=== PATIENT | female | born 1960 | race Caucasian/White ===

== ENCOUNTER 2019-07-20 20:20 | Emergency (ER) | payer OTHER, MEDICARE, SELFPAY ==
--- NOTE | ~2019-07-20 | XR_ITS ---
EXAMINATION: XR chest 2V DATE: 07/20/2019 21:18 INDICATION: Chest pain TECHNIQUE: Frontal and lateral views of the chest are obtained COMPARISON: 02/25/2018; chest CT, 10/10/2018 FINDINGS: The lungs are free of acute opacities. Chronic opacities are noted in the right middle lobe , consistent with chronic infection. A pain pump catheter ends in the central spinal canal. There is no pleural effusion or pneumothorax. The cardiomediastinal silhouette is normal. There is mild thorac ic spondylosis. IMPRESSION: 1. No acute cardiopulmonary abnormality. 2. Chronic opacities of the right middle lobe, consistent with chronic infection. Reviewed, dictated and finalized at location A. IMPRESSION: 1. No acute cardiopulmonary abnormality. 2. Chronic opacities of the right middle lobe, consistent with chronic infectio n.
--- NOTE | ~2019-07-20 | CT_ITS ---
EXAMINATION: CTA chest abdomen pelvis DATE: 07/21/2019 10:36 CDT INDICATION: Chest and upper back pain TECHNIQUE: Computed tomographic angiography (CTA) of the chest, abdomen, and pelvis was performed wit h 100 mL Omnipaque-350 intravenous contrast. The dose-length product was 306.35 mGy-cm. Maximum inten sity projection 3D-reconstructions of the aorta and other arteries were constructed by the [facility] on a separate workstation. Automated exposure control and iterative reconstruction technique were employed. COMPARISON: CT dated 10/10/2018 FINDINGS: CHEST CTA: Heart size is normal. No evidence for aortic aneurysm or dissection. No significant pleural or perica rdial effusion. No thoracic lymphadenopathy. No evidence for pulmonary embolism. There are patchy are as of airspace consolidation throughout both lungs with areas of tree-in-bud configuration. Findings advanced since prior examination. There is mild bronchiectasis and airway thickening predominantly af fecting the lingula and middle lobe. ABDOMEN AND PELVIS CTA: Status post cholecystectomy with pneumobilia. The spleen, pancreas, adrenal glands and kidneys are un remarkable. No free air or free fluid. No evidence for aortic aneurysm or dissection. Major branches of the thoracic and abdominal aorta are patent. Status post hysterectomy. There is an implanted spina l pain pump. Mild thoracic and lumbar spondylosis. IMPRESSION: 1. No evidence for pulmonary embolism. No significant vascular abnormality. 2: Interval progression of patchy airspace disease predominantly affecting the lingula and right midd le lobe with areas of bronchiectasis and bronchial wall thickening. Findings suspicious for atypical infection. Reviewed, dictated and finalized at location A. IMPRESSION: 1. No evidence for pulmonary embolism. No significant vascular abnormality. 2: Interval progression of patchy airspace disease predominantly affecting the lingula and right middle lobe with areas of bronchiectasis and bronchial wall t hickening. Findings suspicious for atypical infection.
--- NOTE | 2019-07-20 20:43 | ECG_ITS ---
Measurements Intervals [place] Rate: 82 P: 76 TX: 189 QRS: 69 QRSD: 86 T: 62 QT: 380 QTc: 445 Interpretive Statements SINUS RHYTHM INCOMPLETE RIGHT BUNDLE BRANCH BLOCK BASELINE ARTIFACT- I, II, III, AVR, AVL, AVF, V1-V6 BORDERLINE ECG Electronically Signed On 07-21-2019 8:06:00 CDT by Vernon Rosales D.O.
[2019-07-20 20:45] VITALS: BP 123/74; PULSE 81; RESP 20; TEMP 36.9; O2SAT 100
--- NOTE | 2019-07-20 20:45 | ED.CHESTPAIN ---
HPI - Chest Pain General Chief Complaint: Chest Pain Stated Complaint: chest pains,sob Time Seen by Provider: 07/20/19 20:22 History of Present Illness HPI narrative: Amanda is a 59-year-old woman a past medical history of bronchiectasis, MAC, chronic headaches, and chronic pain that presented to the emergency department chest pain. She has chest pain that is at the inferior portion of her sternum and shoots to her back. it has been getting progressively worse throughout the week. It is worse when she takes a deep breath. It was mildly better with an albuterol nebulizer treatment. It was also mildly help with her home morphine. She denies any syncope / near syncope, nausea, vomiting diarrhea, and diaphoresis. Related Data Home Medications Medication Instructions Recorded Confirmed albuterol sulfate 2.5 mg INHALATION Q4-5H PRN 07/20/19 07/20/19 alprazolam 0.5 mg PO BID PRN 07/20/19 07/20/19 hydrocodone-acetaminophen [[place]] 1 tablet PO Q4H PRN 07/20/19 07/20/19 lacosamide [Vimpat] 100 mg PO BID 07/20/19 07/20/19 morphine concentrate 10 mg PO Q4H 07/20/19 07/20/19 propranolol 60 mg PO DAILY 07/20/19 07/20/19 topiramate 400 mg PO BID 07/20/19 07/20/19 trazodone 100 mg PO HS 07/20/19 07/20/19 zolmitriptan 5 mg PO DAILY 07/20/19 07/20/19 Allergies Allergy/AdvReac Type Severity Reaction Status Date / Time celecoxib Allergy Unknown Verified 07/21/17 08:07 paroxetine Allergy Unknown Verified 07/21/17 08:07 Review of Systems Constitutional: Constitutional: Reports no additional constitutional complaints Eyes: Eyes: Reports no additional eye complaints ENT: Reports system reviewed and no additional complaints, except as documented Cardiovascular: Cardiovascular: Reports no additional cardiovascular complaints Respiratory: Respiratory: Reports no additional respiratory complaints Gastrointestinal: Gastrointestinal: Reports no additional gastrointestinal complaints Genitourinary: Genitourinary: Reports no additional female genitourinary complaints Musculoskeletal: Musculoskeletal: Reports no additional musculoskeletal complaints Integumentary/Breasts: Skin/Breast: Reports system reviewed and no additional complaints, except as docu Neurologic: Reports system reviewed and no additional complaints, except as documented Psychiatric: Psychiatric: Reports no additional psychiatric complaints Endocrine: Endocrine: Reports no additional endocrine complaints Hematologic/Lymphatic: Hematologic/Lymphatic: Reports no additional hematologic/lymphatic complaints [facility] Family History Family History Mother Family history of glaucoma Family history of malignant neoplasm of esophagus, Onset Age: 73 Father Family history of emphysema Diabetes mellitus Sibling Hypertension Social History Social History Smoking status: Never smoker Exam Const: General: cooperative Other: mild distress, but occasionally start crying HENMT: Other: normocephalic, atraumatic Eyes: General: appearance normal, both eyes and all related structures Pupils: Equal, round and reactive pupils present Neck: Neck: normal visual inspection and full ROM Chest: Chest palpation & inspection: normal inspection of the chest and other (TTP over the sternum and right upper back) Resp: Other: diffuse wheezing with prolonged expiratory phase, moderate cough present during exam Cardio: Other: Regular rate and rhythm without murmur, no lower extremity edema GI: Other: bowel sounds present throughout, tenderness in the epigastric region, no rebound tenderness : Other: no CVA tenderness Back/Spine/Pelvis: Other: spine not tender to palpation Skin: General skin exam: normal color and no rashes or lesions noted Neuro: General: oriented to person, oriented to place, oriented to time, patient oriented x3, gait norm
[2019-07-20] MEDS: MORPHINE SULFATE 4 MG/ML INJ IV PUSH (21:00)
[2019-07-20 21:04] LABS: Basophils Absolute Auto 0.08 K/mm3 (0.00-0.10); Basophils Percent Auto 1.2 % (0.0-1.0); Eosinophils Absolute Auto 0.37 K/mm3 (0.02-0.50); Eosinophils Percent Auto 5.3 % (1.0-6.0); Hematocrit 37.7 % (35.0-49.0); Hemoglobin 12.3 g/dL (12.0-15.0); Immature Granulocyte Absolute 0.02 K/mm3 (0.00-0.00); Immature Granulocyte Percent A 0.3 % (0.0-0.0); Lymphocytes Percent Auto 21.7 % (18.0-42.0); Mean Corpuscular HGB Conc 32.6 g/dL (32.0-36.0); Mean Corpuscular Hemoglobin 31.3 pg (27.0-31.0); Mean Corpuscular Volume 95.9 fL (78.0-102.0); Mean Platelet Volume 9.6 fl (9.2-11.8); Monocytes Absolute Auto 0.68 K/mm3 (0.10-0.90); Monocytes Percent Auto 9.8 % (2.0-11.0); Neutrophils Absolute Auto 4.3 K/mm3 (1.7-7.2); Neutrophils Percent Auto 61.7 % (50.0-70.0); Platelet Count Result 340 K/mm3 (150-420); Red Blood Count 3.93 M/mm3 (4.20-5.40); Red Cell Distribution Width 12.2 % (11.6-14.4); White Blood Count 6.9 K/mm3 (4.8-10.8)
[2019-07-20 21:15] LABS: Prothrombin Time 10.1 Seconds (9.64-11.0)
[2019-07-20 21:20] LABS: Alanine Aminotransferase 26 U/L (14-59); Albumin Level 3.8 g/dL (3.4-5.0); Alkaline Phosphatase 154 U/L (46-116); Anion Gap 14.1 mmol/L (7-16); Aspartate Amino Transferase 18 U/L (15-37); Bilirubin,Total 0.2 mg/dL (0.00-1.00); Blood Urea Nitrogen 16 mg/dL (7-18); Calcium 8.6 mg/dL (8.5-10.1); Carbon Dioxide 26 mmol/L (21-32); Chloride 107 mmol/L (98-108); Estimated Glomerular Filt Rate 56; Glucose 118 mg/dL (70-99); Osmolality Calculated 298 mOsm/kg (285-295); Potassium 4.1 mmol/L (3.5-5.1); Sodium 143 mmol/L (136-145); Total Protein 7.1 g/dL (6.4-8.2)
[2019-07-20 21:21] LABS: Lipase 219 U/L (73-393); Troponin I < 0.02 ng/mL (0.00-0.056)
[2019-07-20 21:22] LABS: BNP 86.3 pg/mL (0-100)
[2019-07-20 21:35] VITALS: BP 125/65; PULSE 71; O2SAT 100
[2019-07-20 22:51] VITALS: BP 115/64; PULSE 71; O2SAT 94
== END 2019-07-20 22:58 | disposition home or self-care (01) ==
PROVIDERS: Emergency Provider Family Medicine; PCP Family Medicine
DX: R07.81 Pleurodynia (principal); R06.2 Wheezing
CPT/HCPCS: 36415; 71046; 71275; 74174; 80053; 83690; 83880; 84484; 85025; 85610; 93005; 96374; 99284; J2270; Q9965

== ENCOUNTER 2019-08-21 12:46 | Outpatient (CLI) | payer OTHER, MEDICARE, SELFPAY ==
--- NOTE | ~2019-08-21 | MM_ITS ---
EXAMINATION: MM screening salas BI w pratima HISTORY: Screening mammogram TECHNIQUE: Craniocaudal and mediolateral oblique 3-D tomosynthesis images were obtained and synthetic 2-D images were generated. CAD analysis was submitted and interpreted. COMPARISON: 05/14/2018 bilateral digital screening mammogram 04/27/2017 bilateral diagnostic digital mammogram, left Limited breast ultrasound 10/11/2016 diagnostic left digital mammogram, left Limited breast ultrasound 04/06/2016 right screening and left diagnostic digital mammogram examination, left complete breast ult rasound BREAST PARENCHYMAL COMPOSITION: There are scattered areas of fibroglandular density. FINDINGS: There is no evidence of suspicious mass, calcification, or architectural distortion to sugg est malignancy in either breast. There has been no suspicious interval change. IMPRESSION: 1. No mammographic evidence of malignancy. 2. Recommend routine screening mammography in one year. BI-RADS Category 1: Negative Reviewed, dictated and finalized at location A.
== END 2019-08-21 12:47 | disposition home or self-care (01) ==
PROVIDERS: PCP Family Medicine; Visit Provider Family Medicine
DX: Z12.31 Encounter for screening mammogram for malignant neoplasm of breast (principal)
CPT/HCPCS: 77063; 77067

== ENCOUNTER 2019-10-21 13:38 | Outpatient (CLI) | payer OTHER, MEDICARE, SELFPAY ==
--- NOTE | ~2019-10-21 | XR_ITS ---
EXAMINATION: XR chest 2V EXAM DATE: 10/21/2019 13:56 INDICATION: Bronchitis, shortness of breath. TECHNIQUE: Frontal and lateral projections of the chest obtained and reviewed. Comparison is made to prior examination from 07/20/2019. FINDINGS: Some scattered right upper lobe reticulonodular opacities unchanged likely postinfectious. Moderate chronic appearing hyperinflation. The lungs are otherwise clear. There are no pleural effu sions. The cardiomediastinal silhouette is within normal limits. There is no pneumothorax suspected . Pain pump device. Bones are unremarkable. IMPRESSION: 1. No acute cardiopulmonary findings. 2. Hyperinflation. Reviewed, dictated and finalized at location B.
== END 2019-10-21 13:39 | disposition home or self-care (01) ==
LOC: CHSLAB 13:44 → CHSIMG 13:44
PROVIDERS: PCP Family Medicine; Visit Provider Internal Medicine Pulmonary Disease
DX: J47.9 Bronchiectasis, uncomplicated (principal)
CPT/HCPCS: 71046

== ENCOUNTER 2019-10-31 16:48 | Outpatient (CLI) | payer OTHER, MEDICARE, SELFPAY ==
[2019-11-04 22:46] LABS: Lamotrigine Lamictal 6.1 mcg/mL (4.0-18.0)
== END 2019-10-31 16:49 | disposition home or self-care (01) ==
PROVIDERS: PCP Family Medicine
DX: G40.209 Localization-related (focal) (partial) symptomatic epilepsy and epileptic syndromes with complex partial seizures, not intractable, without status epilepticus (principal)
CPT/HCPCS: 36415; 80175

== ENCOUNTER 2019-12-16 16:38 | Outpatient (CLI) | payer OTHER, MEDICARE, SELFPAY ==
--- NOTE | ~2019-12-16 | XR_ITS ---
EXAMINATION: XR shoulder LT min 2V, XR humerus LT DATE: 12/16/2019 17:01 INDICATION: Left shoulder pain near the axilla TECHNIQUE: 1. AP internally and externally rotated, AP oblique externally rotated and transscapular Y views of t he left shoulder were obtained. 2. AP and lateral views of the left humerus were obtained. COMPARISON: None FINDINGS: Normal alignment at the left shoulder and elbow. No fracture.Mild to moderate acromioclavicular oste oarthritis. Normal joint space at the left glenohumeral and elbow joints. Soft tissues are unremarkab le. Visualized portions of the lungs are clear. 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 Reviewed, dictated and finalized at location A. 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
== END 2019-12-16 16:39 | disposition home or self-care (01) ==
LOC: CHSIMG 16:41
PROVIDERS: PCP Family Medicine; Visit Provider Family Medicine
DX: M25.512 Pain in left shoulder (principal); M79.622 Pain in left upper arm
CPT/HCPCS: 73030; 73060

== ENCOUNTER → 2021-01-26 08:28 | Outpatient (CLI) | payer OTHER, MEDICARE, SELFPAY ==
--- NOTE | ~2021-01-26 | CT_ITS ---
EXAMINATION: CT diagnostic chest wo con EXAM DATE: 01/26/2021 08:43 INDICATION: Dyspnea, hemoptysis. Mycobacterial mildly complex. Shortness of breath and cough. TECHNIQUE: Spiral CT of the chest without contrast. Axial, coronal and sagittal images of the chest were reviewed. Coronal maximum intensity pixel images of chest reviewed. The dose-length product ( DLP) for this examination was 129.07 mGy-cm. The exposure was tailored according to patient size (au to mA exposure control), and iterative reconstruction (ASIR) was used as additional dose reduction te chnique. Comparison is made to prior examination from 07/20/2019. FINDINGS: Again there are scattered bilateral regions of tree-in-bud pattern reticular nodular airsp dean disease, pattern suggests endobronchial spread of chronic infectious process. Again there is righ t middle lobe bronchiectasis with mucus plugging. Compared to prior study there has been improvement in some of these regions in the left lung, and mild progression of a region in the right upper lobe. There is mild emphysema and moderate hyperinflation. There are no pleural or pericardial effusions. Tracheobronchial tree is patent. There is no mediastinal, hilar or axillary lymphadenopathy. The re is no pneumothorax. Heart normal in size. No evidence of coronary arterial calcification. Pne umobilia. No osteoblastic or osteolytic lesions identified. Pain pump tip at mid thoracic level. IMPRESSION: 1. Waxing and waning of scattered tree-in-bud pattern airspace disease likely chronic infectious pro cess. 2. Emphysema, hyperinflation, bronchiectasis. Reviewed, dictated and finalized at location A. IMPRESSION: 1. Waxing and waning of scattered tree-in-bud pattern airspace disease likely chronic infectious process. 2. Emphysema, hyperinflation, bronchiectasis.
== END ==
PROVIDERS: Visit Provider Internal Medicine Pulmonary Disease
DX: R06.00 Dyspnea, unspecified (principal); J43.9 Emphysema, unspecified; J47.9 Bronchiectasis, uncomplicated; R91.8 Other nonspecific abnormal finding of lung field
CPT/HCPCS: 71250

== ENCOUNTER 2021-03-26 10:32 | Outpatient (CLI) | payer OTHER, MEDICARE, SELFPAY ==
--- NOTE | ~2021-03-26 | XR_ITS ---
[XR ribs LT 2V w CXR 2V ] INDICATION: Cough and chest pain TECHNIQUE: Frontal projection of the upper left ribs, frontal projection of the lower left ribs, obli que projection of all the left ribs, frontal inspiratory chest x-ray for interpretation. FINDINGS: There are no displaced rib fractures identified. There are no soft tissue abnormality see n. There is chronic apical scarring. Heart size normal. The lungs are hyperinflated which is consiste nt with, but not diagnostic of chronic obstructive pulmonary disease. IMPRESSION: 1:No acute displaced rib fractures. Reviewed, dictated and finalized at location A. PLUMBER
[2021-03-26 11:59] LABS: Influenza A QL RT-PCR Negative (Negative); Influenza B QL RT-PCR Negative (Negative); SARS-CoV-2 RNA PCR Negative (Negative)
== END 2021-03-26 10:33 | disposition home or self-care (01) ==
PROVIDERS: PCP Family Medicine; Visit Provider Family Medicine
DX: R05.9 Cough, unspecified (principal); R07.89 Other chest pain; Z20.822 Contact with and (suspected) exposure to COVID-19
CPT/HCPCS: 71046; 71100; 87502; C9803; U0003; U0005

== ENCOUNTER 2021-04-25 07:36 | Emergency (ER) | payer OTHER, MEDICARE, SELFPAY ==
--- NOTE | ~2021-04-25 | CT_ITS ---
EXAMINATION: CT diagnostic chest wo con DATE: 04/25/2021 09:00 INDICATION: Fall 3 days ago. Posterior left chest/back pain, shoulder pain. Mid and posterior neck pa in. Headache. TECHNIQUE: Computed tomography (CT) of the chest was performed without intravenous contrast. Automate d exposure control and iterative reconstruction technique were employed. Exam dose: 159.00 mGy-cm to tonia exam DLP. COMPARISON: 03/26/2021 PA and lateral chest with left RIBS 01/26/2021 CT chest 07/20/2019 CTA chest FINDINGS: Chronic bilateral posterior apical scarring, stable since 01/26/2021 and 07/20/2019. There are scattered bilateral upper lobe, middle lobe and bilateral lower lobe tree-in-bud infiltrate s. There is bronchiectasis and some opacified bronchi again noted in the middle lobe. Chronic waxing and waning bilateral tree-in-bud infiltrates are noted in the back to 07/20/2019, consistent with like ly chronic infectious process. Moderate hyperinflation, mild emphysema. Normal heart size. No pericardial or pleural effusion. No hilar or mediastinal mass lesion or lymphad enopathy. No thoracic aortic aneurysm. Normal morphology of the adrenal glands. Bilateral fat-containing foramen of Bochdalek hernias. Status post cholecystectomy. Pain pump in the left lateral abdomen with catheter in lower thoracic spinal canal. Anterolateral recent left second rib fracture.. IMPRESSION: Chronic scattered waxing and waning tree-in-bud infiltrates likely due to chronic infect ious process Emphysema Recent anterolateral left second rib fracture Reviewed, dictated and finalized at Location A. Reviewed, dictated and finalized at location A. AL ACCOUNTING CLERK IMPRESSION: Chronic scattered waxing and waning tree-in-bud infiltrates likely due to chronic infectious process Emphysema Recent anterolateral left second rib fracture
--- NOTE | ~2021-04-25 | CT_ITS ---
EXAMINATION: CT brain wo con DATE: 04/25/2021 09:00 INDICATION: Fall, head injury. Headache, severe nausea. TECHNIQUE: Computed tomography (CT) of the head was performed without intravenous contrast. The mA wa s adjusted according to patient size. Iterative reconstruction technique was employed. Exam dose: 68 1.00 mGy-cm total exam DLP. COMPARISON: None FINDINGS: No intracranial mass lesion or hemorrhage or cerebrovascular accident. No midline shift or mass effect effect. Normal ventricular size. No subdural or epidural hematoma. There are are carotid siphon internal carotid artery calcifications. Minimal right mastoid air cell effusion. The paranasal sinuses and mastoid air cells are otherwise un remarkable. No fracture or bone destruction of the cranial vault. IMPRESSION: No skull fracture or acute intracranial finding Cerebral atherosclerosis Reviewed, dictated and finalized at Location A. Reviewed, dictated and finalized at location A. SCHOOL ART TEACHER
--- NOTE | ~2021-04-25 | CT_ITS ---
EXAMINATION: CT cervical spine wo con DATE: 04/25/2021 09:00 INDICATION: Fall. Neck pain. TECHNIQUE: Computed tomography (CT) of the cervical spine was performed without intravenous contrast. Automated exposure control and iterative reconstruction technique were employed. Exam dose: 110.03 mGy-cm total exam DLP. COMPARISON: None FINDINGS: C1 and C2 are normally aligned and the odontoid process is intact. There is fusion at the apophyseal joints on the right at C2-3 and on the left at C3-4. There is degen erative change at the remaining apophyseal joints, especially severe on the left at C4-5. There is minimal anterolisthesis at C4-5. There is moderate degenerative disc disease at C5-6 and mild degenerative disc disease at C3-4 and C4 -5. No fracture or dislocation or locked facet or prevertebral soft tissue swelling. Bilateral apical pulmonary scarring. IMPRESSION: No fracture or dislocation Cervical spondylosis Reviewed, dictated and finalized at Location A. Reviewed, dictated and finalized at location A. ORK CABLER
[2021-04-25 07:59] VITALS: BP 121/76; PULSE 76; RESP 20; TEMP 36.3; O2SAT 98
--- NOTE | 2021-04-25 08:25 | ED.FALL ---
HPI - Fall General Chief Complaint: Fall Stated Complaint: pain in L of back and neck, L shoulder after fall Time Seen by Provider: 04/25/21 08:25 Source: patient Mode of arrival: ambulatory Limitations: no limitations History of Present Illness HPI Narrative: 60-year-old woman with a history of seizures comes in today complaining of left shoulder, neck, chest and back pain that started day before yesterday when she tripped over rug and ran into a door. Patient states that she has had severe nausea. She states that she fell to the ground but does not think she lost consciousness. She states that she has had no vomiting, difficulty speaking, visual changes, difficulty walking, or weakness. She does not take blood thinners. She denies chest pain, shortness of breath, palpitations, weakness or dizziness prior to the fall. MD complaint: fall Onset (ago): day(s) (2) Fall from: standing Fall witnessed: no Place fall occurred: home Loss of consciousness: none Prolonged down time: no Symptoms prior to fall: none Context: tripped/slipped Location of injury: head, chest and back Quality: sharp and aching Associated symptoms (after fall): headache, neck pain, chest pain and other (nausea) Related Data Home Medications Medication Instructions Recorded Confirmed alprazolam 0.5 mg PO BID PRN 07/20/19 04/25/21 hydrocodone-acetaminophen [[place]] 1 tablet PO Q4H PRN 07/20/19 04/25/21 lacosamide [Vimpat] 100 mg PO BID 07/20/19 04/25/21 morphine concentrate 10 mg PO Q4H 07/20/19 04/25/21 propranolol 60 mg PO DAILY 07/20/19 04/25/21 topiramate 400 mg PO BID 07/20/19 04/25/21 trazodone 150 mg PO HS 07/20/19 04/25/21 azithromycin 250 mg PO DAILY 04/25/21 04/25/21 bimatoprost [[place]] 1 drp EACH EYE HS 04/25/21 04/25/21 cyclosporine [Restasis] 1 drp EACH EYE BID 04/25/21 04/25/21 fluconazole See Rx Instructions .ROUTE .COMPLEX 04/25/21 04/25/21 latanoprost 1 drp EACH EYE DAILY 04/25/21 04/25/21 naloxone [Narcan] See Rx Instructions .ROUTE .COMPLEX 04/25/21 04/25/21 Allergies Allergy/AdvReac Type Severity Reaction Status Date / Time celecoxib Allergy Unknown Unknown Verified 04/25/21 08:10 paroxetine Allergy Unknown Unknown Verified 04/25/21 08:10 Review of Systems Review of Systems: All systems reviewed & are unremarkable except as noted in HPI and below Constitutional: Constitutional: Denies chills and Denies fever(s) Eyes: Eyes: Denies change in vision and Denies photophobia ENT: Denies nasal congestion and Denies sore throat Cardiovascular: Cardiovascular: Denies chest pain and Denies radiating jaw, neck or arm pain Respiratory: Respiratory: Denies cough, Denies dyspnea and Denies wheezing Gastrointestinal: Gastrointestinal: Denies abdominal pain, Denies diarrhea, Reports nausea and Denies vomiting Genitourinary: Genitourinary: Denies nocturia and Denies dysuria Musculoskeletal: Musculoskeletal: Denies back pain, Denies arthralgias and Denies joint swelling Integumentary/Breasts: Skin/Breast: Denies pruritus, Denies erythema and Denies rash Neurologic: Denies vertigo, Denies dizziness, Denies syncope, Reports headache(s), Denies focal weakness and Denies numbness Endocrine: Endocrine: Denies polydipsia and Denies polyuria Hematologic/Lymphatic: Hematologic/Lymphatic: Denies easy bleeding and Denies easy bruising Allergic/Immunologic: Allergic/Immunologic: Denies lip swelling and Denies throat swelling [facility] Past Medical History Medical History (Updated 04/25/21 @ 09:55 by Milo Gr MD) Bronchiectasis Chronic headaches Chronic pain Mycobacterium avium complex Surgical History Surgical History (Updated 04/25/21 @ 08:32 by Milo Gr MD) History of hysterectomy Hx of appendectomy Hx of cholecystectomy Family History Family History Mother Family history of glaucoma Family history of malignant neoplasm of esophagus, Onset Age:
[2021-04-25 10:21] VITALS: BP 114/79; PULSE 68; RESP 20; TEMP 36.7; O2SAT 99
== END 2021-04-25 10:28 | disposition home or self-care (01) ==
PROVIDERS: Emergency Provider Emergency Medicine; PCP Family Medicine
DX: S09.90XA Unspecified injury of head, initial encounter (principal); S22.32XA Fracture of one rib, left side, initial encounter for closed fracture; W19.XXXA Unspecified fall, initial encounter
CPT/HCPCS: 70450; 71250; 72125; 99282; 99284

== ENCOUNTER → 2021-09-23 12:58 | Outpatient (CLI) | payer OTHER, MEDICARE, SELFPAY ==
--- NOTE | ~2021-09-23 | MM_ITS ---
EXAMINATION: MM screening [place] BI w pratima HISTORY: Screening mammogram TECHNIQUE: Craniocaudal and mediolateral oblique 3-D tomosynthesis images were obtained and synthetic 2-D images were generated. CAD analysis was submitted and interpreted. COMPARISON: 08/21/2019, 05/14/2018 bilateral screening mammogram examinations BREAST PARENCHYMAL COMPOSITION: There are scattered areas of fibroglandular density. FINDINGS: There is no evidence of suspicious mass, calcification, or architectural distortion to sugg est malignancy in either breast. There has been no suspicious interval change. IMPRESSION: 1. No mammographic evidence of malignancy. 2. Recommend routine screening mammography in one year. BI-RADS Category 1: Negative Reviewed, dictated and finalized at location A.
== END ==
PROVIDERS: PCP Family Medicine; Visit Provider Family Medicine
DX: Z12.31 Encounter for screening mammogram for malignant neoplasm of breast (principal)
CPT/HCPCS: 77063; 77067

== ENCOUNTER → 2022-01-28 13:08 | Outpatient (CLI) | payer OTHER, MEDICARE, SELFPAY ==
--- NOTE | ~2022-01-28 | DEXA_ITS ---
Bone Density Report Name: ASAD ROJO Age: 61 Sex: Female Ethnicity: White Date of : 1960 Indication: postmenopausal; screening for osteoporosis; height loss; prior fracture; seizure disorder; hysterectomy; Referring Provider: VINNIE LERMA Study: Bone densitometry was performed. Exam Date: January 28, 2022 Accession number: [id number] Bone Density: Region BMD T-score Z-score Classification AP Spine (L1-L4) 0.856 -1.7 -0.3 Osteopenia Femoral Neck (Left) 0.554 -2.7 -1.4 Osteoporosis Total Hip (Left) 0.705 -1.9 -1.0 Osteopenia Femoral Neck (Right) 0.531 -2.9 -1.6 Osteoporosis Total Hip (Right) 0.706 -1.9 -1.0 Osteopenia Total Hip Mean 0.706 -1.9 -1.0 Osteopenia World Health Organization criteria for BMD impression classify patients as: Normal (T-score at or above -1.0), Osteopenia (T-score between -1.0 and -2.5), or Osteoporosis (T-score at or below -2.5). 10-year Fracture Risk: FRAX not reported because: Some T-score for Spine Total or Hip Total or Femoral Neck at or below -2.5 Clinical Information Provided by Patient: Has had a low trauma fracture Has used the following medications: Vitamin D Has the following medical conditions: Any Seizure Disorders, Hysterectomy Patient maximum height was 64 Menopause Age: 32 No regular weight bearing exercise Drinks caffeinated beverages Onset of menses at age 13 Number of children 2 Impression: The patient has established osteoporosis, based on the Right Femoral Neck T-score and the existence of a prior fracture. The patient has risk factors, including: previous fracture. Discussion: HIGH RISK OF FRACTURE. BONE DENSITY IS UNDESIRABLY LOW AT ONE OR MORE SKELETAL SITES, CONSISTENT WITH POSTMENOPAUSAL OSTEOPOROSIS. This patient's lowest T-score, in a patient who has previously fractured, meets the World Health Organization's (WHO) criteria for severe osteoporosis. In untreated patients, the risk of osteoporotic fracture increases approximately two-fold for each 1.0 SD decrease in T-score. Low bone density is not the only risk factor for fracture; also consider factors such as patient's age, frailty or poor health, risk of falling, risk of injury, previous osteoporotic fracture, family history of osteoporosis, cigarette smoking, low body weight, etc. Not everyone with low bone mineral density has osteoporosis; osteomalacia and other metabolic bone disorders should also be considered. Patients who have osteoporosis should be evaluated for specific diseases and conditions (secondary causes) that may cause or contribute to bone loss. The [place] [employer] Clinical Endocrinologists (AACE) and National Osteoporosis Foundation (NOF) recommend pharmacologic intervention for all postmenopausal women whose T-score is in this range. The patient should follow a healt
== END ==
PROVIDERS: PCP Family Medicine; Visit Provider Family Medicine
DX: M85.89 Other specified disorders of bone density and structure, multiple sites (principal); M81.0 Age-related osteoporosis without current pathological fracture
CPT/HCPCS: 77080

== ENCOUNTER 2022-05-16 09:40 | Outpatient (CLI) | payer BC, MEDICARE, SELFPAY | END 2022-05-16 09:41 | disposition home or self-care (01) | LOC: ANHAUDIO 09:42 | PROVIDERS: PCP Family Medicine; Visit Provider Otolaryngology | DX: H93.13 Tinnitus, bilateral (principal) | CPT/HCPCS: 92557; 92567 ==

== ENCOUNTER → 2022-07-11 10:53 | Outpatient (CLI) | payer BC, MEDICARE, SELFPAY ==
--- NOTE | ~2022-07-11 | CT_ITS ---
Non-contrast Head CT History: Headache COMPARISON: 04/25/2021 Technique: Axial non-contrast imaging of the brain was performed. Dose reduction technique was used on this scan by utilizing automated exposure control and iterative reconstruction technique. The dose -length product (DLP) was 599.57 mGy-cm. Findings: There is no evidence of intracranial hemorrhage, mass lesion, or acute infarct. Brain par enchyma appears normal. The ventricles and subarachnoid spaces are normal in size. The calvarium ap pears normal. The visualized paranasal sinuses and mastoid air cells are clear. Impression: No significant abnormality seen. Reviewed, dictated and finalized at location . Impression: No significant abnormality seen.
== END ==
PROVIDERS: PCP Family Medicine; Visit Provider Family Medicine
DX: R51.9 Headache, unspecified (principal)
CPT/HCPCS: 70450

== ENCOUNTER 2023-01-13 14:37 | Outpatient (CLI) | payer BC, MEDICARE, SELFPAY ==
--- NOTE | ~2023-01-13 | XR_ITS ---
EXAMINATION: XR thoracic spine 3V DATE: 01/13/2023 15:11 INDICATION: Thoracic back pain TECHNIQUE: AP, lateral and lateral swimmer's views of the thoracic spine were obtained. COMPARISON: 01/11/2018 FINDINGS: Bone alignment is normal. There is no fracture. There is moderate loss of intervertebral di sc space height at multiple levels in the thoracic spine. The vertebral body heights are maintained. Small degenerative osteophytes project from the anterior endplates of multiple vertebral bodies. Cath eter tubing projects in the central spinal canal. And at the T9-10 disc space. IMPRESSION: 1. Moderate thoracic spondylosis without acute findings. Reviewed, dictated and finalized at location F.
--- NOTE | ~2023-01-13 | XR_ITS ---
EXAMINATION: [id number] INDICATION: Bilateral rib pain TECHNIQUE: A frontal view of the chest and 3 views of the bilateral ribs were obtained. COMPARISON: 10/21/2019; CT, 04/25/2021 FINDINGS: The lungs are free of acute opacities. No pleural effusion or pneumothorax. A left lower lo be nodule appears stable when compared to the prior CT. The cardiomediastinal silhouette is normal. N o displaced rib fracture is identified. IMPRESSION: 1. No acute cardiopulmonary abnormality or evidence of displaced rib fracture. Reviewed, dictated and finalized at location F.
== END 2023-01-13 14:38 | disposition home or self-care (01) ==
PROVIDERS: PCP Family Medicine; Visit Provider Family Medicine
DX: R11.0 Nausea (principal); R07.89 Other chest pain; M43.04 Spondylolysis, thoracic region
CPT/HCPCS: 71111; 72072

== ENCOUNTER 2023-03-13 07:13 | Outpatient (CLI) | payer BC, MEDICARE, SELFPAY ==
--- NOTE | ~2023-03-13 | NM_ITS ---
EXAM: NM gastric emptying study DATE: 03/13/2023 14:29 INDICATION: Nausea TECHNIQUE: A gastric emptying study was performed using the methodology of Laquita DIEGO, et al. J Nucl Med 2007; 48:568-572. The patient was given a meal consisting of 2 scrambled eggs labeled with 0.98 mCi Tc-99m sulfur colloid, 2 slices of toast, two packages of jam, and approximately 120 mL of water. Simultaneous anterior and posterior 1-min images of the abdomen were obtained with the patient supin e at multiple time points over a total period of 4 hours. The geometric mean of anterior and posterio r views was determined, and the percentage retention was calculated for each time point. COMPARISON: None. FINDINGS: Gastric retention of the radiotracer-labeled meal was 64%, 20%, and 8% at the 1-hour, 2-hour, and 4-h our time points, respectively. With this technique, apparent rapid gastric emptying is suggested by < 30% gastric retention at 1 hour. Delayed gastric emptying is defined by gastric retention of >90% at 1 hour, >60% retention at 2 hours, or >10% retention at 4 hours. IMPRESSION: 1. Normal gastric emptying. Reviewed, dictated and finalized at location A. ET INSTALLER IMPRESSION: 1. Normal gastric emptying.
== END 2023-03-13 07:14 | disposition home or self-care (01) ==
LOC: CHSIMG 07:15
PROVIDERS: PCP Family Medicine; Visit Provider Family Medicine
DX: R11.0 Nausea (principal); R07.89 Other chest pain
CPT/HCPCS: 78264; A9541

== ENCOUNTER 2023-06-03 16:16 | Emergency (ER) | payer BC, MEDICARE, SELFPAY ==
--- NOTE | ~2023-06-03 | CT_ITS ---
EXAMINATION: CTA chest PE protocol DATE: 06/03/2023 19:45 INDICATION: PE TECHNIQUE: Computed tomography angiography (CTA) of the chest was performed with 100 mL Omnipaque-350 intravenous contrast timed to evaluate the pulmonary arteries. Coronal maximum intensity projection 3D-reconstructions were created by the technologist. The dose-length product (DLP) was 171.54 mGy-cm. Automated exposure control and iterative reconstruction technique were employed. COMPARISON: X-ray chest same date; CT chest 04/25/2021. FINDINGS: Lung parenchyma and airways: Biapical pleural scarring. Scattered areas of tree-in-bud and centrilobu lar nodular opacities, accompanied by bronchiectasis, with bronchial debris, overall severity is wors e than the prior study. Pleura: Unremarkable. Thoracic inlet, axillae and chest wall: Medication catheter terminating over the lower thoracic canal .. Thoracic aorta: Normal. Mediastinum: Normal. Heart and pericardium: Normal. Coronary artery calcifications: Absent. Upper abdomen: Status post cholecystectomy. Bones: No acute osseous finding. Pulmonary arteries: Study quality: Adequate. No pulmonary emboli detected. IMPRESSION: No CT evidence of acute pulmonary embolus. Pulmonary opacities consistent with worsening chronic atypical infection. Reviewed, dictated and finalized at location K. RER TANBARK
--- NOTE | ~2023-06-03 | XR_ITS ---
EXAMINATION: XR chest 2V Exam Date/Time: 06/03/2023 16:40 LOGISTICS ANALYTICS MANAGER HISTORY: PAIN ON INSPIRATION Comparison: 03/26/2021 x-ray and CT chest. RESULT: Lines, tubes, and devices: Cholecystectomy clips. Lungs and pleura: Emphysematous change. Diffuse reticulonodular opacities. Cardiomediastinal silhouette: Stable. Other: No acute osseous or upper abdominal finding. IMPRESSION: Emphysema. Pulmonary opacities may represent respiratory bronchiolitis in the appropriate clinical co ntext. Reviewed, dictated and finalized at location K. STICS ANALYTICS MANAGER IMPRESSION: Emphysema. Pulmonary opacities may represent respiratory bronchiolitis in the a ppropriate clinical context.
[2023-06-03 16:19] VITALS: BP 148/71; PULSE 72; RESP 16; TEMP 36.8; O2SAT 100
--- NOTE | 2023-06-03 16:22 | ECG_ITS ---
Measurements Intervals [place] Rate: 71 P: 81 [place]: 194 QRS: 66 QRSD: 84 T: 69 QT: 395 QTc: 431 Interpretive Statements SINUS RHYTHM Electronically Signed On 06-04-2023 11:34:18 PLANNER SCHEDULER by Lee Ellis M.D.
[2023-06-03 16:41] LABS: Basophils Absolute Auto 0.1 K/mm3 (0.0-0.1); Eosinophils Absolute Auto 0.4 K/mm3 (0-0.3); Eosinophils Percent Auto 5.9 % (0-4.4); Hematocrit 41.1 % (37.0-47.0); Hemoglobin 13.2 g/dL (12.0-15.0); Immature Granulocyte Absolute 0.01 K/mm3 (0.00-0.031); Immature Granulocyte Percent A 0.1 % (0-0.5); Lymphocytes Absolute Auto 2.09 K/mm3 (0.9-3.2); Lymphocytes Percent Auto 29.5 % (18.3-44.2); Mean Corpuscular HGB Conc 32.1 g/dl (32-36); Mean Corpuscular Hemoglobin 30.8 pg (26-34); Mean Corpuscular Volume 95.8 fl (80-100); Mean Platelet Volume 9.6 fl (7.4-10.4); Monocytes Absolute Auto 0.6 K/mm3 (0.1-0.6); Monocytes Percent Auto 8.6 % (2.6-8.5); Neutrophils Absolute Auto 3.9 K/mm3 (1.3-6.7); Neutrophils Percent Auto 54.9 % (45.5-73.1); Platelet Count Result 269 k/mm3 (150-375); Red Blood Count 4.29 M/mm3 (4.2-5.4); Red Cell Distribution Width 11.9 % (11.5-14.5); White Blood Count 7.1 K/mm3 (4.5-10.0)
[2023-06-03 16:55] LABS: Alanine Aminotransferase 16 U/L (6-35); Albumin Level 4.2 g/dL (3.5-5.1); Alkaline Phosphatase 98 U/L (38-126); Anion Gap 6 mmol/L (8-16); Aspartate Amino Transferase 26 U/L (14-36); Bilirubin,Total 0.3 mg/dL (0.2-1.3); Blood Urea Nitrogen 17 mg/dL (7-17); Calcium 8.9 mg/dL (8.4-10.2); Carbon Dioxide 25 mmol/L (22-30); Chloride 108 mmol/L (98-107); Estimated CRCL calculation 48 ml/min; Estimated Glomerular Filt Rate > 60; Glucose 96 mg/dL (65-110); Potassium 3.7 mmol/L (3.4-5.0); Sodium 139 mmol/L (137-145)
[2023-06-03 18:02] VITALS: BP 141/66; PULSE 63; RESP 18; O2SAT 100
--- NOTE | 2023-06-03 18:40 | ED.SOB ---
HPI - SOB/Dyspnea General Chief Complaint: Shortness of Breath/Dyspnea Stated Complaint: diff breathing Time Seen by Provider: 06/03/23 18:25 History of Present Illness HPI Narrative: Patient is a 62-year-old female with history of chronic pain, MAC, bronchiectasis here with pleuritic chest pain. She states that the pain began about 2 days ago is associated with a dry cough. Pain is worse with inspiration and limits her taking deep breaths. She denies any fever chills. No sick contacts. She follows with a vertical contour band saw operator at [place] for her bronchiectasis and MAC, is on saline nebulizers, is supposed to be following with them again shortly. She denies any nausea, diaphoresis, lightheadedness with the pain. She notes that the pain is located in her upper back, and throughout her chest. She has a morphine pain pump in place for her chronic pain, follows with a pain medicine specialist in [place]. No history of cardiac disease. No history of PE/DVT. Related Data Home Medications Medication Instructions Recorded Confirmed alprazolam 0.5 mg tablet 0.5 mg PO BID PRN Anxiety 07/20/19 04/20/22 hydrocodone 5 mg-acetaminophen 325 1 tablet PO Q4H PRN Pain 07/20/19 04/20/22 mg tablet ([place]) lacosamide 100 mg tablet (Vimpat) 100 mg PO BID 07/20/19 04/20/22 morphine concentrate 100 mg/5 mL 10 mg PO Q4H 07/20/19 04/20/22 (20 mg/mL) oral solution propranolol 60 mg capsule,24 60 mg PO DAILY 07/20/19 04/20/22 hr,extended release topiramate 200 mg tablet 400 mg PO BID 07/20/19 04/20/22 trazodone 100 mg tablet 150 mg PO HS 07/20/19 04/20/22 azithromycin 250 mg tablet 250 mg PO DAILY 04/25/21 04/20/22 bimatoprost 0.01 % eye drops 1 drp EACH EYE HS 04/25/21 04/20/22 ([place]) cyclosporine 0.05 % eye drops in a 1 drp EACH EYE BID 04/25/21 04/20/22 dropperette (Restasis) fluconazole 150 mg tablet See Rx Instructions .Route .COMPLEX 04/25/21 04/20/22 latanoprost 0.005 % eye drops 1 drp EACH EYE DAILY 04/25/21 04/20/22 naloxone 4 mg/actuation nasal See Rx Instructions .Route .COMPLEX 04/25/21 04/20/22 spray (Narcan) Allergies Allergy/AdvReac Type Severity Reaction Status Date / Time celecoxib Allergy Unknown Unknown Verified 06/03/23 16:21 paroxetine Allergy Unknown Unknown Verified 06/03/23 16:21 Review of Systems Review of Systems: All systems reviewed & are unremarkable except as noted in HPI and below PMFSH Past Medical History Medical History Bronchiectasis Chronic headaches Chronic pain Mycobacterium avium complex Surgical History Surgical History History of hysterectomy Hx of appendectomy Hx of cholecystectomy Family History Family History Mother Family history of glaucoma Family history of malignant neoplasm of esophagus, Onset Age: 73 Father Family history of emphysema Diabetes mellitus Sibling Hypertension Social History Social History Smoking status: Never smoker Alcohol intake: never Substance use: never Living arrangements: with family Exam Narrative: GENERAL: Well-appearing, well-nourished, and in no acute distress. HEAD: Normocephalic, atraumatic. EYES: PERRLA and EOMI. ENT: Nares clear. Mucous membranes moist. NECK: Supple. CHEST: Clear to auscultation. Shallow respirations. No respiratory distress. Left posterior chest wall tenderness. HEART: Regular rate and rhythm. Normal peripheral pulses. ABDOMEN: Soft, nontender, nondistended. EXTREMITIES: Normal range of motion. No edema. No calf pain. SKIN: Warm, dry, no rash. NEURO: No focal deficits. Alert and oriented x3. PSYCH: Normal mood and affect. Course Course Emergency Course: Chart review performed. Patient here with shortness of breath and pleuritic chest pain. Triage martinez
[2023-06-03] MEDS: ONDANSETRON INJ 4 MG/2 ML VIAL IV PUSH (19:02)
[2023-06-03] MEDS: HYDROmorphone HCL INJ (*CRX) 1 MG/ML SYR IV PUSH ×2 (19:02→21:16)
[2023-06-03 19:08] LABS: NT Pro B Type Natriuretic Pept 409 pg/mL (19.9-100); Troponin I < 0.012 ng/mL (0.000-0.034)
[2023-06-03 19:50] LABS: Influenza A QL RT-PCR Negative (Negative); Influenza B QL RT-PCR Negative (Negative); RSV RNA, RT-PCR Negative (Negative); SARS-CoV-2 RNA PCR Negative (Negative)
[2023-06-03 20:01] VITALS: BP 127/67; PULSE 68; RESP 12; O2SAT 99
--- NOTE | 2023-06-03 20:01 | ECG_ITS ---
Measurements Intervals [place] Rate: 62 P: 73 AL: 211 QRS: 58 QRSD: 86 T: 55 QT: 435 QTc: 443 Interpretive Statements SINUS RHYTHM WITH FIRST DEGREE AV BLOCK Electronically Signed On 06-04-2023 11:36:13 STEAM FLATTENER by Lee Ellis M.D.
[2023-06-03 20:19] VITALS: PULSE 65; RESP 21
[2023-06-03] MEDS: IPRATROPIUM 0.5 MG/ALBUTEROL SULFATE 2.5 MG AMPUL.NEB 3 ML INHALATION (20:19)
[2023-06-03 20:37] LABS: Troponin I < 0.012 ng/mL (0.000-0.034)
[2023-06-03 21:16] VITALS: BP 131/70; PULSE 73; RESP 17; O2SAT 100
== END 2023-06-03 21:30 | disposition home or self-care (01) ==
PROVIDERS: Emergency Medicine; Emergency Provider Student in an Organized Health Care Education/Training Program; PCP Family Medicine
DX: R07.81 Pleurodynia (principal); Z20.822 Contact with and (suspected) exposure to COVID-19; Z90.710 Acquired absence of both cervix and uterus; Z90.49 Acquired absence of other specified parts of digestive tract; J43.9 Emphysema, unspecified; I44.0 Atrioventricular block, first degree; R91.8 Other nonspecific abnormal finding of lung field
CPT/HCPCS: 36415; 71046; 71275; 80053; 83880; 84484; 85025; 87637; 93005; 94640; 96374; 96375; 96376; 99284; J1170; J2405; Q9967

== ENCOUNTER 2024-02-29 10:17 | Outpatient (CLI) | payer BC, MEDICARE, SELFPAY ==
--- NOTE | ~2024-02-29 | MM_ITS ---
EXAMINATION: MM screening salas BI w pratima HISTORY: Screening mammogram, family history of breast cancer in her mother. TECHNIQUE: Craniocaudal and mediolateral oblique 3-D tomosynthesis images were obtained and synthetic 2-D images were generated. CAD analysis was submitted and interpreted. COMPARISON: 09/23/2021, 08/21/2019 BREAST PARENCHYMAL COMPOSITION:Not Dense. There are scattered areas of fibroglandular density. FINDINGS: No suspicious mass, calcification, or architectural distortion are identified in either kate ast to suggest malignancy. There has been no suspicious interval change. IMPRESSION: No mammographic evidence of malignancy. Recommend routine screening mammography in one year. BI-RADS Category 1: Negative Reviewed, dictated and finalized at location .
== END 2024-02-29 10:18 | disposition home or self-care (01) ==
PROVIDERS: PCP Family Medicine; Visit Provider Family Medicine
DX: Z12.31 Encounter for screening mammogram for malignant neoplasm of breast (principal)
CPT/HCPCS: 77063; 77067

== ENCOUNTER 2024-06-05 16:55 | Outpatient (CLI) | payer OTHER, MEDICARE, SELFPAY ==
--- OUTSIDE RECORDS SUMMARY | 2024-06-05 17:01 | XMS_ITS | Encounter Summary ---
Author Organization [facility] Address [address] [place] [address] Phone Care Team Providers Care Cobol Mainframe Developer Name Role Phone Johnson Rodriguez MD Primary Care Provider [phone] Zina Rizo APRN, REHABILITATION TECH Unavailable [phone]- [phone] Heather Oliva ARMHOLE BASTER JUMPBASTING, IMPORT/EXPORT SPECIALIST Unavailable + [phone] Zina Rizo APRN, REHABILITATION TECH Unavailable Silvana Brown ARMHOLE BASTER JUMPBASTING, REHABILITATION TECH Unavailable Reason for Visit * Reason Comments Medication Refill Encounter Details Date Type Department Care Team (Late st Contact Info) Description 02/24/2023 Refill [facility] - [facility] [address] [place] [address] Heather Oliva ARMHOLE BASTER JUMPBASTING, IMPORT/EXPORT SPECIALIST [address] [place] [address] Medication Refill Social History Tobacco Use Types Packs/Day Years Used Date Smoking Tobacco: Never Smokeless Tobacco: Never Alcohol Use Standard Drinks/Week Comments Not Currently 0 (1 standard drink = 0.6 oz pur e alcohol) Sexually Active Control Partners Comments Not Currently Comments Unknown Sex and Gender Information Value Date Recorded Sex Assigned at Not on file Legal Sex Female 9:01 AM CDT Gender Identity Not on file Sexual Orientation Not on file COVID-19 Exposure Response Date Recorded In the last 10 days, have yo u been in contact with someone who was confirmed or suspected to have Coronavirus/COVID-19? No / Unsure 01/27/2023 1:50 PM CDT documented as of this encounter Miscellaneous Notes * Telephone Encounter - Melvina Reid RN - 02/24/2023 9:32 AM CDT Medication failed the protocol, provider to review and approve the medication order if appropriate. Requested Prescriptions Pending Prescriptions Disp Refills topiramate (TOPAMAX) 200 MG Tablet [Pharmacy Med Name: TOPIRAMATE 200 MG TABLET] 60 Tablet 3 Sig: TAKE ONE TABLET BY MOUTH TWICE A DAY Not Delegated - Anticonvulsants Excluding Benzodiazepines Protocol Failed - 02/24/2023 9:21 AM Failed - This refill cannot be delegated Passed - Visit with relevant provider in past 12 months or upcoming 90 days Recent Visits Date Type Provider Dept 01/27/23 Office Visit Heather Oliva APRN IMPORT/EXPORT SPECIALIST [facility] Neurology [facility] [place] [facility] [address] 01/06/23 Procedure Visit Dago Land MD [facility] Neurology [facility] [address] 10/26/22 Office Visit Heather Oliva APRN, CNS [facility] [address] 07/26/22 Office Visit Heather Oliva APRN, [facility] Neurology [facility] [place] [facility] 04/26/22 Office Visit Heather Oliva APRN [facility] Neurology [facility] [place] [facility] Showing recent visits within past 365 days and meeting all other requirements Future Appointments Date Type Provider Dept 04/04/23 Appointment Heather Oliva APRN IMPORT/EXPORT SPECIALIST [facility] [place] [facility] Showing future appointments within next 90 days and meeting all other requirements documented in this encounter Plan of Treatment Upcoming Encounters Date Type Department Care Team (Late st Contact Info) Description 07/15/2024 2:00 PM CDT Office Visit [facility] - Pulmonology & Sleep Medicine - [place] [address] [place] [address] Zina Rizo APRN, REHABILITATION TECH [address] [address] 07/19/2024 2:00 PM CDT Office Visit [facility] - Gastroenterology - [place] [address] [place] [address] Silvana Brown APRN, REHABILITATION TECH [address] [place] [address] documented as of this encounter Visit Diagnoses Not on filedocumented in this encounter Care Teams Cobol Mainframe Developer Relationship Specialty Start Date End Date Johnson Rodriguez MD [address] [place] [address] PCP - General Pediatrics 11/17/21 Zina Rizo APRN, REHABILITATION TECH [address] [address] Nurse Practitioner Advanced Practice Nurse 06/24/22 Heather Oliva APRN, IMPORT/EXPORT SPECIALIST [address] [place] [address] Nurse Practitioner Advanced Practice Nurse 12/22/21 Zina Rizo APRN, REHABILITATION TECH #[address] [address] Nurse Practitioner Advanced Practice Nurse 01/06/23 Silvana Brown APRN, REHABILITATION TECH [address] [place] [address] Nurse Practitioner Advanced Practice Nurse 07/14/22 documented as of this encounter
--- OUTSIDE RECORDS SUMMARY | 2024-06-05 17:01 | XMS_ITS | Encounter Summary ---
Author Organization [facility] Address [address] [place] [address] Phone Care Team Providers Care It Compliance Analyst Name Role Phone Johnson Rodriguez MD Primary Care Provider [phone]- [phone] Zina Rizo APRN, HELICOPTER OFFICER Unavailable [phone]- [phone] Heather Oliva CASHIER PARKING LOT, MARKETING INSTRUCTOR Unavailable + [phone] Zina Rizo APRN, HELICOPTER OFFICER Unavailable Silvana Brown CASHIER PARKING LOT, HELICOPTER OFFICER Unavailable Reason for Visit * Reason Comments Medication Refill Encounter Details Date Type Department Care Team (Late st Contact Info) Description 03/20/2023 Refill [facility] - Neurology [facility] [address] [place] [address] Heather Oliva CASHIER PARKING LOT, MARKETING INSTRUCTOR [address] [place] [address] Medication Refill Social History Tobacco Use Types [...] on file Sexual Orientation Not on file documented as of this encounter Miscellaneous Notes * Telephone Encounter - Melvina Reid RN - 03/20/2023 1:38 PM CST Medication failed the protocol, provider to review and approve the medication order if appropriate. Requested Prescriptions Pending Prescriptions Disp Refills Galcanezumab-gnlm (Emgality) 120 MG/ML Solution Auto-injector [Pharmacy Med Name: EMGALITY 120MG/MLAUTO INJECTOR] 1 mL 2 Si mg by Subcutaneous route every 28 days. Not Delegated - Off Protocol Failed - 03/20/2023 1:31 PM Failed - This refill cannot be delegated Passed - Visit with relevant provider in past 12 months or upcoming 90 days Recent Visits Date Type Provider Dept 01/27/23 Office Visit Heather Oliva APRN, [facility] Neurology [facility] [address] 01/06/23 Procedure Visit Dago Land MD [facility] Neurology [facility] 10/26/22 Office Visit Heather Oliva APRN, JOSE [facility] [address] 07/26/22 Office Visit Heather Oliva APRN, [facility] [address] 04/26/22 Office Visit Heather Oliva APRN, [facility] [place] Showing recent visits within past 365 days and meeting all other requirements Future Appointments Date Type Provider Dept 05/31/23 Appointment Heather Oliva APRN, [facility] [place] Showing future appointments within next 90 days and meeting all other requirements RUNNER documented in this encounter Plan of Treatment Upcoming Encounters Date Type Department Care Team (Late st Contact Info) Description 07/15/2024 2:00 PM CDT Office Visit [facility] - Pulmonology & Sleep Medicine - [place] [address] [place] [address] Zina Rizo APRN, HELICOPTER OFFICER [address] [address] 07/19/2024 2:00 PM CDT Office Visit [facility] - Gastroenterology - [place] [address] [place] [address] Silvana Brown APRN, HELICOPTER OFFICER [address] [place] [address] documented as of this encounter Visit Diagnoses Diagnosis Chronic migraine w/o aura w/o status migrainosus, not intractable Chronic migraine without aura, without mention of intractable migraine without mention of status migrainosus documented in this encounter Care Teams It Compliance Analyst Relationship Specialty Start Date End Date Johnson Rodriguez MD [address] [place] [address] PCP - General Pediatrics 11/17/21 Zina Rizo APRN, HELICOPTER OFFICER [address] [address] Nurse Practitioner Advanced Practice Nurse 06/24/22 eHather Oliva APRN, MARKETING INSTRUCTOR [address] [place] [address] Nurse Practitioner Advanced Practice Nurse 12/22/21 Zina Rizo APRN, HELICOPTER OFFICER #[address] [address] Nurse Practitioner Advanced Practice Nurse 01/06/23 Silvana Brown APRN, HELICOPTER OFFICER [address] [place] [address] Nurse Practitioner Advanced Practice Nurse 3/16/23 documented as of this encounter
--- OUTSIDE RECORDS SUMMARY | 2024-06-05 17:01 | XMS_ITS | Encounter Summary ---
Author Organization [facility] Healthcare Address [address] [place] [address] Care Team Providers Care Cancer Center Director Name Role Phone Johnson Rodriguez MD Primary Care Provide r Lucille Hernandez RN Unavailable Unavailab le Encounter Details Date Type Department Care Team (Late st Contact Info) Description 03/04/2021 Telephone [facility] [place] [facility] [address] [facility] Advanced Medicine [address] [place], [place] [id number] Cynthia Nava MD [address] [facility] [phone] [place], [place] [id number] Social History Tobacco Use Types Packs/Day Years Used Date Smoking Tobacco: Never Smokeless Tobacco: Never Alcohol Use Standard Drinks/Week Comments No 0 (1 standard drink = 0.6 oz pur e alcohol) denies AUDIT-C Answer Date Recorded Q1: How often do you have a drink containing alc ohol? Never 01/25/2021 Average Number of Drinks Not on file 021 Q3: How often do you have si x or more drinks on one occasion? Never 01/25/2021 Comments No Sex and Gender Information Value Date Recorded Sex Assigned at Not on file Legal Sex Female 12:26 AM EMERGENCY RESPONSE COORDINATOR Gender Identity Not on file Sexual Orientation Not on file documented as of this encounter Plan of Treatment Not on file documented as of this encounter Goals Goal Patient Goal Type Associated Problems Recent Progress Patient-Stated? Author CCM Chronic Pain Care Plan Chronic Care Management Worsening( 3:07 PM EMERGENCY RESPONSE COORDINATOR) Linda Hunter Note: Problem: Chronic Pain Goals: 1. Minimize further functional decline 2. Maximize quality of life 3. Control pain Strategies: - Activity/exercise program recommendation - Conservative stepwise pain medicine strategy with multi-disciplinary approach - Recommend healthy lifestyle strategies and compensatory methods as needed documented as of this encounter Visit Diagnoses Not on filedocumented in this encounter Care Teams Cancer Center Director Relationship Specialty Start Date End Date Johnson Rodriguez MD [address] [place] [address] PCP - General 07/29/16 Lucille Hernandez, RN Registered Nurse 04/08/19 documented as of this encounter
--- OUTSIDE RECORDS SUMMARY | 2024-06-05 17:01 | XMS_ITS | Encounter Summary ---
Author Organization [facility] Healthcare Address [address] [place] [address] Care Team Providers Care Methods Specialist Name Role Phone Johnson Rodriguez MD Primary Care Provide r Lucille Hernandez RN Unavailable Unavailab le Encounter Details Date Type Department Care Team (Late st Contact Info) Description 08/10/2023 Telephone [facility] [place] for Advanced Medicine [address] [facility] Advanced Medicine [address] [place], [place] [id number] Cynthia Nava MD [address] [facility] [phone] [place] [address] Social History Tobacco Use Types Packs/Day Years Used Date Smoking Tobacco: Never Smokeless Tobacco: Never Alcohol Use Standard Drinks/Week Comments No 0 (1 standard drink = 0.6 oz pur e alcohol) denies AUDIT-C Answer Date Recorded Q1: How often do you have a drink containing alcohol? Never 08/14/2023 Q2: How many drinks containi ng alcohol do you have on a typical day when you are drinking? Patient does not drink Q3: How often do you have si x or more drinks on one occasion? Never 08/14/2023 Hunger Vital Sign Answer Date Recorded Within the past 12 months, y ou worried that your food would run out before you got the money to buy more. Never true 08/14/19 24 Within the past 12 months, t he food you bought just didn't last and you didn't have money to get more. Never true 08/14/2023 Comments No Sex and Gender Information Value Date Recorded Sex Assigned at Not on file Legal Sex Female 12:26 AM DUMBWAITER OPERATOR Gender Identity Not on file Sexual Orientation Not on file documented as of this encounter Plan of Treatment Not on file documented as of this encounter Goals Goal Patient Goal Type Associated Problems Recent Progress Patient-Stated? Author CCM Chronic Pain Care Plan Chronic Care Management Worsening( 3:07 PM DUMBWAITER OPERATOR) No Linda Crowell Note: Problem: Chronic Pain Goals: 1. Minimize further functional decline 2. Maximize quality of life 3. Control pain Strategies: - Activity/exercise program recommendation - Conservative stepwise pain medicine strategy with multi-disciplinary approach - Recommend healthy lifestyle strategies and compensatory methods as needed documented as of this encounter Visit Diagnoses Not on filedocumented in this encounter Care Teams Methods Specialist Relationship Specialty Start Date End Date Johnson Rodriguez MD [address] [place] [address] PCP - General 07/29/16 Lucille Hernandez, RN Registered Nurse 04/08/19 documented as of this encounter
--- OUTSIDE RECORDS SUMMARY | 2024-06-05 17:01 | XMS_ITS | Encounter Summary ---
Author Organization [facility] Address [address] [place] [address] Phone Care Team Providers Care Salesperson Yard Goods Name Role Phone Johnson Rodriguez MD Primary Care Provider +1- [phone] Zina Rizo APRN, BUSINESS OPERATIONS SPECIALIST Unavailable +1- [phone] Heather Oliva EXECUTIVE COMMUNICATIONS MANAGER, SURVEILLANCE SENSOR OPERATOR Unavailable + [phone] Zina Rizo APRN, BUSINESS OPERATIONS SPECIALIST Unavailable Silvana Brown EXECUTIVE COMMUNICATIONS MANAGER, BUSINESS OPERATIONS SPECIALIST Unavailable Reason for Visit * Reason Comments Medication Refill Encounter Details Date Type Department Care Team (Late st Contact Info) Description 07/24/2023 Refill [facility] - Neurology [facility] [address] [place] [address] Heather Oliva EXECUTIVE COMMUNICATIONS MANAGER, SURVEILLANCE SENSOR OPERATOR [address] [place] [address] Medication Refill Social History Tobacco Use Types [...] encounter Miscellaneous Notes * Telephone Encounter - Carolina Sam RN - 07/26/2023 12:37 PM CDT Medication failed the protocol, provider to review and approve the medication order if appropriate. Requested Prescriptions Pending Prescriptions Disp Refills topiramate (TOPAMAX) 200 MG Tablet [Pharmacy Med Name: TOPIRAMATE 200 MG TABLET] 60 Tablet 3 Sig: TAKE ONE TABLET BY MOUTH TWICE A DAY Not Delegated - Anticonvulsants Excluding Benzodiazepines Protocol Failed - 07/24/2023 4:21 PM Failed - This refill cannot be delegated Passed - Visit with relevant provider in past 12 months or upcoming 90 days Recent Visits Date Type Provider Dept 05/31/23 Office Visit Heather Oliva APRN, [facility] Neurology [facility] 01/27/23 Office Visit Heather Oliva APRN, [facility] Neurology [facility] 01/06/23 Procedure Visit Dago Land MD [facility] Neu[facility] 10/26/22 Office Visit Heather Oliva APRN, [facility] Neu[facility] 07/26/22 Office Visit Heather Oliva APRN, [facility] Showing recent visits within past 365 days and meeting all other requirements Future Appointments Date Type Provider Dept 08/01/23 Appointment Heather Oliva APRN, [facility] Showing future appointments within next 90 days and meeting all other requirements documented in this encounter Plan of Treatment Upcoming Encounters Date Type Department Care Team (Late st Contact Info) Description 07/15/2024 2:00 PM CDT Office Visit [facility] - Pulmonology & Sleep Medicine - [place] [address] [place] [address] Zina Rizo APRN, BUSINESS OPERATIONS SPECIALIST #[address] [address] 07/19/2024 2:00 PM CDT Office Visit [facility] - Gastroenterology - [place] [address] [place] [address] Silvana Brown APRN, BUSINESS OPERATIONS SPECIALIST [address] [place] [address] documented as of this encounter Visit Diagnoses Not on filedocumented in this encounter Care Teams Salesperson Yard Goods Relationship Specialty Start Date End Date Johnson Rodriguez MD [address] [place] [address] PCP - General Pediatrics 11/17/21 Zina Rizo APRN, BUSINESS OPERATIONS SPECIALIST #[address] [address] Nurse Practitioner Advanced Practice Nurse 06/24/22 Heather Oliva APRN, SURVEILLANCE SENSOR OPERATOR [address] [place] [address] Nurse Practitioner Advanced Practice Nurse 12/22/21 Zina Rizo APRN, BUSINESS OPERATIONS SPECIALIST #[address] [address] Nurse Practitioner Advanced Practice Nurse 01/06/23 Silvana Brown APRN, BUSINESS OPERATIONS SPECIALIST [address] [place] [address] Nurse Practitioner Advanced Practice Nurse 07/14/22 documented as of this encounter
--- OUTSIDE RECORDS SUMMARY | 2024-06-05 17:01 | XMS_ITS | Encounter Summary ---
Author Organization [facility] Address [address] [place] [address] Phone Care Team Providers Care Optometric Technician Name Role Phone Johnson Rodriguez MD Primary Care Provider +1- [phone] Zina Rizo APRN, HELP DESK COORDINATOR Unavailable +1- [phone] Heather Oliva APRN, SAMPLE CARD MAKER Unavailable + [phone] Zina Rizo APRN, HELP DESK COORDINATOR Unavailable Silvana Brown APRN, HELP DESK COORDINATOR Unavailable Reason for Visit * Reason Comments Medication Refill Encounter Details Date Type Department Care Team (Late st Contact Info) Description 09/29/2023 [facility]ill [facility] - [facility]ology - [place] [address] [place] [address] Silvana Brown APRN, HELP DESK COORDINATOR [address] [place] [address] Medication Refill Social History Tobacco Use Types [...] encounter Miscellaneous Notes * Telephone Encounter - Denae Cameron RN - 09/29/2023 8:39 AM CDT Per nursing clinical judgement, provider to review and approve the medication(s) order(s) if appropriate. Requested Prescriptions Pending Prescriptions Disp Refills omeprazole (PriLOSEC) 40 MG CAPSULE DELAYED RELEASE [Pharmacy Med Name: OMEPRAZOLE DR 40 MG CAPSULE] 30 Capsule 0 Sig: TAKE 1 CAPSULE BY MOUTH DAILY. Proton Pump Inhibitors Protocol Passed - 09/29/2023 7:46 AM Passed - Visit with relevant provider in past 12 months or upcoming 90 days Recent Visits Date Type Provider Dept 07/12/23 Office Visit Silvana Brown APRN, CNP [facility] [place] 03/29/23 Office Visit Silvana Brown APRN, CNP [facility] [place] 11/08/22 Office Visit Silvana Brown APRN, CNP [facility] [place] Showing recent visits within past 365 days and meeting all other requirements Future Appointments No visits were found meeting these conditions. Showing future appointments within next 90 days and meeting all other requirements documented in this encounter Plan of Treatment Upcoming Encounters Date Type Department Care Team (Late st Contact Info) Description 07/15/2024 2:00 PM CDT Office Visit [facility] Medical [facility] - Pulmonology & Sleep Medicine - [place] [address] [place] [address] Zina Rizo APRN, HELP DESK COORDINATOR #[address] [address] 07/19/2024 2:00 PM CDT Office Visit [facility] Medical [facility] - Gastroenterology - [place] [address] [place] [address] Silvana Brown APRN, HELP DESK COORDINATOR [address] [place] [address] documented as of this encounter Visit Diagnoses Diagnosis Epigastric pain Abdominal pain, epigastric documented in this encounter Care Teams Optometric Technician Relationship Specialty Start Date End Date Johnson Rodriguez MD [address] [place] [address] PCP - General Pediatrics 11/17/21 Zina Rizo, AJ, HELP DESK COORDINATOR #[address] [address] Nurse Practitioner Advanced Practice Nurse 06/24/22 Heather Oliva APRN, SAMPLE CARD MAKER [address] [place] [address] Nurse Practitioner Advanced Practice Nurse 12/22/21 Zina Rizo, AJ, HELP DESK COORDINATOR #[address] [address] Nurse Practitioner Advanced Practice Nurse 01/06/23 Silvana Brown APRN, HELP DESK COORDINATOR [address] [place] [address] Nurse Practitioner Advanced Practice Nurse 07/14/22 documented as of this encounter
--- OUTSIDE RECORDS SUMMARY | 2024-06-05 17:01 | XMS_ITS | Encounter Summary ---
Author Organization [facility] Address [address] [place] [address] Phone Care Team Providers Care Director Of Knowledge Management Name Role Phone Johnson Rodriguez MD Primary Care Provider [phone]- [phone] Zina Rizo APRN, NYLON HOT WIRE CUTTER Unavailable [phone]- [phone] Heather Oliva TAPPER SHANK, RESEARCH ASSOCIATE MOLECULAR BIOLOGY Unavailable + [phone] Zina Rizo APRN, NYLON HOT WIRE CUTTER Unavailable Silvana Brown TAPPER SHANK, NYLON HOT WIRE CUTTER Unavailable Reason for Visit * Reason Comments Medication Refill Encounter Details Date Type Department Care Team (Late st Contact Info) Description 01/26/2023 Refill [facility] - Neurology [facility] [address] [place] [address] Heather Oliva TAPPER SHANK, RESEARCH ASSOCIATE MOLECULAR BIOLOGY [address] [place] [address] Medication Refill Social History Tobacco Use Types [...] Telephone Encounter - Melvina Reid RN - 01/26/2023 9:45 AM CDT Medication failed the protocol, provider to review and approve the medication order if appropriate. Requested Prescriptions Pending Prescriptions Disp Refills lacosamide (VIMPAT) 100 MG Tablet [Pharmacy Med Name: LACOSAMIDE 100 MG TABLET] 60 Tablet 3 Sig: TAKE ONE TABLET BY MOUTH TWICE A DAY Not Delegated - Anticonvulsants Excluding Benzodiazepines Protocol Failed - 01/26/2023 8:53 AM Failed - This refill cannot be delegated Passed - Visit with relevant provider in past 12 months or upcoming 90 days Recent Visits Date Type Provider Dept 01/06/23 Procedure Visit Dago Land MD [facility] Neurology [facility] 10/26/22 Office Visit Heather Oliva APRN, CNS [facility] Neurology [facility] [address] 07/26/22 Office Visit Heather Oliva APRN, [facility] Neurology [facility] 04/26/22 Office Visit Heather Oliva APRN, CNS [facility] Showing recent visits within past 365 days and meeting all other requirements Future Appointments Date Type Provider Dept 01/27/23 Appointment Heather Oliva APRN [facility] Neurology [facility] [address] 04/07/23 Appointment Dago Land MD [facility] Neurology [facility] Showing future appointments within next 90 days and meeting all other requirements documented in this encounter Plan of Treatment Upcoming Encounters Date Type Department Care Team (Late st Contact Info) Description 07/15/2024 2:00 PM CDT Office Visit [facility] - Pulmonology & Sleep Medicine - [place] [address] [place] [address] Zina Rizo APRN, JESSE [address] [address] 07/19/2024 2:00 PM CDT Office Visit [facility] - Gastroenterology - [place] [address] [place] [address] Silvana Brown APRN, NYLON HOT WIRE CUTTER [address] [place] [address] documented as of this encounter Visit Diagnoses Diagnosis Seizures (HCC) Other convulsions documented in this encounter Care Teams Director Of Knowledge Management Relationship Specialty Start Date End Date Johnson Rodriguez MD [address] [place] [address] PCP - General Pediatrics 11/17/21 Zina Rizo APRN, NYLON HOT WIRE CUTTER #[address] [address] Nurse Practitioner Advanced Practice Nurse 06/24/22 Heather Oliva APRN, RESEARCH ASSOCIATE MOLECULAR BIOLOGY [address] [place] [address] Nurse Practitioner Advanced Practice Nurse 12/22/21 Zina Rizo APRN, NYLON HOT WIRE CUTTER #[address] [address] Nurse Practitioner Advanced Practice Nurse 01/06/23 Silvana Brown APRN, NYLON HOT WIRE CUTTER [address] [place] [address] Nurse Practitioner Advanced Practice Nurse 07/14/22 documented as of this encounter
--- OUTSIDE RECORDS SUMMARY | 2024-06-05 17:01 | XMS_ITS | Encounter Summary ---
Author Organization [facility] Address [address] [place] [address] Phone Care Team Providers Care Photographer Name Role Phone Johnson Rodriguez MD Primary Care Provider [phone]- [phone] Zina Rizo APRN, PACKAGING DESIGNER Unavailable +1- [phone] Heather Oliva TRACK SERVICE WORKER, RESAWYER Unavailable + [phone] Zina Rizo APRN, PACKAGING DESIGNER Unavailable Silvana Brown TRACK SERVICE WORKER, PACKAGING DESIGNER Unavailable Reason for Visit * Reason Comments Medication Refill Encounter Details Date Type Department Care Team (Late st Contact Info) Description 09/29/[address] [facility] - Neurology [facility] [address] [place] [address] Heather Oliva TRACK SERVICE WORKER, RESAWYER [address] [place] [address] Medication Refill Social History Tobacco Use Types [...] encounter Miscellaneous Notes * Telephone Encounter - Selene Mata RN - 09/29/2023 8:17 AM CDT Medication failed the protocol, provider to review and approve the medication order if appropriate. Requested Prescriptions Pending Prescriptions Disp Refills topiramate (TOPAMAX) 200 MG Tablet [Pharmacy Med Name: TOPIRAMATE 200 MG TABLET] 60 Tablet 3 Sig: TAKE ONE TABLET BY MOUTH TWICE A DAY Not Delegated - Anticonvulsants Excluding Benzodiazepines Protocol Failed - 09/29/2023 7:46 AM Failed - This refill cannot be delegated Passed - Visit with relevant provider in past 12 months or upcoming 90 days Recent Visits Date Type Provider Dept 08/01/23 Office Visit Heather Oliva APRN, [facility] 05/31/23 Office Visit Heatehr Oliva APRN, [facility] 01/27/23 Office Visit Heather Oliva APRN, [facility] 01/06/23 Procedure Visit Dago Land MD [facility] Neurology [facility] 10/26/22 Office Visit Heather Oliva APRN, [facility] Showing recent visits within past 365 days and meeting all other requirements Future Appointments Date Type Provider Dept 12/11/23 Appointment Heather Oliva APRN, [facility] Showing future appointments within next 90 days and meeting all other requirements documented in this encounter Plan of Treatment Upcoming Encounters Date Type Department Care Team (Late st Contact Info) Description 07/15/2024 2:00 PM CDT Office Visit [facility] - Pulmonology & Sleep Medicine - [place] [address] [place] [address] Zina Rizo APRN, PACKAGING DESIGNER #[address] [address] 07/19/2024 2:00 PM CDT Office Visit [facility] - Gastroenterology - [place] [address] [place] [address] Silvana Brown APRN, PACKAGING DESIGNER [address] [place] [address] documented as of this encounter Visit Diagnoses Not on filedocumented in this encounter Care Teams Photographer Relationship Specialty Start Date End Date Johnson Rodriguez MD [address] [place] [address] PCP - General Pediatrics 11/17/21 Zina Rizo APRN, PACKAGING DESIGNER #[address] [address] Nurse Practitioner Advanced Practice Nurse 06/24/22 Heather Oliva APRN, RESAWYER [address] [place] [address] Nurse Practitioner Advanced Practice Nurse 12/22/21 Zina Rizo APRN, PACKAGING DESIGNER #[address] [address] Nurse Practitioner Advanced Practice Nurse 01/06/23 Silvana Brown APRN, PACKAGING DESIGNER [address] [place] [address] Nurse Practitioner Advanced Practice Nurse 07/14/22 documented as of this encounter
--- OUTSIDE RECORDS SUMMARY | 2024-06-05 17:01 | XMS_ITS | Encounter Summary ---
Author Organization [facility] Address [address] [place] [address] Phone Care Team Providers Care Growth Hacker Name Role Phone Johnson Rodriguez MD Primary Care Provider +1- [phone] Zina Rzio APRN, PADDER Unavailable +1- [phone] Heather Oliva ANIMAL RESEARCHER, DIRECTOR OF CHANNEL MARKETING Unavailable + [phone] Zina Rizo APRN, PADDER Unavailable Silvana Brown ANIMAL RESEARCHER, PADDER Unavailable Reason for Visit * Reason Comments Medication Refill Encounter Details Date Type Department Care Team (Late st Contact Info) Description 08/28/2023 Refill [facility] - Neurology [facility] [address] [place] [address] Heather Oliva ANIMAL RESEARCHER, DIRECTOR OF CHANNEL MARKETING [address] [place] [address] Medication Refill Social History Tobacco Use Types [...] Telephone Encounter - Selene Mata RN - 08/29/2023 8:15 AM CDT Medication failed the protocol, provider to review and approve the medication order if appropriate. Requested Prescriptions Pending Prescriptions Disp Refills Emgality 120 MG/ML Solution Auto-injector [Pharmacy Med Name: EMGALITY 120MG/ML AUTO INJECTOR] 1 mL2 Sig: INJECT 120 MG SUBCUTANEOUSLY EVERY 28 DAYS Not Delegated - Off Protocol Failed - 08/28/2023 5:40 PM Failed - This refill cannot be delegated Passed - Visit with relevant provider in past 12 months or upcoming 90 days Recent Visits Date Type Provider Dept 08/01/23 Office Visit Heather Oliva APRN, [facility] Neurology [facility] 05/31/23 Office Visit Heather Oliva APRN, DIRECTOR OF CHANNEL MARKETING [facility] Neurology [facility] 01/27/23 Office Visit Heather Oliva APRN, [facility] Neurology [facility] 01/06/23 Procedure Visit Dago Land MD [facility] Neurology [facility] 10/26/22 Office Visit Heather Oliva APRN, [facility] Neurology [facility] Showing recent visits within past 365 days and meeting all other requirements Future Appointments No visits were found meeting these conditions. Showing future appointments within next 90 days and meeting all other requirements documented in this encounter Plan of Treatment Upcoming Encounters Date Type Department Care Team (Late st Contact Info) Description 07/15/2024 2:00 PM CDT [facility] - Pulmonology & Sleep Medicine - [place] [address] [place] [address] Zina Rizo APRN, PADDER [address] [address] 07/19/2024 2:00 PM CDT Office Visit [facility] - Gastroenterology [facility] [address] [place] [address] Silvana Brown APRN, PADDER [address] [place] [address] documented as of this encounter Visit Diagnoses Diagnosis Chronic migraine w/o aura w/o status migrainosus, not intractable Chronic migraine without aura, without mention of intractable migraine without mention of status migrainosus documented in this encounter Care Teams Growth Hacker Relationship Specialty Start Date End Date Johnson Rodriguez MD [address] [place] [address] PCP - General Pediatrics 11/17/21 Zina Rizo APRN, PADDER #[address] [address] Nurse Practitioner Advanced Practice Nurse 06/24/22 Heather Oliva APRN, DIRECTOR OF CHANNEL MARKETING [address] [place] [address] Nurse Practitioner Advanced Practice Nurse 12/22/21 Zina Rizo APRN, PADDER #[address] [address] Nurse Practitioner Advanced Practice Nurse 01/06/23 Silvana Brown APRN, PADDER [address] [place] [address] Nurse Practitioner Advanced Practice Nurse 07/14/22 documented as of this encounter
--- OUTSIDE RECORDS SUMMARY | 2024-06-05 17:01 | XMS_ITS | Encounter Summary ---
Author Organization [facility] Healthcare Address [address] [place] [address] Care Team Providers Care Woodworking Bench Carpenter Name Role Phone Johnson Rodriguez MD Primary Care Provide r Lucille Hernandez RN Unavailable Unavailab le Encounter Details Date Type Department Care Team (Late st Contact Info) Description 07/14/2021 Telephone [facility] [address] [facility] Advanced Medicine [address] [place], [place] [id number] Cynthia Nava MD [address] [facility] [phone] [place], [place] [id number] Social History Tobacco Use Types Packs/Day Years Used Date Smoking Tobacco: Never Smokeless Tobacco: Never Alcohol Use Standard Drinks/Week Comments No 0 (1 standard drink = 0.6 oz pur e alcohol) denies AUDIT-C Answer Date Recorded Q1: How often do you have a drink containing alc ohol? Never 05/07/2021 Average Number of Drinks Not on file 022 Q3: How often do you have si x or more drinks on one occasion? 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 Minimize further functional decline 2. Maximize quality of life 3. Control pain Strategies: - Activity/exercise program recommendation - Conservative stepwise pain medicine strategy with multi-disciplinary approach - Recommend healthy lifestyle strategies and compensatory methods as needed documented as of this encounter Visit Diagnoses Not on filedocumented in this encounter Care Teams Woodworking Bench Carpenter Relationship Specialty Start Date End Date Johnson Rodriguez MD [address] [place] [address] PCP - General 07/29/16 Lucille Hernandez, RN Registered Nurse 04/08/19 documented as of this encounter
--- OUTSIDE RECORDS SUMMARY | 2024-06-05 17:01 | XMS_ITS | Encounter Summary ---
Author Organization [facility] Address [address] [place] [address] Phone Care Team Providers Care Rubber Stamp Dies Inspector Name Role Phone Johnson Rodriguez MD Primary Care Provider [phone]- [phone] Zina Rizo APRN, DIRECTOR OF CARDIAC REHABILITATION Unavailable +1- [phone] Heather Oliva GENERAL CAR YARD SUPERVISOR, BUSINESS SERVICES SALES AGENT Unavailable + [phone] Zina Rizo APRN, DIRECTOR OF CARDIAC REHABILITATION Unavailable Silvana Brown GENERAL CAR YARD SUPERVISOR, DIRECTOR OF CARDIAC REHABILITATION Unavailable Reason for Visit * Reason Comments Medication Refill Encounter Details Date Type Department Care Team (Late st Contact Info) Description 05/27/2023 Refill [facility] - Neurology [facility] [address]2 [place] [address] Heather Oliva GENERAL CAR YARD SUPERVISOR, BUSINESS SERVICES SALES AGENT #2 [place] [address] Medication Refill Social History Tobacco Use Types [...] Telephone Encounter - Melvina Reid RN - 05/29/2023 8:36 AM CST Medication failed the protocol, provider to review and approve the medication order if appropriate. Requested Prescriptions Pending Prescriptions Disp Refills Emgality 120 MG/ML Solution Auto-injector [Pharmacy Med Name: EMGALITY 120MG/ML AUTO INJECTOR] 1 mL2 Sig: INJECT 120 MG SUBCUTANEOUSLY EVERY 28 DAYS Not Delegated - Off Protocol Failed - 05/27/2023 11:24 AM Failed - This refill cannot be delegated Passed - Visit with relevant provider in past 12 months or upcoming 90 days Recent Visits Date Type Provider Dept 01/27/23 Office Visit Heather Oliva APRN, BUSINESS SERVICES SALES AGENT [facility] Neurology [facility] 01/06/23 Procedure Visit Dago Land MD [facility] Neurology [facility] 10/26/22 Office Visit Heather Oliva APRN, JOSE [facility] Neurology [facility] 07/26/22 Office Visit Heather Oliva APRN, [facility] Showing recent visits within past 365 days and meeting all other requirements Future Appointments Date Type Provider Dept 05/31/23 Appointment Heather Oliva APRN, JO[facility] Showing future appointments within next 90 days and meeting all other requirements DIRECTOR documented in this encounter Plan of Treatment Upcoming Encounters Date Type Department Care Team (Late st Contact Info) Description 07/15/2024 2:00 PM CDT Office Visit [facility] - Pulmonology & Sleep Medicine - [place] [address] [place] [address] Zina Rizo APRN, DIRECTOR OF CARDIAC REHABILITATION #[facility] [address] [place] [address] 07/19/2024 2:00 PM CDT Office Visit [facility] - Gastroenterology [facility] [address]2 [place] [address] Silvana Brown APRN, DIRECTOR OF CARDIAC REHABILITATION [address] [place] [address] documented as of this encounter Visit Diagnoses Diagnosis Chronic migraine w/o aura w/o status migrainosus, not intractable Chronic migraine without aura, without mention of intractable migraine without mention of status migrainosus documented in this encounter Care Teams Rubber Stamp Dies Inspector Relationship Specialty Start Date End Date Johnson Rodriguez MD [address] [place] [address] PCP - General Pediatrics 11/17/21 Zina Rizo APRN, DIRECTOR OF CARDIAC REHABILITATION #[address] [address] Nurse Practitioner Advanced Practice Nurse 06/24/22 Heather Oliva APRN, BUSINESS SERVICES SALES AGENT [address]2 [place] [address] Nurse Practitioner Advanced Practice Nurse 12/22/21 Zina Rizo APRN, DIRECTOR OF CARDIAC REHABILITATION #[address] [address] Nurse Practitioner Advanced Practice Nurse 01/06/23 Silvana Brown APRN, DIRECTOR OF CARDIAC REHABILITATION [address] [place] [address] Nurse Practitioner Advanced Practice Nurse 07/14/22 documented as of this encounter
--- OUTSIDE RECORDS SUMMARY | 2024-06-05 17:01 | XMS_ITS | Encounter Summary ---
Author Organization [facility] Healthcare Address [address] [place] [address] Care Team Providers Care Diamond Mounter Name Role Phone Johnson Rodriguez MD Primary Care Provide r Lucille Hernandez RN Unavailable Unavailab le Encounter Details Date Type Department Care Team (Late st Contact Info) Description 05/07/2021 Telephone [facility] [place] [facility] [address] [facility] Advanced Medicine [address] [place], [place] [id number] Cynthia Nava MD [address] [facility] [phone] [place], [place] [id number] Social History Tobacco Use Types Packs/Day Years [...] on file Legal Sex Female 12:26 AM TAPER/FINISHER Gender Identity Not on file Sexual Orientation Not on file documented as of this encounter Plan of Treatment Not on file documented as of this encounter Goals Goal Patient Goal Type Associated Problems Recent Progress Patient-Stated? Author CCM Chronic Pain Care Plan Chronic Care Management Worsening( 3:07 PM TAPER/FINISHER) Linda Hunter Note: Problem: Chronic Pain Goals: 1. Minimize further functional decline 2. Maximize quality of life 3. Control pain Strategies: - Activity/exercise program recommendation - Conservative stepwise pain medicine strategy with multi-disciplinary approach - Recommend healthy lifestyle strategies and compensatory methods as needed documented as of this encounter Visit Diagnoses Not on filedocumented in this encounter Care Teams Diamond Mounter Relationship Specialty Start Date End Date Johnson Rodriguez MD [address] [place] [address] PCP - General 07/29/16 Lucille Hernandez, RN Registered Nurse 04/08/19 documented as of this encounter
--- OUTSIDE RECORDS SUMMARY | 2024-06-05 17:01 | XMS_ITS | Encounter Summary ---
Author Organization [facility] Healthcare Address [address] [place] [address] Care Team Providers Care Car Filler Name Role Phone Johnson Rodriguez MD Primary Care Provide r Lucille Hernandez RN Unavailable Unavailab le Reason for Visit * Reason Onset Date Comments Pre-Surgical Call 11/16/2020 Encounter Details Date Type Department Care Team (Late st Contact Info) Description 11/16/2020 Telephone [facility] [place] [facility] [address] [facility] for [facility] Medicine [address] [place], [place] [id number] Cynthia Nava MD [address] [facility] [phone] [place], [place] [id number] Pre-Surgical Call Social History Tobacco Use Types Packs/Day Years Used Date Smoking Tobacco: Never Smokeless Tobacco: Never Alcohol Use Standard Drinks/Week Comments No 0 (1 standard drink = 0.6 oz pur e alcohol) denies AUDIT-C Answer Date Recorded Q1: How often do you have a drink containing alc ohol? Never 11/18/2020 Average Number of Drinks Not on file 021 Q3: How often do you have si x or more drinks on one occasion? Never 11/18/2020 Comments No Sex and Gender Information Value Date Recorded Sex Assigned at Not on file Legal Sex Female 12:26 AM RECORDS SPECIALIST Gender Identity Not on file Sexual Orientation Not on file documented as of this encounter Plan of Treatment Not on file documented as of this encounter Goals Goal Patient Goal Type Associated Problems Recent Progress Patient-Stated? Author CCM Chronic Pain Care Plan Chronic Care Management Worsening( 3:07 PM RECORDS SPECIALIST) Linda Hunter Note: Problem: Chronic Pain Goals: 1. Minimize further functional decline 2. Maximize quality of life 3. Control pain Strategies: - Activity/exercise program recommendation - Conservative stepwise pain medicine strategy with multi-disciplinary approach - Recommend healthy lifestyle strategies and compensatory methods as needed documented as of this encounter Visit Diagnoses Not on filedocumented in this encounter Care Teams Car Filler Relationship Specialty Start Date End Date Johnson Rodriguez MD [address] [place] [address] PCP - General 07/29/16 Luiclle Hernandez RN Registered Nurse 04/08/19 documented as of this encounter
--- OUTSIDE RECORDS SUMMARY | 2024-06-05 17:01 | XMS_ITS | Encounter Summary ---
Author Organization [facility] Healthcare Address [address] [place] [address] Care Team Providers Care Monorail Charger Operator Name Role Phone Johnson Rodriguez MD Primary Care Provide r Lucille Hernandez RN Unavailable Unavailab le Encounter Details Date Type Department Care Team (Late st Contact Info) Description 04/20/2020 Telephone [facility] [address] [facility] Advanced Medicine [address] [place] [phone] Madelyn Hester RN Social History Tobacco Use Types Packs/Day Years Used Date Smoking Tobacco: Never Smokeless Tobacco: Never Alcohol Use Standard Drinks/Week Comments No 0 (1 standard drink = 0.6 oz pur e alcohol) denies Comments No Sex and Gender Information Value Date Recorded Sex Assigned at Not on file Legal Sex Female 12:26 AM SECTION GANG WORKER Gender Identity Not on file Sexual Orientation Not on file documented as of this encounter Plan of Treatment Not on file documented as of this encounter Goals Goal Patient Goal Type Associated Problems Recent Progress Patient-Stated? Author CCM Chronic Pain Care Plan Chronic Care Management Worsening( 3:07 PM SECTION GANG WORKER) No Linda Crowell Note: Problem: Chronic Pain Goals: 1. Minimize further functional decline 2. Maximize quality of life 3. Control pain Strategies: - Activity/exercise program recommendation - Conservative stepwise pain medicine strategy with multi-disciplinary approach - Recommend healthy lifestyle strategies and compensatory methods as needed documented as of this encounter Visit Diagnoses Not on filedocumented in this encounter Care Teams Monorail Charger Operator Relationship Specialty Start Date End Date Johnson Rodriguez MD [address] [place] [id number] PCP - General 07/29/16 Lucille Hernandez RN Registered Nurse 04/08/19 documented as of this encounter
--- OUTSIDE RECORDS SUMMARY | 2024-06-05 17:01 | XMS_ITS | Encounter Summary ---
Author Organization [facility] Address [address] [place] [address] Phone Care Team Providers Care Inspector Exhaust Emissions Name Role Phone Johnson Rodriguez MD Primary Care Provider [phone]- [phone] Zina Rizo APRN, MACHINE CERAMIC COATER Unavailable [phone]- [phone] Heather Oliva CHANNEL MARKETING MANAGER, PHYSICIAN CHIEF OF PATHOLOGY Unavailable + [phone] iZna Rizo APRN, MACHINE CERAMIC COATER Unavailable Silvana Brown CHANNEL MARKETING MANAGER, MACHINE CERAMIC COATER Unavailable Reason for Visit * Reason Comments Medication Refill Encounter Details Date Type Department Care Team (Late st Contact Info) Description 07/27/[address] [facility] - Neurology [facility] [address] [place] [address] Heather Oliva CHANNEL MARKETING MANAGER, PHYSICIAN CHIEF OF PATHOLOGY [address] [place] [address] Medication Refill Social History Tobacco Use Types [...] Telephone Encounter - Melvina Reid RN - 07/27/2023 8:50 AM CDT Medication failed the protocol, provider to review and approve the medication order if appropriate. Requested Prescriptions Pending Prescriptions Disp Refills lacosamide (VIMPAT) 100 MG Tablet [Pharmacy Med Name: LACOSAMIDE 100 MG TABLET] 60 Tablet 3 Sig: TAKE ONE TABLET BY MOUTH TWICE A DAY Not Delegated - Anticonvulsants Excluding Benzodiazepines Protocol Failed - 07/27/2023 8:41 AM Failed - This refill cannot be delegated Passed - Visit with relevant provider in past 12 months or upcoming 90 days Recent Visits Date Type Provider Dept 05/31/23 Office Visit Heather Oliva APRN, [facility] Neurology [facility] 01/27/23 Office Visit Heather Oliva APRN, JO[facility] Neurology [facility] 01/06/23 Procedure Visit Dago Land MD [facility] Neurology [facility] 10/26/22 Office Visit Heather Oliva APRN, PHYSICIAN CHIEF OF PATHOLOGY [facility] Neurology [facility] Showing recent visits within past 365 days and meeting all other requirements Future Appointments Date Type Provider Dept 08/01/23 Appointment Heather Oliva APRN, JOSE [facility] Showing future appointments within next 90 days and meeting all other requirements documented in this encounter Plan of Treatment Upcoming Encounters Date Type Department Care Team (Late st Contact Info) Description 07/15/2024 2:00 PM CDT Office Visit [facility] - Pulmonology & Sleep Medicine - [place] [address] [place] [address] Zina Rizo APRN, MACHINE CERAMIC COATER #[address] [address] 07/19/2024 2:00 PM CDT Office Visit [facility] - Gastroenterology - [place] [address] [place] [address] Silvana Brown APRN, MACHINE CERAMIC COATER [address] [place] [address] documented as of this encounter Visit Diagnoses Diagnosis Seizures (HCC) Other convulsions documented in this encounter Care Teams Inspector Exhaust Emissions Relationship Specialty Start Date End Date Johnson Rodriguez MD [address] [place] [address] PCP - General Pediatrics 11/17/21 Zina Rizo APRN, [facility] #[address] [address] Nurse Practitioner Advanced Practice Nurse 06/24/22 Heather Oliva APRN, PHYSICIAN CHIEF OF PATHOLOGY [address] [place] [address] Nurse Practitioner Advanced Practice Nurse 12/22/21 Zina Rizo APRN, MACHINE CERAMIC COATER #[address] [address] Nurse Practitioner Advanced Practice Nurse 01/06/23 Silvana Brown APRN, MACHINE CERAMIC COATER [address] [place] [address] Nurse Practitioner Advanced Practice Nurse 07/14/22 documented as of this encounter
--- OUTSIDE RECORDS SUMMARY | 2024-06-05 17:01 | XMS_ITS | Encounter Summary ---
Author Organization [facility] Address [address] [place] [address] Phone Care Team Providers Care Slat Twister Name Role Phone Johnson Rodriguez MD Primary Care Provider [phone]- [phone] Zina Rizo APRN, CAR ELECTRONICS INSTALLER Unavailable +1- [phone] Heather Oliva APRN, FLOWER CHENILLER Unavailable + [phone] Zina Rizo APRN, CAR ELECTRONICS INSTALLER Unavailable Silvana Brown APRN, CAR ELECTRONICS INSTALLER Unavailable Reason for Visit * Reason Comments Medication Refill Encounter Details Date Type Department Care Team (Late st Contact Info) Description 06/29/2023 [facility]ill [facility] - [facility]ology - [place] [address] [place] [address] Silvana Brown APRN, CAR ELECTRONICS INSTALLER [address] [place] [address] Medication Refill Social History Tobacco Use Types [...] Telephone Encounter - Denae Cameron RN - 07/04/2023 10:32 AM GLAZIER SUPERVISOR Per nursing clinical judgement, provider to review and approve the medication(s) order(s) if appropriate. Requested Prescriptions Pending Prescriptions Disp Refills omeprazole (PriLOSEC) 40 MG CAPSULE DELAYED RELEASE [Pharmacy Med Name: OMEPRAZOLE DR 40 MG CAPSULE] 30 Capsule 0 Sig: TAKE ONE CAPSULE BY MOUTH DAILY Proton Pump Inhibitors Protocol Passed - 06/29/2023 5:03 PM Passed - Visit with relevant provider in past 12 months or upcoming 90 days Recent Visits Date Type Provider Dept 03/29/23 Office Visit Silvana Brown APRN, CNP [facility] [place] 11/08/22 Office Visit Silvana Brown APRN, CNP [facility] [place] 07/14/22 Office Visit Silvana Brown APRN, CNP [facility] [place] Showing recent visits within past 365 days and meeting all other requirements Future Appointments No visits were found meeting these conditions. Showing future appointments within next 90 days and meeting all other requirements IER SUPERVISOR documented in this encounter Plan of Treatment Upcoming Encounters Date Type Department Care Team (Late st Contact Info) Description 07/15/2024 2:00 PM CDT Office Visit [facility] - Pulmonology & Sleep Medicine - [place] [address] [place] [address] Zina Rizo APRN, CAR ELECTRONICS INSTALLER #[address] [address] 07/19/2024 2:00 PM CDT Office Visit [facility] Medical [facility] - Gastroenterology - [place] [address] [place] [address] Silvana Brown APRN, CAR ELECTRONICS INSTALLER [address] [place] [address] documented as of this encounter Visit Diagnoses Diagnosis Epigastric pain Abdominal pain, epigastric documented in this encounter Care Teams Slat Twister Relationship Specialty Start Date End Date Johnson Rodriguez MD [address] [place] [address] PCP - General Pediatrics 11/17/21 Zina Rizo, AJ, CAR ELECTRONICS INSTALLER #[address] [address] Nurse Practitioner Advanced Practice Nurse 06/24/22 Heather Oliva APRN, FLOWER CHENILLER #[address] [place] [address] Nurse Practitioner Advanced Practice Nurse 12/22/21 Zina Rizo, AJ, CAR ELECTRONICS INSTALLER #[address] [address] Nurse Practitioner Advanced Practice Nurse 01/06/23 Silvana Brown APRN, CAR ELECTRONICS INSTALLER [address] [place] [address] Nurse Practitioner Advanced Practice Nurse 07/14/22 documented as of this encounter
--- OUTSIDE RECORDS SUMMARY | 2024-06-05 17:01 | XMS_ITS | Encounter Summary ---
Author Organization [facility] Healthcare Address [address] [place] [address] Care Team Providers Care News Correspondent Name Role Phone Johnson Rodriguez MD Primary Care Provide r Lucille Hernandez RN Unavailable Unavailab le Reason for Visit * Reason Onset Date Comments Pre-Surgical Call 06/24/2020 Encounter Details Date Type Department Care Team (Late st Contact Info) Description 06/24/2020 Telephone [facility] [place] for [facility] [address] [facility] for Advanced Medicine [address] [place], [place] [phone] Cynthia Nava MD [address] [facility] [phone] [place], [place] [phone] Pre-Surgical Call Social History Tobacco Use Types Packs/Day Years Used Date Smoking Tobacco: Never Smokeless Tobacco: Never Alcohol Use Standard Drinks/Week Comments No 0 (1 standard drink = 0.6 oz pur e alcohol) denies Comments No Sex and Gender Information Value Date Recorded Sex Assigned at Not on file Legal Sex Female 12:26 AM TECHNICAL SUPPORT MANAGER Gender Identity Not on file Sexual Orientation Not on file documented as of this encounter Plan of Treatment Not on file documented as of this encounter Goals Goal Patient Goal Type Associated Problems Recent Progress Patient-Stated? Author CCM Chronic Pain Care Plan Chronic Care Management Worsening( 3:07 PM TECHNICAL SUPPORT MANAGER) No Linda Crowell Note: Problem: Chronic Pain Goals: 1. Minimize further functional decline 2. Maximize quality of life 3. Control pain Strategies: - Activity/exercise program recommendation - Conservative stepwise pain medicine strategy with multi-disciplinary approach - Recommend healthy lifestyle strategies and compensatory methods as needed documented as of this encounter Visit Diagnoses Not on filedocumented in this encounter Care Teams News Correspondent Relationship Specialty Start Date End Date Johnson Rodriguez MD [address] [place] [address] PCP - General 07/29/16 Lucille Hernandez RN Registered Nurse 04/08/19 documented as of this encounter
--- OUTSIDE RECORDS SUMMARY | 2024-06-05 17:01 | XMS_ITS | Encounter Summary ---
Author Organization [facility] Address [address] [place] [address] Phone Care Team Providers Care Physical Meteorologist Name Role Phone Johnson Rodriguez MD Primary Care Provider +1- [phone] Zina Rizo APRN, CHUCKING AND SAWING MACHINE OPERATOR Unavailable +1- [phone] Heatehr Oliva APRN, MICA PLATE LAYER Unavailable + [phone] Zina Rizo APRN, CHUCKING AND SAWING MACHINE OPERATOR Unavailable Silvana Brown APRN, CHUCKING AND SAWING MACHINE OPERATOR Unavailable Reason for Visit * Reason Comments Medication Refill Encounter Details Date Type Department Care Team (Late st Contact Info) Description 05/27/2023 Refill [facility] - [facility] - [place] [address] [place] [address] Silvana Brown APRN, CHUCKING AND SAWING MACHINE OPERATOR [address] [place] [address] Medication Refill Social History Tobacco Use Types [...] Telephone Encounter - Denae Cameron RN - 05/29/2023 9:29 AM PARENT COACH Per nursing clinical judgement, provider to review and approve the medication(s) order(s) if appropriate. Requested Prescriptions Pending Prescriptions Disp Refills omeprazole (PriLOSEC) 40 MG CAPSULE DELAYED RELEASE [Pharmacy Med Name: OMEPRAZOLE DR 40 MG CAPSULE] 30 Capsule 0 Sig: TAKE ONE CAPSULE BY MOUTH DAILY Proton Pump Inhibitors Protocol Passed - 05/27/2023 11:24 AM Passed - Visit with relevant provider in past 12 months or upcoming 90 days Recent Visits Date Type Provider Dept 03/29/23 Office Visit Silvana Brown APRN, CNP [facility] [place] 11/08/22 Office Visit Silvana Brown APRN, CNP [facility] [place] 07/14/22 Office Visit Silvana Brown APRN, CNP [facility] [place] Showing recent visits within past 365 days and meeting all other requirements Future Appointments Date Type Provider Dept 06/28/23 Appointment Silvana Brown APRN, CNP [facility] [place] Showing future appointments within next 90 days and meeting all other requirements NT COACH documented in this encounter Plan of Treatment Upcoming Encounters Date Type Department Care Team (Late st Contact Info) Description 07/15/2024 2:00 PM CDT Office Visit [facility] Medical [facility] - Pulmonology & Sleep Medicine - [place] [address] [place] [address] Zina Rizo APRN, CHUCKING AND SAWING MACHINE OPERATOR #[address] [address] 07/19/2024 2:00 PM CDT Office Visit [facility] - Gastroenterology - [place] [address] [place] [address] SchSilvana shepard APRN, [facility] [address] [place] [address] documented as of this encounter Visit Diagnoses Diagnosis Epigastric pain Abdominal pain, epigastric documented in this encounter Care Teams Physical Meteorologist Relationship Specialty Start Date End Date Johnson Rodriguez MD [address] [place] [address] PCP - General Pediatrics 11/17/21 Zina Rizo APRN, CHUCKING AND SAWING MACHINE OPERATOR #[address] [address] Nurse Practitioner Advanced Practice Nurse 06/24/22 Heather Oliva APRN, MICA PLATE LAYER [address] [place] [address] Nurse Practitioner Advanced Practice Nurse 12/22/21 Zina Rizo APRN, CHUCKING AND SAWING MACHINE OPERATOR #[address] [address] Nurse Practitioner Advanced Practice Nurse 01/06/23 Silvana Brown APRN, CHUCKING AND SAWING MACHINE OPERATOR [address] [place] [address] Nurse Practitioner Advanced Practice Nurse 07/14/22 documented as of this encounter
--- OUTSIDE RECORDS SUMMARY | 2024-06-05 17:01 | XMS_ITS | Encounter Summary ---
Author Organization [facility] Healthcare Address [address] [place] [address] Care Team Providers Care Propellant Assembler Name Role Phone Johnson Rodriguez MD Primary Care Provide r Lucille Hernandez RN Unavailable Unavailab le Reason for Visit * Reason Onset Date Comments Appointment 11/13/2017 Encounter Details Date Type Department Care Team (Late st Contact Info) Description 11/13/2017 Telephone [facility] [address] [facility] [address] [place], [place] [id number] Cynthia Nava MD [address] [facility] [phone] [place], [place] [id number] Appointment Social History Tobacco Use Types Packs/Day Years Used Date Smoking Tobacco: Never Smokeless Tobacco: Never Alcohol Use Standard Drinks/Week Comments No 0 (1 standard drink = 0.6 oz pur e alcohol) Comments No Sex and Gender Information Value Date Recorded Sex Assigned at Not on file Legal Sex Female 12:26 AM ATMOSPHERIC SCIENTIST Gender Identity Not on file Sexual Orientation Not on file documented as of this encounter Plan of Treatment Not on file documented as of this encounter Visit Diagnoses Not on filedocumented in this encounter Care Teams Propellant Assembler Relationship Specialty Start Date End Date Johnson Rodriguez MD [address] [place] [address] PCP - General 07/29/16 Lucille Hernandez, RN Registered Nurse 04/08/19 documented as of this encounter
--- OUTSIDE RECORDS SUMMARY | 2024-06-05 17:01 | XMS_ITS | Encounter Summary ---
Author Organization [facility] Address [address] [place] [address] Phone Care Team Providers Care Furnace Packer Name Role Phone Johnson Rodriguez MD Primary Care Provider +1- [phone] Zina Rizo APRN, OCCUPATIONAL HEALTH SPECIALIST Unavailable +1- [phone] Heather Oliva APRN, BUSINESS OWNER/ENGINEER Unavailable + [phone] Zina Rizo APRN, OCCUPATIONAL HEALTH SPECIALIST Unavailable Silvana Brown APRN, OCCUPATIONAL HEALTH SPECIALIST Unavailable Reason for Visit * Reason Comments Medication Refill Encounter Details Date Type Department Care Team (Late st Contact Info) Description 10/12/2023 Refill [facility] - [facility]enterology - [place] [address] [place] [address] Silvana Brown APRN, OCCUPATIONAL HEALTH SPECIALIST [address] [place] [address] Medication Refill Social History Tobacco Use Types [...] Telephone Encounter - Denae Cameron RN - 10/12/2023 11:45 AM CDT Medication refilled and signed per [facility] [place] standing order for pediatric and adult patients. documented in this encounter Plan of Treatment Upcoming Encounters Date Type Department Care Team (Late st Contact Info) Description 07/15/2024 2:00 PM CDT Office Visit [facility] - Pulmonology & Sleep Medicine - [place] [address] [place] [address] Zina Rizo APRN, OCCUPATIONAL HEALTH SPECIALIST #[address] [address] 07/19/2024 2:00 PM CDT Office Visit [facility] - Gastroenterology - [place] [address] [place] [address] Silvana Brown APRN, OCCUPATIONAL HEALTH SPECIALIST [address] [place] [address] documented as of this encounter Visit Diagnoses Not on filedocumented in this encounter Care Teams Furnace Packer Relationship Specialty Start Date End Date Johnson Rodriguez MD [address] [place] [address] PCP - General Pediatrics 11/17/21 Zina Rizo APRN, OCCUPATIONAL HEALTH SPECIALIST #[address] [address] Nurse Practitioner Advanced Practice Nurse 06/24/22 Heather Oliva APRN, BUSINESS OWNER/ENGINEER [address] [place] [address] Nurse Practitioner Advanced Practice Nurse 12/22/21 Zina Rizo APRN, OCCUPATIONAL HEALTH SPECIALIST [address] [address] Nurse Practitioner Advanced Practice Nurse 01/06/23 Silvana Brown APRN, OCCUPATIONAL HEALTH SPECIALIST [address] [place] [address] Nurse Practitioner Advanced Practice Nurse 07/14/22 documented as of this encounter
--- OUTSIDE RECORDS SUMMARY | 2024-06-05 17:01 | XMS_ITS | Encounter Summary ---
Author Organization [facility] Address [address] [place] [address] Phone Care Team Providers Care Director Emergency Services Name Role Phone Johnson Rodriguez MD Primary Care Provider [phone]- [phone] Zina Rizo APRN, ARBORIST Unavailable [phone]- [phone] Heather Oliva BOILER HOUSE OPERATOR, SIGNAL PROCESSING ENGINEER Unavailable + [phone] Zina Rizo APRN, ARBORIST Unavailable Silvana Brown BOILER HOUSE OPERATOR, ARBORIST Unavailable Reason for Visit * Reason Comments Medication Refill Encounter Details Date Type Department Care Team (Late st Contact Info) Description 10/12/2023 Refill [facility] - Neurology [facility] [address] [place] [address] Heather Oliva BOILER HOUSE OPERATOR, SIGNAL PROCESSING ENGINEER [address] [place] [address] Medication Refill Social History Tobacco Use Types [...] Telephone Encounter - Selene Mata RN - 10/12/2023 1:04 PM CDT Medication failed the protocol, provider to review and approve the medication order if appropriate. Requested Prescriptions Pending Prescriptions Disp Refills carBAMazepine (TEGretol) 200 MG Tablet [Pharmacy Med Name: CARBAMAZEPINE 200 MG TABLET] 360 Tablet 3 Sig: TAKE ONE TABLET BY MOUTH TWICE A DAY WITH MEALS Not Delegated - Anticonvulsants Excluding Benzodiazepines Protocol Failed - 10/12/2023 11:39 AM Failed - This refill cannot be delegated Passed - Visit with relevant provider in past 12 months or upcoming 90 days Recent Visits Date Type Provider Dept 08/01/23 Office Visit Heather Oliva APRN, [facility] Neurology [facility] 05/31/23 Office Visit Heather Oliva APRN, [facility] 01/27/23 Office Visit Heather Oliva APRN, SIGNAL PROCESSING ENGINEER [facility] 01/06/23 Procedure Visit Dago Land MD [facility] Neurology [facility] 10/26/22 Office Visit Heather Oliva APRN, [facility] Showing recent visits within past 365 days and meeting all other requirements Future Appointments Date Type Provider Dept 12/11/23 Appointment Heather Oliva APRN, [facility] Showing future appointments within next 90 days and meeting all other requirements documented in this encounter Plan of Treatment Upcoming Encounters Date Type Department Care Team (Late st Contact Info) Description 07/15/2024 2:00 PM CDT Office Visit [facility] - Pulmonology & Sleep Medicine - [place] [address] [place] [address] Zina Rizo APRN, ARBORIST #[address] [address] 07/19/2024 2:00 PM CDT Office Visit [facility] - Gastroenterology [facility] [address] [place] [address] Silvana Brown APRN, ARBORIST [address] [place] [address] documented as of this encounter Visit Diagnoses Diagnosis Trigeminal neuralgia of right side of face Cervical spine pain Cervicalgia Chronic migraine w/o aura w/o status migrainosus, not intractable Chronic migraine without aura, without mention of intractable migraine without mention of status migrainosus documented in this encounter Care Teams Director Emergency Services Relationship Specialty Start Date End Date Johnson Rodriguez MD [address] [place] [address] PCP - General Pediatrics 11/17/21 Zina Rizo APRN, ARBORIST #[address] [address] Nurse Practitioner Advanced Practice Nurse 06/24/22 Heather Oliva APRN, SIGNAL PROCESSING ENGINEER [address] [place] [address] Nurse Practitioner Advanced Practice Nurse 12/22/21 Zina Rizo APRN, ARBORIST #[address] [address] Nurse Practitioner Advanced Practice Nurse 01/06/23 Silvana Brown APRN, ARBORIST [address] [place] [address] Nurse Practitioner Advanced Practice Nurse 07/14/22 documented as of this encounter
--- OUTSIDE RECORDS SUMMARY | 2024-06-05 17:01 | XMS_ITS | Encounter Summary ---
Author Organization [facility] Healthcare Address [address] [place] [address] Care Team Providers Care Molding Utility Worker Name Role Phone Johnson Rodriguez MD Primary Care Provide r Lucille Hernandez RN Unavailable Unavailab le Encounter Details Date Type Department Care Team (Late st Contact Info) Description 02/23/2021 Telephone [facility] [place] [facility] [address] [facility] Advanced Medicine [address] [place], [place] [id number] Cynthia Nava MD [address] [facility] [phone] [place], [place] [id number] Social History Tobacco Use Types Packs/Day Years [...] on file Legal Sex Female 12:26 AM MUSIC EDUCATION ADJUNCT PROFESSOR Gender Identity Not on file Sexual Orientation Not on file documented as of this encounter Plan of Treatment Not on file documented as of this encounter Goals Goal Patient Goal Type Associated Problems Recent Progress Patient-Stated? Author CCM Chronic Pain Care Plan Chronic Care Management Worsening( 3:07 PM MUSIC EDUCATION ADJUNCT PROFESSOR) Linda Hunter Note: Problem: Chronic Pain Goals: 1. Minimize further functional decline 2. Maximize quality of life 3. Control pain Strategies: - Activity/exercise program recommendation - Conservative stepwise pain medicine strategy with multi-disciplinary approach - Recommend healthy lifestyle strategies and compensatory methods as needed documented as of this encounter Visit Diagnoses Not on filedocumented in this encounter Care Teams Molding Utility Worker Relationship Specialty Start Date End Date Johnson Rodriguez MD [address] [place] [address] PCP - General 07/29/16 Lucille Hernandez, RN Registered Nurse 04/08/19 documented as of this encounter
--- OUTSIDE RECORDS SUMMARY | 2024-06-05 17:01 | XMS_ITS | Encounter Summary ---
Author Organization [facility] Address [address] [place] [address] Phone Care Team Providers Care Adult Education Instructor Name Role Phone Johnson Rodriguez MD Primary Care Provider [phone]- [phone] Zina Rizo APRN, RADIO ELECTRONICS TECHNICIAN Unavailable +1- [phone] Heather Oliva LATHE MECHANIC, TOOL ADJUSTER Unavailable + [phone] Zina Rizo APRN, RADIO ELECTRONICS TECHNICIAN Unavailable Silvana Brown LATHE MECHANIC, RADIO ELECTRONICS TECHNICIAN Unavailable Reason for Visit * Reason Comments Medication Refill Encounter Details Date Type Department Care Team (Late st Contact Info) Description 11/25/2022 Refill [facility] - Neurology [facility] [address] [place] [address] Heather Oliva LATHE MECHANIC, TOOL ADJUSTER [address] [place] [address] Medication Refill Social History Tobacco Use Types [...] suspected to have Coronavirus/COVID-19? No / Unsure 11/07/2022 5:13 PM CDT documented as of this encounter Miscellaneous Notes * Telephone Encounter - Melvina Reid RN - 11/25/2022 9:32 AM CDT Medication failed the protocol, provider to review and approve the medication order if appropriate. Requested Prescriptions Pending Prescriptions Disp Refills Emgality 120 MG/ML Solution Auto-injector [Pharmacy Med Name: EMGALITY 120MG/ML AUTO INJECTOR] 1 mL3 Sig: INKECT 120 MG SUBCUTANEOUSLY EVERY 28 DAYS Not Delegated - Off Protocol Failed - 11/25/2022 9:26 AM Failed - This refill cannot be delegated Passed - Visit with relevant provider in past 12 months or upcoming 90 days Recent Visits Date Type Provider Dept 10/26/22 Office Visit Heather Oliva APRN, TOOL ADJUSTER [facility] Neurology [facility] 07/26/22 Office Visit Heather Oliva APRN TOOL ADJUSTER [facility] Neurology [facility] 04/26/22 Office Visit Heather Oliva APRN, [facility] Neurology [facility] 12/22/21 Office Visit Heather Oliva APRN, [facility] Showing recent visits within past 365 days and meeting all other requirements Future Appointments Date Type Provider Dept 01/27/23 Appointment Heather Oliva APRN, [facility] Showing future appointments within next 90 days and meeting all other requirements documented in this encounter Plan of Treatment Upcoming Encounters Date Type Department Care Team (Late st Contact Info) Description 07/15/2024 2:00 PM CDT [facility] Visit [facility] - Pulmonology & Sleep Medicine - [place] [address] [place] [address] Zina Rizo APRN, RADIO ELECTRONICS TECHNICIAN #[address] [address] 07/19/2024 2:00 PM CDT Office Visit [facility] - Gastroenterology [facility] [address] [place] [address] Silvana Brown APRN, RADIO ELECTRONICS TECHNICIAN [address] [place] [address] documented as of this encounter Visit Diagnoses Diagnosis Chronic migraine w/o aura w/o status migrainosus, not intractable Chronic migraine without aura, without mention of intractable migraine without mention of status migrainosus documented in this encounter Care Teams Adult Education Instructor Relationship Specialty Start Date End Date Johnson Rodriguez MD [address] [place] [address] PCP - General Pediatrics 11/17/21 Zina Rizo APRN, RADIO ELECTRONICS TECHNICIAN #[address] [address] Nurse Practitioner Advanced Practice Nurse 06/24/22 Heather Oliva APRN, TOOL ADJUSTER [address] [place] [address] Nurse Practitioner Advanced Practice Nurse 12/22/21 Zina Rizo APRN, RADIO ELECTRONICS TECHNICIAN #[address] [address] Nurse Practitioner Advanced Practice Nurse 01/06/23 Silvana Brown APRN, RADIO ELECTRONICS TECHNICIAN [address] [place] [address] Nurse Practitioner Advanced Practice Nurse 07/14/22 documented as of this encounter
--- OUTSIDE RECORDS SUMMARY | 2024-06-05 17:01 | XMS_ITS | Encounter Summary ---
Author Organization [facility] Address [address] [place] [address] Phone Care Team Providers Care Sleeve Bottom Feller Name Role Phone Johnson Rodriguez MD Primary Care Provider +1- [phone] Zina Rizo APRN, INTERFACE ENGINEER Unavailable +1- [phone] Heather Oliva TECHNOLOGY PROJECT MANAGER, CHOCOLATE FINISHER Unavailable +- [phone] Zina Rizo APRN, INTERFACE ENGINEER Unavailable [phone] Silvana Brown TECHNOLOGY PROJECT MANAGER, INTERFACE ENGINEER Unavailable Reason for Visit * Reason Comments Medication Refill Encounter Details Date Type Department Care Team (Late st Contact Info) Description 04/27/2023 Refill [facility] - Neurology [facility] [address] [place] [address] Heather Oliva TECHNOLOGY PROJECT MANAGER, CHOCOLATE FINISHER [address] [place] [address] Medication Refill Social History Tobacco Use Types [...] Telephone Encounter - Melvina Reid RN - 04/27/2023 12:07 PM CST Medication failed the protocol, provider to review and approve the medication order if appropriate. Requested Prescriptions Pending Prescriptions Disp Refills vcwywezrjl-wcbvkqcorvqir-[id number] (FIORICET, ESGIC) 50-325-40 MG Tablet [Pharmacy Med Name: NZXKWO-[id number]-[id number] 50-325-40] 15 Tablet Sig: TAKE ONE TABLET BY MOUTH EVERY FOUR HOURS NEEDED FOR HEADACHES OR MIGRAINE. Not Delegated - Butalbital Protocol Failed - 04/27/2023 9:44 AM Failed - This refill cannot be delegated; check utilization Passed - Visit with relevant provider in past 24 months or upcoming 90 days Recent Visits Date Type Provider Dept 01/27/23 Office Visit Heather Oliva APRN [facility] Neurology [facility] 01/06/23 Procedure Visit Dago Land MD [facility] Neurology [facility] 10/26/22 Office Visit Heather Oliva APRN, [facility] Neurology [facility] 07/26/22 Office Visit Heather Oliva APRN [facility] Neurology [facility] 04/26/22 Office Visit Heather Oliva APRN, [facility] 12/22/21 Office Visit Heather Oliva APRN [facility] Neurology [facility] Showing recent visits within past 730 days and meeting all other requirements Future Appointments Date Type Provider Dept 05/31/23 Appointment Heather Oliva APRN, CNS [facility] Neurology [facility] Showing future appointments within next 90 days and meeting all other requirements Passed - No documented Systolic BP > 200 within past 3 months Passed - Number of active Serotonergic medications less than 3 propranolol (INDERAL) 60 MG Tablet [Pharmacy Med Name: PROPRANOLOL 60 MG TABLET] 90 Tablet 1 Sig: TAKE ONE TABLET BY MOUTH DAILY Beta-Blockers Protocol Passed - 04/27/2023 9:44 AM Passed - BP on record in the past year Clinician-entered: BP Readings from Last 3 Encounters: 03/29/23 120/66 01/27/23 112/72 11/08/22 138/78 Patient-entered: No data recorded Passed - Visit with relevant provider in past 12 months or upcoming 90 days Recent Visits Date Type Provider Dept 01/27/23 Office Visit Heather Oliva APRN, [facility] Neurology [facility] 01/06/23 Procedure Visit Dago Land MD [facility] Neurology [facility] 10/26/22 Office Visit Heather Oliva APRN, [facility] Neurology [facility] 07/26/22 Office Visit Heather Oliva APRN, [facility] Neurology [facility] Showing recent visits within past 365 days and meeting all other requirements Future Appointments Date Type Provider Dept 05/31/23 Appointment Heather Oliva APRN, [facility] Showing future appointments within next 90 days and meeting all other requirements Y LEVEL FINANCIAL ANALYST documented in this encounter Plan of Treatment Upcoming Encounters Date Type Department Care Team (Late st Contact Info) Description 07/15/2024 2:00 PM CDT Office Visit [facility] - Pulmonology & Sleep Medicine - [place] [address] [place] [address] Zina Rizo APRN, INTERFACE ENGINEER [address] [address] 07/19/2024 2:00 PM CDT Office Visit [facility] - Gastroenterology - [place] [address] [place] [phone] Silvana Brown APRN, INTERFACE ENGINEER [address] [place] [address] documented as of this encounter Visit Diagnoses Diagnosis Chronic migraine w/o aura w/o status migrainosus, not intractable Chronic migraine without aura, without mention of intractable migraine without mention of status migrainosus documented in this encounter Care Teams Sleeve Bottom Feller Relationship Specialty Start Date End Date Johnson Rodriguez MD [address] [place] [address] PCP - General Pediatrics 11/17/21 Zina Rizo, AJ, INTERFACE ENGINEER #[address] [address] Nurse Practitioner Advanced Practice Nurse 06/24/22 Heather Oliva APRN, CHOCOLATE FINISHER [address] [place] [address] Nurse Practitioner Advanced Practice Nurse 12/22/21 Zina Rizo, AJ, INTERFACE ENGINEER #[address] [address] Nurse Practitioner Advanced Practice Nurse 01/06/23 Silvana Brown APRN, INTERFACE ENGINEER [address] [place] [address] Nurse Practitioner Advanced Practice Nurse 07/14/22 documented as of this encounter
--- OUTSIDE RECORDS SUMMARY | 2024-06-05 17:01 | XMS_ITS | Encounter Summary ---
Author Organization [facility] Address [address] [place] [address] Phone Care Team Providers Care Clothes Presser Name Role Phone Johnson Rodriguez MD Primary Care Provider +1- [phone] Zina Rizo APRN, GOLF INSTRUCTOR Unavailable +1- [phone] Heather Oliva CP BLEACHER OPERATOR, WRINGER OPERATOR Unavailable + [phone] Zina Rizo APRN, GOLF INSTRUCTOR Unavailable [phone] Silvana Brown CP BLEACHER OPERATOR, GOLF INSTRUCTOR Unavailable Reason for Visit * Reason Comments Medication Refill Encounter Details Date Type Department Care Team (Late st Contact Info) Description 12/26/2022 Refill [facility] - Neurology [facility] [address] [place] [address] Heather Oliva CP BLEACHER OPERATOR, WRINGER OPERATOR [address] [place] [address] Medication Refill Social History Tobacco Use Types [...] suspected to have Coronavirus/COVID-19? No / Unsure 12/09/2022 12:32 PM CDT documented as of this encounter Miscellaneous Notes * Telephone Encounter - Melvina Reid RN - 12/27/2022 8:12 AM CDT Medication failed the protocol, provider to review and approve the medication order if appropriate. Requested Prescriptions Pending Prescriptions Disp Refills propranolol (INDERAL) 60 MG Tablet [Pharmacy Med Name: PROPRANOLOL 60 MG TABLET] 90 Tablet 1 Sig: TAKE ONE TABLET BY MOUTH DAILY Beta-Blockers Protocol Passed - 12/26/2022 4:30 PM Passed - BP on record in the past year Clinician-entered: BP Readings from Last 3 Encounters: 11/08/22 138/78 10/26/22 110/70 07/26/22 112/70 Patient-entered: No data recorded Passed - Visit with relevant provider in past 12 months or upcoming 90 days Recent Visits Date Type Provider Dept 10/26/22 Office Visit Heather Oliva APRN, WRINGER OPERATOR [facility] Neurology [facility] [address] 07/26/22 Office Visit Heather Oliva APRN, [facility] [address] 04/26/22 Office Visit Heather Oliva APRN, [facility] Showing recent visits within past 365 days and meeting all other requirements Future Appointments Date Type Provider Dept 01/06/23 Appointment Dago Land MD [facility] Neurology [facility] [address] 01/27/23 Appointment Heather Oliva APRN [facility] Showing future appointments within next 90 days and meeting all other requirements topiramate (TOPAMAX) 200 MG Tablet [Pharmacy Med Name: TOPIRAMATE 200 MG TABLET] 60 Tablet 1 Sig: TAKE ONE TABLET BY MOUTH TWICE A DAY Not Delegated - Anticonvulsants Excluding Benzodiazepines Protocol Failed - 12/26/2022 4:30 PM Failed - This refill cannot be delegated Passed - Visit with relevant provider in past 12 months or upcoming 90 days Recent Visits Date Type Provider Dept 10/26/22 Office Visit Heather Oliva APRN, WRINGER OPERATOR [facility] 07/26/22 Office Visit Heather Oliva APRN, WRINGER OPERATOR [facility] 04/26/22 Office Visit Heather Oliva APRN, WRINGER OPERATOR [facility] Neu[facility] Showing recent visits within past 365 days and meeting all other requirements Future Appointments Date Type Provider Dept 01/06/23 Appointment Dago Land MD [facility] Neurology [facility] 01/27/23 Appointment [facility] Showing future appointments within next 90 days and meeting all other requirements documented in this encounter Plan of Treatment Upcoming Encounters Date Type Department Care Team (Late st Contact Info) Description 07/15/2024 2:00 PM CDT Office Visit [facility] - Pulmonology & Sleep Medicine - [place] [address] [place] [address] Zina Rizo APRN, GOLF INSTRUCTOR [address] [address] 07/19/2024 2:00 PM CDT Office Visit [facility] - Gastroenterology - [place] [address] [place] [address] Silvana Brown APRN, GOLF INSTRUCTOR [address] [place] [address] documented as of this encounter Visit Diagnoses Not on filedocumented in this encounter Care Teams Clothes Presser Relationship Specialty Start Date End Date Johnson Rodriguez MD [address] [place] [address] PCP - General Pediatrics 11/17/21 Zina Rizo APRN, GOLF INSTRUCTOR #[address] [address] Nurse Practitioner Advanced Practice Nurse 06/24/22 Heather Oliva APRN, WRINGER OPERATOR [address] [place] [address] Nurse Practitioner Advanced Practice Nurse 12/22/21 Zina Rizo APRN, GOLF INSTRUCTOR #[address] [address] Nurse Practitioner Advanced Practice Nurse 01/06/23 Silvana Brown APRN, GOLF INSTRUCTOR [address] [place] [address] Nurse Practitioner Advanced Practice Nurse 07/14/22 documented as of this encounter
--- OUTSIDE RECORDS SUMMARY | 2024-06-05 17:01 | XMS_ITS | Encounter Summary ---
Author Organization [facility] Healthcare Address [address] [place] [address] Care Team Providers Care Geology Teacher Name Role Phone Johnson Rodriguez MD Primary Care Provide r Lucille Hernandez RN Unavailable Unavailab le Encounter Details Date Type Department Care Team (Late st Contact Info) Description 02/22/2021 Telephone [facility] at the [place] [facility] [address] [facility] Advanced Medicine [address] [place], [place] [id number] Cynthia Nava MD [address] [facility] [id number] [place], [place] [id number] Social History Tobacco Use Types Packs/Day Years [...] on file Legal Sex Female 12:26 AM CANCELING MACHINE OPERATOR Gender Identity Not on file Sexual Orientation Not on file documented as of this encounter Plan of Treatment Not on file documented as of this encounter Goals Goal Patient Goal Type Associated Problems Recent Progress Patient-Stated? Author CCM Chronic Pain Care Plan Chronic Care Management Worsening( 3:07 PM CANCELING MACHINE OPERATOR) Linda Hunter Note: Problem: Chronic Pain Goals: 1. Minimize further functional decline 2. Maximize quality of life 3. Control pain Strategies: - Activity/exercise program recommendation - Conservative stepwise pain medicine strategy with multi-disciplinary approach - Recommend healthy lifestyle strategies and compensatory methods as needed documented as of this encounter Visit Diagnoses Not on filedocumented in this encounter Care Teams Geology Teacher Relationship Specialty Start Date End Date Johnson Rodriguez MD [address] [place] [address] PCP - General 07/29/16 Lucille Hernandez, RN Registered Nurse 04/08/19 documented as of this encounter
--- OUTSIDE RECORDS SUMMARY | 2024-06-05 17:01 | XMS_ITS | Encounter Summary ---
Author Organization [facility] Address [address] [place] [address] Phone Care Team Providers Care Braille Translator Name Role Phone Johnson Rodriguez MD Primary Care Provider [phone]- [phone] Zina Rizo APRN, RADIO TIME SALESPERSON Unavailable +1- [phone] Heather Oliva APRN, ACCOUNTS PAYABLE ADMINISTRATOR Unavailable + [phone] Zina Rizo APRN, RADIO TIME SALESPERSON Unavailable Silvana Brown APRN, RADIO TIME SALESPERSON Unavailable Reason for Visit * Reason Comments Medication Refill Encounter Details Date Type Department Care Team (Late st Contact Info) Description 04/27/2023 Refill [facility] - [facility]ology - [place] [address] [place] [address] Silvana Brown APRN, RADIO TIME SALESPERSON [address] [place] [address] Medication Refill Social History Tobacco Use Types [...] encounter Miscellaneous Notes * Telephone Encounter - eDnae Cameron RN - 04/27/2023 3:51 PM MANAGER DRUG Per nursing clinical judgement, provider to review and approve the medication(s) order(s) if appropriate. Omeprazole order pended and passed protocol. Trulance order pended and noted to be historical provider. Please review. Requested Prescriptions Pending Prescriptions Disp Refills omeprazole (PriLOSEC) 40 MG CAPSULE DELAYED RELEASE [Pharmacy Med Name: OMEPRAZOLE DR 40 MG CAPSULE] 30 Capsule 0 Sig: Take 1 Capsule by mouth daily. Proton Pump Inhibitors Protocol Passed - 04/27/2023 9:44 AM Passed - Visit with relevant provider in past 12 months or upcoming 90 days Recent Visits Date Type Provider Dept 03/29/23 Office Visit Silvana Brown APRN, CNP [facility] [place] 11/08/22 Office Visit Silvana Brown APRN, CNP [facility] [place] 07/14/22 Office Visit Silvana Brown APRN, CNP [facility] [place] Showing recent visits within past 365 days and meeting all other requirements Future Appointments Date Type Provider Dept 06/28/23 Appointment Silvana Brown APRN, CNP [facility] [place] Showing future appointments within next 90 days and meeting all other requirements Trulance 3 MG Tablet [Pharmacy Med Name: TRULANCE 3 MG TABLET] 90 Tablet Sig: TAKE ONE TABLET BY MOUTH DAILY IBS-C/CIC Protocol Passed - 04/27/2023 9:44 AM Passed - Visit with relevant provider in past 12 months or upcoming 90 days Recent Visits Date Type Provider Dept 03/29/23 Office Visit Silvana Brown APRN, CNP [facility] [place] 11/08/22 Office Visit Silvana Brown APRN, CNP [facility] [place] 07/14/22 Office Visit Silvana Brown APRN, RADIO TIME SALESPERSON [facility] [place] Showing recent visits within past 365 days and meeting all other requirements Future Appointments Date Type Provider Dept 06/28/23 Appointment Silvana Brown APRN, RADIO TIME SALESPERSON [facility] [place] Showing future appointments within next 90 days and meeting all other requirements GER DRUG documented in this encounter Plan of Treatment Upcoming Encounters Date Type Department Care Team (Late st Contact Info) Description 07/15/2024 2:00 PM CDT [facility] - Pulmonology & Sleep Medicine - [place] [address] [place] [address] Zina Rizo APRN, RADIO TIME SALESPERSON #2 [facility] [address] [place] [address] 07/19/2024 2:00 PM CDT Office Visit [facility] Medical [facility] - Gastroenterology - [place] [address] [place] [address] Silvana Brown APRN, RADIO TIME SALESPERSON [address] [place] [address] documented as of this encounter Visit Diagnoses Diagnosis Epigastric pain Abdominal pain, epigastric documented in this encounter Care Teams Braille Translator Relationship Specialty Start Date End Date Johnson Rodriguez MD [address] [place] [address] PCP - General Pediatrics 11/17/21 Zina Rizo APRN, RADIO TIME SALESPERSON #[address] [address] Nurse Practitioner Advanced Practice Nurse 06/24/22 Heather Oliva APRN, ACCOUNTS PAYABLE ADMINISTRATOR [address] [place] [address] Nurse Practitioner Advanced Practice Nurse 12/22/21 Zina Rizo APRN, [facility] #[address] [address] Nurse Practitioner Advanced Practice Nurse 01/06/23 Silvana Brown APRN, [facility] [address] [place] [address] Nurse Practitioner Advanced Practice Nurse 07/14/22 documented as of this encounter
--- OUTSIDE RECORDS SUMMARY | 2024-06-05 17:01 | XMS_ITS | Encounter Summary ---
Author Organization [facility] Address [address] [place] [address] Phone Care Team Providers Care Telehealth Director Name Role Phone Johnson Rodriguez MD Primary Care Provider [phone]- [phone] Zina Rizo APRN, AUTO LEASING MANAGER Unavailable +1- [phone] Heather Oliva APRN, RIM FIRE PRIMING OPERATOR Unavailable + [phone] Zina Rizo APRN, AUTO LEASING MANAGER Unavailable Silvana Brown APRN, AUTO LEASING MANAGER Unavailable Reason for Visit * Reason Comments Medication Refill Encounter Details Date Type Department Care Team (Late st Contact Info) Description 12/30/2023 Refill [facility] - [facility]enterology - [place] [address] [place] [address] Silvana Brown APRN, AUTO LEASING MANAGER [address] [place] [address] Medication Refill Social History Tobacco Use Types [...] Telephone Encounter - Denae Cameron RN - 01/02/2024 8:29 AM CDT Medication refilled and signed per [facility] chronic medication standing order for pediatric and adult patients. documented in this encounter Plan of Treatment Upcoming Encounters Date Type Department Care Team (Late st Contact Info) Description 07/15/2024 2:00 PM CDT Office Visit [facility] - Pulmonology & Sleep Medicine - [place] [address] [place] [address] Zina Rizo APRN, AUTO LEASING MANAGER #[address] [address] 07/19/2024 2:00 PM CDT Office Visit [facility] Medical [facility] - Gastroenterology - [place] [address] [place] [address] Silvana Brown APRN, AUTO LEASING MANAGER [address] [place] [address] documented as of this encounter Visit Diagnoses Diagnosis Epigastric pain Abdominal pain, epigastric documented in this encounter Care Teams Telehealth Director Relationship Specialty Start Date End Date Johnson Rodriguez MD [address] [place] [address] PCP - General Pediatrics 11/17/21 Zina Rizo APRN, AUTO LEASING MANAGER #[address] [address] Nurse Practitioner Advanced Practice Nurse 06/24/22 Heather Oliva APRN, RIM FIRE PRIMING OPERATOR [address]2 [place] [address] Nurse Practitioner Advanced Practice Nurse 12/22/21 Zina Rizo APRN, [facility] #[address] [address] Nurse Practitioner Advanced Practice Nurse 01/06/23 Silvana Brown APRN, AUTO LEASING MANAGER [address] [place] [address] Nurse Practitioner Advanced Practice Nurse 07/14/22 documented as of this encounter
--- OUTSIDE RECORDS SUMMARY | 2024-06-05 17:01 | XMS_ITS | Encounter Summary ---
Author Organization [facility] Address [address] [place] [address] Phone Care Team Providers Care Department Head Name Role Phone Johnson Rodriguez MD Primary Care Provider [phone]- [phone] Zina Rizo APRN, PRODUCT INTRODUCTION MANAGER Unavailable [phone]- [phone] Heather Oliva APRN, DARKROOM WORKER Unavailable + [phone] Zina Rizo APRN, PRODUCT INTRODUCTION MANAGER Unavailable Silvana Brown APRN, PRODUCT INTRODUCTION MANAGER Unavailable Reason for Visit * Reason Comments Medication Refill Encounter Details Date Type Department Care Team (Late st Contact Info) Description 11/29/2023 Refill [facility] - [facility]enterology - [place] #[address] [place] [address] Silvana Brown APRN, PRODUCT INTRODUCTION MANAGER [address] [place] [address] Medication Refill Social History Tobacco Use Types [...] Telephone Encounter - Denae Cameron RN - 11/29/2023 2:17 PM CDT Medication refilled and signed per [facility] chronic medication standing order for pediatric and adult patients. documented in this encounter Plan of Treatment Upcoming Encounters Date Type Department Care Team (Late st Contact Info) Description 07/15/2024 2:00 PM CDT Office Visit [facility] - Pulmonology & Sleep Medicine - [place] [address] [place] [address] Zina Rizo APRN, PRODUCT INTRODUCTION MANAGER #[address] [address] 07/19/2024 2:00 PM CDT Office Visit [facility] Medical [facility] - Gastroenterology - [place] [address] [place] [address] Silvana Brown APRN, PRODUCT INTRODUCTION MANAGER [address] [place] [address] documented as of this encounter Visit Diagnoses Diagnosis Epigastric pain Abdominal pain, epigastric documented in this encounter Care Teams Department Head Relationship Specialty Start Date End Date Johnson Rodriguez MD [address] [place] [address] PCP - General Pediatrics 11/17/21 Zina Rizo APRN, PRODUCT INTRODUCTION MANAGER #[address] [address] Nurse Practitioner Advanced Practice Nurse 06/24/22 Heather Oliva APRN, DARKROOM WORKER [address]2 [place] [address] Nurse Practitioner Advanced Practice Nurse 12/22/21 Zina Rizo APRN, [facility] #[address] [address] Nurse Practitioner Advanced Practice Nurse 01/06/23 Silvana Brown APRN, PRODUCT INTRODUCTION MANAGER #[address] [place] [address] Nurse Practitioner Advanced Practice Nurse 07/14/22 documented as of this encounter
--- OUTSIDE RECORDS SUMMARY | 2024-06-05 17:01 | XMS_ITS | Encounter Summary ---
Author Organization [facility] Healthcare Address [address] [place] [address] Care Team Providers Care Patient Transport Orderly Name Role Phone Johnson Rodriguez MD Primary Care Provide r Lucille Hernandez RN Unavailable Unavailab le Reason for Visit * Reason Onset Date Comments PUMP REFILL APPT 12/06/2019 PUMP REFILL APPT 12/23/2019 Encounter Details Date Type Department Care Team (Late st Contact Info) Description 12/06/2019 Telephone [facility] Pain Center at the [place] for [facility] [address] [facility] [address] [place] [address] Cynthia Nava MD [address] [facility] [address] [facility] [phone] [place], [place] [id number] PUMP REFILL APPT; PUMP REFILL APPT Social History Tobacco Use Types Packs/Day Years Used Date Smoking Tobacco: Never Smokeless Tobacco: Never Alcohol Use Standard Drinks/Week Comments No 0 (1 standard drink = 0.6 oz pur e alcohol) denies Comments No Sex and Gender Information Value Date Recorded Sex Assigned at Not on file Legal Sex Female 12:26 AM TIRE FABRICATOR Gender Identity Not on file Sexual Orientation Not on file documented as of this encounter Plan of Treatment Not on file documented as of this encounter Goals Goal Patient Goal Type Associated Problems Recent Progress Patient-Stated? Author CCM Chronic Pain Care Plan Chronic Care Management Worsening(01 / 3:07 PM TIRE FABRICATOR) Linda Hunter Note: Problem: Chronic Pain Goals: 1. Minimize further functional decline 2. Maximize quality of life 3. Control pain Strategies: - Activity/exercise program recommendation - Conservative stepwise pain medicine strategy with multi-disciplinary approach - Recommend healthy lifestyle strategies and compensatory methods as needed documented as of this encounter Visit Diagnoses Not on filedocumented in this encounter Care Teams Patient Transport Orderly Relationship Specialty Start Date End Date Johnson Rodriguez MD [address] [place] [address] PCP - General 07/29/16 Lucille Hernandez RN Registered Nurse 04/08/19 documented as of this encounter
--- OUTSIDE RECORDS SUMMARY | 2024-06-05 17:01 | XMS_ITS | Encounter Summary ---
Author Organization [facility] Address [address] [place] [address] Phone Care Team Providers Care Lining Maker Hand Name Role Phone Johnson Rodriguez MD Primary Care Provider +1- [phone] Zina Rizo APRN, ROTOR COIL TAPER Unavailable +1- [phone] Heather Oliva APRN, COMMODITY SPECIALIST Unavailable + [phone] Zina Rizo APRN, ROTOR COIL TAPER Unavailable [phone] Silvana Brown APRN, ROTOR COIL TAPER Unavailable Reason for Visit * Reason Comments Medication Refill Encounter Details Date Type Department Care Team (Late st Contact Info) Description 08/16/2023 Refill [facility] - Gastroenterology - [place] #[address] [place] [address] Silvana Brown APRN, ROTOR COIL TAPER [address] [place] [address] Medication Refill Social History Tobacco Use Types [...] Telephone Encounter - Denae Cameron RN - 08/16/2023 1:30 PM CDT Medication refilled and signed per [facility] chronic medication standing order for pediatric and adult patients. documented in this encounter Plan of Treatment Upcoming Encounters Date Type Department Care Team (Late st Contact Info) Description 07/15/2024 2:00 PM CDT Office Visit [facility] Medical [facility] - Pulmonology & Sleep Medicine - [place] [address] [place] [address] Zina Rizo APRN, ROTOR COIL TAPER #[address] [address] 07/19/2024 2:00 PM CDT Office Visit [facility] Medical [facility] - Gastroenterology - [place] [address] [place] [address] Silvana Brown APRN, ROTOR COIL TAPER [address] [place] [address] documented as of this encounter Visit Diagnoses Diagnosis Epigastric pain Abdominal pain, epigastric documented in this encounter Care Teams Lining Maker Hand Relationship Specialty Start Date End Date Johnson Rodriguez MD [address] [place] [address] PCP - General Pediatrics 11/17/21 Zina Rizo APRN, ROTOR COIL TAPER #[address] [address] Nurse Practitioner Advanced Practice Nurse 06/24/22 Heather Oliva APRN, COMMODITY SPECIALIST #[address] [place] [address] Nurse Practitioner Advanced Practice Nurse 12/22/21 Zina Rizo APRN, JESSE #[address] [address] Nurse Practitioner Advanced Practice Nurse 01/06/23 Silvana Brown APRN, ROTOR COIL TAPER [address] [place] [address] Nurse Practitioner Advanced Practice Nurse 07/14/22 documented as of this encounter
--- OUTSIDE RECORDS SUMMARY | 2024-06-05 17:02 | XMS_ITS | Encounter Summary ---
Author Organization [facility] Address [address] [place] [address] Phone Care Team Providers Care Environmental Emergencies Planner Name Role Phone Johnson Rodriguez MD Primary Care Provider [phone] Zina Rizo APRN, DIRECTOR OF ACQUISITION MARKETING Unavailable [phone] Heather Oliva HORSER UP, TRANSCRIPTIONIST Unavailable + [phone] Zina Rizo APRN, DIRECTOR OF ACQUISITION MARKETING Unavailable Silvana Brown HORSER UP, DIRECTOR OF ACQUISITION MARKETING Unavailable Reason for Visit * Reason Comments Medication Refill Encounter Details Date Type Department Care Team (Late st Contact Info) Description 08/19/[address] [facility] - Neurology [facility] [address] [place] [address] Heather Oliva HORSER UP, TRANSCRIPTIONIST [address] [place] [address] Medication Refill Social History Tobacco Use Types [...] suspected to have Coronavirus/COVID-19? No / Unsure 07/26/2022 1:43 PM CDT documented as of this encounter Miscellaneous Notes * Telephone Encounter - Melvina Reid RN - 08/19/2022 9:28 AM CDT Medication failed the protocol, provider to review and approve the medication order if appropriate. Requested Prescriptions Pending Prescriptions Disp Refills topiramate (TOPAMAX) 200 MG Tablet [Pharmacy Med Name: TOPIRAMATE 200 MG TABLET] 60 Tablet 1 Sig: TAKE ONE TABLET BY MOUTH TWICE A DAY Not Delegated - Anticonvulsants Excluding Benzodiazepines Protocol Failed - 08/19/2022 9:04 AM Failed - This refill cannot be delegated Passed - Visit with relevant provider in past 12 months or upcoming 90 days Recent Visits Date Type Provider Dept 07/26/22 Office Visit Heather Oliva APRN, TRANSCRIPTIONIST [facility] Neurology [facility] 04/26/22 Office Visit Heather Oliva APRN, [facility] Neurology [facility] 12/22/21 Office Visit Heather Oliva APRN, [facility] Neurology [facility] Showing recent visits within past 365 days and meeting all other requirements Future Appointments Date Type Provider Dept 10/26/22 Appointment Heather Oliva APRN [facility] Neurology [facility] Showing future appointments within next 90 days and meeting all other requirements documented in this encounter Plan of Treatment Upcoming Encounters Date Type Department Care Team (Late st Contact Info) Description 07/15/2024 2:00 PM CDT Office Visit [facility] - Pulmonology & [facility] Medicine - [place] [address] [place] [address] Zina Rizo APRN, DIRECTOR OF ACQUISITION MARKETING [address] [address] 07/19/2024 2:00 PM CDT Office Visit [facility] - Gastroenterology - [place] [address] [place] [address] Silvana Brown APRN, DIRECTOR OF ACQUISITION MARKETING [address] [place] [address] documented as of this encounter Visit Diagnoses Not on filedocumented in this encounter Care Teams Environmental Emergencies Planner Relationship Specialty Start Date End Date Johnson Rodriguez MD [address] [place] [address] PCP - General Pediatrics 11/17/21 Zina Rizo APRN, DIRECTOR OF ACQUISITION MARKETING #[address] [address] Nurse Practitioner Advanced Practice Nurse 06/24/22 Heather Oliva APRN, TRANSCRIPTIONIST [address] [place] [address] Nurse Practitioner Advanced Practice Nurse 12/22/21 Zina Rizo APRN, DIRECTOR OF ACQUISITION MARKETING #[address] [address] Nurse Practitioner Advanced Practice Nurse 01/06/23 Silvana Brown APRN, DIRECTOR OF ACQUISITION MARKETING [address] [place] [address] Nurse Practitioner Advanced Practice Nurse 07/14/22 documented as of this encounter
--- OUTSIDE RECORDS SUMMARY | 2024-06-05 17:02 | XMS_ITS | Clinical Summary ---
Author Organization [facility] Address [address] [place] [address] Phone Care Team Providers Care Dump Motor Operator Name Role Phone Johnson Rodriguez MD Primary Care Provider [phone] Zina Rizo APRN, SUPERVISOR COIL SPRINGS Unavailable [phone] Heather Oliva APRN, STRIKE OPERATIONS OFFICER Unavailable + [phone] Zina Rizo APRN, SUPERVISOR COIL [place]INGS Unavailable Silvana Brown APRN, SUPERVISOR [employer]IL [place]INGS Unavailable Allergies Active Allergy Reactions Criticality Noted Date Comments Celecoxib Unknown 11/18/2021 Paroxetine Unknown 11/18/2021 Medications traZODone (DESYREL) 100 MG Tablet Take 100 mg by mouth nightly. 1/2 tablet at night Active carisoprodol (SOMA) 350 MG Tablet Take 350 mg by mouth 3 times daily as needed. Active ALPRAZolam (XANAX) 0.5 MG Tablet Take 0.5 mg by mouth 2 times daily. Active latanoprost (XALATAN) 0.005 % Solution Place 1 Drop in affected eye(s) nightly. Active HYDROcodone-dean taminophen (NORCO) 10-325 MG Tablet Take 1 Tablet by mouth every 6 hours as needed. Active Morphine Sulfate 5 MG/ML Solution 5 mg by Intravenous route. Active ibandronate (BONIVA) 150 MG Tablet 10/27/19 23 Active naloxone HCl (Narcan) 4 MG/0.1ML Liquid 1 [place]cock by Nasal route. 04/05/20 21 Active sodium chloride 3 % Nebulizer Soln 01/26/20 23 Active butalbital-acet aminophen-caffe ine (FIORICET, ESGIC) 50-325-40 MG TabletIndicatio ns:Chronic migraine w/o aura w/o status migrainosus, not intractable TAKE ONE TABLET BY MOUTH EVERY FOUR HOURS NEEDED FOR HEADACHES OR MIGRAINE. 15 Tablet 1 04/27/20 23 Active carBAMazepine (TEGretol) 200 MG TabletIndicatio ns:Trigeminal neuralgia of right side of face,Cervical spine pain,Chronic migraine w/o aura w/o status migrainosus, not intractable TAKE ONE TABLET BY MOUTH TWICE A DAY WITH MEALS 360 Tablet 1 10/12/19 24 Active lacosamide (VIMPAT) 100 MG TabletIndicatio ns:Seizures (HCC) TAKE ONE TABLET BY MOUTH TWICE A DAY 60 Tablet 3 02/01/20 24 Active omeprazole (PriLOSEC) 40 MG CAPSULE DELAYED RELEASEIndicati ons:Epigastric pain TAKE ONE CAPSULE BY MOUTH DAILY 90 Capsule 1 02/01/20 24 Active propranolol (INDERAL) 40 MG TabletIndicatio ns:Chronic migraine w/o aura w/o status migrainosus, not intractable,Ki mors of nervous system TAKE 1 TABLET BY MOUTH 2 TIMES DAILY. 60 Tablet 2 03/04/20 24 Active ketorolac (TORADOL) 10 MG TabletIndicatio ns:Chronic migraine w/o aura w/o status migrainosus, not intractable Take 1 Tablet by mouth every 6 hours as needed for Mild or more severe pain or Moderate or more severe pain. 15 Tablet 2 04/04/20 24 Active Atogepant (Qulipta) 30 MG TabletIndicatio ns:Chronic migraine w/o aura w/o status migrainosus, not intractable Take 1 Tablet by mouth nightly. 30 Tablet 2 04/04/20 24 Active Trulance 3 MG Tablet TRANSFERRED: 10/16/23 -READ RX NOTE (ALT-N)- TAKE ONE TABLET BY MOUTH DAILY 90 Tablet 04/30/20 24 Active topiramate (TOPAMAX) 200 MG Tablet TAKE ONE TABLET BY MOUTH TWICE A DAY 60 Tablet 3 05/20/19 25 Active topiramate (TOPAMAX) 200 MG Tablet TAKE ONE TABLET BY MOUTH TWICE A DAY 60 Tablet 3 02/01/20 24 025 Discontinued Active Problems Problem Noted Date Diagnosed Date SOB (shortness of breath) 09/18/2023 Oral thrush 09/18/2023 Seizures 06/27/2022 Mycobacterium avium complex 06/24/2022 Bronchiectasis with acute exacerbation Night sweats 06/24/2022 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 Encounters Date Type Department Care Team Description 05/17/2024 Refill [facility] [address] [place] [address] Dago Land MD Medication Refill 04/30/2024 Refill [facility] Gastroenterology [facility] [address] [place] [address] Silvana Brown APRN, SUPERVISOR COIL SPRINGS Medication Refill 04/12/2024 Telephone [facility] Gastroenterology [facility] [address] [place] [address] Silvana Brown APRN, SUPERVISOR [employer]INGS 04/04/2024 10:00 AM CAREER GUIDANCE TECHNICIAN Office Visit [facility] Neurology [facility] [address] [place] [address] Heather Oliva APRN, STRIKE OPERATIONS OFFICER Acute migraine (Primary Dx); Decreased range of motion of intervertebral discs of cervical spine; Chronic migraine w/o aura w/o status migrainosus, not intractable; Seizures (HCC) Discharge Disposition: Discharged to home or Selfcare 04/02/2024 Travel 03/14/2024 Refill [facility] Neurology [facility] [address] [place] [address] Heather Oliva APRN, STRIKE OPERATIONS OFFICER Medication Refill 03/11/2024 Travel 03/05/2024 Telephone [facility] Pulmonology & Sleep Medicine [facility] [address] [place] [address] Zina Rizo APRN, JESSE Results from Last 3 Months Family History Medical History Relation Name Comments Diabetes Father Emphysema Father Breast Cancer Maternal Aunt Cerebral Anuerysm Maternal Aunt Lung Cancer Maternal Aunt Heart Disease Maternal Grandmother Breast Cancer Mother Cancer Mother Relation Name Status Comments Father Maternal Aunt Maternal Grandmother Mother Social History Tobacco Use Types Packs/Day Years [...] on file Sexual Orientation Not on file Last Filed Vital Signs Vital Sign Reading Time Taken Comments Blood Pressure 102/60 04/04/2024 10:12 AM CAREER GUIDANCE TECHNICIAN Pulse 55 04/04/2024 10:12 AM CAREER GUIDANCE TECHNICIAN Temperature 36.3 C (97.4 F) 04/04/2024 10:12 AM CAREER GUIDANCE TECHNICIAN Respiratory Rate 17 04/04/2024 10:1 2 AM CAREER GUIDANCE TECHNICIAN Oxygen Saturation 83% 04/04/2024 10: 12 AM CAREER GUIDANCE TECHNICIAN Inhaled Oxygen Concentration - - Weight 59.3 kg (130 lb 11.2 oz) 024 10:12 AM CAREER GUIDANCE TECHNICIAN Height 160 cm (5' 3 ) 04/04/2024 10:12 AM CAREER GUIDANCE TECHNICIAN Body Mass Index 23.15 04/04/2024 10:12 AM CAREER GUIDANCE TECHNICIAN Plan of Treatment Upcoming Encounters Date Type Department Care Team (Late st Contact Info) Description 07/15/2024 2:00 PM CDT Office Visit [facility] - Pulmonology & Sleep Medicine - [place] [address] [place] [address] Zina Rizo APRN, JESSE [address] [address] 07/19/2024 2:00 PM CDT [facility] - [place] [address] [place] [address] Silvana Brown APRN, SUPERVISOR [employer] [address] [place] [address] Health Maintenance Due Date Last Done Comments Hepatitis C Virus (HCV) Screening 1961 Mammogram 2001 Colonoscopy 2006 Colorectal Cancer Screening 2006 Cologuard 2011 Immunochemical Fecal Occult Blood 2011 Zoster Immunization (1 of 2) 2011 Pneumococcal Immunization (50+ years) (2 of 2 - PCV) 04/08/2017 04/08/2016 Pneumococcal Immunization Combined Discontinued 04/08/2016 DTaP/Tdap/Td Immunization Discontinued 07/15/2021, TdaP Immunization Completed 07/15/2021, 05/16/2013 Influenza Immunization Completed , 04/15/2023, 02/03/2022, Additional history exists Respiratory Syncytial Virus (RSV) Immunization (Adult) Completed 03/10/2024 SARS-COV-2 Immunization Completed 03/10/20 24, 04/15/2023, 09/03/2020 Hepatitis B Immunization Aged Out No longer eligible based on patient's age to complete this topic Meningococcal Immunization (ACWY) Aged Out No longer eligible based on patient's age to complete this topic Rotavirus Immunization Aged Out No lo nger eligible based on patient's age to complete this topic Medical Devices Implanted Type Area Hospice Director Device Identifier Shelf Expiration Date Model / Serial / Lot Synchromed Ii Intrathecal Pain Pump-04/05/2021 Implanted:04/05 (Quantity not on file) IMPLANT Left: Abdomen MEDTRONIC 8637-20 / / Description:Intrathecal pain pump-- MR conditional Insurance MEDICARE [facility] Care Teams Dump Motor Operator Relationship Specialty Start Date End Date Johnson Rodriguez MD [address] [place] [address] PCP - General Pediatrics 11/17/21 Zina Rizo APRN, SUPERVISOR [employer] [place] [address] [address] Nurse Practitioner Advanced Practice Nurse 06/24/22 Heather Oliva APRN, STRIKE OPERATIONS OFFICER [address] [place] [address] Nurse Practitioner Advanced Practice Nurse 12/22/21 Zina Rizo APRN, SUPERVISOR [employer] [place] #[address] [address] Nurse Practitioner Advanced Practice Nurse 01/06/23 iSlvana Brown APRN, SUPERVISOR [employer] [place] [address] [place] [address] Nurse Practitioner Advanced Practice Nurse 07/14/22
--- OUTSIDE RECORDS SUMMARY | 2024-06-05 17:02 | XMS_ITS | Clinical Summary ---
Author Organization [facility] Address [address] [place] [address] Care Team Providers Care Brick And Blocker Aid Labor Name Role Phone Johnson Rodriguez MD Primary Care Provide r Lucille Hernandez RN Unavailable Unavailab le Allergies Active Allergy Reactions Criticality Noted Date Comments Celecoxib Hives,Itching Medium Medications ALPRAZolam (XANAX) 0.5 mg tablet take 1 tablet by oral route every day 0 0 06/08/19 17 Active Additional Information Patient taking differently:0.5 mgoral 2 times daily, Reported on 04/17/2024 morphine sulfate/PF (MORPHINE, PF,) 150 mg/30 mL patient control.analgesi a soln Infuse into a venous catheter. Active carisoprodol (SOMA) 350 mg tabletIndication s:Muscle Spasm Take 1 tablet (350 mg total) by mouth 3 (three) times a day as needed for muscle spasms 0 10/17/19 18 Active naloxone (NARCAN) 4 mg/actuation spray,non-aeroso l Administer 1 spray into affected nostril(s) as needed for opioid reversal Call 911. Repeat every 3 minutes prn if no or minimal response. 1 each 04/05/20 21 Active ibandronate (BONIVA) 150 mg tablet 03/23/20 22 Active timolol (TIMOPTIC) 0.5 % ophthalmic solution 07/13/19 23 Active lacosamide (VIMPAT) 100 mg tablet 09/29/19 23 Active butalbital-aceta minophen-caffein e (ESGIC) 50-325-40 mg per tablet Take 1 tablet by mouth every 4 (four) hours as needed for headaches Active Trulance 3 mg tablet 02/18/20 23 Active latanoprost (XALATAN) 0.005 % ophthalmic solution 03/07/20 23 Active omeprazole (PriLOSEC) 40 mg capsule Take 1 capsule (40 mg total) by mouth daily 03/29/20 23 Active sodium chloride 3 % nebulizer solutionIndicati ons:Bronchiectas is without complication (HCC) Take 4 mL by nebulization as needed for cough 240 mL 5 06/12/19 24 Active topiramate (TOPAMAX) 200 mg tablet 07/24/19 24 Active traZODone (DESYREL) 100 mg tablet 08/29/19 24 Active carBAMazepine (TEGretol) 200 mg tablet 01/21/20 24 Active HYDROcodone-acet aminophen (NORCO) 10-325 mg per tablet Take 1 tablet by mouth every 6 (six) hours as needed for pain 45 tablet 04/05/20 24 Active Qulipta 30 mg tablet Take 30 mg by mouth 04/16/20 24 Active ketorolac (TORADOL) 10 mg tablet Take 1 tablet (10 mg total) by mouth every 6 (six) hours as needed 04/04/20 24 Active propranoloL (INDERAL) 40 mg tablet Take 1 tablet (40 mg total) by mouth 2 (two) times a day 04/10/20 24 Active traZODone (DESYREL) 50 mg tablet take 1 tablet by oral route every day after meals 0 0 06/08/19 17 025 Discontin ued(Thera py completed ) Emgality Pen 120 mg/mL pen injector 12/29/19 22 025 Discontin ued(Thera py completed ) Active Problems Problem Noted Date Diagnosed Date Myalgia 05/22/2024 S/P insertion of intrathecal pump 03/29/2023 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 Drug-induced constipation 08/08/2018 Chronic use of opiate drug for therapeutic purpo se 06/15/2018 Chronic abdominal pain 03/28/2018 Presence of intrathecal pump 01/08/2018 Chronic bilateral low back pain 12/27/2017 DDD (degenerative disc disease), lumbar 12/28/19 18 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 02/17/2017 Mid back pain 08/11/2016 Seizure disorder ([facility]) 06/08/2016 Overview (08/05/2016): Seizure disorder 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 Overview (08/05/2016): Mycobacterial infection Glaucoma 06/08/2016 Overview (08/05/2016): Glaucoma High risk medication use 03/22/2016 Rib pain 06/08/2015 Right upper quadrant abdominal pain 01/27/2015 Cough 04/03/[address] scan of lung 04/03/2014 Disorder of lung 02/12/2014 Chest pain 05/20/2013 Neck pain 04/03/2013 Disorder of intervertebral disc of cervical spin e 04/03/2013 Osteoarthritis of cervical spine 04/03/2013 Diffuse cervicobrachial syndrome 04/03/2013 Cervical radiculopathy 01/14/2013 Lumbar radiculopathy 12/21/2012 Epigastric pain 10/05/2012 Osteoarthritis of lumbar spine 10/05/2012 Never smoked tobacco 04/14/2010 Systemic lupus erythematosus ([facility]) 0 Overview (02/03/2020): Lupus Chronic pancreatitis ([facility]) 07/15/2009 Overview (02/03/2020): Chronic pancreatitis Anxiety 07/15/2009 Encounter for preventive health examination 08/29 Resolved Problems Problem Noted Date Diagnosed Date Resolved Date Chronic pain 06/08/2016 06/01/2022 Overview (08/05/2016): Chronic pain Encounters Date Type Department Care Team Description 05/29/2024 Orders Only [facility] [address] [facility] [address] [place] [address] Cynthia Nava MD Chronic use of opiate drug for therapeutic purpose (Primary Dx); S/P insertion of intrathecal pump 05/22/2024 2:34 PM PAVING BLOCK CUTTER - 05/22/2024 11:59 PM PAVING BLOCK CUTTER Hospital Encounter [facility] [address] [facility] [address] [place] [address] Cynthia Nava MD Myalgia (Primary Dx); Neck pain; Chronic use of opiate drug for therapeutic purpose Discharge Disposition: Discharge to home or self care 04/17/2024 12:08 PM PAVING BLOCK CUTTER - 04/17/2024 11:59 PM PAVING BLOCK CUTTER Hospital Encounter [facility] [address] [facility] [address] [place] [address] Cynthia Nava MD Presence of intrathecal pump (Primary Dx); Myalgia; S/P insertion of intrathecal pump; Chronic abdominal pain Discharge Disposition: Discharge to home or self care 04/04/2024 Orders Only [facility] Information Management [address] [place] [address] Scanning, Provider from Last 3 Months Immunizations Name Administration Dates Next Due Immune Globulin, Intravenous 01/15/2014 Influenza, Quadrivalent, Ashley l Culture-based MDCK, Preservative Free, Antibiotic Free, Intramuscular 01/09/2020 Influenza, Quadrivalent, Spl it, Intramuscular 03/16/2017 Influenza, Quadrivalent, Spl it, Preservative Free, Intramuscular 02/21/2019,03/26/2018,04/08/2016 Influenza, Trivalent, IM (MDV) 05/22/2014,2012,01/25/2012 Influenza, Unspecified 05/23/2014 Pneumococcal Polysaccharide PPV23 04/08/2016 Tdap 05/16/2013 Surgical History Surgery Date Site/Laterality Comments TONSILLECTOMY 05/01/1973 - 04/30/1974 Tonsillectomy OTHER SURGICAL HISTORY multiple Pain pump (re)placement x 4 CHOLECYSTECTOMY 05/01/1990 - 04/30/1991 Cholecystectomy APPENDECTOMY 05/01/1990 - 04/30/1991 Appendectomy HYSTEROSCOPY 05/01/1996 - 04/30/1997 Menorrhagia: TLH-BSO ERCP 05/01/2013 - 04/30/2014 Medical History Medical History Date Comments Hx Other Medical Menorrhagia; Co mments: RED 06/08/2016 - Back pain Rib pain Pancreatitis Falling episodes balance issues Mid back pain Chronic pain disorder Back pain Right sided abdominal pain Lung disease Seizures (HCC) Family History Medical History Relation Name Comments Anesthesia problems Child Son Severe P ONV, Combative Heart disease Maternal Grandmother Cardio vascular disease; Anesthesia problems Mother Severe P ONV Breast cancer Mother Cancer, breast ; RED 06/08/2016 - Onset 40s Esophageal cancer Mother Cancer, es ophageal; Cause of : Cancer, esophageal Breast cancer Mother's Sister 1 #2 Cancer, b reast; Liver cancer Mother's Sister 1 #2 Cancer, li jeremie; Cause of : Cancer, liver Uterine cancer Mother's Sister 3 #1 Cancer, uterine; Relation Name Status Comments Child Son Alive Father Maternal Grandmother Mother (Age 82) Mother's Sister 1 #2 Mother's Sister 2 #2 Mother's Sister 3 #1 Social History Tobacco Use Types Packs/Day Years Used Date Smoking Tobacco: Never Smokeless Tobacco: Never Tobacco Cessation:Counseling Given: Not Answered Alcohol Use Standard Drinks/Week Comments No 0 (1 standard drink = 0.6 oz pur e alcohol) denies AUDIT-C Answer Date Recorded Q1: How often do you have a drink containing alcohol? Never 04/17/2024 Q2: How many drinks containi ng alcohol do you have on a typical day when you are drinking? Patient does not drink Q3: How often do you have si x or more drinks on one occasion? Never 04/17/2024 Hunger Vital Sign Answer Date Recorded Within [...] on file Legal Sex Female 12:26 AM PAVING BLOCK CUTTER Gender Identity Not on file Sexual Orientation Not on file Obstetrics History Last Filed Vital Signs Vital Sign Reading Time Taken Comments Blood Pressure 111/71 05/22/2024 2:57 PM PAVING BLOCK CUTTER 80 Pulse 69 05/22/2024 2:57 PM PAVING BLOCK CUTTER Temperature 36.7 C (98 F) 05/22/2024 2:57 PM PAVING BLOCK CUTTER Respiratory Rate 8 05/22/2024 2:57 PM PAVING BLOCK CUTTER Oxygen Saturation 96% 05/22/2024 2:57 PM PAVING BLOCK CUTTER Inhaled Oxygen Concentration - - Weight 56.7 kg (125 lb) 05/22/2024 2:57 PM PAVING BLOCK CUTTER Height 160 cm (5' 3 ) 05/22/2024 2:57 PM PAVING BLOCK CUTTER Body Mass Index 22.14 05/22/2024 2:57 PM PAVING BLOCK CUTTER Plan of Treatment Health Maintenance Due Date Last Done Comments Breast Cancer Screening-Mammogram 1961 Colon Cancer Screening-Colonoscopy 1961 Depression Screening 1961 Hepatitis C Screening 1961 Hepatitis B Screening 1979 Regular Well Visit/Exam 18-64 1979 Zoster Vaccine (1 of 2) 2011 DTaP/Tdap/Td Vaccine (2 - Td or Tdap) 05/16/2023 05/16/2013 Covid-19 Vaccine (2 - season) 2023 09/03/2020 Pneumococcal vaccine <65 Aged Out 04/08/2016 No longer eligible based on patient's age to complete this topic Influenza Vaccine Completed 03/17/2024, , 01/09/2020, Additional history exists Goals Goal Patient Goal Type Associated Problems Recent Progress Patient-Stated? Author CCM Chronic Pain Care Plan Chronic Care Management Worsening( 3:07 PM PAVING BLOCK CUTTER) Linda Hunter Note: Problem: Chronic Pain Goals: 1. Minimize further functional decline 2. Maximize quality of life 3. Control pain Strategies: - Activity/exercise program recommendation - Conservative stepwise pain medicine strategy with multi-disciplinary approach - Recommend healthy lifestyle strategies and compensatory methods as needed Medical Devices Implanted Type Area Letter Stamping Machine Operator Device Identifier Shelf Expiration Date Model / Serial / Lot Medtronic Neuro 8637-20 Synchromed Ii .78in [place] Filter Mesh Pouch Programmable - [id number] - [id number] Implanted:Qty: 1 on 04/05/2021 by Cynthia Nava MD at [facility] [employer] 08/12/2022 8637-20 / [id number] / Explanted Type Area Letter Stamping Machine Operator Device Identifier Shelf Expiration Date Model / Serial / Lot Intrathecal Pain Pump- 5 Implanted: by Unknown, Notinfile (Quantity not on file) Intrathecal Pain Pump Left: Abdomen Medtronic Neuro 8637-40 SYNCHROMED II / [id number] / Description:Morphine pain pu mp Pt knows the pump must be checked post MRI exams Procedures Procedure Name Priority Date/Time Associated Diagnosis Comments SCAN - OTHER ORDERS 04/04/2024 from Last 3 Months Results * SCAN - OTHER ORDERS (04/04/2024) us Provider Scanning Final Result from Last 3 Months Insurance MEDICARE [facility] MEDICARE MEDICARE MEDICARE [employer] OPEN ACCESS Care Teams Brick And Blocker Aid Labor Relationship Specialty Start Date End Date Johnson Rodriguez MD [address] [place], [place] [id number] PCP - General 07/29/16 Lucille Hernandez, RN Registered Nurse 04/08/19
--- OUTSIDE RECORDS SUMMARY | 2024-06-05 17:02 | XMS_ITS | Encounter Summary ---
Author Organization [facility] Address [address] [place] [address] Phone Care Team Providers Care Referral Agent Name Role Phone Johnson Rodriguez MD Primary Care Provider [phone]- [phone] Zina Rizo APRN, HOME HEALTH SPEECH THERAPIST Unavailable [phone]- [phone] Heather Oliva RN CARDIAC, CERTIFIED MEDICAL TRANSCRIPTIONIST Unavailable + [phone] Zina Rizo APRN, HOME HEALTH SPEECH THERAPIST Unavailable Silvana Brown RN CARDIAC, HOME HEALTH SPEECH THERAPIST Unavailable Reason for Visit * Reason Comments Medication Refill Encounter Details Date Type Department Care Team (Late st Contact Info) Description 08/26/2022 Refill [facility] - Neurology [facility] #2 [place] [address] Heather Oliva RN CARDIAC, CERTIFIED MEDICAL TRANSCRIPTIONIST #2 [place] [address] Medication Refill Social History Tobacco Use Types [...] Telephone Encounter - Melvina Reid RN - 08/26/2022 8:34 AM CDT Medication failed the protocol, provider to review and approve the medication order if appropriate. Requested Prescriptions Pending Prescriptions Disp Refills Emgality 120 MG/ML Solution Auto-injector [Pharmacy Med Name: EMGALITY 120MG/ML AUTO INJECTOR] 1 mL3 Sig: INKECT 120 MG SUBCUTANEOUSLY EVERY 28 DAYS Not Delegated - Off Protocol Failed - 08/26/2022 8:18 AM Failed - This refill cannot be delegated Passed - Visit with relevant provider in past 12 months or upcoming 90 days Recent Visits Date Type Provider Dept 07/26/22 Office Visit Heather Oliva APRN, [facility] Neurology [place] [facility] 04/26/22 Office Visit Heather Oliva APRN, [facility] Neurology [place] [facility] 12/22/21 Office Visit Heather Oliva APRN, [facility] Neurology [facility] Showing recent visits within past 365 days and meeting all other requirements Future Appointments Date Type Provider Dept 10/26/22 Appointment Heather Oliva APRN, [facility] Showing future appointments within next 90 days and meeting all other requirements documented in this encounter Plan of Treatment Upcoming Encounters Date Type Department Care Team (Late st Contact Info) Description 07/15/2024 2:00 PM CDT Office Visit [facility] - Pulmonology & Sleep Medicine - [place] [address] [place] [address] Zina Rizo APRN, HOME HEALTH SPEECH THERAPIST [address] [address] 07/19/2024 2:00 PM CDT Office Visit [facility] - Gastroenterology - [place] [address] [place] [address] Silvana Brown APRN, HOME HEALTH SPEECH THERAPIST #2 [place] [address] documented as of this encounter Visit Diagnoses Diagnosis Chronic migraine w/o aura w/o status migrainosus, not intractable Chronic migraine without aura, without mention of intractable migraine without mention of status migrainosus documented in this encounter Care Teams Referral Agent Relationship Specialty Start Date End Date Johnson Rodriguez MD [address] [place] [address] PCP - General Pediatrics 11/17/21 Zina Rizo APRN, HOME HEALTH SPEECH THERAPIST #[address] [address] Nurse Practitioner Advanced Practice Nurse 06/24/22 Heather Oliva APRN, CERTIFIED MEDICAL TRANSCRIPTIONIST #2 [place] [address] Nurse Practitioner Advanced Practice Nurse 12/22/21 Zina Rizo APRN, HOME HEALTH SPEECH THERAPIST #[address] [address] Nurse Practitioner Advanced Practice Nurse 01/06/23 Silvana Brown APRN, HOME HEALTH SPEECH THERAPIST #2 [place] [address] Nurse Practitioner Advanced Practice Nurse 07/14/22 documented as of this encounter
--- OUTSIDE RECORDS SUMMARY | 2024-06-05 17:02 | XMS_ITS | Encounter Summary ---
Author Organization [facility] Address [address] [place] [address] Phone Care Team Providers Care Freight Flow Sales Leader Name Role Phone Johnson Rodriguez MD Primary Care Provider [phone]- [phone] Zina Rizo APRN, CAPSULE FILLING MACHINE OPERATOR Unavailable +[phone]- [phone] Heather Oliva DUTY MANAGER, PELLET PRESS OPERATOR Unavailable + [phone] Zina Rizo APRN, CAPSULE FILLING MACHINE OPERATOR Unavailable Silvana Brown DUTY MANAGER, CAPSULE FILLING MACHINE OPERATOR Unavailable Reason for Visit * Reason Comments Medication Refill Encounter Details Date Type Department Care Team (Late st Contact Info) Description 10/26/2022 Refill [facility] - Neurology [facility] #2 [place] [address] Heather Oliva DUTY MANAGER, PELLET PRESS OPERATOR [address]2 [place] [address] Medication Refill Social History Tobacco Use Types [...] suspected to have Coronavirus/COVID-19? No / Unsure 10/26/2022 12:53 PM CDT documented as of this encounter Miscellaneous Notes * Telephone Encounter - Melvina Reid RN - 10/26/2022 10:33 AM CDT Medication failed the protocol, provider to review and approve the medication order if appropriate. Requested Prescriptions Pending Prescriptions Disp Refills topiramate (TOPAMAX) 200 MG Tablet [Pharmacy Med Name: TOPIRAMATE 200 MG TABLET] 60 Tablet 1 Sig: TAKE ONE TABLET BY MOUTH TWICE A DAY Not Delegated - Anticonvulsants Excluding Benzodiazepines Protocol Failed - 10/26/2022 10:30 AM Failed - This refill cannot be delegated Passed - Visit with relevant provider in past 12 months or upcoming 90 days Recent Visits Date Type Provider Dept 07/26/22 Office Visit Heather Oliva APRN [facility] Neurology [facility] 04/26/22 Office Visit Heather Oliva APRN [facility] 12/22/21 Office Visit Heather Oliva APRN, [facility] Showing recent visits within past 365 days and meeting all other requirements Today's Visits Date Type Provider Dept 10/26/22 Appointment Heather Oliva APRN [facility] Showing today's visits and meeting all other requirements Future Appointments No visits were found meeting these conditions. Showing future appointments within next 90 days and meeting all other requirements lacosamide (VIMPAT) 100 MG Tablet [Pharmacy Med Name: LACOSAMIDE 100 MG TABLET] 60 Tablet Sig: TAKE ONE TABLET BY MOUTH TWICE A DAY Not Delegated - Anticonvulsants Excluding Benzodiazepines Protocol Failed - 10/26/2022 10:30 AM Failed - This refill cannot be delegated Passed - Visit with relevant provider in past 12 months or upcoming 90 days Recent Visits Date Type Provider Dept 07/26/22 Office Visit Heather Oliva APRN, PELLET PRESS OPERATOR [facility] Neurology [facility] 04/26/22 Office Visit Heather Oliva APRN, [facility] Neurology [facility] 12/22/21 [facility] Showing recent visits within past 365 days and meeting all other requirements Today's Visits Date Type Provider Dept 10/26/22 Appointment Heather Oliva APRN, [facility] Showing today's visits and meeting all other requirements Future Appointments No visits were found meeting these conditions. Showing future appointments within next 90 days and meeting all other requirements documented in this encounter Plan of Treatment Upcoming Encounters Date Type Department Care Team (Late st Contact Info) Description 07/15/2024 2:00 PM CDT Office Visit [facility] - Pulmonology & Sleep Medicine - [place] [address] [place] [address] Zina Rizo APRN, CAPSULE FILLING MACHINE OPERATOR #[address] [address] 07/19/2024 2:00 PM CDT Office Visit [facility] - Gastroenterology - [place] [address] [place] [address] Silvana Brown APRN, CAPSULE FILLING MACHINE OPERATOR [address]2 [place] [address] documented as of this encounter Visit Diagnoses Diagnosis Seizures (HCC) Other convulsions documented in this encounter Care Teams Freight Flow Sales Leader Relationship Specialty Start Date End Date Johnson Rodriguez MD [address] [place] [address] PCP - General Pediatrics 11/17/21 Zina Rizo APRN, CAPSULE FILLING MACHINE OPERATOR #[address] [address] Nurse Practitioner Advanced Practice Nurse 06/24/22 Heather Oliva APRN, PELLET PRESS OPERATOR #2 [place] [address] Nurse Practitioner Advanced Practice Nurse 12/22/21 Zina Rizo, AJ, CAPSULE FILLING MACHINE OPERATOR #[address] [address] Nurse Practitioner Advanced Practice Nurse 01/06/23 Silvana Brown APRN, CAPSULE FILLING MACHINE OPERATOR [address] [place] [address] Nurse Practitioner Advanced Practice Nurse 07/14/22 documented as of this encounter
--- OUTSIDE RECORDS SUMMARY | 2024-06-05 17:02 | XMS_ITS | Encounter Summary ---
Author Organization [facility] Address [address] [place] [address] Phone Care Team Providers Care Fabric And Textile Factory Worker Name Role Phone Johnson Rodriguez MD Primary Care Provider [phone]- [phone] Zina Rizo APRN, SPECIFICATION WRITER Unavailable +[phone]- [phone] Heather Oliva AGRIBUSINESS PROFESSOR, SHOT BAGGER Unavailable + [phone] Zina Rizo APRN, SPECIFICATION WRITER Unavailable [phone] Silvana Brown AGRIBUSINESS PROFESSOR, SPECIFICATION WRITER Unavailable Reason for Visit * Reason Comments Medication Refill Encounter Details Date Type Department Care Team (Late st Contact Info) Description 04/29/2022 Refill [facility] - Neurology [facility] #2 [place] [address] Heather Oliva AGRIBUSINESS PROFESSOR, SHOT BAGGER [address] [place] [address] Medication Refill Social History Tobacco Use Types Packs/Day Years Used Date Smoking Tobacco: Never Smokeless Tobacco: Never Alcohol Use Standard Drinks/Week Comments Not Currently 0 (1 standard drink = 0.6 oz pur e alcohol) Comments Unknown Sex and Gender Information Value Date Recorded Sex Assigned at Not on file Legal Sex Female 9:01 AM CDT Gender Identity Not on file Sexual Orientation Not on file COVID-19 Exposure Response Date Recorded In the last 10 days, have yo u been in contact with someone who was confirmed or suspected to have Coronavirus/COVID-19? No / Unsure 04/26/2022 2:15 PM DESOLDERER documented as of this encounter Plan of Treatment Upcoming Encounters Date Type Department Care Team (Late st Contact Info) Description 07/15/2024 2:00 PM CDT Office Visit [facility] - Pulmonology & Sleep Medicine - [place] [address] [place] [address] Zina Rizo, AGRIBUSINESS PROFESSOR, SPECIFICATION WRITER #[address] [address] 07/19/2024 2:00 PM CDT Office Visit [facility] Gastroenterology - [place] [address] [place] [address] Silvnaa Brown APRN, SPECIFICATION WRITER #2 [place] [address] documented as of this encounter Visit Diagnoses Diagnosis Chronic migraine w/o aura w/o status migrainosus, not intractable Chronic migraine without aura, without mention of intractable migraine without mention of status migrainosus documented in this encounter Care Teams Fabric And Textile Factory Worker Relationship Specialty Start Date End Date Johnson Rodriguez MD [address] [place] [address] PCP - General Pediatrics 11/17/21 Zina Rizo, AJ, SPECIFICATION WRITER #[address] [address] Nurse Practitioner Advanced Practice Nurse 06/24/22 Heather Oliva APRN, SHOT BAGGER [address] [place] [address] Nurse Practitioner Advanced Practice Nurse 12/22/21 Zina Rizo APRN, [facility] #[address] [address] Nurse Practitioner Advanced Practice Nurse 01/06/23 Silvana Brown APRN, SPECIFICATION WRITER #2 [place] [address] Nurse Practitioner Advanced Practice Nurse 07/14/22 documented as of this encounter
--- OUTSIDE RECORDS SUMMARY | 2024-06-05 17:02 | XMS_ITS | Encounter Summary ---
Author Organization [facility] Address [address] [place] [address] Phone Care Team Providers Care Dust Operator Name Role Phone Johnson Rodriguez MD Primary Care Provider [phone]- [phone] Zina Rizo APRN, NATURAL REMEDY CONSULTANT Unavailable [phone]- [phone] Heather Oliva APRN, FRONT OFFICE ADMINISTRATOR Unavailable + [phone] Zina Rizo APRN, NATURAL REMEDY CONSULTANT Unavailable Silvana Brown APRN, NATURAL REMEDY CONSULTANT Unavailable Reason for Visit * Reason Comments Medication Refill Encounter Details Date Type Department Care Team (Late st Contact Info) Description 04/30/2024 Refill [facility] - [facility]ology - [place] [address] [place] [address] Silvana Brown APRN, NATURAL REMEDY CONSULTANT [address] [place] [address] Medication Refill Social History Tobacco Use Types [...] Telephone Encounter - Denae Cameron RN - 04/30/2024 8:58 AM ROLL OR TAPE EDGE MACHINE OPERATOR Medication [facility] and [facility] for pediatric and adult patients. OR TAPE EDGE MACHINE OPERATOR documented in this encounter Plan of Treatment Upcoming Encounters Date Type Department Care Team (Late st Contact Info) Description 07/15/2024 2:00 PM CDT Office Visit [facility] - Pulmonology & Sleep Medicine - [place] [address] [place] [address] Zina Rizo APRN, NATURAL REMEDY CONSULTANT #[address] [address] 07/19/2024 2:00 PM CDT Office Visit [facility] - Gastroenterology - [place] [address] [place] [address] Silvana Brown APRN, NATURAL REMEDY CONSULTANT [address] [place] [address] documented as of this encounter Visit Diagnoses Not on filedocumented in this encounter Care Teams Dust Operator Relationship Specialty Start Date End Date Johnson Rodriguez MD [address] [place] [address] PCP - General Pediatrics 11/17/21 Zina Rizo APRN, NATURAL REMEDY CONSULTANT #[address] [address] Nurse Practitioner Advanced Practice Nurse 06/24/22 Heather Oliva APRN, FRONT OFFICE ADMINISTRATOR #2 [place] [address] Nurse Practitioner Advanced Practice Nurse 12/22/21 Zina Rizo APRN, [facility] #[address] [address] Nurse Practitioner Advanced Practice Nurse 01/06/23 Silvana Brown APRN, NATURAL REMEDY CONSULTANT #[address] [place] [address] Nurse Practitioner Advanced Practice Nurse 07/14/22 documented as of this encounter
--- OUTSIDE RECORDS SUMMARY | 2024-06-05 17:02 | XMS_ITS | Referral Summary ---
Author Organization [facility] Address [address] [place] [address] Care Team Providers Care Dry Kiln Operator Name Role Phone Johnson Rodriguez MD Primary Care Provide r Lucille Hernandez RN Unavailable Unavailab le Encounters Date Type Department Care Team Description 05/29/2024 Orders Only [facility] Advanced Medicine [address] [place] [address] Advanced Medicine [address] [place] [address] Cynthia Nava MD Chronic use of opiate drug for therapeutic purpose (Primary Dx); S/P insertion of intrathecal pump 05/22/2024 2:34 PM THERMODYNAMICS TEACHER - 05/22/2024 11:59 PM THERMODYNAMICS TEACHER Hospital Encounter [facility] the [facility] Medicine [address] [place] [address] Advanced Medicine [address] [place] [address] Cynthia Nava MD Myalgia (Primary Dx); Neck pain; Chronic use of opiate drug for therapeutic purpose Discharge Disposition: Discharge to home or self care 04/17/2024 12:08 PM THERMODYNAMICS TEACHER - 04/17/2024 11:59 PM THERMODYNAMICS TEACHER Hospital Encounter [facility] at the [facility] Medicine [address] [place] [address] Advanced [facility] [address] [place] [address] Cynthia Nava MD Presence of intrathecal pump (Primary Dx); Myalgia; S/P insertion of intrathecal pump; Chronic abdominal pain Discharge Disposition: Discharge to home or self care 04/04/2024 Orders Only [facility] Health Information Management [address] [place] [address] Scanning, Provider from Last 3 Months Allergies Active Allergy Reactions Criticality Noted Date [...] Emgality Pen 120 mg/mL pen injector 12/29/19 025 Discontin ued(Thera py completed ) Active Problems Problem Noted Date Diagnosed Date Myalgia 05/22/2024 S/P insertion of intrathecal pump 03/29/2023 LYLE (mycobacterium avium-intracellulare) (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) 06/08/2016 Overview (08/05/2016): Seizure disorder Disease due [...] Never smoked tobacco 04/14/2010 Systemic lupus erythematosus ([facility]) 0 Overview (02/03/2020): Lupus Chronic pancreatitis ([facility]) 07/15/2009 Overview (02/03/2020): Chronic pancreatitis Anxiety 07/15/2009 Encounter for preventive health examination 08/29 Resolved Problems Problem Noted Date Diagnosed Date Resolved Date Chronic pain 06/08/2016 06/01/2022 Overview (08/05/2016): Chronic pain Immunizations Name Administration Dates Next Due Immune Globulin, Intravenous 01/15/2014 Influenza, Quadrivalent, Ashley l Culture-based MDCK, Preservative Free, Antibiotic Free, Intramuscular 01/09/2020 Influenza, Quadrivalent, Spl it, Intramuscular 03/16/2017 Influenza, Quadrivalent, Spl it, Preservative Free, Intramuscular 02/21/2019,03/26/2018,04/08/2016 Influenza, Trivalent, IM (MDV) 05/22/2014,2012,01/25/2012 Influenza, Unspecified 05/23/2014 Pneumococcal Polysaccharide PPV23 04/08/2016 Tdap 05/16/2013 Social History Tobacco Use Types Packs/Day Years [...] on file Legal Sex Female 12:26 AM THERMODYNAMICS TEACHER Gender Identity Not on file Sexual Orientation Not on file Last Filed Vital Signs Vital Sign Reading Time Taken Comments Blood Pressure 111/71 05/22/2024 2:57 PM THERMODYNAMICS TEACHER 80 Pulse 69 05/22/2024 2:57 PM THERMODYNAMICS TEACHER Temperature 36.7 C (98 F) 05/22/2024 2:57 PM THERMODYNAMICS TEACHER Respiratory Rate 8 05/22/2024 2:57 PM THERMODYNAMICS TEACHER Oxygen Saturation 96% 05/22/2024 2:57 PM THERMODYNAMICS TEACHER Inhaled Oxygen Concentration - - Weight 56.7 kg (125 lb) 05/22/2024 2:57 PM THERMODYNAMICS TEACHER Height 160 cm (5' 3 ) 05/22/2024 2:57 PM THERMODYNAMICS TEACHER Body Mass Index 22.14 05/22/2024 2:57 PM THERMODYNAMICS TEACHER Plan of Treatment Not on file Goals Goal Patient Goal Type Associated Problems Recent Progress Patient-Stated? Author CCM Chronic Pain Care Plan Chronic Care Management Worsening( 3:07 PM THERMODYNAMICS TEACHER) No Linda Crowell Note: Problem: Chronic Pain Goals: 1. Minimize further functional decline 2. Maximize quality of life 3. Control pain Strategies: - Activity/exercise program recommendation - Conservative stepwise pain medicine strategy with multi-disciplinary approach - Recommend healthy lifestyle strategies and compensatory methods as needed Medical Devices Implanted Type Area Surface Grinder Tender Device Identifier Shelf Expiration Date Model / Serial / Lot Medtronic Neuro 8637-20 Synchromed Ii .78in [place] Filter Mesh Pouch Programmable - [id number] - [id number] Implanted:Qty: 1 on 04/05/2021 by Cynthia Nava MD at [facility] [employer] 08/12/2022 8637-20 / [id number] / Explanted Type Area Surface Grinder Tender Device Identifier Shelf Expiration Date Model / Serial / Lot Intrathecal Pain Pump- 5 Implanted: by Unknown, Notinfile (Quantity not on file) Intrathecal Pain Pump Left: Abdomen Medtronic Neuro 8637-40 SYNCHROMED II / [id number] / Description:Morphine pain pu mp Pt knows the pump must be checked post MRI exams Procedures Procedure Name Priority Date/Time Associated Diagnosis Comments SCAN - OTHER ORDERS 04/04/2024 from Last 3 Months Results * SCAN - OTHER ORDERS (04/04/2024) us Provider Scanning Final Result from Last 3 Months Insurance MEDICARE [facility] MEDICARE MEDICARE [employer] OPEN ACCESS Care Teams Dry Kiln Operator Relationship Specialty Start Date End Date Johnson Rodriguez MD [address] [place] [address] PCP - General 07/29/16 Lucille Hernandez, RN Registered Nurse 04/08/19
--- OUTSIDE RECORDS SUMMARY | 2024-06-05 17:02 | XMS_ITS | Encounter Summary ---
Author Organization [facility] Address [address] [place] [address] Care Team Providers Care Wire Wrapping Machine Operator Name Role Phone Unavailable Primary Care Provider Unavailabl e Encounter Details Date Type Department Care Team (Latest Contact Info) Description 03/06/2018 Abstract [facility] , Kennedy Matute MD Social History Tobacco Use Types Packs/Day Years Used Date Smoking Tobacco: Never Assessed Comments Unknown Sex and Gender Information Value Date Recorded Sex Assigned at Not on file Legal Sex Female 1:20 PM CDT Gender Identity Not on file Sexual Orientation Not on file documented as of this encounter Plan of Treatment Not on file documented as of this encounter Visit Diagnoses Not on filedocumented in this encounter
--- OUTSIDE RECORDS SUMMARY | 2024-06-05 17:02 | XMS_ITS | Encounter Summary ---
Author Organization [facility] Address [address] [place] [address] Phone Care Team Providers Care Gambling Broker Name Role Phone Johnson Rodriguez MD Primary Care Provider [phone]- [phone] Zina Rizo APRN, DIGITAL MEDIA BUYER Unavailable +[phone]- [phone] Heather Oliva COAL PASSER, MANIFEST/ORDER ORGANIZER PRINT ORDERS Unavailable + [phone] Zina Rizo APRN, DIGITAL MEDIA BUYER Unavailable Silvana Brown COAL PASSER, DIGITAL MEDIA BUYER Unavailable Reason for Visit * Reason Comments Medication Refill Encounter Details Date Type Department Care Team (Late st Contact Info) Description 02/25/[address] [facility] - Neurology [facility] #2 [place] [address] Heather Oliva COAL PASSER, MANIFEST/ORDER ORGANIZER PRINT ORDERS #[address] [place] [address] Medication Refill Social History Tobacco Use Types [...] Description 07/15/2024 2:00 PM CDT [facility] [place] #2 [place] [address] Zina Rizo APRN, DIGITAL MEDIA BUYER #[address] [address] 07/19/2024 2:00 PM CDT Office Visit [facility] - Gastroenterology - [place] #2 [place] [address] Silvana Brown APRN, DIGITAL MEDIA BUYER #[address] [place] [address] documented as of this encounter Visit Diagnoses Diagnosis Chronic migraine w/o aura w/o status migrainosus, not intractable Chronic migraine without aura, without mention of intractable migraine without mention of status migrainosus documented in this encounter Care Teams Gambling Broker Relationship Specialty Start Date End Date Johnson Rodriguez MD [address] [place] [address] PCP - General Pediatrics 11/17/21 Zina Rizo APRN, DIGITAL MEDIA BUYER #[address] [address] Nurse Practitioner Advanced Practice Nurse 06/24/22 Heather Oliva APRN, MANIFEST/ORDER ORGANIZER PRINT ORDERS #[address] [place] [address] Nurse Practitioner Advanced Practice Nurse 12/22/21 Zina Rizo APRN, DIGITAL MEDIA BUYER #[address] [address] Nurse Practitioner Advanced Practice Nurse 01/06/23 Silvana Brown APRN, DIGITAL MEDIA BUYER [address] [place] [address] Nurse Practitioner Advanced Practice Nurse 07/14/22 documented as of this encounter
--- OUTSIDE RECORDS SUMMARY | 2024-06-05 17:02 | XMS_ITS | Encounter Summary ---
Author Organization [facility] Address [address] [place] [address] Phone Care Team Providers Care Supervisor Stage Carpentry Name Role Phone Johnson Rodirguez MD Primary Care Provider [phone]- [phone] Zina Rizo APRN, SEXUAL ASSAULT COUNSELOR Unavailable +1- [phone] Heather Oliva DOOR CLOSER MECHANIC, AUDIO VISUAL TECHNICIAN Unavailable + [phone] Zina Rizo APRN, SEXUAL ASSAULT COUNSELOR Unavailable Silvana Brown DOOR CLOSER MECHANIC, SEXUAL ASSAULT COUNSELOR Unavailable Reason for Visit * Reason Comments Medication Refill Encounter Details Date Type Department Care Team (Late st Contact Info) Description 06/28/2022 Refill [facility] - Neurology [facility] [address] [place] [address] Heather Oliva DOOR CLOSER MECHANIC, AUDIO VISUAL TECHNICIAN [address] [place] [address] Medication Refill Social History Tobacco Use Types [...] Recorded In the last 10 days, have shay u been in contact with someone who was confirmed or suspected to have Coronavirus/COVID-19? No / Unsure 06/24/2022 11:28 AM PRINTED CIRCUIT BOARD PANELS DEBURRER documented as of this encounter Miscellaneous Notes * Telephone Encounter - Melvina Reid RN - 06/28/2022 9:20 AM CST Medication failed the protocol, provider to review and approve the medication order if appropriate. Requested Prescriptions Pending Prescriptions Disp Refills Emgality 120 MG/ML Solution Auto-injector [Pharmacy Med Name: EMGALITY 120MG/ML AUTO INJECTOR] 1 mL1 Sig: INJECT 120 MG SUBCUTANEOUSLY EVERY 28 DAYS Not Delegated - Off Protocol Failed - 06/28/2022 9:07 AM Failed - This refill cannot be delegated Passed - Visit with relevant provider in past 12 months or upcoming 90 days Recent Visits Date Type Provider Dept 04/26/22 Office Visit Heather Oliva APRN, AUDIO VISUAL TECHNICIAN [facility] Neurology [place] 12/22/21 Office Visit Heather Oliva APRN, [facility] Neurology Rodrigokristian [place] Showing recent visits within past 365 days and meeting all other requirements Future Appointments Date Type Provider Dept 07/26/22 Appointment Heather Oliva APRN, [facility] Neurology [place] Showing future appointments within next 90 days and meeting all other requirements TED CIRCUIT BOARD PANELS DEBURRER documented in this encounter Plan of Treatment Upcoming Encounters Date Type Department Care Team (Late st Contact Info) Description 07/15/2024 2:00 PM CDT Office Visit [facility] - Pulmonology & Sleep Medicine - [place] [address] [place] [address] Zina Rizo APRN, SEXUAL ASSAULT COUNSELOR [address] [address] 07/19/2024 2:00 PM CDT Office Visit [facility] - Gastroenterology - [place] [address] [place] [address] Silvana Brown APRN, SEXUAL ASSAULT COUNSELOR [address] [place] [address] documented as of this encounter Visit Diagnoses Diagnosis Chronic migraine w/o aura w/o status migrainosus, not intractable Chronic migraine without aura, without mention of intractable migraine without mention of status migrainosus documented in this encounter Care Teams Supervisor Stage Carpentry Relationship Specialty Start Date End Date Johnson Rodriguez MD [address] [place] [address] PCP - General Pediatrics 11/17/21 Zina Rizo APRN, SEXUAL ASSAULT COUNSELOR #[address] [address] Nurse Practitioner Advanced Practice Nurse 06/24/22 Heather Oliva APRN, AUDIO VISUAL TECHNICIAN [address] [place] [address] Nurse Practitioner Advanced Practice Nurse 12/22/21 Zina Rizo APRN, SEXUAL ASSAULT COUNSELOR #[address] [address] Nurse Practitioner Advanced Practice Nurse 01/06/23 Silvana Brown APRN, SEXUAL ASSAULT COUNSELOR [address] [place] [address] Nurse Practitioner Advanced Practice Nurse 07/14/22 documented as of this encounter
--- OUTSIDE RECORDS SUMMARY | 2024-06-05 17:02 | XMS_ITS | Clinical Summary ---
Author Organization [facility] Address [address] [place] [address] Care Team Providers Care Residential Interior Designer Name Role Phone Unavailable Primary Care Provider Unavailabl e Social History Tobacco Use Types Packs/Day Years Used Date Smoking Tobacco: Never Assessed Comments Unknown Sex and Gender Information Value Date Recorded Sex Assigned at Not on file Legal Sex Female 1:20 PM CDT Gender Identity Not on file Sexual Orientation Not on file Last Filed Vital Signs Vital Sign Reading Time Taken Comments Blood Pressure 112/64 01/31/2014 12:46 PM CDT Pulse 86 01/31/2014 12:46 PM CDT Temperature - - Respiratory Rate - - Oxygen Saturation - - Inhaled Oxygen Concentration - - Weight 57.4 kg (126 lb 8 oz) 01/31/2014 12:46 PM CDT Height 162.6 cm (5' 4 ) 01/31/2014 12:46 PM CDT Body Mass Index 21.71 01/31/2014 12:46 PM CDT Plan of Treatment Health Maintenance Due Date Last Done Comments Cervical Cancer Screening Pa p Smear (Age 30 to 64) Every 3 Years 1961 Colorectal Cancer Screening Colonoscopy (10 Years) 1961 Annual Physical 1964 Hepatitis C 1979 DTaP, Tdap and Td Vaccines ( 1 - Tdap) 1980 Cervical Cancer Screening Pa p with HPV Testing (Age 30 to 64) Every 5 Years 1991 Cervical Cancer Screening with HPV 1991 Mammogram Screening 2001 Zoster Vaccines (1 of 2) 2011 COVID-19 Vaccine (2023-2 5 season) 2023 Influenza Adult (#1) 2024 RSV Immunization or 60+ Years (1 - 1-dose 75+ series) 2036 Meningococcal B Vaccine Aged Out No l onger eligible based on patient's age to complete this topic Meningococcal Vaccine Aged Out No debbie katelyn eligible based on patient's age to complete this topic Pneumococcal Vaccine: Pediat rics (0 to 5 Years) and At-Risk Patients (6 to 64 Years) Aged Out No longer eligible b ased on patient's age to complete this topic RSV Immunizations Under 20 Months Aged Out No longer eligible based on patient's age to complete this topic Insurance MEDICARE MEDICARE
--- OUTSIDE RECORDS SUMMARY | 2024-06-05 17:02 | XMS_ITS | Encounter Summary ---
Author Organization [facility] Address [address] [place] [address] Phone Care Team Providers Care Butane Compressor Operator Name Role Phone Johnson Rodriguez MD Primary Care Provider [phone] Zina Rizo APRN, MATHEMATICS EDUCATION PROFESSOR Unavailable [phone]- [phone] Heather Oliva CELL STRIPPER, EDITING INTERNSHIP Unavailable + [phone] Zina Rizo APRN, MATHEMATICS EDUCATION PROFESSOR Unavailable Silvana Brown CELL STRIPPER, MATHEMATICS EDUCATION PROFESSOR Unavailable Reason for Visit * Reason Comments Medication Refill Encounter Details Date Type Department Care Team (Late st Contact Info) Description 09/24/2022 Refill [facility] - Neurology [facility] [address] [place] [address] Heather Oliva CELL STRIPPER, EDITING INTERNSHIP [address] [place] [address] Medication Refill Social History Tobacco Use Types [...] suspected to have Coronavirus/COVID-19? No / Unsure 09/27/2022 1:50 PM CDT documented as of this encounter Miscellaneous Notes * Telephone Encounter - Melvina Reid RN - 09/27/2022 8:22 AM CDT Medication failed the protocol, provider to review and approve the medication order if appropriate. Requested Prescriptions Pending Prescriptions Disp Refills lacosamide (VIMPAT) 100 MG Tablet [Pharmacy Med Name: LACOSAMIDE 100 MG TABLET] 60 Tablet Sig: TAKE ONE TABLET BY MOUTH TWICE A DAY Not Delegated - Anticonvulsants Excluding Benzodiazepines Protocol Failed - 09/24/2022 2:10 PM Failed - This refill cannot be delegated Passed - Visit with relevant provider in past 12 months or upcoming 90 days Recent Visits Date Type Provider Dept 07/26/22 Office Visit Heather Oliva APRN, EDITING INTERNSHIP [facility] Neurology [facility] 04/26/22 Office Visit Heather Oliva APRN, [facility] Neurology [facility] [place] 12/22/21 Office Visit Heather Oliva APRN, [facility] Neurology [facility] Showing recent visits within past 365 days and meeting all other requirements Future Appointments Date Type Provider Dept 10/26/22 Appointment Heather Oliva APRN, [facility] Neurology [facility] Showing future appointments within next 90 days and meeting all other requirements documented in this encounter Plan of Treatment Upcoming Encounters Date Type Department Care Team (Late st Contact Info) Description 07/15/2024 2:00 PM CDT Office Visit [facility] - Pulmonology & [facility] Medicine - [place] [address]2 [facility] [place] [address] Zina Rizo APRN, MATHEMATICS EDUCATION PROFESSOR #[address] [address] 07/19/2024 2:00 PM CDT Office Visit [facility] - Gastroenterology - [place] [address] [place] [address] Silvana Brown APRN, MATHEMATICS EDUCATION PROFESSOR [address] [place] [address] documented as of this encounter Visit Diagnoses Diagnosis Seizures (HCC) Other convulsions documented in this encounter Care Teams Butane Compressor Operator Relationship Specialty Start Date End Date Johnson Rodriguez MD [address] [place] [address] PCP - General Pediatrics 11/17/21 Zina Rizo APRN, MATHEMATICS EDUCATION PROFESSOR #[address] [address] Nurse Practitioner Advanced Practice Nurse 06/24/22 Heather Oliva APRN, EDITING INTERNSHIP [address] [place] [address] Nurse Practitioner Advanced Practice Nurse 12/22/21 Zina Rizo APRN, MATHEMATICS EDUCATION PROFESSOR #[address] [address] Nurse Practitioner Advanced Practice Nurse 01/06/23 Silvana Brown APRN, MATHEMATICS EDUCATION PROFESSOR [address] [place] [address] Nurse Practitioner Advanced Practice Nurse 07/14/22 documented as of this encounter
[2024-06-05 18:26] LABS: Toxigenic C. Diff NEGATIVE (NEGATIVE)
== END 2024-06-05 16:56 | disposition home or self-care (01) ==
LOC: CHSLAB 16:58
PROVIDERS: PCP Family Medicine; Visit Provider Family Medicine
DX: R11.10 Vomiting, unspecified (principal)
CPT/HCPCS: 87493

== ENCOUNTER 2024-07-25 07:57 | Emergency (ER) | payer OTHER, MEDICARE, SELFPAY ==
--- NOTE | ~2024-07-25 | XR_ITS ---
XR ankle RT min 3V, XR foot RT min 3V 07/25/2024 08:15 (accession [id number]), 07/25/2024 08:16 (accession [id number]) Indication: Lateral ankle pain and swelling after injury Procedure: 4 views right ankle and 4 views right foot Comparison: No prior studies for comparison. Findings: There is an avulsion fracture distal tip of the fibula. Moderate lateral soft tissue swelli ng. Ankle mortise intact. Lisfranc joint intact. Impression: 1: Acute avulsion fracture distal tip of the fibula with associated soft tissue swelling. Reviewed, dictated and finalized at location A. Impression: 1: Acute avulsion fracture distal tip of the fibula with associated soft tissue swelling. Impression: 1: Acute avulsion fracture distal tip of the fibula with associated soft tissue swelling.
[2024-07-25 07:57] VITALS: BP 111/55; PULSE 72; RESP 16; TEMP 36.4; O2SAT 97
--- NOTE | 2024-07-25 08:08 | ED.LOWEXIN ---
HPI - Extremity Injury (Lower) General Chief Complaint: Extremity Injury, Lower Stated Complaint: ankle injury Time Seen by Provider: 07/25/24 08:05 Source: patient Mode of arrival: wheelchair Limitations: no limitations History of Present Illness HPI Narrative: this is a 64-year-old female who presents after she woke in the middle the night and rolled her ankle on the right causing pain some mild swelling to the lateral aspect of her right ankle has a good strong brisk pulse rates her pain 10/10 while she is walking otherwise patient is comfortable just resting. No other injuries noted. MD complaint: ankle injury and foot injury Onset (ago): day(s) Type of Injury: inversion Place: home Severity: moderate Exacerbating factors: weight bearing Related Data Home Medications ?Medication ?Instructions ?Recorded ?Confirmed ?Last Taken ?Type alprazolam 0.5 mg tablet 0.5 mg PO BID PRN Anxiety 07/20/19 04/20/22 Unknown History hydrocodone 5 mg-acetaminophen 325 1 tablet PO Q4H PRN Pain 07/20/19 04/20/22 Unknown History mg tablet (Coram) lacosamide 100 mg tablet (Vimpat) 100 mg PO BID 07/20/19 04/20/22 Unknown History morphine concentrate 100 mg/5 mL 10 mg PO Q4H 07/20/19 04/20/22 04/25/21 History (20 mg/mL) oral solution propranolol 60 mg capsule,24 60 mg PO DAILY 07/20/19 04/20/22 Unknown History hr,extended release topiramate 200 mg tablet 400 mg PO BID 07/20/19 04/20/22 Unknown History trazodone 100 mg tablet 150 mg PO HS 07/20/19 04/20/22 Unknown History azithromycin 250 mg tablet 250 mg PO DAILY 04/25/21 04/20/22 Unknown History bimatoprost 0.01 % eye drops 1 drp EACH EYE HS 04/25/21 04/20/22 Unknown History (Lumigan) cyclosporine 0.05 % eye drops in a 1 drp EACH EYE BID 04/25/21 04/20/22 Unknown History dropperette (Restasis) fluconazole 150 mg tablet See Rx Instructions .Route .COMPLEX 04/25/21 04/20/22 Unknown History latanoprost 0.005 % eye drops 1 drp EACH EYE DAILY 04/25/21 04/20/22 Unknown History naloxone 4 mg/actuation nasal See Rx Instructions .Route .COMPLEX 04/25/21 04/20/22 Unknown History spray (Narcan) Allergies Allergy/AdvReac Type Severity Reaction Status Date / Time celecoxib Allergy Unknown Unknown Verified 07/25/24 08:08 paroxetine Allergy Unknown Unknown Verified 07/25/24 08:08 Review of Systems Review of Systems: All systems reviewed & are unremarkable except as noted in HPI and below PMFSH Past Medical History Medical History Mycobacterium avium complex Chronic pain Chronic headaches Bronchiectasis Surgical History Surgical History Hx of cholecystectomy Hx of appendectomy History of hysterectomy Family History Family History Mother Family history of glaucoma Family history of malignant neoplasm of esophagus, Onset Age: 73 Father Family history of emphysema Diabetes mellitus Sibling Hypertension Social History Social History Smoking status: Never smoker Alcohol intake: never Substance use: never Living arrangements: with family Exam Const: General: healthy appearing and no acute distress Nutritional Appearance: well nourished Orientation/consciousness: patient oriented x3 Limitations: no limitations Chest: Chest palpation & inspection: normal inspection of the chest Resp: Effort & Inspection: normal respiratory effort Auscultation: clear to auscultation bilaterally Cardio: Rate: regular rate Rhythm: regular rhythm GI: GI Palp: Yes Soft to palpation Skin: General skin exam: normal color Rashes: no rashes Neuro: General: patient oriented x3 and moves all extremities Extrem: Other: Pain and tenderness lateral aspect of her right ankle with palpation and movement Course Course Emergency Course: patient took a pain medication at this time, x-ray performed and reviewed with patient. Vital Signs Vital signs: Vital Signs Temperature 36.4 C L 07/25/24 07:57 Pulse Rate 72 07/25/24 07:57 Respiratory Rate 16 07/25/24 07:57 Blood Pressure 111/55 L 07/25/24 07:57 Pulse Oximetry 97 07/25/24 07:57 Oxygen Delivery Room Air 07/25/24 07:57 Temperature 36.4 C L 07/25/24 07:57 Pulse Rate 72 07/25/24 07:57 Respiratory Rate 16 07/25/24 07:57 Blood Pressure 111/55 L 07/25/24 07:57 Pulse Oximetry 97 07/25/24 07:57 Oxygen Delivery Room Air 07/25/24 07:57 Critical Care Time Critical Care Time Critical Care Time: No Discharge Plan Discharge Clinical Impression: Avulsion fracture of ankle Qualifiers: Encounter type: initial encounter Fracture type: closed Laterality: right Qualified Code(s): S82.891A - Other fracture of right lower leg, initial encounter for closed fracture Patient Disposition: Home, Self-Care Condition: Stable Instructions: Antibiotic Form, Avulsion Fracture (ED) Additional Instructions: advised to continue splint keep leg elevated can continue ice take Tylenol or Motrin as needed and follow up with primary in week further evaluation treatment. Patient Language: Swedish Prescriptions: No Action morphine concentrate 100 mg/5 mL (20 mg/mL) Solution 10 mg PO Q4H Rx Instructions: MORPHINE PUMP - CHECK DOSE hydrocodone-acetaminophen [Coram] 5-325 mg Tablet 1 tablet PO Q4H PRN (Reason: Pain) propranolol 60 mg capsule,extended release 24 hr 60 mg PO DAILY alprazolam 0.5 mg tablet 0.5 mg PO BID PRN (Reason: Anxiety) trazodone 100 mg tablet 150 mg PO HS topiramate 200 mg tablet 400 mg PO BID Vimpat 100 mg tablet 100 mg PO BID latanoprost 0.005 % drops 1 drp EACH EYE DAILY azithromycin 250 mg tablet 250 mg PO DAILY fluconazole 150 mg tablet See Rx Instructions .ROUTE .COMPLEX Rx Instructions: . Restasis 0.05 % dropperette 1 drp EACH EYE BID Lumigan 0.01 % drops 1 drp EACH EYE HS Narcan 4 mg/actuation spray,non-aerosol See Rx Instructions .ROUTE .COMPLEX Rx Instructions: . mupirocin 2 % ointment 1 applic topical BID Qty: 22 12RF Follow-up/Referrals: Johnson Rodriguez MD [Primary Care Provider] - Time of Disposition: 08:32
--- OUTSIDE RECORDS SUMMARY | 2024-07-25 08:10 | XMS_ITS | Encounter Summary ---
Author Organization [facility] Address [address] [place] [address] Phone Care Team Providers Care Paper Processing Machine Helper Name Role Phone Johnson Rodriguez MD Primary Care Provider [phone]- [phone] Zina Rizo APRN, PAIN MANAGEMENT PHYSICIAN Unavailable +[phone]- [phone] Heather Oliva EDGE STRIPPER, SHOP LABORER Unavailable + [phone] Zina Rizo APRN, PAIN MANAGEMENT PHYSICIAN Unavailable Silvana Brown EDGE STRIPPER, PAIN MANAGEMENT PHYSICIAN Unavailable Reason for Visit * Reason Comments Medication Refill Encounter Details Date Type Department Care Team (Late st Contact Info) Description 01/26/2023 Refill [facility] - Neurology [facility] #2 [place] [address] Heather Oliva EDGE STRIPPER, SHOP LABORER [address] [place] [address] Medication Refill Social History Tobacco Use Types [...] Dept 01/06/23 Procedure Visit Dago Land MD [facility] Neurology [facility] 10/26/22 Office Visit Heather Oliva APRN, CNS [facility] Neurology [facility] 07/26/22 Office Visit Heather Oliva APRN, [facility] Neurology [facility] 04/26/22 Office Visit Heather Oliva APRN, CNS [facility] Showing recent visits within past 365 days and meeting all other requirements Future Appointments Date Type Provider Dept 01/27/23 Appointment Heather Oliva APRN [facility] Neurology [facility] [address] 04/07/23 Appointment Dago Land MD [facility] Neurology [facility] Showing future appointments within next 90 days and meeting all other requirements documented in this encounter Plan of Treatment Upcoming Encounters Date Type Department Care Team (Late st Contact Info) Description 01/20/2025 2:00 PM CDT Office Visit [facility] - Pulmonology & Sleep Medicine - [place] [address] [place] [address] Zina Rizo APRN, PAIN MANAGEMENT PHYSICIAN [address] [address] documented as of this encounter Visit Diagnoses Diagnosis Seizures (HCC) Other convulsions documented in this encounter Care Teams Paper Processing Machine Helper Relationship Specialty Start Date End Date Johnson Rodriguez MD [address] [place] [address] PCP - General Pediatrics 11/17/21 Zina Rizo APRN, PAIN MANAGEMENT PHYSICIAN #[address] [address] Nurse Practitioner Advanced Practice Nurse 06/24/22 Heather Oliva APRN, SHOP LABORER [address] [place] [address] Nurse Practitioner Advanced Practice Nurse 12/22/21 Zina Rizo APRN, PAIN MANAGEMENT PHYSICIAN #[address] [address] Nurse Practitioner Advanced Practice Nurse 01/06/23 Silvana Brown APRN, PAIN MANAGEMENT PHYSICIAN [address] [place] [address] Nurse Practitioner Advanced Practice Nurse 07/14/22 documented as of this encounter
--- OUTSIDE RECORDS SUMMARY | 2024-07-25 08:10 | XMS_ITS | Encounter Summary ---
Author Organization [facility] Address [address] [place] [address] Phone Care Team Providers Care Wharf Laborer Name Role Phone Johnson Rodriguez MD Primary Care Provider [phone]- [phone] Zina Rizo APRN, PSYCHOLOGICAL SCIENCE PROFESSOR Unavailable [phone]- [phone] Heather Oliva ASSISTANT MANAGER OF OPERATIONS, ACCOUNT SOLUTIONS ANALYST Unavailable + [phone] Zina Rizo APRN, PSYCHOLOGICAL SCIENCE PROFESSOR Unavailable Silvana Brown ASSISTANT MANAGER OF OPERATIONS, PSYCHOLOGICAL SCIENCE PROFESSOR Unavailable Reason for Visit * Reason Comments Medication Refill Encounter Details Date Type Department Care Team (Late st Contact Info) Description 02/24/2023 Refill [facility] - Neurology [facility] #2 [place] [address] Heather Oliva ASSISTANT MANAGER OF OPERATIONS, ACCOUNT SOLUTIONS ANALYST [address] [place] [address] Medication Refill Social History Tobacco Use Types [...] Dept 01/27/23 Office Visit Heather Oliva APRN ACCOUNT SOLUTIONS ANALYST [facility] Neurology [facility] 01/06/23 Procedure Visit Dago Land MD [facility] Neurology [facility] 10/26/22 Office Visit Heather Oliva APRN, CNS [facility] [address] 07/26/22 Office Visit Heather Oliva APRN, JOSE [facility] Neurology [facility] 04/26/22 Office Visit Heather Oliva APRN [facility] Neurology [facility] Showing recent visits within past 365 days and meeting all other requirements Future Appointments Date Type Provider Dept 04/04/23 Appointment Heather Oliva APRN ACCOUNT SOLUTIONS ANALYST [facility] Neurology [facility] Showing future appointments within next 90 days and meeting all other requirements documented in this encounter Plan of Treatment Upcoming Encounters Date Type Department Care Team (Late st Contact Info) Description 01/20/2025 2:00 PM CDT Office Visit [facility] - Pulmonology & Sleep Medicine - [place] [address] [place] [address] Zina Rizo APRN, PSYCHOLOGICAL SCIENCE PROFESSOR [address] [address] documented as of this encounter Visit Diagnoses Not on filedocumented in this encounter Care Teams Wharf Laborer Relationship Specialty Start Date End Date Johnson Rodriguez MD [address] [place] [address] PCP - General Pediatrics 11/17/21 Zina Rizo APRN, PSYCHOLOGICAL SCIENCE PROFESSOR #[address] [address] Nurse Practitioner Advanced Practice Nurse 06/24/22 Heather Oliva APRN, ACCOUNT SOLUTIONS ANALYST [address] [place] [address] Nurse Practitioner Advanced Practice Nurse 12/22/21 Zina Rizo APRN, PSYCHOLOGICAL SCIENCE PROFESSOR #[address] [address] Nurse Practitioner Advanced Practice Nurse 01/06/23 Silvana Brown APRN, PSYCHOLOGICAL SCIENCE PROFESSOR [address] [place] [address] Nurse Practitioner Advanced Practice Nurse 07/14/22 documented as of this encounter
--- OUTSIDE RECORDS SUMMARY | 2024-07-25 08:10 | XMS_ITS | Encounter Summary ---
Author Organization [facility] Address [address] [place] [address] Phone Care Team Providers Care Plisse Machine Operator Name Role Phone Johnson Rodriguez MD Primary Care Provider [phone]- [phone] Zina Rizo APRN, GANG TAILER Unavailable +1- [phone] Heather Oliva MILLWRIGHT HELPER, FIRE AND EXPLOSION INVESTIGATOR Unavailable + [phone] Zina Rizo APRN, GANG TAILER Unavailable Silvana Brown MILLWRIGHT HELPER, GANG TAILER Unavailable Reason for Visit * Reason Comments Medication Refill Encounter Details Date Type Department Care Team (Late st Contact Info) Description 03/20/2023 Refill [facility] - Neurology [facility] [address] [place] [address] Heather Oliva MILLWRIGHT HELPER, FIRE AND EXPLOSION INVESTIGATOR #2 [place] [address] Medication Refill Social History Tobacco Use Types [...] Dept 01/27/23 Office Visit Heather Oliva APRN, [facility] Neurology [facility] 01/06/23 Procedure Visit Dago Land MD [facility] Neurology [facility] 10/26/22 Office Visit Heather Oliva APRN, [facility] 07/26/22 Office Visit Heather Oliva APRN, [facility] 04/26/22 Office Visit Heather Oliva APRN, [facility] Showing recent visits within past 365 days and meeting all other requirements Future Appointments Date Type Provider Dept 05/31/23 Appointment Heather Oliva APRN, [facility] Showing future appointments within next 90 days and meeting all other requirements ER OPERATOR documented in this encounter Plan of Treatment Upcoming Encounters Date Type Department Care Team (Late st Contact Info) Description 01/20/2025 2:00 PM CDT Office Visit [facility] - Pulmonology & Sleep Medicine - [place] [address]2 [place] [address] Zina Rizo APRN, GANG TAILER [address] [address] documented as of this encounter Visit Diagnoses Diagnosis Chronic migraine w/o aura w/o status migrainosus, not intractable Chronic migraine without aura, without mention of intractable migraine without mention of status migrainosus documented in this encounter Care Teams Plisse Machine Operator Relationship Specialty Start Date End Date Johnson Rodriguez MD [address] [place] [address] PCP - General Pediatrics 11/17/21 Zina Rizo APRN, GANG TAILER #[address] [address] Nurse Practitioner Advanced Practice Nurse 06/24/22 Heather Oliva APRN, FIRE AND EXPLOSION INVESTIGATOR [address]2 [place] [address] Nurse Practitioner Advanced Practice Nurse 12/22/21 Zina Rizo APRN, GANG TAILER #[address] [address] Nurse Practitioner Advanced Practice Nurse 01/06/23 Silvana Brown APRN, GANG TAILER [address]2 [place] [address] Nurse Practitioner Advanced Practice Nurse 07/14/22 documented as of this encounter
--- OUTSIDE RECORDS SUMMARY | 2024-07-25 08:10 | XMS_ITS | Encounter Summary ---
Author Organization [facility] Address [address] [place] [address] Phone Care Team Providers Care Presser Hand Name Role Phone Johnson Rodriguez MD Primary Care Provider +1- [phone] Zina Rizo APRN, STEM CUTTER Unavailable +1- [phone] Heather Oliva APRN, CLEANER HOUSEKEEPING Unavailable + [phone] Zina Rizo APRN, STEM CUTTER Unavailable Silvana Brown APRN, STEM CUTTER Unavailable Reason for Visit * Reason Comments Medication Refill Encounter Details Date Type Department Care Team (Late st Contact Info) Description 04/27/2023 Refill [facility]ology - [place] [address] [place] [address] Silvana Brown APRN, STEM CUTTER [address] [place] [address] Medication Refill Social History Tobacco Use Types [...] Telephone Encounter - Denae Cameron RN - 04/27/2023 3:51 PM CHEMICAL OPERATOR Per nursing clinical judgement, provider to review [...] Visit Silvana Brown APRN, CNP [facility] [place] 11/08/22 Office Visit Silvana Brown APRN, CNP [facility] [place] 07/14/22 Office Visit Silvana Brown APRN, CNP [facility] [place] Showing recent visits within past 365 days and meeting all other requirements Future Appointments Date Type Provider Dept 06/28/23 Appointment Silvana Brown APRN, CNP [facility] [place] Showing future appointments within next 90 days [...] 03/29/23 Office Visit Silvana Brown APRN, CNP [facility] [place] 11/08/22 Office Visit Silvana Brown APRN, CNP [facility] [place] 07/14/22 Office Visit Silvana Brown APRN, STEM CUTTER [facility] [place] Showing recent visits within past 365 days and meeting all other requirements Future Appointments Date Type Provider Dept 06/28/23 Appointment Silvana Brown APRN, [facility] Showing future appointments within next 90 days and meeting all other requirements ICAL OPERATOR documented in this encounter Plan of Treatment Upcoming Encounters Date Type Department Care Team (Late st Contact Info) Description 01/20/2025 2:00 PM CDT Office Visit [facility] - Pulmonology & Sleep Medicine - [place] [address] [place] [address] Zina Rizo APRN, STEM CUTTER [address] [address] documented as of this encounter Visit Diagnoses Diagnosis Epigastric pain Abdominal pain, epigastric documented in this encounter Care Teams Presser Hand Relationship Specialty Start Date End Date Johnson Rodriguez MD [address] [place] [address] PCP - General Pediatrics 11/17/21 Zina Rizo APRN, J[facility] [address] [address] Nurse Practitioner Advanced Practice Nurse 06/24/22 Heather Oliva APRN, CLEANER HOUSEKEEPING [address] [place] [address] Nurse Practitioner Advanced Practice Nurse 12/22/21 Zina Rizo APRN, [facility] #[address] [address] Nurse Practitioner Advanced Practice Nurse 01/06/23 Silvana Brown APRN, STEM CUTTER [address]2 [place] [address] Nurse Practitioner Advanced Practice Nurse 07/14/22 documented as of this encounter
--- OUTSIDE RECORDS SUMMARY | 2024-07-25 08:10 | XMS_ITS | Encounter Summary ---
Author Organization [facility] Address [address] [place] [address] Phone Care Team Providers Care Junior Systems Engineer Name Role Phone Johnson Rodriguez MD Primary Care Provider [phone]- [phone] Zina Rizo APRN, CONVEYOR WEIGHER OPERATOR Unavailable [phone]- [phone] Heather Oliva FLORAL ARRANGER, MOTORCYCLE FABRICATOR Unavailable + [phone] Zina Rizo APRN, CONVEYOR WEIGHER OPERATOR Unavailable Silvana Brown FLORAL ARRANGER, CONVEYOR WEIGHER OPERATOR Unavailable Reason for Visit * Reason Comments Medication Refill Encounter Details Date Type Department Care Team (Late st Contact Info) Description 11/25/2022 Refill [facility] - Neurology [facility] [address] [place] [address] Heather Oliva FLORAL ARRANGER, MOTORCYCLE FABRICATOR [address]2 [place] [address] Medication Refill Social History Tobacco Use Types [...] Dept 10/26/22 Office Visit Heather Oliva APRN, MOTORCYCLE FABRICATOR [facility] Neurology [facility] 07/26/22 Office Visit Heather Oliva APRN MOTORCYCLE FABRICATOR [facility] Neurology [facility] 04/26/22 Office Visit Heather Oliva APRN, [facility] Neurology [facility] 12/22/21 Office Visit Heather Oliva APRN, [facility] Showing recent visits within past 365 days and meeting all other requirements Future Appointments Date Type Provider Dept 01/27/23 Appointment Heather Oliva APRN, [facility] Showing future appointments within next 90 days and meeting all other requirements documented in this encounter Plan of Treatment Upcoming Encounters Date Type Department Care Team (Late st Contact Info) Description 01/20/2025 2:00 PM CDT [facility] Visit [facility] - Pulmonology & Sleep Medicine - [place] [address] [place] [address] Zina Rizo APRN, CONVEYOR WEIGHER OPERATOR #[address] [address] documented as of this encounter Visit Diagnoses Diagnosis Chronic migraine w/o aura w/o status migrainosus, not intractable Chronic migraine without aura, without mention of intractable migraine without mention of status migrainosus documented in this encounter Care Teams Junior Systems Engineer Relationship Specialty Start Date End Date Johnson Rodriguez MD [address] [place] [address] PCP - General Pediatrics 11/17/21 Zina Rizo APRN, CONVEYOR WEIGHER OPERATOR #[address] [address] Nurse Practitioner Advanced Practice Nurse 06/24/22 Heather Oliva APRN, MOTORCYCLE FABRICATOR [address] [place] [address] Nurse Practitioner Advanced Practice Nurse 12/22/21 Zina Rizo APRN, CONVEYOR WEIGHER OPERATOR #[address] [address] Nurse Practitioner Advanced Practice Nurse 01/06/23 Silvana Brown APRN, CONVEYOR WEIGHER OPERATOR #2 [place] [address] Nurse Practitioner Advanced Practice Nurse 07/14/22 documented as of this encounter
--- OUTSIDE RECORDS SUMMARY | 2024-07-25 08:10 | XMS_ITS | Encounter Summary ---
Author Organization [facility] Address [address] [place] [address] Phone Care Team Providers Care Needle Molder Name Role Phone Johnson Rodriguez MD Primary Care Provider [phone]- [phone] Zina Rizo APRN, IMMUNOPATHOLOGIST Unavailable +[phone]- [phone] Heather Oliva PRE SALES NETWORK ENGINEER, MANDATE RETAIL SERVICE MERCHANDISER Unavailable +- [phone] Zina Rizo APRN, IMMUNOPATHOLOGIST Unavailable [phone] Silvana Brown PRE SALES NETWORK ENGINEER, IMMUNOPATHOLOGIST Unavailable Reason for Visit * Reason Comments Medication Refill Encounter Details Date Type Department Care Team (Late st Contact Info) Description 04/27/2023 Refill [facility] - Neurology [facility] [address]2 [place] [address] Heather Oliva PRE SALES NETWORK ENGINEER, MANDATE RETAIL SERVICE MERCHANDISER [address]2 [place] [address] Medication Refill Social History Tobacco Use Types [...] appropriate. Requested Prescriptions Pending Prescriptions Disp Refills [id number] (FIORICET, ESGIC) 50-325-40 MG Tablet [Pharmacy Med Name: [id number] 50-325-40] 15 Tablet Sig: TAKE ONE TABLET BY MOUTH EVERY FOUR HOURS NEEDED FOR HEADACHES OR MIGRAINE. Not Delegated - Butalbital Protocol Failed - 04/27/2023 9:44 AM Failed - This refill cannot be delegated; check utilization Passed - Visit with relevant provider in past 24 months or upcoming 90 days Recent Visits Date Type Provider Dept 01/27/23 Office Visit Heather Oliva APRN [facility] Neurology [facility] 01/06/23 Procedure Visit Dago Land MD [facility] Neurology [facility] 10/26/22 Office Visit Heather Oliva APRN, CNS [facility] Neurology [facility] 07/26/22 Office Visit Heather Oliva APRN [facility] Neurology [facility] 04/26/22 Office Visit Heather Oliva APRN, [facility] 12/22/21 Office Visit Heather Oliva APRN [facility] Neu[facility] Showing recent visits within past 730 days and meeting all other requirements Future Appointments Date Type Provider Dept 05/31/23 Appointment Heather Oliva APRN, CNS [facility] Neurology [facility] Showing future appointments within [...] Dept 01/27/23 Office Visit Heather Oliva APRN, [facility] Neurology [facility] 01/06/23 Procedure Visit Dago Land MD [facility] Neurology [facility] 10/26/22 Office Visit Heather Oliva APRN, [facility] 07/26/22 Office Visit Heather Oliva APRN, [facility] Showing recent visits within past 365 days and meeting all other requirements Future Appointments Date Type Provider Dept 05/31/23 Appointment Heather Oliva APRN, [facility] Showing future appointments within next 90 days and meeting all other requirements R LINE INSTALLER AND REPAIRER documented in this encounter Plan of Treatment Upcoming Encounters Date Type Department Care Team (Late st Contact Info) Description 01/20/2025 2:00 PM CDT Office Visit [facility] - Pulmonology & Sleep Medicine [facility] [address] [place] [address] Zina Rizo APRN, IMMUNOPATHOLOGIST #[address] [address] documented as of this encounter Visit Diagnoses Diagnosis Chronic migraine w/o aura w/o status migrainosus, not intractable Chronic migraine without aura, without mention of intractable migraine without mention of status migrainosus documented in this encounter Care Teams Needle Molder Relationship Specialty Start Date End Date Johnson Rodriguez MD [address] [place] [address] PCP - General Pediatrics 11/17/21 Zina Rizo APRN, IMMUNOPATHOLOGIST #[address] [address] Nurse Practitioner Advanced Practice Nurse 06/24/22 Heather Oliva APRN, MANDATE RETAIL SERVICE MERCHANDISER [address] [place] [address] Nurse Practitioner Advanced Practice Nurse 12/22/21 Zina Rizo APRN, IMMUNOPATHOLOGIST #[address] [address] Nurse Practitioner Advanced Practice Nurse 01/06/23 Silvana Brown APRN, IMMUNOPATHOLOGIST [address] [place] [address] Nurse Practitioner Advanced Practice Nurse 07/14/22 documented as of this encounter
--- OUTSIDE RECORDS SUMMARY | 2024-07-25 08:10 | XMS_ITS | Encounter Summary ---
Author Organization [facility] Address [address] [place] [address] Phone Care Team Providers Care Dogman/Woman Name Role Phone Johnson Rodriguez MD Primary Care Provider [phone]- [phone] Zina Rizo APRN, DISPLAY AND BANNER DESIGNER Unavailable +[phone]- [phone] Heather Oliva APRN, SALES ACCOUNT REPRESENTATIVE Unavailable + [phone] Zina Rizo APRN, DISPLAY AND BANNER DESIGNER Unavailable Silvana Brown APRN, DISPLAY AND BANNER DESIGNER Unavailable Reason for Visit * Reason Comments Medication Refill Encounter Details Date Type Department Care Team (Late st Contact Info) Description 04/30/2024 Refill [facility] - G[facility]ology - [place] #2 [place] [address] Silvana Brown APRN, DISPLAY AND BANNER DESIGNER [address] [place] [address] Medication Refill Social History Tobacco Use Types [...] Denae Cameron RN - 04/30/2024 8:58 AM HEEL BREASTER Medication refilled and signed per [facility] chronic medication standing order for pediatric and adult patients. BREASTER documented in this encounter Plan of Treatment Upcoming Encounters Date Type Department Care Team (Late st Contact Info) Description 01/20/2025 2:00 PM CDT Office Visit [facility] - Pulmonology & Sleep Medicine - [place] [address] [place] [address] Zina Rizo APRN, DISPLAY AND BANNER DESIGNER #[address] [address] documented as of this encounter Visit Diagnoses Not on filedocumented in this encounter Care Teams Dogman/Woman Relationship Specialty Start Date End Date Johnson Rodriguez MD [address] [place] [address] PCP - General Pediatrics 11/17/21 Zina Rizo APRN, DISPLAY AND BANNER DESIGNER #[address] [address] Nurse Practitioner Advanced Practice Nurse 06/24/22 Heather Oliva APRN, SALES ACCOUNT REPRESENTATIVE #2 [place] [address] Nurse Practitioner Advanced Practice Nurse 12/22/21 Zina Rizo APRN, DISPLAY AND BANNER DESIGNER #[address] [address] Nurse Practitioner Advanced Practice Nurse 01/06/23 Silvana Brown APRN, DISPLAY AND BANNER DESIGNER [address] [place] [address] Nurse Practitioner Advanced Practice Nurse 07/14/22 documented as of this encounter
--- OUTSIDE RECORDS SUMMARY | 2024-07-25 08:10 | XMS_ITS | Encounter Summary ---
Author Organization [facility] Address [address] [place] [address] Phone Care Team Providers Care Pediatric Dentist Name Role Phone Johnson Rodriguez MD Primary Care Provider [phone]- [phone] Znia Rizo APRN, HEAD OF PRODUCT Unavailable +[phone]- [phone] Heather Oliva HAT BAND ATTACHER, DOPEMAN Unavailable + [phone] Zina Rizo APRN, HEAD OF PRODUCT Unavailable Silvana Brown HAT BAND ATTACHER, HEAD OF PRODUCT Unavailable Reason for Visit * Reason Comments Medication Refill Encounter Details Date Type Department Care Team (Late st Contact Info) Description 07/24/2023 Refill [facility] - Neurology [facility] #2 [place] [address] Heather Oliva HAT BAND ATTACHER, DOPEMAN [address] [place] [address] Medication Refill Social History Tobacco Use Types [...] Dept 05/31/23 Office Visit Heather Oliva APRN, [facility] 01/27/23 Office Visit Heather Oliva APRN, [facility] 01/06/23 Procedure Visit Dago Land MD [facility]rology [facility] 10/26/22 Office Visit Heather Oliva APRN, [facility]rology [facility] 07/26/22 Office Visit Heather Oliva APRN, [facility] Showing recent visits within past 365 days and meeting all other requirements Future Appointments Date Type Provider Dept 08/01/23 Appointment Heather Oliva APRN, [facility] Showing future appointments within next 90 days and meeting all other requirements documented in this encounter Plan of Treatment Upcoming Encounters Date Type Department Care Team (Late st Contact Info) Description 01/20/2025 2:[address] PM CDT Office Visit [facility] - Pulmonology & Sleep Medicine - [place] [address] [place] [address] Zina Rizo APRN, HEAD OF PRODUCT #[address] [address] documented as of this encounter Visit Diagnoses Not on filedocumented in this encounter Care Teams Pediatric Dentist Relationship Specialty Start Date End Date Johnson Rodriguez MD [address] [place] [address] PCP - General Pediatrics 11/17/21 Zina Rizo, AJ, HEAD OF PRODUCT #[address] [address] Nurse Practitioner Advanced Practice Nurse 06/24/22 Heather Oliva APRN, DOPEMAN [address] [place] [address] Nurse Practitioner Advanced Practice Nurse 12/22/21 Zina Rizo, AJ, HEAD OF PRODUCT #[address] [address] Nurse Practitioner Advanced Practice Nurse 01/06/23 Silvana Brown APRN, HEAD OF PRODUCT #2 [place] [address] Nurse Practitioner Advanced Practice Nurse 07/14/22 documented as of this encounter
--- OUTSIDE RECORDS SUMMARY | 2024-07-25 08:10 | XMS_ITS | Encounter Summary ---
Author Organization [facility] Address [address] [place] [address] Phone Care Team Providers Care Environmental Services Associate Name Role Phone Johnson Rodriguez MD Primary Care Provider +1- [phone] Zina Rizo APRN, SUPERVISOR PACKING Unavailable +1- [phone] Heather Oliva HIDE SELECTOR, ENGINE GENERATOR ASSEMBLER Unavailable +- [phone] Zina Rizo APRN, SUPERVISOR PACKING Unavailable Silvana Brown HIDE SELECTOR, SUPERVISOR PACKING Unavailable Reason for Visit * Reason Comments Medication Refill Encounter Details Date Type Department Care Team (Late st Contact Info) Description 07/27/2023 Refill [facility] - Neurology [facility] #2 [place] [address] Heather Oliva HIDE SELECTOR, ENGINE GENERATOR ASSEMBLER [address] [place] [address] Medication Refill Social History Tobacco Use Types [...] Dept 05/31/23 Office Visit Heather Oliva APRN, [facility] Neurology [facility] 01/27/23 Office Visit eHather Oliva APRN, JOSE [facility] Neurology [facility] 01/06/23 Procedure Visit Dago Land MD [facility] Neurology [facility] 10/26/22 Office Visit Heather Oliva APRN, [facility] Showing recent visits within past 365 days and meeting all other requirements Future Appointments Date Type Provider Dept 08/01/23 Appointment Heather Oliva APRN, [facility] Showing future appointments within next 90 days and meeting all other requirements documented in this encounter Plan of Treatment Upcoming Encounters Date Type Department Care Team (Late st Contact Info) Description 01/20/2025 2:00 PM CDT Office Visit [facility] - Pulmonology & Sleep Medicine - [place] [address] [place] [address] Zina Rizo APRN, SUPERVISOR PACKING #[address] [address] documented as of this encounter Visit Diagnoses Diagnosis Seizures (HCC) Other convulsions documented in this encounter Care Teams Environmental Services Associate Relationship Specialty Start Date End Date Johnson Rodriguez MD [address] [place] [address] PCP - General Pediatrics 11/17/21 Zina Rizo APRN, SUPERVISOR PACKING #[address] [address] Nurse Practitioner Advanced Practice Nurse 06/24/22 Heather Oliva APRN, ENGINE GENERATOR ASSEMBLER #[address] [place] [address] Nurse Practitioner Advanced Practice Nurse 12/22/21 Zina Rizo APRN, SUPERVISOR PACKING #[address] [address] Nurse Practitioner Advanced Practice Nurse 01/06/23 Silvana Brown APRN, SUPERVISOR PACKING #2 [place] [address] Nurse Practitioner Advanced Practice Nurse 07/14/22 documented as of this encounter
--- OUTSIDE RECORDS SUMMARY | 2024-07-25 08:10 | XMS_ITS | Encounter Summary ---
Author Organization [facility] Address [address] [place] [address] Phone Care Team Providers Care Copy Worker Name Role Phone Johnson Rodriguez MD Primary Care Provider +1- [phone] Zina Rizo APRN, SOAP CHIPPER Unavailable +1- [phone] Heather Olvia DONOR RELATIONS COORDINATOR, SULFURIC ACID PLANT OPERATOR Unavailable + [phone] Zina Rizo APRN, SOAP CHIPPER Unavailable [phone] Silvana Brown DONOR RELATIONS COORDINATOR, SOAP CHIPPER Unavailable Reason for Visit * Reason Comments Medication Refill Encounter Details Date Type Department Care Team (Late st Contact Info) Description 05/27/2023 Refill [facility] - [facility]rology [facility] #2 [place] [address] Heather Oliva DONOR RELATIONS COORDINATOR, SULFURIC ACID PLANT OPERATOR #2 [place] [address] Medication Refill Social History Tobacco Use Types [...] Dept 01/27/23 Office Visit Heather Oliva APRN, SULFURIC ACID PLANT OPERATOR [facility] Neurology [facility] 01/06/23 Procedure Visit Dago Land MD [facility] Neurology [facility] 10/26/22 Office Visit Heather Oliva APRN, JOSE [facility] Neurology [facility] 07/26/22 Office Visit Heather Oliva APRN, [facility] Showing recent visits within past 365 days and meeting all other requirements Future Appointments Date Type Provider Dept 05/31/23 Appointment Heather Oliva APRN, JOSE [facility] Showing future appointments within next 90 days and meeting all other requirements OGY LABORATORY ASSISTANT documented in this encounter Plan of Treatment Upcoming Encounters Date Type Department Care Team (Late st Contact Info) Description 01/20/2025 2:00 PM CDT [facility] - Pulmonology & Sleep Medicine - [place] #2 [place] [id number] Zina Rizo APRN, SOAP CHIPPER #2 [facility] [address] [place] [address] documented as of this encounter Visit Diagnoses Diagnosis Chronic migraine w/o aura w/o status migrainosus, not intractable Chronic migraine without aura, without mention of intractable migraine without mention of status migrainosus documented in this encounter Care Teams Copy Worker Relationship Specialty Start Date End Date Johnson Rodriguez MD [address] [place] [address] PCP - General Pediatrics 11/17/21 Zina Rizo, AJ, SOAP CHIPPER #[address] [address] Nurse Practitioner Advanced Practice Nurse 06/24/22 Heather Oliva APRN, SULFURIC ACID PLANT OPERATOR #2 [place] [address] Nurse Practitioner Advanced Practice Nurse 12/22/21 Zina Rizo, AJ, SOAP CHIPPER #[address] [address] Nurse Practitioner Advanced Practice Nurse 01/06/23 Silvana Brown APRN, SOAP CHIPPER #2 [place] [address] Nurse Practitioner Advanced Practice Nurse 07/14/22 documented as of this encounter
--- OUTSIDE RECORDS SUMMARY | 2024-07-25 08:10 | XMS_ITS | Encounter Summary ---
Author Organization [facility] Address [address] [place] [address] Phone Care Team Providers Care Square Cutter Name Role Phone Johnson Rodriguez MD Primary Care Provider +1- [phone] Zina Rizo APRN, SENIOR APPLICATIONS ENGINEER Unavailable +1- [phone] Heather Oliva PLUMBER SUPERVISOR, RADIO INTERFERENCE EXPERT Unavailable + [phone] Zina Rizo APRN, SENIOR APPLICATIONS ENGINEER Unavailable [phone] Silvana Brown PLUMBER SUPERVISOR, SENIOR APPLICATIONS ENGINEER Unavailable Reason for Visit * Reason Comments Medication Refill Encounter Details Date Type Department Care Team (Late st Contact Info) Description 12/26/2022 Refill [facility] - Neurology [facility] #2 [place] [address] Heather Oliva PLUMBER SUPERVISOR, RADIO INTERFERENCE EXPERT #2 [place] [address] Medication Refill Social History Tobacco Use Types [...] Dept 10/26/22 Office Visit Heather Oliva APRN, RADIO INTERFERENCE EXPERT [facility] Neurology [facility] 07/26/22 Office Visit Heather Oliva APRN, [facility] 04/26/22 Office Visit Heather Oliva APRN, [facility] Showing recent visits within past 365 days and meeting all other requirements Future Appointments Date Type Provider Dept 01/06/23 Appointment Dago Land MD [facility] Neurology [facility] 01/27/23 Appointment Heather Oliva APRN [facility] Showing future appointments within next 90 [...] Dept 10/26/22 Office Visit Heather Oliva APRN, JO[facility] 07/26/22 Office Visit Heather Oliva APRN, JO[facility] 04/26/22 Office Visit Heather Oliva APRN, JO[facility] Showing recent visits within past 365 days and meeting all other requirements Future Appointments Date Type Provider Dept 01/06/23 Appointment Dago Land MD [facility] Neurology [facility] 01/27/23 Appointment Heather Oliva APRN, CNS [facility] Showing future appointments within next 90 days and meeting all other requirements documented in this encounter Plan of Treatment Upcoming Encounters Date Type Department Care Team (Late st Contact Info) Description 01/20/2025 2:00 PM CDT Office Visit [facility] - Pul[facility]ology & Sleep Medicine [facility] #2 [place] [address] Zina Rizo APRN, JESSE #[address] [address] documented as of this encounter Visit Diagnoses Not on filedocumented in this encounter Care Teams Square Cutter Relationship Specialty Start Date End Date Johnson Rodriguez MD [address] [place] [address] PCP - General Pediatrics 11/17/21 Zina Rizo APRN, JESSE #[address] [address] Nurse Practitioner Advanced Practice Nurse 06/24/22 Heather Oliva APRN, JOSE [address] [place] [address] Nurse Practitioner Advanced Practice Nurse 12/22/21 Zina Rizo, PLUMBER SUPERVISOR, SENIOR APPLICATIONS ENGINEER #2 [facility] [address] [address] Nurse Practitioner Advanced Practice Nurse 01/06/23 Silvana Brown APRN, SENIOR APPLICATIONS ENGINEER #2 [place] [address] Nurse Practitioner Advanced Practice Nurse 07/14/22 documented as of this encounter
--- OUTSIDE RECORDS SUMMARY | 2024-07-25 08:10 | XMS_ITS | Encounter Summary ---
Author Organization [facility] Address [address] [place] [address] Phone Care Team Providers Care Assistant Community Manager Name Role Phone Johnson Rodriguez MD Primary Care Provider [phone]- [phone] Zina Rizo APRN, PSYCHOLOGIST Unavailable +[phone]- [phone] Heather Oliva APRN, LOTUS NOTES ADMINISTRATOR Unavailable + [phone] Zina Rizo APRN, PSYCHOLOGIST Unavailable [phone] Silvana Brown APRN, PSYCHOLOGIST Unavailable Reason for Visit * Reason Comments Medication Refill Encounter Details Date Type Department Care Team (Late st Contact Info) Description 05/27/2023 [facility]ill [facility] - [place] #2 [place] [address] Silvana Brown APRN, PSYCHOLOGIST #2 [place] [address] Medication Refill Social History Tobacco Use Types [...] Denae Cameron RN - 05/29/2023 9:29 AM RECORDING STUDIO SET UP WORKER Per nursing clinical judgement, provider to review [...] Visit Silvana Brown APRN, CNP [facility] [place] 11/08/22 Office Visit Silvana Brown APRN, CNP [facility] [place] 07/14/22 Office Visit Silvana Brown APRN, CNP [facility] [place] Showing recent visits within past 365 days and meeting all other requirements Future Appointments Date Type Provider Dept 06/28/23 Appointment Silvnaa Brown APRN, CNP [facility] [place] Showing future appointments within next 90 days and meeting all other requirements RDING STUDIO SET UP WORKER documented in this encounter Plan of Treatment Upcoming Encounters Date Type Department Care Team (Late st Contact Info) Description 01/20/2025 2:00 PM CDT [facility] Visit [facility] - Pulmonology & [facility] Medicine - [place] #2 [place] [address] Zina Rizo APRN, PSYCHOLOGIST #[address] [address] documented as of this encounter Visit Diagnoses Diagnosis Epigastric pain Abdominal pain, epigastric documented in this encounter Care Teams Assistant Community Manager Relationship Specialty Start Date End Date Johnson Rodriguez MD [address] [place] [address] PCP - General Pediatrics 11/17/21 Zina Rizo APRN, PSYCHOLOGIST #[address] [address] Nurse Practitioner Advanced Practice Nurse 06/24/22 Heather Oliva APRN, LOTUS NOTES ADMINISTRATOR #2 [place] [address] Nurse Practitioner Advanced Practice Nurse 12/22/21 Zina Rizo APRN, PSYCHOLOGIST #[address] [address] Nurse Practitioner Advanced Practice Nurse 01/06/23 Silvana Brown APRN, PSYCHOLOGIST #2 [place] [address] Nurse Practitioner Advanced Practice Nurse 07/14/22 documented as of this encounter
--- OUTSIDE RECORDS SUMMARY | 2024-07-25 08:10 | XMS_ITS | Encounter Summary ---
Author Organization [facility] Address [address] [place] [address] Phone Care Team Providers Care Manager Meeting Name Role Phone Johnson Rodriguez MD Primary Care Provider +1- [phone] Zina Rizo APRN, VICE PRESIDENT OF SALES Unavailable +[phone]- [phone] Heather Oliva APRN, MARINE STEAMFITTER Unavailable + [phone] Zina Rizo APRN, VICE PRESIDENT OF SALES Unavailable Silvana Brown APRN, VICE PRESIDENT OF SALES Unavailable Reason for Visit * Reason Comments Medication Refill Encounter Details Date Type Department Care Team (Late st Contact Info) Description 06/29/2023 Refill [facility] - [facility]ology - [place] #2 [place] [address] Silvana Brown APRN, VICE PRESIDENT OF SALES #2 [place] [address] Medication Refill Social History Tobacco Use Types [...] Denae Cameron RN - 07/04/2023 10:32 AM WELDER/INSTALLER Per nursing clinical judgement, provider to review [...] Visit Silvana Brown APRN, CNP [facility] [place] 11/08/22 Office Visit Silvana Brown APRN, [facility] [place] 07/14/22 Office Visit Silvana Brown APRN, JESSE [facility] [place] Showing recent visits within past 365 days and meeting all other requirements Future Appointments No visits were found meeting these conditions. Showing future appointments within next 90 days and meeting all other requirements ER/INSTALLER documented in this encounter Plan of Treatment Upcoming Encounters Date Type Department Care Team (Late st Contact Info) Description 01/20/2025 2:00 PM CDT Office Visit [facility] - Pulmonology & Sleep Medicine - [place] #2 [place] [address] Zina Rizo APRN, VICE PRESIDENT OF SALES #[address] [address] documented as of this encounter Visit Diagnoses Diagnosis Epigastric pain Abdominal pain, epigastric documented in this encounter Care Teams Manager Meeting Relationship Specialty Start Date End Date Johnson Rodriguez MD [address] [place] [address] PCP - General Pediatrics 11/17/21 Zina Rizo APRN, VICE PRESIDENT OF SALES #[address] [address] Nurse Practitioner Advanced Practice Nurse 06/24/22 Heather Oliva APRN, MARINE STEAMFITTER #2 [place] [address] Nurse Practitioner Advanced Practice Nurse 12/22/21 Zina Rizo APRN, VICE PRESIDENT OF SALES #[address] [address] Nurse Practitioner Advanced Practice Nurse 01/06/23 Silvana Brown APRN, VICE PRESIDENT OF SALES #2 [place] [address] Nurse Practitioner Advanced Practice Nurse 07/14/22 documented as of this encounter
--- OUTSIDE RECORDS SUMMARY | 2024-07-25 08:11 | XMS_ITS | Encounter Summary ---
Author Organization [facility] Address [address] [place] [address] Phone Care Team Providers Care Yarn Carrier Name Role Phone Johnson Rodriguez MD Primary Care Provider +1- [phone] Zina Rizo APRN, REGULATORY AGENCY DIRECTOR Unavailable +[phone]- [phone] Heather Oliva SOLDERER ELECTRONIC, SHOE DYER Unavailable + [phone] Zina Rizo APRN, REGULATORY AGENCY DIRECTOR Unavailable [phone] Silvana Brown SOLDERER ELECTRONIC, REGULATORY AGENCY DIRECTOR Unavailable Reason for Visit * Reason Comments Medication Refill Encounter Details Date Type Department Care Team (Late st Contact Info) Description 02/25/2022 Refill [facility] - Neurology [facility] #2 [place] [address] Heather Oliva SOLDERER ELECTRONIC, SHOE DYER #2 [place] [address] Medication Refill Social History Tobacco Use Types [...] Group - Pulmonology & Sleep Medicine - [place] #2 [place] [address] Zina Rizo APRN, REGULATORY AGENCY DIRECTOR #[address] [address] documented as of this encounter Visit Diagnoses Diagnosis Chronic migraine w/o aura w/o status migrainosus, not intractable Chronic migraine without aura, without mention of intractable migraine without mention of status migrainosus documented in this encounter Care Teams Yarn Carrier Relationship Specialty Start Date End Date Johnson Rodriguez MD [address] [place] [address] PCP - General Pediatrics 11/17/21 Zina Rizo APRN, REGULATORY AGENCY DIRECTOR #[address] [address] Nurse Practitioner Advanced Practice Nurse 06/24/22 Heather Oliva APRN, SHOE DYER #2 [place] [address] Nurse Practitioner Advanced Practice Nurse 12/22/21 Zina Rizo, AJ, REGULATORY AGENCY DIRECTOR #[address] [address] Nurse Practitioner Advanced Practice Nurse 01/06/23 Silvana Brown APRN, REGULATORY AGENCY DIRECTOR #2 [place] [address] Nurse Practitioner Advanced Practice Nurse 07/14/22 documented as of this encounter
--- OUTSIDE RECORDS SUMMARY | 2024-07-25 08:11 | XMS_ITS | Encounter Summary ---
Author Organization [facility] Address [address] [place] [address] Phone Care Team Providers Care Technical Information Specialist Name Role Phone Johnson Rodriguez MD Primary Care Provider +1- [phone] Zina Rizo APRN, DRY LUMBER GRADER Unavailable +[phone]- [phone] Heather Oliva SKID STRAPPER, WATER PLANT PUMP OPERATOR Unavailable + [phone] Zina Rizo APRN, DRY LUMBER GRADER Unavailable Silvana Brown SKID STRAPPER, DRY LUMBER GRADER Unavailable Reason for Visit * Reason Comments Medication Refill Encounter Details Date Type Department Care Team (Late st Contact Info) Description 04/29/2022 Refill [facility] - Neurology [facility] #2 [place] [address] Heather Oliva SKID STRAPPER, WATER PLANT PUMP OPERATOR #2 [place] [address] Medication Refill Social History Tobacco Use Types [...] Coronavirus/COVID-19? No / Unsure 04/26/2022 2:15 PM EXAM PROCTOR documented as of this encounter Plan of Treatment Upcoming Encounters Date Type Department Care Team (Late st Contact Info) Description 01/20/2025 2:00 PM CDT Office Visit [facility] - Pulmonology & Sleep Medicine - [place] #2 [place] [address] Zina Rizo APRN, DRY LUMBER GRADER #[address] [address] documented as of this encounter Visit Diagnoses Diagnosis Chronic migraine w/o aura w/o status migrainosus, not intractable Chronic migraine without aura, without mention of intractable migraine without mention of status migrainosus documented in this encounter Care Teams Technical Information Specialist Relationship Specialty Start Date End Date Johnson Rodriguez MD [address] [place] [address] PCP - General Pediatrics 11/17/21 Zina Rizo APRN, DRY LUMBER GRADER #[address] [address] Nurse Practitioner Advanced Practice Nurse 06/24/22 Heather Oliva APRN, WATER PLANT PUMP OPERATOR #2 [place] [address] Nurse Practitioner Advanced Practice Nurse 12/22/21 Zina Rizo APRN, DRY LUMBER GRADER #[address] [address] Nurse Practitioner Advanced Practice Nurse 01/06/23 Silvana Brown APRN, DRY LUMBER GRADER #2 [place] [address] Nurse Practitioner Advanced Practice Nurse 07/14/22 documented as of this encounter
--- OUTSIDE RECORDS SUMMARY | 2024-07-25 08:11 | XMS_ITS | Encounter Summary ---
Author Organization [facility] Address [address] [place] [address] Phone Care Team Providers Care Finger Grip Machine Operator Name Role Phone Johnson Rodriguez MD Primary Care Provider +1- [phone] Zina Rizo APRN, MARBLE CEILING INSTALLER Unavailable +[phone]- [phone] Heather Oliva APRN, REGULATORY SUBMISSIONS SPECIALIST Unavailable + [phone] Zina Rizo APRN, MARBLE CEILING INSTALLER Unavailable Silvana Brown APRN, MARBLE CEILING INSTALLER Unavailable Reason for Visit * Reason Comments Medication Refill Encounter Details Date Type Department Care Team (Late st Contact Info) Description 09/29/2023 Refill [facility] - [facility]ology - [place] #2 [place] [address] Silvana Brown APRN, MARBLE CEILING INSTALLER #2 [place] [address] Medication Refill Social History Tobacco Use Types [...] Visit Silvana Brown APRN, CNP [facility] [place] 03/29/23 Office Visit Silvana Brown APRN, JES[facility] [place] 11/08/22 Office Visit Silvana Brown APRN, JESSE [facility]astro [place] Showing recent visits within past [...] Group - Pulmonology & Sleep Medicine - [place] #2 [place] [address] Zina Rizo APRN, MARBLE CEILING INSTALLER #[address] [address] documented as of this encounter Visit Diagnoses Diagnosis Epigastric pain Abdominal pain, epigastric documented in this encounter Care Teams Finger Grip Machine Operator Relationship Specialty Start Date End Date Johnson Rodriguez MD [address] [place] [address] PCP - General Pediatrics 11/17/21 Zina Rizo APRN, MARBLE CEILING INSTALLER #[address] [address] Nurse Practitioner Advanced Practice Nurse 06/24/22 Heather Oliva APRN, REGULATORY SUBMISSIONS SPECIALIST #2 [place] [address] Nurse Practitioner Advanced Practice Nurse 12/22/21 Zina Rizo APRN, MARBLE CEILING INSTALLER #[address] [address] Nurse Practitioner Advanced Practice Nurse 01/06/23 Silvana Brown APRN, MARBLE CEILING INSTALLER #2 [place] [address] Nurse Practitioner Advanced Practice Nurse 07/14/22 documented as of this encounter
--- OUTSIDE RECORDS SUMMARY | 2024-07-25 08:11 | XMS_ITS | Encounter Summary ---
Author Organization [facility] Address [address] [place] [address] Phone Care Team Providers Care Brooch And Bracelet Maker Name Role Phone Johnson Rodriguez MD Primary Care Provider +1- [phone] Zina Rizo APRN, ELECTRONICS RESEARCH ENGINEER Unavailable +[phone]- [phone] Heather Oliva WEIGHT CONTROL LECTURER, SENIOR PRINCIPAL SOFTWARE ENGINEER Unavailable + [phone] Zina Rizo APRN, ELECTRONICS RESEARCH ENGINEER Unavailable Silvana Brown WEIGHT CONTROL LECTURER, ELECTRONICS RESEARCH ENGINEER Unavailable Reason for Visit * Reason Comments Medication Refill Encounter Details Date Type Department Care Team (Late st Contact Info) Description 09/29/2023 Refill [facility] - Neurology [facility] #2 [place] [address] Heather Oliva WEIGHT CONTROL LECTURER, SENIOR PRINCIPAL SOFTWARE ENGINEER #2 [place] [address] Medication Refill Social History Tobacco Use Types [...] Dept 08/01/23 Office Visit Heather Oliva APRN, [facility] Neurology [facility] 05/31/23 Office Visit Heather Oliva APRN, [facility] Neurology [facility] 01/27/23 Office Visit Heather Oliva APRN, [facility] 01/06/23 Procedure Visit Dago Land MD [facility] Neurology [facility] 10/26/22 Office Visit Heather Oliva APRN, [facility] Showing recent visits within past 365 days and meeting all other requirements Future Appointments Date Type Provider Dept 12/11/23 Appointment Heather Oliva APRN, [facility] Showing future appointments within next 90 days and meeting all other requirements documented in this encounter Plan of Treatment Upcoming Encounters Date Type Department Care Team (Late st Contact Info) Description 01/20/2025 2:00 PM CDT Office Visit [facility] - Pulmonology & Sleep Medicine - [place] #2 [place] [address] Zina Rizo APRN, ELECTRONICS RESEARCH ENGINEER #[address] [address] documented as of this encounter Visit Diagnoses Not on filedocumented in this encounter Care Teams Brooch And Bracelet Maker Relationship Specialty Start Date End Date Johnson Rodriguez MD [address] [place] [address] PCP - General Pediatrics 11/17/21 Zina Rizo, AJ, ELECTRONICS RESEARCH ENGINEER #[address] [address] Nurse Practitioner Advanced Practice Nurse 06/24/22 Heather Oliva APRN, SENIOR PRINCIPAL SOFTWARE ENGINEER #2 [place] [address] Nurse Practitioner Advanced Practice Nurse 12/22/21 Zina Rizo, WEIGHT CONTROL LECTURER, ELECTRONICS RESEARCH ENGINEER #[address] [address] Nurse Practitioner Advanced Practice Nurse 01/06/23 Silvana Brown APRN, ELECTRONICS RESEARCH ENGINEER #2 [place] [address] Nurse Practitioner Advanced Practice Nurse 07/14/22 documented as of this encounter
--- OUTSIDE RECORDS SUMMARY | 2024-07-25 08:11 | XMS_ITS | Encounter Summary ---
Author Organization [facility] Address [address] [place] [address] Phone Care Team Providers Care District Wildlife Manager Name Role Phone Johnson Rodriguez MD Primary Care Provider +1- [phone] Zina Rizo APRN, METAL CHECKER Unavailable +1- [phone] Heather Oliva APRN, SUBACUTE NURSE Unavailable + [phone] Zina Rizo APRN, METAL CHECKER Unavailable Silvana Brown APRN, METAL CHECKER Unavailable Reason for Visit * Reason Comments Medication Refill Encounter Details Date Type Department Care Team (Late st Contact Info) Description 08/16/2023 Refill [facility]ology - [place] #2 [place] [address] Silvana Brown APRN, METAL CHECKER #2 [place] [address] Medication Refill Social History Tobacco Use Types [...] PM CDT Medication refilled and signed per [facility] chronic medication standing order for pediatric and adult patients. documented in this encounter Plan of Treatment Upcoming Encounters Date Type Department Care Team (Late st Contact Info) Description 01/20/2025 2:00 PM CDT [facility] Visit [facility] - Pulmonology & Sleep Medicine - [place] #2 [place] [address] Zina Rizo APRN, METAL CHECKER #[address] [address] documented as of this encounter Visit Diagnoses Diagnosis Epigastric pain Abdominal pain, epigastric documented in this encounter Care Teams District Wildlife Manager Relationship Specialty Start Date End Date Johnson Rodriguez MD [address] [place] [address] PCP - General Pediatrics 11/17/21 Zina Rizo APRN, METAL CHECKER #[address] [address] Nurse Practitioner Advanced Practice Nurse 06/24/22 Heather Oliva APRN, SUBACUTE NURSE #2 [place] [address] Nurse Practitioner Advanced Practice Nurse 12/22/21 Zina Rizo APRN, JESSE #[address] [address] Nurse Practitioner Advanced Practice Nurse 01/06/23 Silvana Brown APRN, METAL CHECKER #[address] [place] [address] Nurse Practitioner Advanced Practice Nurse 07/14/22 documented as of this encounter
--- OUTSIDE RECORDS SUMMARY | 2024-07-25 08:11 | XMS_ITS | Encounter Summary ---
Author Organization [facility] Address [address] [place] [address] Phone Care Team Providers Care Prototype Carpenter Name Role Phone Johnson Rodriguez MD Primary Care Provider +1- [phone] Zina Rizo APRN, MANAGER PRODUCT SUPPORT Unavailable +1- [phone] Heather Oliva DERRICK BOAT LEVERMAN, DRY SANDER Unavailable + [phone] Zian Rizo APRN, MANAGER PRODUCT SUPPORT Unavailable Silvana Brown DERRICK BOAT LEVERMAN, MANAGER PRODUCT SUPPORT Unavailable Reason for Visit * Reason Comments Medication Refill Encounter Details Date Type Department Care Team (Late st Contact Info) Description 10/26/2022 Refill [facility] - Neurology [facility] #2 [place] [address] Heather Oliva DERRICK BOAT LEVERMAN, DRY SANDER #2 [place] [address] Medication Refill Social History Tobacco Use Types [...] Dept 07/26/22 Office Visit Heather Oliva APRN [facility] Neurology [facility] 04/26/22 Office Visit Heather Oliva APRN [facility] 12/22/21 Office Visit Heather Oliva APRN, [facility] Showing recent visits within past 365 days and meeting all other requirements Today's Visits Date Type Provider Dept 10/26/22 Appointment Heather Oliva APRN [facility] Showing today's visits and meeting all other [...] Dept 07/26/22 Office Visit Heather Oliva APRN, DRY SANDER [facility] Neurology [facility] 04/26/22 Office Visit Heather Oliva APRN, [facility] [place] [facility] 12/22/21 Office Visit Heather Oliva APRN, DRY SANDER [facility] [place] [facility] Showing recent visits within past 365 days and meeting all other requirements Today's Visits Date Type Provider Dept 10/26/22 Appointment Heather Oliva APRN, [facility] Showing today's visits and meeting all other requirements Future Appointments No visits were found meeting these conditions. Showing future appointments within next 90 days and meeting all other requirements documented in this encounter Plan of Treatment Upcoming Encounters Date Type Department Care Team (Late st Contact Info) Description 01/20/2025 2:00 PM CDT [facility] Medicine [facility] [address]2 [place] [address] Zina Rizo APRN, MANAGER PRODUCT SUPPORT #[address] [address] documented as of this encounter Visit Diagnoses Diagnosis Seizures (HCC) Other convulsions documented in this encounter Care Teams Prototype Carpenter Relationship Specialty Start Date End Date Johnson Rodriguez MD [address] [place] [address] PCP - General Pediatrics 11/17/21 Zina Rizo APRN, MANAGER PRODUCT SUPPORT #[address] [address] Nurse Practitioner Advanced Practice Nurse 06/24/22 Heather Oliva APRN, CNS #2 [place] [address] Nurse Practitioner Advanced Practice Nurse 12/22/21 Zina Rizo APRN, MANAGER PRODUCT SUPPORT #[address] [address] Nurse Practitioner Advanced Practice Nurse 01/06/23 Silvana Brown APRN, MANAGER PRODUCT SUPPORT #2 [place] [address] Nurse Practitioner Advanced Practice Nurse 07/14/22 documented as of this encounter
--- OUTSIDE RECORDS SUMMARY | 2024-07-25 08:11 | XMS_ITS | Encounter Summary ---
Author Organization [facility] Address [address] [place] [address] Phone Care Team Providers Care Scientist Immunology Name Role Phone Johnson Rodriguez MD Primary Care Provider +1- [phone] Zina Rizo APRN, CREW BOSS Unavailable +1- [phone] Heather Oliva NEWSSTAND VENDOR, NONPROFIT MANAGER Unavailable + [phone] Zina Rizo APRN, CREW BOSS Unavailable Silvana Brown NEWSSTAND VENDOR, CREW BOSS Unavailable Reason for Visit * Reason Comments Medication Refill Encounter Details Date Type Department Care Team (Late st Contact Info) Description 08/26/2022 Refill [facility] - Neurology [facility] #2 [place] [address] Heather Oliva NEWSSTAND VENDOR, NONPROFIT MANAGER #2 [place] [address] Medication Refill Social History Tobacco Use Types [...] Dept 07/26/22 Office Visit Heather Oliva APRN, [facility]rology [place] [facility] 04/26/22 Office Visit Heather Oliva APRN, [facility] [place] [facility] 12/22/21 Office Visit Heather Oliva APRN, [facility] Neurology [facility] Showing recent visits within past 365 days and meeting all other requirements Future Appointments Date Type Provider Dept 10/26/22 Appointment Heather Oliva APRN, [facility] Showing future appointments within next 90 days and meeting all other requirements documented in this encounter Plan of Treatment Upcoming Encounters Date Type Department Care Team (Late st Contact Info) Description 01/20/2025 2:00 PM CDT Office Visit [facility] - Pulmonology & Sleep Medicine - [place] [address] [place] [address] Zina Rizo APRN, CREW BOSS [address] [address] documented as of this encounter Visit Diagnoses Diagnosis Chronic migraine w/o aura w/o status migrainosus, not intractable Chronic migraine without aura, without mention of intractable migraine without mention of status migrainosus documented in this encounter Care Teams Scientist Immunology Relationship Specialty Start Date End Date Johnson Rodriguez MD [address] [place] [address] PCP - General Pediatrics 11/17/21 Zina Rizo APRN, CREW BOSS #[address] [address] Nurse Practitioner Advanced Practice Nurse 06/24/22 Heather Oliva APRN, NONPROFIT MANAGER [address]2 [place] [address] Nurse Practitioner Advanced Practice Nurse 12/22/21 Zina Rizo APRN, CREW BOSS #[address] [address] Nurse Practitioner Advanced Practice Nurse 01/06/23 Silvana Brown APRN, CREW BOSS #2 [place] [address] Nurse Practitioner Advanced Practice Nurse 07/14/22 documented as of this encounter
--- OUTSIDE RECORDS SUMMARY | 2024-07-25 08:11 | XMS_ITS | Clinical Summary ---
Author Organization [facility] - [facility]ODIATRY [facility] Address #[address] [place] [address] Phone Care Team Providers Care Finishing Machine Operator Name Role Phone Johnson Rodriguez MD Primary Care Provider +1- [phone] Zina Rizo APRN, GUEST ROOM ATTENDANT Unavailable Heather Oliva APRN, VEHICLE CARE SPECIALIST Unavailable + [phone] Zina Rizo APRN, GUEST ROOM ATTENDANT Unavailable [phone] Silvana Brown APRN, GUEST ROOM ATTENDANT Unavailable Allergies Active Allergy Reactions Criticality Noted [...] naloxone HCl (Narcan) 4 MG/0.1ML Liquid 1 [place] by Nasal route. 04/05/20 21 Active sodium [...] MEALS 360 Tablet 1 10/12/19 24 Active ketorolac (TORADOL) 10 MG TabletIndicatio ns:Chronic migraine w/o aura w/o status migrainosus, not intractable Take 1 Tablet by mouth every 6 hours as needed for Mild or more severe pain or Moderate or more severe pain. 15 Tablet 2 04/04/20 24 Active Trulance 3 MG Tablet TRANSFERRED: 10/16/23 -READ RX NOTE (ALT-N)- TAKE ONE TABLET BY MOUTH DAILY 90 Tablet 04/30/20 24 Active topiramate (TOPAMAX) 200 MG Tablet TAKE ONE TABLET BY MOUTH TWICE A DAY 60 Tablet 3 05/20/19 25 Active propranolol (INDERAL) 40 MG TabletIndicatio ns:Chronic migraine w/o aura w/o status migrainosus, not intractable,Ki mors of nervous system TAKE ONE TABLET BY MOUTH TWICE A DAY 60 Tablet 2 06/14/19 25 Active Qulipta 30 MG TabletIndicatio ns:Chronic migraine w/o aura w/o status migrainosus, not intractable TAKE ONE TABLET BY MOUTH NIGHTLY 30 Tablet 2 06/14/19 25 Active lacosamide (VIMPAT) 100 MG TabletIndicatio ns:Seizures (HCC) TAKE ONE TABLET BY MOUTH TWICE A DAY 60 Tablet 1 06/14/19 25 Active omeprazole (PriLOSEC) 40 MG CAPSULE DELAYED RELEASEIndicati ons:Epigastric pain TAKE ONE CAPSULE BY MOUTH DAILY 90 Capsule 1 07/16/19 25 Active ipratropium-alb uterol (DUO-NEB) 0.5-2.5 (3) MG/3ML SolutionIndicat ions:Bronchiect asis with acute exacerbation (HCC) 3 mL by Nebulization route 4 times daily for 30 days. 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 #2 [place] [address] Silvana Brown APRN, CNP Constipation, unspecified constipation type (Primary Dx); Diarrhea, unspecified type; Right sided abdominal pain; Chronic biliary pancreatitis (HCC); Other irritable bowel syndrome; Gastroesophageal reflux disease, unspecified whether esophagitis present Discharge Disposition: Discharged to home or Selfcare 07/17/2024 Travel 07/15/2024 2:00 PM CDT Office Visit [facility] Pulmonology & Sleep Medicine [facility] [address] [place] [address] Zina Rizo APRN, CNP Bronchiectasis with acute exacerbation (HCC) (Primary Dx); Mycobacterium avium complex (HCC) Discharge Disposition: Discharged to home or Selfcare 07/13/2024 Travel 07/13/2024 [facility] [place] #[address] [place] [address] Silvana Brown APRN, CNP Medication Refill 06/14/2024 Refill [facility] Neurology - [place] [address]2 [place] [address] Dago Land MD Medication Refill 06/14/2024 Refill [facility] Neurology - [place] [address] [place] [address] Heather Oliva APRN, VEHICLE CARE SPECIALIST Medication Refill 05/17/2024 Refill [facility] Neurology - [place] [address] [place] [address] Dago Land MD Medication Refill 04/30/2024 [facility] [place] [address] [place] [address] Silvana Brown APRN, CNP Medication Refill from Last 3 Months Family History Medical [...] Never Smokeless Tobacco: Never Tobacco Cessation:Counseling Given: No Alcohol Use Standard Drinks/Week Comments Not Currently [...] Sign Reading Time Taken Comments Blood Pressure 110/60 07/19/2024 2:17 PM CDT Pulse 61 07/19/2024 2:17 PM CDT Temperature 36.7 C (98 F) 07/19/2024 2:17 PM CDT Respiratory Rate 16 07/19/2024 2:17 PM CDT Oxygen Saturation 99% 07/19/2024 2:17 PM CDT Inhaled Oxygen Concentration - - Weight 56.6 kg (124 lb 12.8 oz) 07/19/2024 2:17 PM CDT Height 160 cm (5' 3 ) 07/19/2024 2:17 PM CDT Body Mass Index 22.11 07/19/2024 2:17 PM CDT Plan of Treatment Upcoming Encounters Date Type Department Care Team (Late st Contact Info) Description 01/20/2025 2:00 PM CDT Office Visit [facility] - Pulmonology & Sleep Medicine - [place] [address]2 [place] [address] Zina Rizo, GLUER MACHINE SETUP OPERATOR, GUEST ROOM ATTENDANT #2 [facility] [address] [place] [address] Health Maintenance Due Date Last Done Comments Hepatitis C Virus (HCV) Screening 1961 Mammogram 1961 Colonoscopy 2006 Colorectal Cancer Screening 2006 Cologuard [...] this topic Medical Devices Implanted Type Area Ditch Worker Device Identifier Shelf Expiration Date Model / Serial / Lot Synchromed Ii Intrathecal Pain Pump-04/05/2021 Implanted:04/05 (Quantity not on file) IMPLANT Left: Abdomen [employer] [id number] / / Description:Intrathecal pain pump-- MR conditional Insurance MEDICARE [facility] Care Teams Finishing Machine Operator Relationship Specialty Start Date End Date Johnson Rodriguez MD [address] [place] [address] PCP - General Pediatrics 11/17/21 Zina Rizo APRN, GUEST ROOM ATTENDANT #[address] [address] Nurse Practitioner Advanced Practice Nurse 06/24/22 Heather Oliva APRN, VEHICLE CARE SPECIALIST [address]2 [place] [address] Nurse Practitioner Advanced Practice Nurse 12/22/21 Zina iRzo, GLUER MACHINE SETUP OPERATOR, GUEST ROOM ATTENDANT #[address] [address] Nurse Practitioner Advanced Practice Nurse 01/06/23 Silvana Brown GLUER MACHINE SETUP OPERATOR, GUEST ROOM ATTENDANT #2 [place] [address] Nurse Practitioner Advanced Practice Nurse 07/14/22
--- OUTSIDE RECORDS SUMMARY | 2024-07-25 08:11 | XMS_ITS | Encounter Summary ---
Author Organization [facility] Address [address] [place] [address] Phone Care Team Providers Care Advanced Seal Delivery System Name Role Phone Johnson Rodriguez MD Primary Care Provider [phone]- [phone] Zina Rizo APRN, ARTS AND CRAFTS INSTRUCTOR Unavailable +1- [phone] Heather Oliva APRN, DISTRIBUTION ASSOCIATE Unavailable + [phone] Zina Rizo APRN, ARTS AND CRAFTS INSTRUCTOR Unavailable Silvana Brown APRN, ARTS AND CRAFTS INSTRUCTOR Unavailable Reason for Visit * Reason Comments Medication Refill Encounter Details Date Type Department Care Team (Late st Contact Info) Description 07/13/2024 Refill [facility] - [place] #2 [place] [address] Silvana Brown APRN, ARTS AND CRAFTS INSTRUCTOR [address] [place] [address] Medication Refill Social History Tobacco Use Types [...] Telephone Encounter - Denae Cameron RN - 07/15/2024 8:36 AM CDT Medication [facility] and [facility] standing order for pediatric and adult patients. documented in this encounter Plan of Treatment Upcoming Encounters Date Type Department Care Team (Late st Contact Info) Description 01/20/2025 2:00 PM CDT [facility] - Pulmonology & Sleep Medicine - [place] [address] [place] [address] Zina Rizo APRN, ARTS AND CRAFTS INSTRUCTOR #[address] [address] documented as of this encounter Visit Diagnoses Diagnosis Epigastric pain Abdominal pain, epigastric documented in this encounter Care Teams Advanced Seal Delivery System Relationship Specialty Start Date End Date Johnson Rodriguez MD [address] [place] [address] PCP - General Pediatrics 11/17/21 Zina Rizo APRN, ARTS AND CRAFTS INSTRUCTOR #[address] [address] Nurse Practitioner Advanced Practice Nurse 06/24/22 Heather Oliva APRN, DISTRIBUTION ASSOCIATE #2 [place] [address] Nurse Practitioner Advanced Practice Nurse 12/22/21 Zina Rizo APRN, JESSE #[address] [address] Nurse Practitioner Advanced Practice Nurse 01/06/23 Silvana Brown APRN, ARTS AND CRAFTS INSTRUCTOR #[address] [place] [address] Nurse Practitioner Advanced Practice Nurse 07/14/22 documented as of this encounter
--- OUTSIDE RECORDS SUMMARY | 2024-07-25 08:11 | XMS_ITS | Encounter Summary ---
Author Organization [facility] Address [address] [place] [address] Phone Care Team Providers Care Regulatory Leader Name Role Phone Johnson Rodriguez MD Primary Care Provider [phone]- [phone] Zina Rizo APRN, CORPORATE GIVING MANAGER Unavailable +1- [phone] Heather Oliva DELINQUENT NOTICE MACHINE OPERATOR, ACQUISITION MARKETING COORDINATOR Unavailable + [phone] Zina Rizo APRN, CORPORATE GIVING MANAGER Unavailable Silvana Brown DELINQUENT NOTICE MACHINE OPERATOR, CORPORATE GIVING MANAGER Unavailable Reason for Visit * Reason Comments Medication Refill Encounter Details Date Type Department Care Team (Late st Contact Info) Description 06/28/2022 Refill [facility] - Neurology [facility] #2 [place] [address] Heather Oliva DELINQUENT NOTICE MACHINE OPERATOR, ACQUISITION MARKETING COORDINATOR #2 [place] [address] Medication Refill Social History Tobacco Use Types [...] In the last 10 days, have shay gregg been in contact with someone who was confirmed or suspected to have Coronavirus/COVID-19? No / Unsure 06/24/2022 11:28 AM IRONMOLDER documented as of this encounter Miscellaneous Notes [...] Dept 04/26/22 Office Visit Heather Oliva APRN, [facility] [place] 12/22/21 Office Visit Heather Oliva APRN, [facility] Neurology [place] [facility] Showing recent visits within past 365 days and meeting all other requirements Future Appointments Date Type Provider Dept 07/26/22 Appointment Heather Oliva APRN, [facility] Neurology [place] Showing future appointments within next 90 days and meeting all other requirements MOLDER documented in this encounter Plan of Treatment Upcoming Encounters Date Type Department Care Team (Late st Contact Info) Description 01/20/2025 2:00 PM CDT Office Visit [facility]ology & Sleep Medicine - [place] #[address] [place] [address] Zina Rizo APRN, CORPORATE GIVING MANAGER [address] [address] [address] documented as of this encounter Visit Diagnoses Diagnosis Chronic migraine w/o aura w/o status migrainosus, not intractable Chronic migraine without aura, without mention of intractable migraine without mention of status migrainosus documented in this encounter Care Teams Regulatory Leader Relationship Specialty Start Date End Date Johnson Rodriguez MD [address] [place] [address] PCP - General Pediatrics 11/17/21 Zina Rizo APRN, CORPORATE GIVING MANAGER #[address] [address] Nurse Practitioner Advanced Practice Nurse 06/24/22 Heather Oliva APRN, ACQUISITION MARKETING COORDINATOR #2 [place] [address] Nurse Practitioner Advanced Practice Nurse 12/22/21 Zina Rizo APRN, CORPORATE GIVING MANAGER #[address] [address] Nurse Practitioner Advanced Practice Nurse 01/06/23 Silvana Brown APRN, CORPORATE GIVING MANAGER #[address] [place] [address] Nurse Practitioner Advanced Practice Nurse 07/14/22 documented as of this encounter
--- OUTSIDE RECORDS SUMMARY | 2024-07-25 08:11 | XMS_ITS | Encounter Summary ---
Author Organization [facility] Address [address] [place] [address] Care Team Providers Care Sterile Proc Tech Name Role Phone Unavailable Primary Care Provider Unavailabl e Encounter Details Date Type Department Care Team (Latest Contact Info) Description 03/06/2018 Abstract [facility] , [place] [...]
--- OUTSIDE RECORDS SUMMARY | 2024-07-25 08:11 | XMS_ITS | Encounter Summary ---
Author Organization [facility] Address [address] [place] [address] Phone Care Team Providers Care Clay Stain Mixer Name Role Phone Johnson Rodriguez MD Primary Care Provider +1- [phone] Zina Rizo APRN, ORE CRUSHER Unavailable +1- [phone] Heather Oliva APRN, REGIONAL SALES COORDINATOR Unavailable + [phone] Zina Rizo APRN, ORE CRUSHER Unavailable Silvana Brown APRN, ORE CRUSHER Unavailable Reason for Visit * Reason Comments Medication Refill Encounter Details Date Type Department Care Team (Late st Contact Info) Description 10/12/2023 Refill [facility] - [place] #2 [place] [address] Silvana Brown APRN, ORE CRUSHER [address] [place] [address] Medication Refill Social History Tobacco Use Types [...] AM CDT Medication refilled and signed [facility] [place] chronic medication standing order for pediatric and adult patients. documented in this encounter Plan of Treatment Upcoming Encounters Date Type Department Care Team (Late st Contact Info) Description 01/20/2025 2:00 PM CDT [facility] Visit [facility] Pulmonology & Sleep Medicine - [place] #2 [place] [address] Zina Rizo APRN, ORE CRUSHER #[address] [address] documented as of this encounter Visit Diagnoses Not on filedocumented in this encounter Care Teams Clay Stain Mixer Relationship Specialty Start Date End Date Johnson Rodriguez MD [address] [place] [address] PCP - General Pediatrics 11/17/21 Zina Rizo APRN, ORE CRUSHER #[address] [address] Nurse Practitioner Advanced Practice Nurse 06/24/22 Heather Oliva APRN, REGIONAL SALES COORDINATOR #[address] [place] [address] Nurse Practitioner Advanced Practice Nurse 12/22/21 Zina Rizo APRN, ORE CRUSHER #[address] [address] Nurse Practitioner Advanced Practice Nurse 01/06/23 Silvana Brown APRN, ORE CRUSHER #2 [place] [address] Nurse Practitioner Advanced Practice Nurse 07/14/22 documented as of this encounter
--- OUTSIDE RECORDS SUMMARY | 2024-07-25 08:11 | XMS_ITS | Clinical Summary ---
Author Organization [facility] Address [address] [place] [address] Care Team Providers Care Audio Visual Aids Director Name Role Phone Unavailable Primary Care Provider [...]
--- OUTSIDE RECORDS SUMMARY | 2024-07-25 08:11 | XMS_ITS | Encounter Summary ---
Author Organization [facility] Address [address] [place] [address] Phone Care Team Providers Care Bond Manager Name Role Phone Johnson Rodriguez MD Primary Care Provider [phone]- [phone] Zina Rizo APRN, HAND ALTERATIONS SEAMSTRESS Unavailable +1- [phone] Heather Oliva HOMICIDE SQUAD COMMANDING OFFICER, SHANK CARRIER Unavailable + [phone] Zina Rizo APRN, HAND ALTERATIONS SEAMSTRESS Unavailable Silvana Brown HOMICIDE SQUAD COMMANDING OFFICER, HAND ALTERATIONS SEAMSTRESS Unavailable Reason for Visit * Reason Comments Medication Refill Encounter Details Date Type Department Care Team (Late st Contact Info) Description 08/19/2022 Refill [facility] - Neurology [facility] #2 [place] [address] Heather Oliva HOMICIDE SQUAD COMMANDING OFFICER, SHANK CARRIER #[address] [place] [address] Medication Refill Social History Tobacco Use Types [...] Dept 07/26/22 Office Visit Heather Oliva APRN, SHANK CARRIER [facility] Neurology [facility] 04/26/22 Office Visit Heather Oliva APRN, [facility] Neurology [facility] [place] 12/22/21 Office Visit Heather Oliva APRN, [facility] Neurology [facility] Showing recent visits within past 365 days and meeting all other requirements Future Appointments Date Type Provider Dept 10/26/22 Appointment Heather Oliva APRN [facility] Neurology [facility] Showing future appointments within next 90 days and meeting all other requirements documented in this encounter Plan of Treatment Upcoming Encounters Date Type Department Care Team (Late st Contact Info) Description 01/20/2025 2:00 PM CDT [facility] Visit [facility] & [facility] Medicine - [place] #2 [facility] [address] Zina Rizo APRN, HAND ALTERATIONS SEAMSTRESS #[address] [address] documented as of this encounter Visit Diagnoses Not on filedocumented in this encounter Care Teams Bond Manager Relationship Specialty Start Date End Date Johnson Rodriguez MD [address] [place] [address] PCP - General Pediatrics 11/17/21 Zina Rizo APRN, HAND ALTERATIONS SEAMSTRESS #[address] [address] Nurse Practitioner Advanced Practice Nurse 06/24/22 Heather Oliva APRN, SHANK CARRIER #[address] [place] [address] Nurse Practitioner Advanced Practice Nurse 12/22/21 Zina Rizo, AJ, HAND ALTERATIONS SEAMSTRESS #[address] [address] Nurse Practitioner Advanced Practice Nurse 01/06/23 Silvana Brown APRN, HAND ALTERATIONS SEAMSTRESS #2 [place] [address] Nurse Practitioner Advanced Practice Nurse 07/14/22 documented as of this encounter
--- OUTSIDE RECORDS SUMMARY | 2024-07-25 08:11 | XMS_ITS | Encounter Summary ---
Author Organization [facility] Address [address] [place] [address] Phone Care Team Providers Care Student Worker Name Role Phone Johnson Rodriguez MD Primary Care Provider +1- [phone] Zina Rizo APRN, COIL WINDING SUPERVISOR Unavailable +1- [phone] Heather Oliva TEST LAB TECHNICIAN, GENERAL TELLER Unavailable +- [phone] Zina Rizo APRN, COIL WINDING SUPERVISOR Unavailable Silvana Brown TEST LAB TECHNICIAN, COIL WINDING SUPERVISOR Unavailable Reason for Visit * Reason Comments Medication Refill Encounter Details Date Type Department Care Team (Late st Contact Info) Description 08/28/2023 Refill [facility] - Neurology [facility] #2 [place] [address] Heather Oliva TEST LAB TECHNICIAN, GENERAL TELLER #2 [place] [address] Medication Refill Social History Tobacco Use Types [...] Dept 08/01/23 Office Visit Heather Oliva APRN, [facility] Neurology [facility] 05/31/23 Office Visit Heather Oliva APRN, [facility] Neurology [facility] 01/27/23 Office Visit Heather Oliva APRN, [facility] Neurology [facility] 01/06/23 Procedure Visit Dago Land MD [facility] Neurology [facility] 10/26/22 Office Visit Heather Oliva APRN, [facility] Neurology [facility] Showing recent visits within past 365 days [...] Pulmonology & Sleep Medicine - [place] [address] [place] [address] Zina Rizo APRN, COIL WINDING SUPERVISOR #[address] [address] documented as of this encounter Visit Diagnoses Diagnosis Chronic migraine w/o aura w/o status migrainosus, not intractable Chronic migraine without aura, without mention of intractable migraine without mention of status migrainosus documented in this encounter Care Teams Student Worker Relationship Specialty Start Date End Date Johnson Rodriguez MD [address] [place] [address] PCP - General Pediatrics 11/17/21 Zina Rizo, AJ, COIL WINDING SUPERVISOR #[address] [address] Nurse Practitioner Advanced Practice Nurse 06/24/22 Heather Oliva APRN, GENERAL TELLER #2 [place] [address] Nurse Practitioner Advanced Practice Nurse 12/22/21 Zina Rizo, AJ, COIL WINDING SUPERVISOR #[address] [address] Nurse Practitioner Advanced Practice Nurse 01/06/23 Silvana Brown APRN, COIL WINDING SUPERVISOR #2 [place] [address] Nurse Practitioner Advanced Practice Nurse 07/14/22 documented as of this encounter
--- OUTSIDE RECORDS SUMMARY | 2024-07-25 08:11 | XMS_ITS | Encounter Summary ---
Author Organization [facility] Address [address] [place] [address] Phone Care Team Providers Care Booth Manager Name Role Phone Johnson Rodriguez MD Primary Care Provider +1- [phone] Zina Rizo APRN, FLOUR BLENDER HELPER Unavailable +1- [phone] Heather Oliva WELL REACTIVATOR OPERATOR, TEST TECH Unavailable + [phone] Zina Rizo APRN, FLOUR BLENDER HELPER Unavailable [phone] Silvana Brown WELL REACTIVATOR OPERATOR, FLOUR BLENDER HELPER Unavailable Reason for Visit * Reason Comments Medication Refill Encounter Details Date Type Department Care Team (Late st Contact Info) Description 10/12/2023 Refill [facility] - Neurology [facility] #2 [place] [address] Heather Oliva WELL REACTIVATOR OPERATOR, TEST TECH [address]2 [place] [address] Medication Refill Social History Tobacco Use Types [...] Dept 08/01/23 Office Visit Heather Oliva APRN, [facility] Neurology [facility] 05/31/23 Office Visit Heather Oliva APRN, [facility] 01/27/23 Office Visit Heather Oliva APRN, TEST TECH [facility] 01/06/23 Procedure Visit Dago Land MD [facility] Neurology [facility] 10/26/22 Office Visit Heather Oliva APRN, [facility] Showing recent visits within past 365 days and meeting all other requirements Future Appointments Date Type Provider Dept 12/11/23 Appointment Heather Oliva APRN, [facility] Showing future appointments within next 90 days and meeting all other requirements documented in this encounter Plan of Treatment Upcoming Encounters Date Type Department Care Team (Late st Contact Info) Description 01/20/2025 2:00 PM CDT Office Visit [facility] - Pulmonology & Sleep Medicine - [place] [address] [place] [address] Zina Rizo APRN, FLOUR BLENDER HELPER #[address] [address] documented as of this encounter Visit Diagnoses Diagnosis Trigeminal neuralgia of right side of face Cervical spine pain Cervicalgia Chronic migraine w/o aura w/o status migrainosus, not intractable Chronic migraine without aura, without mention of intractable migraine without mention of status migrainosus documented in this encounter Care Teams Booth Manager Relationship Specialty Start Date End Date Johnson Rodriguez MD [address] [place] [address] PCP - General Pediatrics 11/17/21 Zina Rizo APRN, FLOUR BLENDER HELPER #[address] [address] Nurse Practitioner Advanced Practice Nurse 06/24/22 Heather Oliva APRN, TEST TECH #2 [place] [address] Nurse Practitioner Advanced Practice Nurse 12/22/21 Zina Rizo APRN, FLOUR BLENDER HELPER #[address] [address] Nurse Practitioner Advanced Practice Nurse 01/06/23 Silvana Brown APRN, FLOUR BLENDER HELPER [address]2 [place] [address] Nurse Practitioner Advanced Practice Nurse 07/14/22 documented as of this encounter
--- OUTSIDE RECORDS SUMMARY | 2024-07-25 08:11 | XMS_ITS | Encounter Summary ---
Author Organization [facility] Address [address] [place] [address] Phone Care Team Providers Care Senior Oracle Pl Sql Developer Name Role Phone Johnson Rodriguez MD Primary Care Provider +1- [phone] Zina Rizo APRN, PROFESSOR OF LAW Unavailable +1- [phone] Heather Oliva SOFTWARE PRODUCT MANAGER, INTEGRATION CONSULTANT Unavailable + [phone] Zina Rizo APRN, PROFESSOR OF LAW Unavailable [phone] Silvana Brown SOFTWARE PRODUCT MANAGER, PROFESSOR OF LAW Unavailable Reason for Visit * Reason Comments Medication Refill Encounter Details Date Type Department Care Team (Late st Contact Info) Description 09/24/2022 Refill [facility] - Neurology [facility] #2 [place] [id number] Heather Oliva SOFTWARE PRODUCT MANAGER, INTEGRATION CONSULTANT #2 [place] [address] Medication Refill Social History Tobacco Use Types [...] Dept 07/26/22 Office Visit Heather Oliva APRN, INTEGRATION CONSULTANT [facility] Neurology [facility] 04/26/22 Office Visit Heather Oliva APRN, [facility] Neurology [facility] 12/22/21 Office Visit Heather Oliva APRN, [facility] Neurology [facility] Showing recent visits within past 365 days and meeting all other requirements Future Appointments Date Type Provider Dept 10/26/22 Appointment Heather Oliva APRN, [facility] Neurology [facility] Showing future appointments within next 90 days and meeting all other requirements documented in this encounter Plan of Treatment Upcoming Encounters Date Type Department Care Team (Late st Contact Info) Description 01/20/2025 2:00 PM CDT [facility] - [facility]ology & [facility] Medicine - [place] [address] [place] [address] Zina Rizo APRN, PROFESSOR OF LAW #[address] [address] documented as of this encounter Visit Diagnoses Diagnosis Seizures (HCC) Other convulsions documented in this encounter Care Teams Senior Oracle Pl Sql Developer Relationship Specialty Start Date End Date Johnson Rodriguez MD [address] [place] [address] PCP - General Pediatrics 11/17/21 Zina Rizo, AJ, PROFESSOR OF LAW #[address] [address] Nurse Practitioner Advanced Practice Nurse 06/24/22 Heather Oliva APRN, INTEGRATION CONSULTANT #2 [place] [address] Nurse Practitioner Advanced Practice Nurse 12/22/21 Zina Rizo, AJ, PROFESSOR OF LAW #[address] [address] Nurse Practitioner Advanced Practice Nurse 01/06/23 Silvana Brown APRN, PROFESSOR OF LAW #2 [place] [address] Nurse Practitioner Advanced Practice Nurse 07/14/22 documented as of this encounter
--- OUTSIDE RECORDS SUMMARY | 2024-07-25 08:11 | XMS_ITS | Encounter Summary ---
Author Organization [facility] Address [address] [place] [address] Phone Care Team Providers Care Commercial Marketing Specialist Name Role Phone Johnson Rodriguez MD Primary Care Provider +[phone]- [phone] Zina Rizo APRN, LIP CUTTER Unavailable +1- [phone] Heather Oliva APRN, GOLD AND SILVER ASSAYER Unavailable + [phone] Zina Rizo APRN, LIP CUTTER Unavailable [phone] Silvana rBown APRN, LIP CUTTER Unavailable Reason for Visit * Reason Comments Medication Refill Encounter Details Date Type Department Care Team (Late st Contact Info) Description 12/30/2023 Refill [facility]ology - [place] #2 [place] [address] Silvana Brown APRN, LIP CUTTER [address] [place] [address] Medication Refill Social History Tobacco Use Types [...] AM CDT Medication [facility] standing order for pediatric and adult patients. documented in this encounter Plan of Treatment Upcoming Encounters Date Type Department Care Team (Late st Contact Info) Description 01/20/2025 2:00 PM CDT Office Visit [facility] - Pulmonology & Sleep Medicine - [place] [address] [place] [address] Zina Rizo APRN, LIP CUTTER #[address] [address] documented as of this encounter Visit Diagnoses Diagnosis Epigastric pain Abdominal pain, epigastric documented in this encounter Care Teams Commercial Marketing Specialist Relationship Specialty Start Date End Date Johnson Rodriguez MD [address] [place] [address] PCP - General Pediatrics 11/17/21 Zina Rizo APRN, LIP CUTTER #[address] [address] Nurse Practitioner Advanced Practice Nurse 06/24/22 Heather Oliva APRN, GOLD AND SILVER ASSAYER [address] [place] [address] Nurse Practitioner Advanced Practice Nurse 12/22/21 Zina Rizo APRN, JESSE #[address] [address] Nurse Practitioner Advanced Practice Nurse 01/06/23 Silvana Brown APRN, LIP CUTTER [address]2 [place] [address] Nurse Practitioner Advanced Practice Nurse 07/14/22 documented as of this encounter
--- OUTSIDE RECORDS SUMMARY | 2024-07-25 08:11 | XMS_ITS | Encounter Summary ---
Author Organization [facility] Address [address] [place] [address] Phone Care Team Providers Care Electrical Line Splicer Name Role Phone Johnson Rodriguez MD Primary Care Provider +1- [phone] Zina Rizo APRN, SPECIAL SERVICES AGENT Unavailable +1- [phone] Heather Oliva APRN, ENVIRONMENTAL ADVISOR Unavailable + [phone] Zina Rizo APRN, SPECIAL SERVICES AGENT Unavailable Silvana Brown APRN, SPECIAL SERVICES AGENT Unavailable Reason for Visit * Reason Comments Medication Refill Encounter Details Date Type Department Care Team (Late st Contact Info) Description 11/29/2023 Refill [facility]ology - [place] #2 [place] [address] Silvana Brown APRN, SPECIAL SERVICES AGENT [address] [place] [address] Medication Refill Social History Tobacco Use Types [...] PM CDT Medication [facility]illed and signed [facility] medication standing order for pediatric and adult patients. documented in this encounter Plan of Treatment Upcoming Encounters Date Type Department Care Team (Late st Contact Info) Description 01/20/2025 2:00 PM CDT Office Visit [facility] - Pulmonology & Sleep Medicine - [place] [address] [place] [address] Zina Rizo APRN, SPECIAL SERVICES AGENT #[address] [address] documented as of this encounter Visit Diagnoses Diagnosis Epigastric pain Abdominal pain, epigastric documented in this encounter Care Teams Electrical Line Splicer Relationship Specialty Start Date End Date Johnson Rodriguez MD [address] [place] [address] PCP - General Pediatrics 11/17/21 Zina Rizo APRN, SPECIAL SERVICES AGENT #[address] [address] Nurse Practitioner Advanced Practice Nurse 06/24/22 Heather Oliva APRN, ENVIRONMENTAL ADVISOR #2 [place] [address] Nurse Practitioner Advanced Practice Nurse 12/22/21 Zina Rizo APRN, JESSE #[address] [address] Nurse Practitioner Advanced Practice Nurse 01/06/23 Silvana Brown APRN, SPECIAL SERVICES AGENT [address] [place] [address] Nurse Practitioner Advanced Practice Nurse 07/14/22 documented as of this encounter
--- OUTSIDE RECORDS SUMMARY | 2024-07-25 08:52 | XMS_ITS | Encounter Summary ---
Author Organization [facility] Address [address] [place] [address] Care Team Providers Care Finishing Room Supervisor Name Role Phone Johnson Rodriguez MD Primary Care Provide r Lucille Hernandez RN Unavailable Unavailab le Reason for Visit * Reason Onset Date Comments Appointment 11/13/2017 Encounter Details Date Type Department Care Team ([facility] st Contact Info) Description 11/13/2017 Telephone [facility] [place] [facility] [address] [facility] Advanced Medicine [address] [place], [place] [id number] Cynthia Nava MD [address] [facility] [phone] [place], [place] [id number] Appointment Social History Tobacco Use Types Packs/Day Years Used Date Smoking Tobacco: Never Smokeless Tobacco: Never Alcohol Use Standard Drinks/Week Comments No 0 (1 standard drink = 0.6 oz pur e alcohol) Comments No Sex and Gender Information Value Date Recorded Sex Assigned at Not on file Legal Sex Female 12:26 AM PPA TEACHER Gender Identity Not on file Sexual Orientation Not on file documented as of this encounter Plan of Treatment Not on file documented as of this encounter Visit Diagnoses Not on filedocumented in this encounter Care Teams Finishing Room Supervisor Relationship Specialty Start Date End Date Johnson Rodriguez MD [address] [place] [address] PCP - General 07/29/16 Lucille Hernandez, RN Registered Nurse 04/08/19 documented as of this encounter
--- OUTSIDE RECORDS SUMMARY | 2024-07-25 08:52 | XMS_ITS | Clinical Summary ---
Author Organization [facility] Address #[address] [place] [address] Phone Care Team Providers Care Flaking Roll Operator Name Role Phone Johnson Rodriguez MD Primary Care Provider +1- [phone] Zina Rizo APRN, RAKING MACHINE OPERATOR Unavailable Heather Oliva APRN, HONING MACHINE OPERATOR SEMIAUTOMATIC Unavailable + [phone] Zina Rizo APRN, RAKING MACHINE OPERATOR Unavailable Silvana Brown APRN, RAKING MACHINE OPERATOR Unavailable Allergies Active Allergy Reactions Criticality Noted [...] naloxone HCl (Narcan) 4 MG/0.1ML Liquid 1 [place] by Nasal route. 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 Encounters Date Type Department Care Team Description 07/25/2024 [facility] [address] [place] [address] Dago Land MD 07/19/2024 3:00 PM CDT - 07/19/2024 11:59 PM CDT [facility] [address] [place] [address] Silvana Brown APRN, RAKING MACHINE OPERATOR Discharge Disposition: Discharged to home or Selfcare 07/19/2024 2:00 PM CDT Office Visit [facility] - Gastroenterology [facility] [address] [place] [address] Silvana Brown APRN, JESSE Constipation, unspecified constipation type (Primary Dx); Diarrhea, unspecified type; Right sided abdominal pain; Chronic biliary pancreatitis (HCC); Other irritable bowel syndrome; Gastroesophageal reflux disease, unspecified whether esophagitis present Discharge Disposition: Discharged to home or Selfcare 07/17/2024 Travel 07/15/2024 2:00 PM CDT Office Visit [facility] - Pulmonology & Sleep Medicine [facility] [address] [place] [address] Zina Rizo APRN, JESSE Bronchiectasis with acute exacerbation (HCC) (Primary Dx); Mycobacterium avium complex (HCC) Discharge Disposition: Discharged to home or Selfcare 07/13/2024 Travel 07/13/[facility]24 [facility] [address] [place] [address] Silvana Brown APRN, JESSE Medication Refill 06/14/2024 [facility] [address] [place] [address] Dago Land MD Medication Refill 06/14/2024 [facility] [place] [address] Heather Oliva APRN, HONING MACHINE OPERATOR SEMIAUTOMATIC Medication Refill 05/17/2024 [facility] [address] [place] [address] Dago Land MD Medication Refill 04/30/2024 [facility] [place] [address] Silvana Brown APRN, JESSE Medication Refill from Last 3 Months Family [...] Group - Pulmonology & Sleep Medicine - [place] #[address] [place] [address] Zina Rizo, ARCHITECTURAL MODEL MAKER, RAKING MACHINE OPERATOR #[address] [address] Health Maintenance Due Date Last Done Comments Hepatitis C Virus (HCV) Screening 1961 Mammogram 1961 Colonoscopy 2006 Colorectal Cancer Screening 2006 Cologuard 2011 Immunochemical Fecal Occult Blood 2011 Zoster Immunization (1 of 2) 2011 Pneumococcal Immunization (50+ years) (2 of 2 - PCV) 04/08/2017 04/08/2016 Pneumococcal Immunization Combined Discontinued 04/08/2016 DTaP/Tdap/Td Immunization Discontinued 07/15/2021, TdaP Immunization Completed 07/15/2021, 05/16/2013 Influenza Immunization Completed 4, 04/15/2023, 02/03/2022, Additional history exists Respiratory Syncytial [...] this topic Medical Devices Implanted Type Area Trucking Contractor Device Identifier Shelf Expiration Date Model / Serial / Lot Synchromed Ii Intrathecal Pain Pump-04/05/2021 Implanted:04/05 (Quantity not on file) IMPLANT Left: Abdomen MED[employer] [id number] / / Description:Intrathecal pain pump-- MR conditional Insurance MEDICARE [facility] Care Teams Flaking Roll Operator Relationship Specialty Start Date End Date Johnson Rodriguez MD [address] [place] [address] PCP - General Pediatrics 11/17/21 Zina Rizo, ARCHITECTURAL MODEL MAKER, RAKING MACHINE OPERATOR #[address] [address] Nurse Practitioner Advanced Practice Nurse 06/24/22 Heather Oliva APRN, [facility] #[address] [place] [address] Nurse Practitioner Advanced Practice Nurse 12/22/21 Zina Rizo APRN, RAKING MACHINE OPERATOR #[address] [address] Nurse Practitioner Advanced Practice Nurse 01/06/23 Silvana Brown APRN, RAKING MACHINE OPERATOR #[address] [place] [address] Nurse Practitioner Advanced Practice Nurse 07/14/22
--- OUTSIDE RECORDS SUMMARY | 2024-07-25 08:52 | XMS_ITS | Encounter Summary ---
Author Organization [facility] Address [address] [place] [address] Phone Care Team Providers Care Rivet Machine Operator Name Role Phone Johnson Rodriguez MD Primary Care Provider +1- [phone] Zina Rizo APRN, PRODUCT MERCHANDISER Unavailable +1- [phone] Heather Oliva APRN, MANUFACTURING CHIEF ENGINEER Unavailable + [phone] Zina Rizo APRN, PRODUCT MERCHANDISER Unavailable Silvana Brown APRN, PRODUCT MERCHANDISER Unavailable Reason for Visit * Reason Comments Medication Refill Encounter Details Date Type Department Care Team (Late st Contact Info) Description 04/30/2024 Refill [facility] - [place] #[address] [place] [address] Silvana Brown APRN, PRODUCT MERCHANDISER [address] [place] [address] Medication Refill Social History Tobacco Use Types [...] Denae Cameron RN - 04/30/2024 8:58 AM MATE CHIEF Medication refilled and signed per [facility] chronic medication standing order for pediatric and adult patients. CHIEF documented in this encounter Plan of Treatment Upcoming Encounters Date Type Department Care Team (Late st Contact Info) Description 01/20/2025 2:00 PM CDT [facility] Visit [facility] - Pulmonology & Sleep Medicine - [place] #[address] [place] [address] Zina Rizo APRN, PRODUCT MERCHANDISER #[address] [address] documented as of this encounter Visit Diagnoses Not on filedocumented in this encounter Care Teams Rivet Machine Operator Relationship Specialty Start Date End Date Johnson Rodriguez MD [address] [place] [address] PCP - General Pediatrics 11/17/21 Zina Rizo APRN, PRODUCT MERCHANDISER #[address] [address] Nurse Practitioner Advanced Practice Nurse 06/24/22 Heather Oliva APRN, MANUFACTURING CHIEF ENGINEER #2 [place] [address] Nurse Practitioner Advanced Practice Nurse 12/22/21 Zina Rizo APRN, PRODUCT MERCHANDISER #[address] [address] Nurse Practitioner Advanced Practice Nurse 01/06/23 Silvana Brown APRN, PRODUCT MERCHANDISER [address] [place] [address] Nurse Practitioner Advanced Practice Nurse 07/14/22 documented as of this encounter
--- OUTSIDE RECORDS SUMMARY | 2024-07-25 08:53 | XMS_ITS | Encounter Summary ---
Author Organization [facility] Healthcare Address [address] [place] [address] Care Team Providers Care Scratcher Name Role Phone Johnson Rodriguez MD Primary Care Provide r Lucille Hernandez RN Unavailable Unavailab le Reason for Visit * Reason Onset Date Comments Pre-Surgical Call 11/16/2020 Encounter Details Date Type Department Care Team (Late st Contact Info) Description 11/16/2020 Telephone [facility] [place] [facility] [address] [facility] for [facility] Medicine [address] [place], [place] [id number] Cynthia Nava MD [address] [facility] [phone] [place], [place] [id number] Pre-Surgical Call Social History Tobacco Use Types [...] on file Legal Sex Female 12:26 AM WOOD FLOOR LAYER Gender Identity Not on file Sexual Orientation Not on file documented as of this encounter Functional Status documented as of this encounter Plan of Treatment Not on file documented as of this encounter Goals Goal Patient Goal Type Associated Problems Recent Progress Patient-Stated? Author CCM Chronic Pain Care Plan Chronic Care Management Worsening( 12:30 PM WOOD FLOOR LAYER) Linda Hunter Note: Problem: Chronic Pain Goals: 1. Minimize further functional decline 2. Maximize quality of life 3. Control pain Strategies: - Activity/exercise program recommendation - Conservative stepwise pain medicine strategy with multi-disciplinary approach - Recommend healthy lifestyle strategies and compensatory methods as needed documented as of this encounter Visit Diagnoses Not on filedocumented in this encounter Care Teams Scratcher Relationship Specialty Start Date End Date Johnson Rodriguez MD [address] [place] [address] PCP - General 07/29/16 Lucille Hernandez RN Registered Nurse 04/08/19 documented as of this encounter
--- OUTSIDE RECORDS SUMMARY | 2024-07-25 08:53 | XMS_ITS | Encounter Summary ---
Author Organization [facility] Healthcare Address [address] [place] [address] Care Team Providers Care Director Of Learning Name Role Phone Johnson Rodriguez MD Primary Care Provide r Lucille Hernandez RN Unavailable Unavailab le Encounter Details Date Type Department Care Team (Late st Contact Info) Description 04/20/2020 Telephone [facility] [address] [facility] [address] [place] [id number] Madelyn Hester RN Social History Tobacco Use Types Packs/Day Years Used Date Smoking Tobacco: Never Smokeless Tobacco: Never Alcohol Use Standard Drinks/Week Comments No 0 (1 standard drink = 0.6 oz pur e alcohol) denies Comments No Sex and Gender Information Value Date Recorded Sex Assigned at Not on file Legal Sex Female 12:26 AM FIELD COUNSEL Gender Identity Not on file Sexual Orientation Not on file documented as of this encounter Plan of Treatment Not on file documented as of this encounter Goals Goal Patient Goal Type Associated Problems Recent Progress Patient-Stated? Author CCM Chronic Pain Care Plan Chronic Care Management Worsening( 12:30 PM FIELD COUNSEL) No Linda Crowell Note: Problem: Chronic Pain Goals: 1. Minimize further functional decline 2. Maximize quality of life 3. Control pain Strategies: - Activity/exercise program recommendation - Conservative stepwise pain medicine strategy with multi-disciplinary approach - Recommend healthy lifestyle strategies and compensatory methods as needed documented as of this encounter Visit Diagnoses Not on filedocumented in this encounter Care Teams Director Of Learning Relationship Specialty Start Date End Date Johnson Rodriguez MD [address] [place] [id number] PCP - General 07/29/16 Lucille Hernandez RN Registered Nurse 04/08/19 documented as of this encounter
--- OUTSIDE RECORDS SUMMARY | 2024-07-25 08:53 | XMS_ITS | Encounter Summary ---
Author Organization [facility] Healthcare Address [address] [place] [address] Care Team Providers Care Grade School Teacher Name Role Phone Johnson Rodriguez MD Primary Care Provide r Lucille Hernandez RN Unavailable Unavailab le Reason for Visit * Reason Onset Date Comments Pre-Surgical Call 06/24/2020 Encounter Details Date Type Department Care Team (Late st Contact Info) Description 06/24/2020 Telephone [facility] at the [place] [facility] [address] [facility] [address] [place], [place] [id number] Cynthia Nava MD [address] [facility] [phone] [place], [place] [id number] Pre-Surgical Call Social History Tobacco Use Types Packs/Day Years Used Date Smoking Tobacco: Never Smokeless Tobacco: Never Alcohol Use Standard Drinks/Week Comments No 0 (1 standard drink = 0.6 oz pur e alcohol) denies Comments No Sex and Gender Information Value Date Recorded Sex Assigned at Not on file Legal Sex Female 12:26 AM PASSENGER CAR CONDUCTOR Gender Identity Not on file Sexual Orientation Not on file documented as of this encounter Plan of Treatment Not on file documented as of this encounter Goals Goal Patient Goal Type Associated Problems Recent Progress Patient-Stated? Author CCM Chronic Pain Care Plan Chronic Care Management Worsening( 12:30 PM PASSENGER CAR CONDUCTOR) No Linda Crowell Note: Problem: Chronic Pain Goals: 1. Minimize further functional decline 2. Maximize quality of life 3. Control pain Strategies: - Activity/exercise program recommendation - Conservative stepwise pain medicine strategy with multi-disciplinary approach - Recommend healthy lifestyle strategies and compensatory methods as needed documented as of this encounter Visit Diagnoses Not on filedocumented in this encounter Care Teams Grade School Teacher Relationship Specialty Start Date End Date Johnson Rodriguez MD [address] [place] [address] PCP - General 07/29/16 Lucille Hernandez RN Registered Nurse 04/08/19 documented as of this encounter
--- OUTSIDE RECORDS SUMMARY | 2024-07-25 08:54 | XMS_ITS | Encounter Summary ---
Author Organization [facility] Healthcare Address [address] [place] [address] Care Team Providers Care Physical Therapy Instructor Name Role Phone Johnson Rodriguez MD Primary Care Provide r Lucille Hernandez RN Unavailable Unavailab le Reason for Referral * MRI/CAT/PET Scan (Routine) - Closed Specialty Diagnoses / Procedures Referred By Contac t Referred To Contact Radiology Diagnoses Right ear pain Procedures CT Temporal Bones WO Contrast Eulalia Parnell PA [address] [place] [address] Phone: tel: fax: [address] [phone] Referral ID Status Reason Start Date Expiration Date Visits Re quested Visits Authorized [id number] Closed 07/16/2024 01/12/2025 1 1 Reason for Visit * MRI/CAT/PET Scan (Routine) - Closed Specialty Diagnoses / Procedures Referred By Contac t Referred To Contact Radiology Diagnoses Right ear pain Procedures CT Temporal Bones WO Contrast Eulalia Parnell PA [address] [place] [address] Phone: tel: fax: [address] [phone] Referral ID Status Reason Start Date Expiration Date Visits Re quested Visits Authorized [id number] Closed 07/16/2024 01/12/2025 1 1 Encounter Details Date Type Department Care Team (Latest Contact Info) Description 07/23/2024 4:27 PM CDT - 07/23/2024 11:59 PM CDT Hospital Encounter [facility] [address] [place] [address] Right ear pain Discharge Disposition: Discharge to home or self care Social History Tobacco Use Types Packs/Day Years Used Date Smoking Tobacco: Never Smokeless Tobacco: Never Alcohol Use Standard Drinks/Week Comments No 0 (1 standard drink = 0.6 oz pur e alcohol) denies AUDIT-C Answer Date Recorded Q1: How often do you have a drink containing alcohol? Never 06/20/2024 Q2: How many drinks containi ng alcohol do you have on a typical day when you are drinking? Patient does not drink Q3: How often do you have si x or more drinks on one occasion? Never 06/20/2024 [place] Vital Sign Answer Date Recorded Within [...] on file Legal Sex Female 12:26 AM SOFTWARE TEST ANALYST Gender Identity Not on file Sexual Orientation Not on file documented as of this encounter Medications at Time of Discharge ALPRAZolam (XANAX) 0.5 mg tablet take 1 tablet by oral route every day 0 0 06/08/2016 butalbital-acetam inophen-caffeine (ESGIC) 50-325-40 mg per tablet Take 1 tablet by mouth every 4 (four) hours as needed for headaches carBAMazepine (TEGretol) 200 mg tablet 01/21/2024 carisoprodol (SOMA) 350 mg tabletIndications :Muscle Spasm Take 1 tablet (350 mg total) by mouth 3 (three) times a day as needed for muscle spasms 0 10/16/2017 HYDROcodone-aceta minophen (NORCO) 10-325 mg per tablet TAKE 1 TABLET BY MOUTH EVERY 6 (SIX) HOURS NEEDED FOR PAIN 45 tablet 07/02/2024 ibandronate (BONIVA) 150 mg tablet 03/23/2022 ketorolac (TORADOL) 10 mg tablet Take 1 tablet (10 mg total) by mouth every 6 (six) hours as needed 04/04/2024 lacosamide (VIMPAT) 100 mg tablet 09/28/2022 latanoprost (XALATAN) 0.005 % ophthalmic solution 03/07/2023 morphine sulfate/PF (MORPHINE, PF,) 150 mg/30 mL patient control.analgesia soln Infuse into a venous catheter. naloxone (NARCAN) 4 mg/actuation spray,non-aerosol Administer 1 spray into affected nostril(s) as needed for opioid reversal Call 911. Repeat every 3 minutes prn if no or minimal response. 1 each 04/05/2021 omeprazole (PriLOSEC) 40 mg capsule Take 1 capsule (40 mg total) by mouth daily 03/29/2023 ondansetron (ZOFRAN) 8 mg tablet 06/05/2024 propranoloL (INDERAL) 40 mg tablet Take 1 tablet (40 mg total) by mouth 2 (two) times a day 04/10/2024 Qulipta 30 mg tablet Take 30 mg by mouth 04/16/2024 sodium chloride 3 % nebulizer solutionIndicatio ns:Bronchiectasis without complication (HCC) Take 4 mL by nebulization as needed for cough 240 mL 5 06/12/2023 timolol (TIMOPTIC) 0.5 % ophthalmic solution 07/12/2022 topiramate (TOPAMAX) 200 mg tablet 07/24/2023 traZODone (DESYREL) 100 mg tablet 08/29/2023 Trulance 3 mg tablet 02/17/2023 documented as of this encounter Discharge Disposition Disposition Code Departure Means Destination Discharge to home or self care documented in this encounter Plan of Treatment Not on file documented as of this encounter Goals Goal Patient Goal Type Associated Problems Recent Progress Patient-Stated? Author CCM Chronic Pain Care Plan Chronic Care Management Worsening( 12:30 PM SOFTWARE TEST ANALYST) Linda Hunter Note: Problem: Chronic Pain Goals: 1. Minimize further functional decline 2. Maximize quality of life 3. Control pain Strategies: - Activity/exercise program recommendation - Conservative stepwise pain medicine strategy with multi-disciplinary approach - Recommend healthy lifestyle strategies and compensatory methods as needed documented as of this encounter Procedures Procedure Name Priority Date/Time Associated Diagnosis Comments CT TEMPORAL BONES WO CONTRAST Schedule Routine, Read Routine (OP Routine) 07/23/2024 4:57 PM CDT Right ear pain documented in this encounter Results * CT Temporal Bones WO Contrast (07/23/2024 4:57 PM CDT) Anatomical Region Laterality Modality Head and Neck N/A Computed Tomogra phy 07/24/2024 10:0 4 AM CDT Narrative 07/24/2024 10:12 AM CDT EXAM DESCRIPTION: CT TEMPORAL BONES WO CONTRAST REASON FOR STUDY: Hearing loss, sensorineural, persistent pain right mastroid area, Pt reports a pain behind both ears for over a year, worse on the right. Pt also states she has tinnitus. TECHNIQUE: Noncontrast thin section axial images through the temporal bones and skull base were obtained and reviewed at bone windows and bone algorithm with coronal. Automated exposure control was used as a dose optimization technique for this examination. COMPARISON: No prior studies are available for comparison at time of this dictation. FINDINGS: RIGHT SIDE: EXTERNAL AUDITORY CANAL: Widely patent. TYMPANIC MEMBRANE: No masses, thickening or medial retraction. OSSICLES: Normal. MIDDLE EAR, EPITYMPANUM and HYPOTYMPANUM: No abnormal soft tissue, fluid or mass INNER EAR STRUCTURES: Normal vestibule and cochlea. Normal aqueducts. Normal semicircular canals. INTERNAL AUDITORY CANAL: Normal bony canal without narrowing or widening. No calcified or ossified masses. TEMPOROMANDIBULAR JOINT: Normal. MASTOID AIR CELLS: Trace right mastoid effusion. Otherwise unremarkable. LEFT SIDE: EXTERNAL AUDITORY CANAL: Widely patent. TYMPANIC MEMBRANE: No masses, thickening or medial retraction. OSSICLES: Normal. MIDDLE EAR, EPITYMPANUM and HYPOTYMPANUM: No abnormal soft tissue, fluid or mass INNER EAR STRUCTURES: Normal vestibule and cochlea. Normal aqueducts. Normal semicircular canals. INTERNAL AUDITORY CANAL: Normal bony canal without narrowing or widening. No calcified or ossified masses. TEMPOROMANDIBULAR JOINT: Normal. MASTOID AIR CELLS: No fluid or mucosal thickening. CENTRAL SKULL BASE: Normal foramina. No lytic or blastic lesions. INFERIOR BRAIN: Limited view. No acute findings. LIMITED VIEW OF PARANASAL SINUSES IN THE FIELD OF VIEW: Well-aerated. OTHER: No other significant finding. IMPRESSION: Trace right mastoid effusion. Otherwise unremarkable CT of the temporal bones. THIS IS AN ELECTRONICALLY VERIFIED FINAL REPORT 07/24/2024 10:12 AM - Electronically signed by Lloyd Cao M.D. MM: MM Report ID: [id number] Reading Location: [id number] Procedure Note Lloyd Cao MD - 07/24/2024 EXAM DESCRIPTION: CT TEMPORAL BONES WO CONTRAST REASON FOR STUDY: Hearing loss, sensorineural, persistent pain right mastroid area, Pt reports a pain behind both ears for over a year, worse on the right. Pt also states she has tinnitus. TECHNIQUE: Noncontrast thin section axial images through the temporalbones and skull base were obtained and reviewed at bone windows and bonealgorithm with coronal. Automated exposure control was used as a dose optimization technique for this examination. COMPARISON: No prior studies are available for comparison at time of this dictation. FINDINGS: RIGHT SIDE: EXTERNAL AUDITORY CANAL: Widely patent. TYMPANIC MEMBRANE: No masses, thickening or medial retraction. OSSICLES: Normal. MIDDLE EAR, EPITYMPANUM and HYPOTYMPANUM: No abnormal soft tissue, fluidor mass INNER EAR STRUCTURES: Normal vestibule and cochlea. Normal aqueducts. Normal semicircular canals. INTERNAL AUDITORY CANAL: Normal bony canal without narrowing orwidening. No calcified or ossified masses. TEMPOROMANDIBULAR JOINT: Normal. MASTOID AIR CELLS: Trace right mastoid effusion. Otherwiseunremarkable. LEFT SIDE: EXTERNAL AUDITORY CANAL: Widely patent. TYMPANIC MEMBRANE: No masses, thickening or medial retraction. OSSICLES: Normal. MIDDLE EAR, EPITYMPANUM and HYPOTYMPANUM: No abnormal soft tissue, fluidor mass INNER EAR STRUCTURES: Normal vestibule and cochlea. Normal aqueducts. Normal semicircular canals. INTERNAL AUDITORY CANAL: Normal bony canal without narrowing orwidening. No calcified or ossified masses. TEMPOROMANDIBULAR JOINT: Normal. MASTOID AIR CELLS: No fluid or mucosal thickening. CENTRAL SKULL BASE: Normal foramina. No lytic or blastic lesions. INFERIOR BRAIN: Limited view. No acute findings. LIMITED VIEW OF PARANASAL SINUSES IN THE FIELD OF VIEW: Well-aerated. OTHER: No other significant finding. IMPRESSION: Trace right mastoid effusion. Otherwise unremarkable CT of the temporalbones. THIS IS AN ELECTRONICALLY VERIFIED FINAL REPORT 07/24/2024 10:12 AM - Electronically signed by Lloyd Cao M.D. MM: MM Report ID: [id number] Reading Location: [place] [address] [place] Eulalia ARGUETA IMBernardo CT PROCEDURES Final Result documented in this encounter Visit Diagnoses Diagnosis Right ear pain Unspecified otalgia documented in this encounter Care Teams Physical Therapy Instructor Relationship Specialty Start Date End Date Johnson Rodriguez MD [address] [place] [address] PCP - General 07/29/16 Lucille Hernandez, RN Registered Nurse 04/08/19 documented as of this encounter
--- OUTSIDE RECORDS SUMMARY | 2024-07-25 08:55 | XMS_ITS | Encounter Summary ---
Author Organization [facility] Healthcare Address [address] [place] [address] Care Team Providers Care Chip Loft Worker Name Role Phone Johnson Rodriguez MD Primary Care Provide r Lucille Hernandez RN Unavailable Unavailab le Encounter Details Date Type Department Care Team (Late st Contact Info) Description 02/22/2021 Telephone [facility] at the [place] [facility] [address] [facility] Advanced Medicine [address] [place], [place] [id number] Cynthia Nava MD [address] [facility] [phone] [place], [place] [id number] Social History Tobacco Use Types Packs/Day Years [...] on file Legal Sex Female 12:26 AM CASEWORKER PROTECTIVE SERVICES Gender Identity Not on file Sexual Orientation Not on file documented as of this encounter Plan of Treatment Not on file documented as of this encounter Goals Goal Patient Goal Type Associated Problems Recent Progress Patient-Stated? Author CCM Chronic Pain Care Plan Chronic Care Management Worsening( 12:30 PM CASEWORKER PROTECTIVE SERVICES) Linda Hunter Note: Problem: Chronic Pain Goals: 1. Minimize further functional decline 2. Maximize quality of life 3. Control pain Strategies: - Activity/exercise program recommendation - Conservative stepwise pain medicine strategy with multi-disciplinary approach - Recommend healthy lifestyle strategies and compensatory methods as needed documented as of this encounter Visit Diagnoses Not on filedocumented in this encounter Care Teams Chip Loft Worker Relationship Specialty Start Date End Date Johnson Rodriguez MD [address] [place] [address] PCP - General 07/29/16 Lucille Hernandez, RN Registered Nurse 04/08/19 documented as of this encounter
--- OUTSIDE RECORDS SUMMARY | 2024-07-25 08:55 | XMS_ITS | Encounter Summary ---
Author Organization [facility] Healthcare Address [address] [place] [address] Care Team Providers Care Folded Cloth Taper Name Role Phone Johnson Rodriguez MD Primary Care Provide r Lucille eHrnandez RN Unavailable Unavailab le Reason for Visit * Reason Onset Date Comments PUMP REFILL APPT 12/06/2019 PUMP REFILL APPT 12/23/2019 Encounter Details Date Type Department Care Team (Late st Contact Info) Description 12/06/2019 Telephone [facility] Pain Center at the [place] [facility] [address] [facility] for [facility] Medicine [address] [place] [address] Cynthia Nava MD [address] [facility] [address] [facility] [phone] [place], [place] [id number] PUMP REFILL APPT; PUMP REFILL APPT Social History Tobacco Use Types Packs/Day Years Used Date Smoking Tobacco: Never Smokeless Tobacco: Never Alcohol Use Standard Drinks/Week Comments No 0 (1 standard drink = 0.6 oz pur e alcohol) denies Comments No Sex and Gender Information Value Date Recorded Sex Assigned at Not on file Legal Sex Female 12:26 AM CHIEF ELECTRICIAN Gender Identity Not on file Sexual Orientation Not on file documented as of this encounter Plan of Treatment Not on file documented as of this encounter Goals Goal Patient Goal Type Associated Problems Recent Progress Patient-Stated? Author CCM Chronic Pain Care Plan Chronic Care Management Worsening(02 / 12:30 PM CHIEF ELECTRICIAN) Linda Hnuter Note: Problem: Chronic Pain Goals: 1. Minimize further functional decline 2. Maximize quality of life 3. Control pain Strategies: - Activity/exercise program recommendation - Conservative stepwise pain medicine strategy with multi-disciplinary approach - Recommend healthy lifestyle strategies and compensatory methods as needed documented as of this encounter Visit Diagnoses Not on filedocumented in this encounter Care Teams Folded Cloth Taper Relationship Specialty Start Date End Date Johnson Rodriguez MD [address] [place] [address] PCP - General 07/29/16 Lucille Hernandez RN Registered Nurse 04/08/19 documented as of this encounter
--- OUTSIDE RECORDS SUMMARY | 2024-07-25 08:55 | XMS_ITS | Encounter Summary ---
Author Organization [facility] Address [address] [place] [address] Phone Care Team Providers Care Environmental Health Manager Name Role Phone Johnson Rodriguez MD Primary Care Provider [phone] Zina Rizo APRN, INSURANCE OFFICE MANAGER Unavailable [phone]- [phone] Heather Oliva APRN, MAINTENANCE MANAGER Unavailable + [phone] Zina Rizo APRN, INSURANCE OFFICE MANAGER Unavailable Silvana Brown APRN, INSURANCE OFFICE MANAGER Unavailable Reason for Visit * Reason Comments Medication Refill Encounter Details Date Type Department Care Team (Late st Contact Info) Description 12/30/2023 Refill [facility] - Gastroenterology - [place] [address] [place] [address] Silvana Brown APRN, INSURANCE OFFICE MANAGER [address] [place] [address] Medication Refill Social History Tobacco Use Types [...] AM CDT Medication refilled and signed per [facility] chronic medication standing order for pediatric and adult patients. documented in this encounter Plan of Treatment Upcoming Encounters Date Type Department Care Team (Late st Contact Info) Description 01/20/2025 2:00 PM CDT Office Visit [facility] - Pulmonology & Sleep Medicine - [place] [address] [place] [address] Zina Rizo APRN, INSURANCE OFFICE MANAGER [address] [address] documented as of this encounter Visit Diagnoses Diagnosis Epigastric pain Abdominal pain, epigastric documented in this encounter Care Teams Environmental Health Manager Relationship Specialty Start Date End Date Johnson Rodriguez MD [address] [place] [address] PCP - General Pediatrics 11/17/21 Zina Rizo APRN, INSURANCE OFFICE MANAGER #[address] [address] Nurse Practitioner Advanced Practice Nurse 06/24/22 Heather Oliva APRN, MAINTENANCE MANAGER [address] [place] [address] Nurse Practitioner Advanced Practice Nurse 12/22/21 Zina Rizo APRN, JESSE #[address] [address] Nurse Practitioner Advanced Practice Nurse 01/06/23 Silvana Brown APRN, INSURANCE OFFICE MANAGER [address] [place] [address] Nurse Practitioner Advanced Practice Nurse 07/14/22 documented as of this encounter
--- OUTSIDE RECORDS SUMMARY | 2024-07-25 08:55 | XMS_ITS | Encounter Summary ---
Author Organization [facility] Address [address] [place] [address] Phone Care Team Providers Care Night Baker Name Role Phone Johnson Rodriguez MD Primary Care Provider [phone] Zina Rizo APRN, BLOOMING MILL SUPERVISOR Unavailable [phone]- [phone] Heather Oliva APRN, BINDER AND BOX BUILDER Unavailable + [phone] Zina Rzio APRN, BLOOMING MILL SUPERVISOR Unavailable Silvana Brown APRN, BLOOMING MILL SUPERVISOR Unavailable Reason for Visit * Reason Comments Medication Refill Encounter Details Date Type Department Care Team (Late st Contact Info) Description 09/29/2023 Refill [facility] - Gastroenterology - [place] [address] [place] [address] Silvana Brown APRN, BLOOMING MILL SUPERVISOR [address] [place] [address] Medication Refill Social History Tobacco Use Types [...] Visit Silvana Brown APRN, CNP [facility] [place] 03/29/23 Office Visit Silvana Brown APRN, [facility] [place] 11/08/22 Office Visit Silvana Brown APRN, JES[facility] [place] Showing recent visits within past [...] Group - Pulmonology & Sleep Medicine - [place] [address] [place] [address] Zina Rizo APRN, BLOOMING MILL SUPERVISOR [address] [address] documented as of this encounter Visit Diagnoses Diagnosis Epigastric pain Abdominal pain, epigastric documented in this encounter Care Teams Night Baker Relationship Specialty Start Date End Date Johnson Rodriguez MD [address] [place] [address] PCP - General Pediatrics 11/17/21 Zina Rizo APRN, BLOOMING MILL SUPERVISOR [address] [address] Nurse Practitioner Advanced Practice Nurse 06/24/22 Heather Oliva APRN, BINDER AND BOX BUILDER [address] [place] [address] Nurse Practitioner Advanced Practice Nurse 12/22/21 Zina Rizo APRN, BLOOMING MILL SUPERVISOR #[address] [address] Nurse Practitioner Advanced Practice Nurse 01/06/23 Silvana Brown APRN, BLOOMING MILL SUPERVISOR [address] [place] [address] Nurse Practitioner Advanced Practice Nurse 07/14/22 documented as of this encounter
--- OUTSIDE RECORDS SUMMARY | 2024-07-25 08:55 | XMS_ITS | Encounter Summary ---
Author Organization [facility] Healthcare Address [address] [place] [address] Care Team Providers Care Film Projector Operator Name Role Phone Johnson Rodriguez MD Primary Care Provide r Lucille Hernandez RN Unavailable Unavailab le Encounter Details Date Type Department Care Team (Late st Contact Info) Description 07/14/2021 Telephone [facility] Pain Center at the [place] [facility] [address] [facility] Advanced Medicine [address] [place], [place] [phone] Cynthia Nava MD [address] [facility] [phone] [place], [place] [id number] Social History Tobacco Use Types Packs/Day Years [...] on file Legal Sex Female 12:26 AM ENDOSCOPY TECH Gender Identity Not on file Sexual Orientation Not on file documented as of this encounter Plan of Treatment Not on file documented as of this encounter Goals Goal Patient Goal Type Associated Problems Recent Progress Patient-Stated? Author CCM Chronic Pain Care Plan Chronic Care Management Worsening( 12:30 PM ENDOSCOPY TECH) Linda Hunter Note: Problem: Chronic Pain Goals: 1. Minimize further functional decline 2. Maximize quality of life 3. Control pain Strategies: - Activity/exercise program recommendation - Conservative stepwise pain medicine strategy with multi-disciplinary approach - Recommend healthy lifestyle strategies and compensatory methods as needed documented as of this encounter Visit Diagnoses Not on filedocumented in this encounter Care Teams Film Projector Operator Relationship Specialty Start Date End Date Johnson Rodriguez MD [address] [place] [address] PCP - General 07/29/16 Lucille Hernandez, RN Registered Nurse 04/08/19 documented as of this encounter
--- OUTSIDE RECORDS SUMMARY | 2024-07-25 08:55 | XMS_ITS | Encounter Summary ---
Author Organization [facility] Address [address] [place] [address] Phone Care Team Providers Care Grain Distributor Name Role Phone Johnson Rodriguez MD Primary Care Provider +1- [phone] Zina Rizo APRN, PLAIN GOODS HEMMER Unavailable +1- [phone] Heather Oliva LICENSING OFFICER, ESTHETICIAN PERMANENT MAKEUP ARTIST Unavailable + [phone] Zina Rizo APRN, PLAIN GOODS HEMMER Unavailable Silvana Brown LICENSING OFFICER, PLAIN GOODS HEMMER Unavailable Reason for Visit * Reason Comments Medication Refill Encounter Details Date Type Department Care Team (Late st Contact Info) Description 10/12/2023 Refill [facility] - Neurology [facility] [address]2 [place] [address] Heather Oliva LICENSING OFFICER, ESTHETICIAN PERMANENT MAKEUP ARTIST [address]2 [place] [address] Medication Refill Social History Tobacco Use Types [...] Dept 08/01/23 Office Visit Heather Oliva APRN, [facility] Neurology [facility] 05/31/23 Office Visit Heather Oliva APRN, [facility] 01/27/23 Office Visit Heather Oliva APRN, ESTHETICIAN PERMANENT MAKEUP ARTIST [facility] 01/06/23 Procedure Visit Dago Land MD [facility] Neurology [facility] 10/26/22 Office Visit Heather Oliva APRN, [facility] Showing recent visits within past 365 days and meeting all other requirements Future Appointments Date Type Provider Dept 12/11/23 Appointment Heather Oliva APRN, [facility] Showing future appointments within next 90 days and meeting all other requirements documented in this encounter Plan of Treatment Upcoming Encounters Date Type Department Care Team (Late st Contact Info) Description 01/20/2025 2:00 PM CDT Office Visit [facility] - Pulmonology & Sleep Medicine - [place] [address] [place] [address] Zina Rizo APRN, PLAIN GOODS HEMMER [address] [address] documented as of this encounter Visit Diagnoses Diagnosis Trigeminal neuralgia of right side of face Cervical spine pain Cervicalgia Chronic migraine w/o aura w/o status migrainosus, not intractable Chronic migraine without aura, without mention of intractable migraine without mention of status migrainosus documented in this encounter Care Teams Grain Distributor Relationship Specialty Start Date End Date Johnson Rodriguez MD [address] [place] [address] PCP - General Pediatrics 11/17/21 Zina Rizo APRN, PLAIN GOODS HEMMER #[address] [address] Nurse Practitioner Advanced Practice Nurse 06/24/22 Heather Oliva APRN, ESTHETICIAN PERMANENT MAKEUP ARTIST [address]2 [place] [address] Nurse Practitioner Advanced Practice Nurse 12/22/21 Zina Rizo APRN, PLAIN GOODS HEMMER #[address] [address] Nurse Practitioner Advanced Practice Nurse 01/06/23 Silvana Brown APRN, PLAIN GOODS HEMMER [address] [place] [address] Nurse Practitioner Advanced Practice Nurse 07/14/22 documented as of this encounter
--- OUTSIDE RECORDS SUMMARY | 2024-07-25 08:55 | XMS_ITS | Encounter Summary ---
Author Organization [facility] Healthcare Address [address] [place] [address] Care Team Providers Care Specimen Collector Name Role Phone Johnson Rodriguez MD Primary Care Provide r Lucille Hernandez RN Unavailable Unavailab le Encounter Details Date Type Department Care Team (Late st Contact Info) Description 03/04/2021 Telephone [facility] [place] [facility] [address] [facility] Advanced Medicine [address] [place], [place] [id number] Cynthia Nava MD [address] [facility] [phone] [place], [place] [id number] Social History Tobacco Use Types Packs/Day Years [...] on file Legal Sex Female 12:[address] ADMINISTRATOR Gender Identity Not on file Sexual Orientation Not on file documented as of this encounter Plan of Treatment Not on file documented as of this encounter Goals Goal Patient Goal Type Associated Problems Recent Progress Patient-Stated? Author CCM Chronic Pain Care Plan Chronic Care Management Worsening( 12:[address] ADMINISTRATOR) Linda Hunter Note: Problem: Chronic Pain Goals: 1. Minimize further functional decline 2. Maximize quality of life 3. Control pain Strategies: - Activity/exercise program recommendation - Conservative stepwise pain medicine strategy with multi-disciplinary approach - Recommend healthy lifestyle strategies and compensatory methods as needed documented as of this encounter Visit Diagnoses Not on filedocumented in this encounter Care Teams Specimen Collector Relationship Specialty Start Date End Date Johnson Rodriguez MD [address] [place] [address] PCP - General 07/29/16 Lucille Hernandez, RN Registered Nurse 04/08/19 documented as of this encounter
--- OUTSIDE RECORDS SUMMARY | 2024-07-25 08:55 | XMS_ITS | Encounter Summary ---
Author Organization [facility] Address [address] [place] [address] Phone Care Team Providers Care Shake Loader Name Role Phone Johnson Rodriguez MD Primary Care Provider [phone]- [phone] Zina Rizo APRN, MACHINE MAINTENANCE REPAIRER Unavailable +[phone]- [phone] Heather Oliva APRN, PIANO MECHANIC APPRENTICE Unavailable + [phone] Zina Rizo APRN, MACHINE MAINTENANCE REPAIRER Unavailable [phone] Silvana Brown APRN, MACHINE MAINTENANCE REPAIRER Unavailable Reason for Visit * Reason Comments Medication Refill Encounter Details Date Type Department Care Team (Late st Contact Info) Description 08/16/2023 Refill [facility]enterology - [place] [address] [place] [address] Silvana Brown APRN, MACHINE MAINTENANCE REPAIRER [address] [place] [address] Medication Refill Social History Tobacco Use Types [...] PM CDT Medication refilled and signed [place] [facility] [place] medication standing order for pediatric and adult patients. documented in this encounter Plan of Treatment Upcoming Encounters Date Type Department Care Team (Late st Contact Info) Description 01/20/2025 2:00 PM CDT Office Visit [facility] - Pulmonology & Sleep Medicine - [place] [address] [place] [address] Zina Rizo APRN, MACHINE MAINTENANCE REPAIRER #[address] [address] documented as of this encounter Visit Diagnoses Diagnosis Epigastric pain Abdominal pain, epigastric documented in this encounter Care Teams Shake Loader Relationship Specialty Start Date End Date Johnson Rodriguez MD [address] [place] [address] PCP - General Pediatrics 11/17/21 Zina Rizo APRN, MACHINE MAINTENANCE REPAIRER #[address] [address] Nurse Practitioner Advanced Practice Nurse 06/24/22 Heather Oliva APRN, PIANO MECHANIC APPRENTICE [address]2 [place] [address] Nurse Practitioner Advanced Practice Nurse 12/22/21 Zina Rizo APRN, [place] #[address] [address] Nurse Practitioner Advanced Practice Nurse 01/06/23 Silvana Brown APRN, MACHINE MAINTENANCE REPAIRER [address] [place] [address] Nurse Practitioner Advanced Practice Nurse 07/14/22 documented as of this encounter
--- OUTSIDE RECORDS SUMMARY | 2024-07-25 08:55 | XMS_ITS | Encounter Summary ---
Author Organization [facility] Address [address] [place] [address] Phone Care Team Providers Care Dough Cutting Machine Operator Name Role Phone Johnson Rodriguez MD Primary Care Provider [phone]- [phone] Zina Rizo APRN, PULMONOLOGY TECHNICIAN Unavailable [phone]- [phone] Heather Oliva BIOINFORMATICS SCIENTIST, RANCH SUPERVISOR Unavailable + [phone] Zina Rizo APRN, PULMONOLOGY TECHNICIAN Unavailable Silvana Brown BIOINFORMATICS SCIENTIST, PULMONOLOGY TECHNICIAN Unavailable Reason for Visit * Reason Comments Medication Refill Encounter Details Date Type Department Care Team (Late st Contact Info) Description 09/29/2023 Refill [facility] - Neurology [facility] [address]2 [place] [address] Heather Oliva BIOINFORMATICS SCIENTIST, RANCH SUPERVISOR [address] [place] [address] Medication Refill Social History Tobacco Use Types [...] Dept 08/01/23 Office Visit Heather Oliva APRN, [facility] Neurology [facility] 05/31/23 Office Visit Heather Oliva APRN, [facility] Neurology [facility] 01/27/23 Office Visit Heather Oliva APRN, [facility] 01/06/23 Procedure Visit Dago Land MD [facility] Neurology [facility] 10/26/22 Office Visit Heather Oliva APRN, [facility] Showing recent visits within past 365 days and meeting all other requirements Future Appointments Date Type Provider Dept 12/11/23 Appointment Heather Oliva APRN, [facility] Showing future appointments within next 90 days and meeting all other requirements documented in this encounter Plan of Treatment Upcoming Encounters Date Type Department Care Team (Late st Contact Info) Description 01/20/2025 2:00 PM CDT Office Visit [facility] - Pulmonology & Sleep Medicine - [place] [address] [place] [address] Zina Rizo APRN, PULMONOLOGY TECHNICIAN #[address] [address] documented as of this encounter Visit Diagnoses Not on filedocumented in this encounter Care Teams Dough Cutting Machine Operator Relationship Specialty Start Date End Date Johnson Rodriguez MD [address] [place] [address] PCP - General Pediatrics 11/17/21 Zina Rizo, AJ, PULMONOLOGY TECHNICIAN #[address] [address] Nurse Practitioner Advanced Practice Nurse 06/24/22 Heather Oliva APRN, RANCH SUPERVISOR [address] [place] [address] Nurse Practitioner Advanced Practice Nurse 12/22/21 Zina Rizo, BIOINFORMATICS SCIENTIST, PULMONOLOGY TECHNICIAN #[address] [address] Nurse Practitioner Advanced Practice Nurse 01/06/23 Silvana Brown APRN, PULMONOLOGY TECHNICIAN [address] [place] [address] Nurse Practitioner Advanced Practice Nurse 07/14/22 documented as of this encounter
--- OUTSIDE RECORDS SUMMARY | 2024-07-25 08:55 | XMS_ITS | Encounter Summary ---
Author Organization [facility] Healthcare Address [address] [place] [address] Care Team Providers Care Peripatologist Name Role Phone Johnson Rodriguez MD Primary Care Provide r Lucille Hernandez RN Unavailable Unavailab le Encounter Details Date Type Department Care Team (Late st Contact Info) Description 05/07/2021 Telephone [facility] at the [place] for Advanced Medicine [address] [facility] Advanced Medicine [address] [place], [place] [id number] Cynthia Nava MD [address] [facility] [phone] [place], [place] [id number] Social History Tobacco Use Types Packs/Day Years [...] on file Legal Sex Female 12:26 AM SUBSTATION OPERATOR AUTOMATIC Gender Identity Not on file Sexual Orientation Not on file documented as of this encounter Functional Status documented as of this encounter Plan of Treatment Not on file documented as of this encounter Goals Goal Patient Goal Type Associated Problems Recent Progress Patient-Stated? Author CCM Chronic Pain Care Plan Chronic Care Management Worsening( 12:30 PM SUBSTATION OPERATOR AUTOMATIC) Linda Hunter Note: Problem: Chronic Pain Goals: 1. Minimize further functional decline 2. Maximize quality of life 3. Control pain Strategies: - Activity/exercise program recommendation - Conservative stepwise pain medicine strategy with multi-disciplinary approach - Recommend healthy lifestyle strategies and compensatory methods as needed documented as of this encounter Visit Diagnoses Not on filedocumented in this encounter Care Teams Peripatologist Relationship Specialty Start Date End Date Johnson Rodriguez MD [address] [place], [place] [address] PCP - General 07/29/16 Lucille Hernandez, RN Registered Nurse 04/08/19 documented as of this encounter
--- OUTSIDE RECORDS SUMMARY | 2024-07-25 08:55 | XMS_ITS | Encounter Summary ---
Author Organization [facility] Address [address] [place] [address] Phone Care Team Providers Care Commercial Illustrator Name Role Phone Johnson Rodriguez MD Primary Care Provider [phone]- [phone] Zina Rizo APRN, JAVA TECHNICAL MANAGER Unavailable [phone]- [phone] Heather Oliva APRN, SAWSMITH Unavailable + [phone] Zina Rizo APRN, JAVA TECHNICAL MANAGER Unavailable Silvana Brown APRN, JAVA TECHNICAL MANAGER Unavailable Reason for Visit * Reason Comments Medication Refill Encounter Details Date Type Department Care Team (Late st Contact Info) Description 11/29/2023 Refill [facility]ology - [place] #2 [place] [address] Silvana Brown APRN, JAVA TECHNICAL MANAGER [address] [place] [address] Medication Refill Social History Tobacco Use Types [...] PM CDT Medication refilled and signed per [facility] [place] medication standing order for pediatric and adult patients. documented in this encounter Plan of Treatment Upcoming Encounters Date Type Department Care Team (Late st Contact Info) Description 01/20/2025 2:00 PM CDT Office Visit [facility] - Pulmonology & Sleep Medicine - [place] [address] [place] [address] Zina Rizo APRN, JAVA TECHNICAL MANAGER #[address] [address] documented as of this encounter Visit Diagnoses Diagnosis Epigastric pain Abdominal pain, epigastric documented in this encounter Care Teams Commercial Illustrator Relationship Specialty Start Date End Date Johnson Rodriguez MD [address] [place] [address] PCP - General Pediatrics 11/17/21 Zina Rizo APRN, JAVA TECHNICAL MANAGER #[address] [address] Nurse Practitioner Advanced Practice Nurse 06/24/22 Heather Oliva APRN, SAWSMITH [address] [place] [address] Nurse Practitioner Advanced Practice Nurse 12/22/21 Zina Rizo APRN, [place] #[address] [address] Nurse Practitioner Advanced Practice Nurse 01/06/23 Silvana Brown APRN, JAVA TECHNICAL MANAGER [address] [place] [address] Nurse Practitioner Advanced Practice Nurse 07/14/22 documented as of this encounter
--- OUTSIDE RECORDS SUMMARY | 2024-07-25 08:55 | XMS_ITS | Encounter Summary ---
Author Organization [facility] Healthcare Address [address] [place] [address] Care Team Providers Care Director Industrial Museum Name Role Phone Johnson Rodriguez MD Primary Care Provide r Lucille Hernandez RN Unavailable Unavailab le Encounter Details Date Type Department Care Team (Late st Contact Info) Description 02/23/2021 Telephone [facility] [place] for Advanced Medicine [address] [facility] Advanced Medicine [address] [place], [place] [id number] Cynthia Nava MD [address] [facility] [phone] [place], [place] [id number] Social History Tobacco Use Types Packs/Day Years [...] on file Legal Sex Female 12:26 AM OIL PIPE INSPECTOR HELPER Gender Identity Not on file Sexual Orientation Not on file documented as of this encounter Plan of Treatment Not on file documented as of this encounter Goals Goal Patient Goal Type Associated Problems Recent Progress Patient-Stated? Author CCM Chronic Pain Care Plan Chronic Care Management Worsening( 12:30 PM OIL PIPE INSPECTOR HELPER) Linda Hunter Note: Problem: Chronic Pain Goals: 1. Minimize further functional decline 2. Maximize quality of life 3. Control pain Strategies: - Activity/exercise program recommendation - Conservative stepwise pain medicine strategy with multi-disciplinary approach - Recommend healthy lifestyle strategies and compensatory methods as needed documented as of this encounter Visit Diagnoses Not on filedocumented in this encounter Care Teams Director Industrial Museum Relationship Specialty Start Date End Date Johnson Rodriguez MD [address] [place] [address] PCP - General 07/29/16 Lucille Hernandez, RN Registered Nurse 04/08/19 documented as of this encounter
--- OUTSIDE RECORDS SUMMARY | 2024-07-25 08:55 | XMS_ITS | Encounter Summary ---
Author Organization [facility] Address [address] [place] [address] Phone Care Team Providers Care Part Time Receptionist Name Role Phone Johnson Rodriguez MD Primary Care Provider +1- [phone] Zina Rizo APRN, LOBSTER CATCHER Unavailable +[phone]- [phone] Heather Oliva APRN, ARTIST REPRESENTATIVE Unavailable + [phone] Zina Rizo APRN, LOBSTER CATCHER Unavailable Silvana Brown APRN, LOBSTER CATCHER Unavailable Reason for Visit * Reason Comments Medication Refill Encounter Details Date Type Department Care Team (Late st Contact Info) Description 10/12/2023 Refill [facility] - [place] #2 [place] [address] Silvana Brown APRN, LOBSTER CATCHER [address] [place] [address] Medication Refill Social History Tobacco Use Types [...] AM CDT Medication [facility] and signed [facility] standing order for pediatric and adult patients. documented in this encounter Plan of Treatment Upcoming Encounters Date Type Department Care Team (Late st Contact Info) Description 01/20/2025 2:00 PM CDT Office Visit [facility] - Pulmonology & Sleep Medicine - [place] [address] [place] [address] Zina Rizo APRN, LOBSTER CATCHER #[address] [address] documented as of this encounter Visit Diagnoses Not on filedocumented in this encounter Care Teams Part Time Receptionist Relationship Specialty Start Date End Date Johnson Rodriguez MD [address] [place] [address] PCP - General Pediatrics 11/17/21 Zina Rizo APRN, LOBSTER CATCHER #[address] [address] Nurse Practitioner Advanced Practice Nurse 06/24/22 Heather Oliva APRN, ARTIST REPRESENTATIVE [address] [place] [address] Nurse Practitioner Advanced Practice Nurse 12/22/21 Zina Rizo APRN, LOBSTER CATCHER #[address] [address] Nurse Practitioner Advanced Practice Nurse 01/06/23 Silvana Brown APRN, LOBSTER CATCHER [address] [place] [address] Nurse Practitioner Advanced Practice Nurse 07/14/22 documented as of this encounter
--- OUTSIDE RECORDS SUMMARY | 2024-07-25 08:55 | XMS_ITS | Encounter Summary ---
Author Organization [facility] Address [address] [place] [address] Phone Care Team Providers Care County Auditor Name Role Phone Johnson Rodriguez MD Primary Care Provider +1- [phone] Zina Rizo APRN, OPTICAL STORE MANAGER Unavailable +1- [phone] Heather Oliva OYSTER BED WORKER, TRANSPORTATION SERVICES REPRESENTATIVE Unavailable +- [phone] Zina Rizo APRN, OPTICAL STORE MANAGER Unavailable Silvana Brown OYSTER BED WORKER, OPTICAL STORE MANAGER Unavailable Reason for Visit * Reason Comments Medication Refill Encounter Details Date Type Department Care Team (Late st Contact Info) Description 08/28/2023 Refill [facility] - Neurology [facility] [address] [place] [address] Heather Oliva OYSTER BED WORKER, TRANSPORTATION SERVICES REPRESENTATIVE [address] [place] [address] Medication Refill Social History Tobacco Use Types [...] Dept 08/01/23 Office Visit Heather Oliva APRN, [facility] Neurology [facility] 05/31/23 Office Visit Heather Oliva APRN, [facility] Neurology [facility] 01/27/23 Office Visit Heather Oliva APRN, [facility] Neurology [facility] 01/06/23 Procedure Visit Dago Land MD [facility] [address] Neurology [facility] 10/26/22 Office Visit Heather Oliva APRN, [facility] Neurology [facility] Showing recent visits within past [...] Pulmonology & Sleep Medicine - [place] [address] [place] [address] Zina Rizo APRN, OPTICAL STORE MANAGER #[address] [address] documented as of this encounter Visit Diagnoses Diagnosis Chronic migraine w/o aura w/o status migrainosus, not intractable Chronic migraine without aura, without mention of intractable migraine without mention of status migrainosus documented in this encounter Care Teams County Auditor Relationship Specialty Start Date End Date Johnson Rodriguez MD [address] [place] [address] PCP - General Pediatrics 11/17/21 Zina Rizo, AJ, OPTICAL STORE MANAGER #[address] [address] Nurse Practitioner Advanced Practice Nurse 06/24/22 Heather Oliva APRN, TRANSPORTATION SERVICES REPRESENTATIVE [address] [place] [address] Nurse Practitioner Advanced Practice Nurse 12/22/21 Zina Rizo, AJ, OPTICAL STORE MANAGER #[address] [address] Nurse Practitioner Advanced Practice Nurse 01/06/23 Silvana Brown APRN, OPTICAL STORE MANAGER [address] [place] [address] Nurse Practitioner Advanced Practice Nurse 07/14/22 documented as of this encounter
--- OUTSIDE RECORDS SUMMARY | 2024-07-25 08:57 | XMS_ITS | Encounter Summary ---
Author Organization [facility] Healthcare Address [address] [place] [address] Care Team Providers Care Food Products Sales Representative Name Role Phone Johnson Rodriguez MD Primary Care Provide r Lucille Hernandez RN Unavailable Unavailab le Encounter Details Date Type Department Care Team (Late st Contact Info) Description 08/10/2023 Telephone [facility] at the [place] for Advanced Medicine [address] [facility] Advanced Medicine [address] [place], [place] [phone] Cynthia Nava MD [address] [facility] [phone] [place] [address] Social History Tobacco Use Types [...] on file Legal Sex Female 12:26 AM WEB APPLICATIONS ARCHITECT Gender Identity Not on file Sexual Orientation Not on file documented as of this encounter Plan of Treatment Not on file documented as of this encounter Goals Goal Patient Goal Type Associated Problems Recent Progress Patient-Stated? Author CCM Chronic Pain Care Plan Chronic Care Management Worsening( 12:30 PM WEB APPLICATIONS ARCHITECT) No Linda Crowell Note: Problem: Chronic Pain Goals: 1. Minimize further functional decline 2. Maximize quality of life 3. Control pain Strategies: - Activity/exercise program recommendation - Conservative stepwise pain medicine strategy with multi-disciplinary approach - Recommend healthy lifestyle strategies and compensatory methods as needed documented as of this encounter Visit Diagnoses Not on filedocumented in this encounter Care Teams Food Products Sales Representative Relationship Specialty Start Date End Date Johnson Rodriguez MD [address] [place] [address] PCP - General 07/29/16 Lucille Hernandez, RN Registered Nurse 04/08/19 documented as of this encounter
--- OUTSIDE RECORDS SUMMARY | 2024-07-25 08:57 | XMS_ITS | Encounter Summary ---
Author Organization [facility] Address [address] [place] [address] Phone Care Team Providers Care Jumpbasting Canvas Baster Name Role Phone Johnson Rodriguez MD Primary Care Provider +1- [phone] Zina Rizo APRN, QUILLER RUNNER Unavailable +1- [phone] Heather Oliva POULTRY BARN MANAGER, ELECTRICAL TEST TECHNICIAN Unavailable + [phone] Zina Rizo APRN, QUILLER RUNNER Unavailable Silvana Brown POULTRY BARN MANAGER, QUILLER RUNNER Unavailable Reason for Visit * Reason Comments Medication Refill Encounter Details Date Type Department Care Team (Late st Contact Info) Description 12/26/2022 Refill [facility] - Neurology [facility] #2 [place] [address] Heather Oliva POULTRY BARN MANAGER, ELECTRICAL TEST TECHNICIAN #2 [place] [address] Medication Refill Social History Tobacco Use Types [...] Dept 10/26/22 Office Visit Heather Oliva APRN, ELECTRICAL TEST TECHNICIAN [facility] Neurology [facility] [address] 07/26/22 Office Visit Heather Oliva APRN, [facility] Neu[facility] [address] 04/26/22 Office Visit Heather Oliva APRN, [facility] Showing recent visits within past 365 days and meeting all other requirements Future Appointments Date Type Provider Dept 01/06/23 Appointment Dago Land MD [facility] Neurology [facility] [address] 01/27/23 Appointment Heather Oliva APRN [facility] Showing future appointments within next 90 [...] 10/26/22 Office Visit Heather Oliva APRN, [facility] 07/26/22 Office Visit Heather Oliva APRN, [facility] Neu[facility] 04/26/22 Office Visit Heather Oliva APRN, [facility] Showing recent visits within past 365 days and meeting all other requirements Future Appointments Date Type Provider Dept 01/06/23 Appointment Dago Land MD [facility] 01/27/23 Appointment Heather Oliva APRN, [facility] Showing future appointments within next 90 days and meeting all other requirements documented in this encounter Plan of Treatment Upcoming Encounters Date Type Department Care Team (Late st Contact Info) Description 01/20/2025 2:00 PM CDT Office Visit [facility] - Pulmonology & Sleep Medicine [facility] [address] [place] [address] Zina Rizo APRN, JESSE [address] [address] documented as of this encounter Visit Diagnoses Not on filedocumented in this encounter Care Teams Jumpbasting Canvas Baster Relationship Specialty Start Date End Date Johnson Rodriguez MD [address] [place] [address] PCP - General Pediatrics 11/17/21 Zina Rizo APRN, JESSE #[address] [address] Nurse Practitioner Advanced Practice Nurse 06/24/22 Heather Oliva APRN, JOSE [address] [place] [address] Nurse Practitioner Advanced Practice Nurse 12/22/21 Zina Rizo, POULTRY BARN MANAGER, QUILLER RUNNER #[facility] [address] [address] Nurse Practitioner Advanced Practice Nurse 01/06/23 Silvana Brown APRN, QUILLER RUNNER [address]2 [place] [address] Nurse Practitioner Advanced Practice Nurse 07/14/22 documented as of this encounter
--- OUTSIDE RECORDS SUMMARY | 2024-07-25 08:57 | XMS_ITS | Encounter Summary ---
Author Organization [facility] Address [address] [place] [address] Phone Care Team Providers Care Commercial Litigation Paralegal Name Role Phone Johnson Rodriguez MD Primary Care Provider +1- [phone] Zina Rizo APRN, ROCKET ASSEMBLY OPERATOR Unavailable +1- [phone] Heather Oliva PLANT MACHINIST, MACHINE SHOP INSTRUCTOR Unavailable + [phone] Zina Rizo APRN, ROCKET ASSEMBLY OPERATOR Unavailable Silvana Brown PLANT MACHINIST, ROCKET ASSEMBLY OPERATOR Unavailable Reason for Visit * Reason Comments Medication Refill Encounter Details Date Type Department Care Team (Late st Contact Info) Description 01/26/2023 Refill [facility] - Neurology [facility] #2 [place] [address] Heather Oliva PLANT MACHINIST, MACHINE SHOP INSTRUCTOR [address] [place] [address] Medication Refill Social History Tobacco Use Types [...] Dept 01/06/23 Procedure Visit Dago Land MD [facility] Neurology [facility] 10/26/22 Office Visit Heather Oliva APRN, CNS [facility] Neurology [facility] 07/26/22 Office Visit Heather Oliva APRN, [facility] Neurology [facility] 04/26/22 Office Visit Heather Oliva APRN, CNS [facility] Showing recent visits within past 365 days and meeting all other requirements Future Appointments Date Type Provider Dept 01/27/23 Appointment Heather Oliva APRN [facility] Neurology [facility] [address] 04/07/23 Appointment Dago Land MD [facility] Neu[facility] Showing future appointments within next 90 days and meeting all other requirements documented in this encounter Plan of Treatment Upcoming Encounters Date Type Department Care Team (Late st Contact Info) Description 01/20/2025 2:00 PM CDT Office Visit [facility] - Pulmonology & Sleep Medicine - [place] [address] [place] [address] Zina Rizo APRN, ROCKET ASSEMBLY OPERATOR #[address] [address] documented as of this encounter Visit Diagnoses Diagnosis Seizures (HCC) Other convulsions documented in this encounter Care Teams Commercial Litigation Paralegal Relationship Specialty Start Date End Date Johnson Rodriguez MD [address] [place] [address] PCP - General Pediatrics 11/17/21 Zina Rizo APRN, ROCKET ASSEMBLY OPERATOR #[address] [address] Nurse Practitioner Advanced Practice Nurse 06/24/22 Heather Oliva APRN, MACHINE SHOP INSTRUCTOR [address] [place] [address] Nurse Practitioner Advanced Practice Nurse 12/22/21 Zina Rizo APRN, ROCKET ASSEMBLY OPERATOR #[address] [address] Nurse Practitioner Advanced Practice Nurse 01/06/23 Silvana Brown APRN, ROCKET ASSEMBLY OPERATOR [address]2 [place] [address] Nurse Practitioner Advanced Practice Nurse 07/14/22 documented as of this encounter
--- OUTSIDE RECORDS SUMMARY | 2024-07-25 08:57 | XMS_ITS | Encounter Summary ---
Author Organization [facility] Address [address] [place] [address] Phone Care Team Providers Care Flue Gas Analyst Name Role Phone Johnson Rodriguez MD Primary Care Provider [phone]- [phone] Zina Rizo APRN, MOLD SHOP SUPERVISOR Unavailable +1- [phone] Heather Oliva OCCUPATIONAL PSYCHOLOGIST, DIRECTOR FOOD SAFETY Unavailable + [phone] Zina Rizo APRN, MOLD SHOP SUPERVISOR Unavailable Silvana Brown OCCUPATIONAL PSYCHOLOGIST, MOLD SHOP SUPERVISOR Unavailable Reason for Visit * Reason Comments Medication Refill Encounter Details Date Type Department Care Team (Late st Contact Info) Description 11/25/2022 Refill [facility] - Neurology [facility] [address]2 [place] [address] Heather Oliva OCCUPATIONAL PSYCHOLOGIST, DIRECTOR FOOD SAFETY [address]2 [place] [address] Medication Refill Social History Tobacco Use Types [...] Dept 10/26/22 Office Visit Heather Oliva APRN, DIRECTOR FOOD SAFETY [facility] Neurology [facility] 07/26/22 Office Visit Heather Oliva APRN DIRECTOR FOOD SAFETY [facility] Neurology [facility] 04/26/22 Office Visit Heather Oliva APRN, [facility] Neurology [facility] 12/22/21 Office Visit Heather Oliva APRN, [facility] Showing recent visits within past 365 days and meeting all other requirements Future Appointments Date Type Provider Dept 01/27/23 Appointment Heather Oliva APRN, [facility] Showing future appointments within next 90 days and meeting all other requirements documented in this encounter Plan of Treatment Upcoming Encounters Date Type Department Care Team (Late st Contact Info) Description 01/20/2025 2:00 PM CDT [facility]ology & [facility] Medicine - [place] [address] [place] [address] Zina Rizo APRN, MOLD SHOP SUPERVISOR #[address] [address] documented as of this encounter Visit Diagnoses Diagnosis Chronic migraine w/o aura w/o status migrainosus, not intractable Chronic migraine without aura, without mention of intractable migraine without mention of status migrainosus documented in this encounter Care Teams Flue Gas Analyst Relationship Specialty Start Date End Date Johnson Rodriguez MD [address] [place] [address] PCP - General Pediatrics 11/17/21 Zina Rizo APRN, MOLD SHOP SUPERVISOR #[address] [address] Nurse Practitioner Advanced Practice Nurse 06/24/22 Heather Oliva APRN, DIRECTOR FOOD SAFETY [address] [place] [address] Nurse Practitioner Advanced Practice Nurse 12/22/21 Zina Rizo APRN, MOLD SHOP SUPERVISOR #[address] [address] Nurse Practitioner Advanced Practice Nurse 01/06/23 Silvana Brown APRN, MOLD SHOP SUPERVISOR [address]2 [place] [address] Nurse Practitioner Advanced Practice Nurse 07/14/22 documented as of this encounter
--- OUTSIDE RECORDS SUMMARY | 2024-07-25 08:58 | XMS_ITS | Encounter Summary ---
Author Organization [facility] Address [address] [place] [address] Phone Care Team Providers Care Non Destructive Testing Engineer Name Role Phone Johnson Rodriguez MD Primary Care Provider +1- [phone] Zina Rizo APRN, CYBER OPS PLANNER Unavailable +1- [phone] Heather Oliva INTERNAL COMMUNICATIONS INTERN, CUSTOMER SERVICE ATTENDANT Unavailable + [phone] Zina Rizo APRN, CYBER OPS PLANNER Unavailable Silvana Brown INTERNAL COMMUNICATIONS INTERN, CYBER OPS PLANNER Unavailable Reason for Visit * Reason Comments Medication Refill Encounter Details Date Type Department Care Team (Late st Contact Info) Description 02/24/2023 Refill [facility] - Neurology [facility] [address]2 [place] [address] Heather Oliva INTERNAL COMMUNICATIONS INTERN, CUSTOMER SERVICE ATTENDANT [address] [place] [address] Medication Refill Social History Tobacco Use Types [...] Dept 01/27/23 Office Visit Heather Oliva APRN CUSTOMER SERVICE ATTENDANT [facility] Neurology [facility] 01/06/23 Procedure Visit Dago Land MD [facility] Neurology [facility] 10/26/22 Office Visit Heather Oliva APRN, CNS [facility] 07/26/22 Office Visit Heather Oliva APRN, JOSE [facility] Neurology [facility] 04/26/22 Office Visit Heather Oliva APRN [facility] Neurology [facility] Showing recent visits within past 365 days and meeting all other requirements Future Appointments Date Type Provider Dept 04/04/23 Appointment Heather Oliva APRN CUSTOMER SERVICE ATTENDANT [facility] Neurology [facility] Showing future appointments within next 90 days and meeting all other requirements documented in this encounter Plan of Treatment Upcoming Encounters Date Type Department Care Team (Late st Contact Info) Description 01/20/2025 2:00 PM CDT Office Visit [facility] - Pulmonology & Sleep Medicine - [place] [address] [place] [address] Zina Rizo APRN, CYBER OPS PLANNER #[address] [address] documented as of this encounter Visit Diagnoses Not on filedocumented in this encounter Care Teams Non Destructive Testing Engineer Relationship Specialty Start Date End Date Johnson Rodriguez MD [address] [place] [address] PCP - General Pediatrics 11/17/21 Zina Rizo APRN, CYBER OPS PLANNER #[address] [address] Nurse Practitioner Advanced Practice Nurse 06/24/22 Heather Oliva APRN, CUSTOMER SERVICE ATTENDANT [address] [place] [address] Nurse Practitioner Advanced Practice Nurse 12/22/21 Zina Rizo APRN, CYBER OPS PLANNER #[address] [address] Nurse Practitioner Advanced Practice Nurse 01/06/23 Silvana Brown APRN, CYBER OPS PLANNER [address]2 [place] [address] Nurse Practitioner Advanced Practice Nurse 07/14/22 documented as of this encounter
--- OUTSIDE RECORDS SUMMARY | 2024-07-25 08:58 | XMS_ITS | Encounter Summary ---
Author Organization [facility] Address [address] [place] [address] Phone Care Team Providers Care Jammer Operator Name Role Phone Johnson Rodriguez MD Primary Care Provider [phone]- [phone] Zina Rizo APRN, SALES SUPPORT TECHNICIAN Unavailable +1- [phone] Heather Oliva STUDY COORDINATOR, WIND PROJECT MANAGER Unavailable +- [phone] Zina Rizo APRN, SALES SUPPORT TECHNICIAN Unavailable Silvana Brown STUDY COORDINATOR, SALES SUPPORT TECHNICIAN Unavailable Reason for Visit * Reason Comments Medication Refill Encounter Details Date Type Department Care Team (Late st Contact Info) Description 04/27/2023 Refill [facility] - Neurology [facility] #2 [place] [address] Heather Oliva STUDY COORDINATOR, WIND PROJECT MANAGER [address] [place] [address] Medication Refill Social History Tobacco Use Types [...] appropriate. Requested Prescriptions Pending Prescriptions Disp Refills [id number] (FIORICET, ESGIC) 50-325-40 MG Tablet [Pharmacy Med Name: [id number] 50-325-40] 15 Tablet Sig: TAKE ONE TABLET BY MOUTH EVERY FOUR HOURS NEEDED FOR HEADACHES OR MIGRAINE. Not Delegated - Butalbital Protocol Failed - 04/27/2023 9:44 AM Failed - This refill cannot be delegated; check utilization Passed - Visit with relevant provider in past 24 months or upcoming 90 days Recent Visits Date Type Provider Dept 01/27/23 Office Visit Heather Oliva APRN [facility] Neurology [facility] 01/06/23 Procedure Visit Dago Land MD [facility] Neurology [facility] 10/26/22 Office Visit Heather Oliva APRN, CNS [facility] Neurology [facility] 07/26/22 Office Visit Heather Oliva APRN [facility] Neurology [facility] 04/26/22 Office Visit Heather Oliva APRN, [facility] 12/22/21 Office Visit Heather Oliva APRN [facility] Neurology [facility] Showing recent visits within past 730 days and meeting all other requirements Future Appointments Date Type Provider Dept 05/31/23 Appointment Heather Oliva APRN, CNS [facility] Neu[facility] Showing future appointments within next 90 [...] Dept 01/27/23 Office Visit Heather Oliva APRN, [facility] Neurology [facility] 01/06/23 Procedure Visit Dago Land MD [facility] Neurology [facility] 10/26/22 Office Visit Heather Oliva APRN, JO[facility] 07/26/22 Office Visit Heather Oliva APRN, [facility] Showing recent visits within past 365 days and meeting all other requirements Future Appointments Date Type Provider Dept 05/31/23 Appointment Heather Oliva APRN, [facility] Showing future appointments within next 90 days and meeting all other requirements RINARY ATTENDANT documented in this encounter Plan of Treatment Upcoming Encounters Date Type Department Care Team (Late st Contact Info) Description 01/20/2025 2:00 PM CDT Office Visit [facility] - Pulmonology & Sleep Medicine [facility] #2 [place] [address] Zina Rizo APRN, SALES SUPPORT TECHNICIAN #[address] [address] documented as of this encounter Visit Diagnoses Diagnosis Chronic migraine w/o aura w/o status migrainosus, not intractable Chronic migraine without aura, without mention of intractable migraine without mention of status migrainosus documented in this encounter Care Teams Jammer Operator Relationship Specialty Start Date End Date Johnson Rodriguez MD [address] [place] [address] PCP - General Pediatrics 11/17/21 Zina Rizo APRN, SALES SUPPORT TECHNICIAN #[address] [address] Nurse Practitioner Advanced Practice Nurse 06/24/22 Heather Oliva APRN, WIND PROJECT MANAGER [address] [place] [address] Nurse Practitioner Advanced Practice Nurse 12/22/21 Zina Rizo APRN, SALES SUPPORT TECHNICIAN #[address] [address] Nurse Practitioner Advanced Practice Nurse 01/06/23 Silvana Brown APRN, SALES SUPPORT TECHNICIAN [address] [place] [address] Nurse Practitioner Advanced Practice Nurse 07/14/22 documented as of this encounter
--- OUTSIDE RECORDS SUMMARY | 2024-07-25 08:58 | XMS_ITS | Encounter Summary ---
Author Organization [facility] Address [address] [place] [address] Phone Care Team Providers Care Body Corporate Manager Name Role Phone Johnson Rodriguez MD Primary Care Provider +1- [phone] Zina Rizo APRN, ALLERGIST/IMMUNOLOGIST Unavailable +1- [phone] Heather Oliva APRN, DIETARY INTERNSHIP Unavailable + [phone] Zina Rizo APRN, ALLERGIST/IMMUNOLOGIST Unavailable Silvana Brown APRN, ALLERGIST/IMMUNOLOGIST Unavailable Reason for Visit * Reason Comments Medication Refill Encounter Details Date Type Department Care Team (Late st Contact Info) Description 04/27/2023 Refill [facility] - [place] #2 [place] [address] Silvana Brown APRN, ALLERGIST/IMMUNOLOGIST [address] [place] [address] Medication Refill Social History Tobacco Use Types [...] Denae Cameron RN - 04/27/2023 3:51 PM EDITOR Per nursing clinical judgement, provider to review [...] Visit Silvana Brown APRN, CNP [facility] [place] 11/08/22 Office Visit Silvana Brown APRN, CNP [facility] [place] 07/14/22 Office Visit Silvana Brown APRN, CNP [...] Visit Silvana Brown APRN, CNP [facility] [place] 11/08/22 Office Visit Silvana Brown APRN, CNP [facility] [place] 07/14/22 Office Visit Silvana Brown APRN, ALLERGIST/IMMUNOLOGIST [facility] [place] Showing recent visits within past 365 days and meeting all other requirements Future Appointments Date Type Provider Dept 06/28/23 Appointment Silvana Brown APRN, [facility] future appointments within next 90 days and meeting all other requirements OR documented in this encounter Plan of Treatment Upcoming Encounters Date Type Department Care Team (Late st Contact Info) Description 01/20/2025 2:00 PM CDT Office Visit [facility] - Pulmonology & Sleep Medicine - [place] [address] [place] [address] Zina Rizo APRN, ALLERGIST/IMMUNOLOGIST #[address] [address] documented as of this encounter Visit Diagnoses Diagnosis Epigastric pain Abdominal pain, epigastric documented in this encounter Care Teams Body Corporate Manager Relationship Specialty Start Date End Date Johnson Rodriguez MD [address] [place] [address] PCP - General Pediatrics 11/17/21 Zina Rizo APRN, JESSE #[address] [address] Nurse Practitioner Advanced Practice Nurse 06/24/22 Heather Oliva APRN, DIETARY INTERNSHIP #2 [place] [address] Nurse Practitioner Advanced Practice Nurse 12/22/21 Zina Rizo APRN, JESSE #[address] [address] Nurse Practitioner Advanced Practice Nurse 01/06/23 Silvana Brown APRN, ALLERGIST/IMMUNOLOGIST #[address] [place] [address] Nurse Practitioner Advanced Practice Nurse 07/14/22 documented as of this encounter
--- OUTSIDE RECORDS SUMMARY | 2024-07-25 08:58 | XMS_ITS | Encounter Summary ---
Author Organization [facility] Address [address] [place] [address] Phone Care Team Providers Care Therapeutic Consultant Name Role Phone Johnson Rodriguez MD Primary Care Provider +1- [phone] Zina Rizo APRN, INTERNET NETWORK SPECIALIST Unavailable +1- [phone] Heather Oliva EMERGENCY MEDICAL TECHNICIAN/DRIVER, OIL FIELD OPERATOR Unavailable + [phone] Zina Rizo APRN, INTERNET NETWORK SPECIALIST Unavailable Silvana Brown EMERGENCY MEDICAL TECHNICIAN/DRIVER, INTERNET NETWORK SPECIALIST Unavailable Reason for Visit * Reason Comments Medication Refill Encounter Details Date Type Department Care Team (Late st Contact Info) Description 03/20/2023 Refill [facility] - Neurology [facility] #2 [place] [address] Heather Oliva EMERGENCY MEDICAL TECHNICIAN/DRIVER, OIL FIELD OPERATOR [address] [place] [address] Medication Refill Social History Tobacco Use Types [...] Dept 01/27/23 Office Visit Heather Oliva APRN, [facility] Neurology [facility] 01/06/23 Procedure Visit Dago Land MD [facility] Neurology [facility] 10/26/22 Office Visit Heather Oliva APRN, JO[facility] [address] 07/26/22 Office Visit Heather Oliva APRN, [facility] 04/26/22 Office Visit Heather Oliva APRN, [facility] Showing recent visits within past 365 days and meeting all other requirements Future Appointments Date Type Provider Dept 05/31/23 Appointment Heather Oliva APRN, [facility] Showing future appointments within next 90 days and meeting all other requirements OSITY TESTER documented in this encounter Plan of Treatment Upcoming Encounters Date Type Department Care Team (Late st Contact Info) Description 01/20/2025 2:00 PM CDT Office Visit [facility] - Pulmonology & Sleep Medicine - [place] #2 [place] [address] Zina Rizo APRN, INTERNET NETWORK SPECIALIST [address] [address] documented as of this encounter Visit Diagnoses Diagnosis Chronic migraine w/o aura w/o status migrainosus, not intractable Chronic migraine without aura, without mention of intractable migraine without mention of status migrainosus documented in this encounter Care Teams Therapeutic Consultant Relationship Specialty Start Date End Date Johnson Rodriguez MD [address] [place] [address] PCP - General Pediatrics 11/17/21 Zina Rizo APRN, INTERNET NETWORK SPECIALIST #[address] [address] Nurse Practitioner Advanced Practice Nurse 06/24/22 Heather Oliva APRN, OIL FIELD OPERATOR [address] [place] [address] Nurse Practitioner Advanced Practice Nurse 12/22/21 Zina Rizo APRN, INTERNET NETWORK SPECIALIST #[address] [address] Nurse Practitioner Advanced Practice Nurse 01/06/23 Silvana Brown APRN, INTERNET NETWORK SPECIALIST #2 [place] [address] Nurse Practitioner Advanced Practice Nurse 07/14/22 documented as of this encounter
--- OUTSIDE RECORDS SUMMARY | 2024-07-25 08:58 | XMS_ITS | Encounter Summary ---
Author Organization [facility] Address [address] [place] [address] Phone Care Team Providers Care Bologna Lacer Name Role Phone Johnson Rodriguez MD Primary Care Provider +1- [phone] Zina Rizo APRN, CASH GRAIN FARMER Unavailable +1- [phone] Heather Oliva APRN, AMMUNITION STORAGE SUPERINTENDENT Unavailable + [phone] Zina Rizo APRN, CASH GRAIN FARMER Unavailable Silvana Brown APRN, CASH GRAIN FARMER Unavailable Reason for Visit * Reason Comments Medication Refill Encounter Details Date Type Department Care Team (Late st Contact Info) Description 05/27/2023 Refill [facility] - [facility] - [place] #2 [place] [address] Silvana Brown APRN, CASH GRAIN FARMER [address]2 [place] [address] Medication Refill Social History Tobacco Use Types [...] Denae Cameron RN - 05/29/2023 9:29 AM SVP RESEARCH AND STRATEGIC ANALYSIS Per nursing clinical judgement, provider to review [...] Visit Silvana Brown APRN, CNP [facility] 11/08/22 Office Visit Silvana Brown APRN, CNP [facility] [place] 07/14/22 Office Visit Silvana Brown APRN, CNP [facility] [place] Showing recent visits within past 365 days and meeting all other requirements Future Appointments Date Type Provider Dept 06/28/23 Appointment Silvana Brown APRN, CNP [facility] [place] Showing future appointments within next 90 days and meeting all other requirements RESEARCH AND STRATEGIC ANALYSIS documented in this encounter Plan of Treatment Upcoming Encounters Date Type Department Care Team (Late st Contact Info) Description 01/20/2025 2:00 PM CDT Office Visit [facility] - Pulmonology & Sleep Medicine - [place] [address]2 [place] [address] Zina Rizo APRN, CASH GRAIN FARMER [address] [address] documented as of this encounter Visit Diagnoses Diagnosis Epigastric pain Abdominal pain, epigastric documented in this encounter Care Teams Bologna Lacer Relationship Specialty Start Date End Date Johnson Rodriguez MD [address] [place] [address] PCP - General Pediatrics 11/17/21 Zina Rizo APRN, CASH GRAIN FARMER #[address] [address] Nurse Practitioner Advanced Practice Nurse 06/24/22 Heather Oliva APRN, AMMUNITION STORAGE SUPERINTENDENT #2 [place] [address] Nurse Practitioner Advanced Practice Nurse 12/22/21 Zina Rizo APRN, CASH GRAIN FARMER #[address] [address] Nurse Practitioner Advanced Practice Nurse 01/06/23 Silvana Brown APRN, CASH GRAIN FARMER #2 [place] [address] Nurse Practitioner Advanced Practice Nurse 07/14/22 documented as of this encounter
--- OUTSIDE RECORDS SUMMARY | 2024-07-25 08:58 | XMS_ITS | Encounter Summary ---
Author Organization [facility] Address [address] [place] [address] Phone Care Team Providers Care Financial Recording Clerk Name Role Phone Johnson Rodriguez MD Primary Care Provider +1- [phone] Zina Rizo APRN, TOASTER OPERATOR Unavailable +1- [phone] Heather Oliva SUPERVISOR ACCOUNTING CLERKS, LEAD SOFTWARE ENGINEER Unavailable + [phone] Zina Rizo APRN, TOASTER OPERATOR Unavailable Silvana Brown SUPERVISOR ACCOUNTING CLERKS, TOASTER OPERATOR Unavailable Reason for Visit * Reason Comments Medication Refill Encounter Details Date Type Department Care Team (Late st Contact Info) Description 05/27/2023 Refill [facility] - Neurology [facility] #2 [place] [address] Heather Oliva SUPERVISOR ACCOUNTING CLERKS, LEAD SOFTWARE ENGINEER #2 [place] [address] Medication Refill Social History Tobacco Use Types [...] Dept 01/27/23 Office Visit Heather Oliva APRN, LEAD SOFTWARE ENGINEER [facility] Neurology [facility] 01/06/23 Procedure Visit Dago Land MD [facility] Neurology [facility] 10/26/22 Office Visit Haether Oliva APRN, JOSE [facility] Neurology [facility] 07/26/22 Office Visit Heather Oliva APRN, [facility] Showing recent visits within past 365 days and meeting all other requirements Future Appointments Date Type Provider Dept 05/31/23 Appointment Heather Oliva APRN, JOSE [facility] Showing future appointments within next 90 days and meeting all other requirements ING CLERK documented in this encounter Plan of Treatment Upcoming Encounters Date Type Department Care Team (Late st Contact Info) Description 01/20/2025 2:00 PM CDT Office Visit [facility] - Pulmonology & Sleep Medicine - [place] [address] [place] [id number] Zina Rizo APRN, TOASTER OPERATOR #2 [facility] [address] [place] [address] documented as of this encounter Visit Diagnoses Diagnosis Chronic migraine w/o aura w/o status migrainosus, not intractable Chronic migraine without aura, without mention of intractable migraine without mention of status migrainosus documented in this encounter Care Teams Financial Recording Clerk Relationship Specialty Start Date End Date Johnson Rodriguez MD [address] [place] [address] PCP - General Pediatrics 11/17/21 Zina Rizo, AJ, TOASTER OPERATOR #[address] [address] Nurse Practitioner Advanced Practice Nurse 06/24/22 Heather Oliva APRN, LEAD SOFTWARE ENGINEER [address] [place] [address] Nurse Practitioner Advanced Practice Nurse 12/22/21 Zina Rizo, AJ, TOASTER OPERATOR #[address] [address] Nurse Practitioner Advanced Practice Nurse 01/06/23 Silvana Brown APRN, TOASTER OPERATOR #2 [place] [address] Nurse Practitioner Advanced Practice Nurse 07/14/22 documented as of this encounter
--- OUTSIDE RECORDS SUMMARY | 2024-07-25 08:59 | XMS_ITS | Clinical Summary ---
Author Organization [facility] Address [address] [place] [address] Care Team Providers Care Foundation Relations Manager Name Role Phone Unavailable Primary Care Provider [...]
--- OUTSIDE RECORDS SUMMARY | 2024-07-25 08:59 | XMS_ITS | Encounter Summary ---
Author Organization [facility] Address [address] [place] [address] Phone Care Team Providers Care Correctional Officer Lieutenant Name Role Phone Johnson Rodriguez MD Primary Care Provider [phone]- [phone] Zina Rizo APRN, CHRONOGRAPH OPERATOR Unavailable +1- [phone] Heather Oliva GLASSWORKER, DEVELOPMENTAL THERAPIST Unavailable + [phone] Zina Rizo APRN, CHRONOGRAPH OPERATOR Unavailable Silvana Brown GLASSWORKER, CHRONOGRAPH OPERATOR Unavailable Reason for Visit * Reason Comments Medication Refill Encounter Details Date Type Department Care Team (Late st Contact Info) Description 08/19/2022 Refill [facility] - Neurology [facility] #2 [place] [address] Heather Oliva GLASSWORKER, DEVELOPMENTAL THERAPIST [address]2 [place] [address] Medication Refill Social History Tobacco Use Types [...] Dept 07/26/22 Office Visit Heather Oliva APRN, DEVELOPMENTAL THERAPIST [facility] Neurology [facility] 04/26/22 Office Visit Heather Oliva APRN, [facility] Neurology [facility] [place] 12/22/21 Office Visit Heather Oliva APRN, [facility] Neurology [facility] Showing recent visits within past 365 days and meeting all other requirements Future Appointments Date Type Provider Dept 10/26/22 Appointment Heather Oliva APRN [facility] Neurology [facility] Showing future appointments within next 90 days and meeting all other requirements documented in this encounter Plan of Treatment Upcoming Encounters Date Type Department Care Team (Late st Contact Info) Description 01/20/2025 2:00 PM CDT Office Visit [facility] - [facility]monology & [facility] Medicine - [place] #2 [facility] [place] [address] Zina Rizo APRN, CHRONOGRAPH OPERATOR [address] [address] documented as of this encounter Visit Diagnoses Not on filedocumented in this encounter Care Teams Correctional Officer Lieutenant Relationship Specialty Start Date End Date Johnson Rodriguez MD [address] [place] [address] PCP - General Pediatrics 11/17/21 Zina Rizo APRN, CHRONOGRAPH OPERATOR #[address] [address] Nurse Practitioner Advanced Practice Nurse 06/24/22 Heather Oliva APRN, DEVELOPMENTAL THERAPIST #2 [place] [address] Nurse Practitioner Advanced Practice Nurse 12/22/21 Zina Rizo, AJ, CHRONOGRAPH OPERATOR #[address] [address] Nurse Practitioner Advanced Practice Nurse 01/06/23 Silvana Brown APRN, CHRONOGRAPH OPERATOR [address] [place] [address] Nurse Practitioner Advanced Practice Nurse 07/14/22 documented as of this encounter
--- OUTSIDE RECORDS SUMMARY | 2024-07-25 08:59 | XMS_ITS | Encounter Summary ---
Author Organization [facility] Address [address] [place] [address] Phone Care Team Providers Care Maintenance Supervisor 2Nd Shift Name Role Phone Johnson Rodriguez MD Primary Care Provider [phone]- [phone] Zina Rizo APRN, RUBBER COMPOUNDER Unavailable +1- [phone] Heather Oliva WIND POWER PROJECT MANAGER, AUTO PAINTER Unavailable + [phone] Zina Rizo APRN, RUBBER COMPOUNDER Unavailable Silvana Brown WIND POWER PROJECT MANAGER, RUBBER COMPOUNDER Unavailable Reason for Visit * Reason Comments Medication Refill Encounter Details Date Type Department Care Team (Late st Contact Info) Description 09/24/2022 Refill [facility] - Neurology [facility] #2 [place] [id number] Heather Oliva WIND POWER PROJECT MANAGER, AUTO PAINTER [address] [place] [address] Medication Refill Social History Tobacco Use Types [...] Dept 07/26/22 Office Visit Heather Oliva APRN, AUTO PAINTER [facility] Neurology [facility] 04/26/22 Office Visit Heather Oliva APRN, [facility] Neurology [facility] [place] 12/22/21 Office Visit Heather Oliva APRN, [facility] Neurology [facility] Showing recent visits within past 365 days and meeting all other requirements Future Appointments Date Type Provider Dept 10/26/22 Appointment Heather Oliva APRN, [facility] Neurology [facility] [place] Showing future appointments within next 90 days and meeting all other requirements documented in this encounter Plan of Treatment Upcoming Encounters Date Type Department Care Team (Late st Contact Info) Description 01/20/2025 2:00 PM CDT Office Visit [facility]monology & [facility] Medicine - [place] [facility] [place] [address] Zina Rizo APRN, RUBBER COMPOUNDER #[address] [address] documented as of this encounter Visit Diagnoses Diagnosis Seizures (HCC) Other convulsions documented in this encounter Care Teams Maintenance Supervisor 2Nd Shift Relationship Specialty Start Date End Date Johnson Rodriguez MD [address] [place] [address] PCP - General Pediatrics 11/17/21 Zina Rizo, AJ, RUBBER COMPOUNDER #[address] [address] Nurse Practitioner Advanced Practice Nurse 06/24/22 Heather Oliva APRN, AUTO PAINTER [address]2 [place] [address] Nurse Practitioner Advanced Practice Nurse 12/22/21 Zina Rizo, AJ, RUBBER COMPOUNDER #[address] [address] Nurse Practitioner Advanced Practice Nurse 01/06/23 Silvana Brown APRN, RUBBER COMPOUNDER [address]2 [place] [address] Nurse Practitioner Advanced Practice Nurse 07/14/22 documented as of this encounter
--- OUTSIDE RECORDS SUMMARY | 2024-07-25 08:59 | XMS_ITS | Encounter Summary ---
Author Organization [facility] Address [address] [place] [address] Care Team Providers Care Boiler Room Helper Name Role Phone Unavailable Primary Care Provider Unavailabl e Encounter Details Date Type Department Care Team (Latest Contact Info) Description 03/06/2018 Abstract [facility] , Kennedy Matute MD Social [...]
--- OUTSIDE RECORDS SUMMARY | 2024-07-25 08:59 | XMS_ITS | Referral Summary ---
Author Organization [facility] Address [address] [place] [address] Care Team Providers Care Group Sales Representative Name Role Phone Johnson Rodriguez MD Primary Care Provide r Lucille Hernandez RN Unavailable Unavailab le Encounters Date Type Department Care Team Description 07/23/2024 4:27 PM CDT - 07/23/2024 11:59 PM CDT Hospital Encounter [facility] [address] [place] [address] Right ear pain Discharge Disposition: Discharge to home or self care 07/22/2024 Telephone [facility] [address] [place] [address] Nalepa, Catie D. 07/16/2024 Orders Only [facility] at the [facility] Advanced Medicine [facility] [address] [place] [address] Cynthia Nava MD Presence of intrathecal pump (Primary Dx); S/P insertion of intrathecal pump; Chronic pancreatitis, unspecified pancreatitis type (HCC); Chronic bilateral low back pain, unspecified whether sciatica present; Chronic use of opiate drug for therapeutic purpose 07/12/2024 10:00 AM CDT Office Visit [facility] - [facility] [address] [facility] [address]th [place] [address] [place] [address] Eulalia Parnell PA Right ear pain (Primary Dx); Tinnitus, bilateral; Sensorineural hearing loss (SNHL) of both ears 07/12/2024 9:15 AM CDT Procedure visit [facility] Otolaryngology [address] [place] [address] [address]th [place] [address] [place] [address] Jeana Alfred Au.D. Right ear pain (Primary Dx) 06/20/2024 11:58 AM MOLD CONSTRUCTION SUPERVISOR - 06/20/2024 11:59 PM MOLD CONSTRUCTION SUPERVISOR Hospital Encounter [facility] at the [address] [place] [address] Cynthia Nava MD Chronic abdominal pain (Primary Dx); S/P insertion of intrathecal pump; Chronic use of opiate drug for therapeutic purpose; Chronic pancreatitis, unspecified pancreatitis type (HCC) Discharge Disposition: Discharge to home or self care 06/18/2024 Telephone [facility] at the [address] [place] [address] Cynthia Nava MD [facility] Preprocedure 06/12/2024 Telephone [facility] at the [facility] Medicine [address] [place] [address] Medicine [address] [place] [address] Cynthia Nava MD pain pump confirmation call 06/07/2024 Telephone [facility]) - [facility] [address] [place] [address] 11th [place] [address] [place] [address] Kaitlynn Haney, 05/29/2024 Orders Only [facility] at [facility] [address] [place] [address] Cynthia Nava MD Chronic use of opiate drug for therapeutic purpose (Primary Dx); S/P insertion of intrathecal pump 05/22/2024 2:34 PM MOLD CONSTRUCTION SUPERVISOR - 05/22/2024 11:59 PM MOLD CONSTRUCTION SUPERVISOR Hospital Encounter [facility] at the [address] [place] [address] Cynthia Nava MD Myalgia (Primary Dx); Neck pain; Chronic use of opiate drug for therapeutic purpose Discharge Disposition: Discharge to home or self care from Last 3 Months Allergies Active Allergy Reactions Criticality Noted Date Comments Celecoxib Hives,Itching Medium Medications ALPRAZolam (XANAX) 0.5 mg tablet take 1 tablet by oral route every day 0 0 06/08/19 17 Active Additional Information Patient taking differently:0.5 mgoral 2 times daily, Reported on 07/12/2024 morphine sulfate/PF (MORPHINE, PF,) 150 mg/30 mL patient control.analges ia soln Infuse into a venous catheter. Active carisoprodol (SOMA) 350 mg tabletIndicatio ns:Muscle Spasm Take 1 tablet (350 mg total) by mouth 3 (three) times a day as needed for muscle spasms 0 10/17/19 18 Active naloxone (NARCAN) 4 mg/actuation spray,non-aeros ol Administer 1 spray into affected nostril(s) as needed for opioid reversal Call 911. Repeat every 3 minutes prn if no or minimal response. 1 each 04/05/20 21 Active ibandronate (BONIVA) 150 mg tablet 03/23/20 22 Active timolol (TIMOPTIC) 0.5 % ophthalmic solution 07/13/19 23 Active lacosamide (VIMPAT) 100 mg tablet 09/29/19 23 Active butalbital-acet aminophen-caffe ine (ESGIC) 50-325-40 mg per tablet Take 1 tablet by mouth every 4 (four) hours as needed for headaches Active Trulance 3 mg tablet 02/18/20 23 Active latanoprost (XALATAN) 0.005 % ophthalmic solution 03/07/20 23 Active omeprazole (PriLOSEC) 40 mg capsule Take 1 capsule (40 mg total) by mouth daily 03/29/20 23 Active sodium chloride 3 % nebulizer solutionIndicat ions:Bronchiect asis without complication (HCC) Take 4 mL by nebulization as needed for cough 240 mL 5 06/12/19 24 Active topiramate (TOPAMAX) 200 mg tablet 07/24/19 24 Active traZODone (DESYREL) 100 mg tablet 08/29/19 24 Active carBAMazepine (TEGretol) 200 mg tablet 01/21/20 24 Active Qulipta 30 mg tablet Take 30 mg by mouth 04/16/20 24 Active ketorolac (TORADOL) 10 mg tablet Take 1 tablet (10 mg total) by mouth every 6 (six) hours as needed 04/04/20 24 Active propranoloL (INDERAL) 40 mg tablet Take 1 tablet (40 mg total) by mouth 2 (two) times a day 04/10/20 24 Active ondansetron (ZOFRAN) 8 mg tablet 06/05/19 25 Active HYDROcodone-dean taminophen (NORCO) 10-325 mg per tablet TAKE 1 TABLET BY MOUTH EVERY 6 (SIX) HOURS NEEDED FOR PAIN 45 tablet 07/03/19 25 Active HYDROcodone-dean taminophen (NORCO) 10-325 mg per tablet Take 1 tablet by mouth every 6 (six) hours as needed for pain 45 tablet 04/05/20 24 2024 Discontinued Active Problems Problem Noted Date Diagnosed Date Right ear pain 07/12/2024 Tinnitus, bilateral 07/12/2024 Sensorineural hearing loss (SNHL) of both ears 0 07/12/2024 Myalgia 05/22/2024 S/P insertion of intrathecal pump 03/29/2023 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 Drug-induced constipation 08/08/2018 Chronic use of opiate drug for therapeutic purpo se 06/15/2018 Chronic abdominal pain 03/28/2018 Presence of intrathecal pump 01/08/2018 Chronic bilateral low back pain 12/27/2017 DDD (degenerative disc disease), lumbar 12/28/19 18 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 02/17/2017 Mid back pain 08/11/2016 Seizure disorder 06/08/2016 Overview (08/05/2016): Seizure disorder Disease due [...] Never smoked tobacco 04/14/2010 Systemic lupus erythematosus 07/15/2009 Overview (02/03/2020): Lupus Chronic pancreatitis 07/15/2009 Overview (02/03/2020): Chronic pancreatitis Anxiety 07/15/2009 Encounter for preventive health examination 08/29 Resolved Problems Problem Noted Date Diagnosed Date Resolved Date Chronic pain 06/08/2016 06/01/2022 Overview (08/05/2016): Chronic pain Immunizations Immunization Administration Dates Next Due Immune Globulin, Intravenous [...] on file Legal Sex Female 12:26 AM MOLD CONSTRUCTION SUPERVISOR Gender Identity Not on file Sexual Orientation Not on file Last Filed Vital Signs Vital Sign Reading Time Taken Comments Blood Pressure 136/81 07/12/2024 10:05 AM CDT Pulse 76 07/12/2024 10:05 AM CDT Temperature 36.5 C (97.7 F) 06/20/2024 12:03 PM MOLD CONSTRUCTION SUPERVISOR Respiratory Rate 8 06/20/2024 12:03 PM MOLD CONSTRUCTION SUPERVISOR Oxygen Saturation 100% 06/20/2024 12:03 PM MOLD CONSTRUCTION SUPERVISOR Inhaled Oxygen Concentration - - Weight 54.9 kg (121 lb) 07/12/2024 10:05 AM CDT Height 160 cm (5' 3 ) 07/12/2024 10:05 AM CDT Body Mass Index 21.43 07/12/2024 10:05 AM CDT Plan of Treatment Not on file Goals Goal Patient Goal Type Associated Problems Recent Progress Patient-Stated? Author CCM Chronic Pain Care Plan Chronic Care Management Worsening( 12:30 PM MOLD CONSTRUCTION SUPERVISOR) No Linda Crowell Note: Problem: Chronic Pain Goals: 1. Minimize further functional decline 2. Maximize quality of life 3. Control pain Strategies: - Activity/exercise program recommendation - Conservative stepwise pain medicine strategy with multi-disciplinary approach - Recommend healthy lifestyle strategies and compensatory methods as needed Medical Devices Implanted Type Area Forest Economist Device Identifier Shelf Expiration Date Model / Serial / Lot Medtronic Neuro 8637-20 Synchromed Ii .78in [place] Filter Mesh Pouch Programmable - [id number] - [id number] Implanted:Qty: 1 on 04/05/2021 by Cynthia Nava MD at [facility] [employer] 08/12/2022 8637-20 / [id number] / Explanted Type Area Forest Economist Device Identifier Shelf Expiration Date Model / Serial / Lot Intrathecal Pain Pump- 5 Implanted: by Unknown, Notinfile (Quantity not on file) Intrathecal Pain Pump Left: Abdomen Medtronic Neuro 8637-40 SYNCHROMED II / [id number] / Description:Morphine pain pu mp Pt knows the pump must be checked post MRI exams Procedures Procedure Name Priority Date/Time Associated Diagnosis Comments CT TEMPORAL BONES WO CONTRAST Schedule Routine, Read Routine (OP Routine) 07/23/2024 4:57 PM CDT Right ear pain AUDBASE RESULTS 07/12/2024 9:03 AM CDT from Last 3 Months Results * CT Temporal Bones WO Contrast [...] Lloyd Cao M.D. MM: MM Report ID: [id number] Reading Location: [place] [address] Procedure Note Lloyd Cao MD - 07/24/2024 [...] Lloyd Cao M.D. MM: MM Report ID: [id number] Reading Location: [place] [address] PROCEDURES Final Result * AudBase Results (07/12/2024 9:03 AM CDT) Provider Scanning AUDIOLOGY SERVICES ORDERABLES Final Result from Last 3 Months Insurance MEDICARE [facility] OPEN ACCESS MEDICARE MEDICARE MEDICARE for[MD] OPEN ACCESS Care Teams Group Sales Representative Relationship Specialty Start Date End Date Johnson Rodriguez MD [address] [place] [address] PCP - General 07/29/16 Lucille Hernandez, RN Registered Nurse 04/08/19
--- OUTSIDE RECORDS SUMMARY | 2024-07-25 08:59 | XMS_ITS | Encounter Summary ---
Author Organization [facility] Address [address] [place] [address] Phone Care Team Providers Care Model Maker Firearms Name Role Phone Johnson Rodriguez MD Primary Care Provider [phone]- [phone] Zina Rizo APRN, AUTOMOTIVE CENTER MANAGER Unavailable +1- [phone] Heather Oliva APRN, CUTTER BRAKE LINING Unavailable + [phone] Zina Rizo APRN, AUTOMOTIVE CENTER MANAGER Unavailable [phone] Silvana Brown APRN, AUTOMOTIVE CENTER MANAGER Unavailable Reason for Visit * Reason Comments Medication Refill Encounter Details Date Type Department Care Team (Late st Contact Info) Description 07/13/2024 Refill [facility] - [place] #2 [place] [address] Silvana Brown APRN, AUTOMOTIVE CENTER MANAGER #[address] [place] [address] Medication Refill Social History Tobacco Use Types [...] AM CDT Medication [facility] and [facility] medication standing order for pediatric and adult patients. documented in this encounter Plan of Treatment Upcoming Encounters Date Type Department Care Team (Late st Contact Info) Description 01/20/2025 2:00 PM CDT Office Visit [facility] - Pulmonology & Sleep Medicine - [place] #[address] [place] [address] Zina Rizo APRN, AUTOMOTIVE CENTER MANAGER #[address] [address] documented as of this encounter Visit Diagnoses Diagnosis Epigastric pain Abdominal pain, epigastric documented in this encounter Care Teams Model Maker Firearms Relationship Specialty Start Date End Date Johnson Rodriguez MD [address] [place] [address] PCP - General Pediatrics 11/17/21 Zina Rizo APRN, AUTOMOTIVE CENTER MANAGER #[address] [address] Nurse Practitioner Advanced Practice Nurse 06/24/22 Heather Oliva APRN, CUTTER BRAKE LINING #2 [place] [address] Nurse Practitioner Advanced Practice Nurse 12/22/21 Zina Rizo APRN, [place] #[address] [address] Nurse Practitioner Advanced Practice Nurse 01/06/23 Silvana Brown APRN, AUTOMOTIVE CENTER MANAGER [address] [place] [address] Nurse Practitioner Advanced Practice Nurse 07/14/22 documented as of this encounter
--- OUTSIDE RECORDS SUMMARY | 2024-07-25 08:59 | XMS_ITS | Encounter Summary ---
Author Organization [facility] Address [address] [place] [address] Phone Care Team Providers Care Manufacturing Manager Name Role Phone Johnson Rodriguez MD Primary Care Provider +1- [phone] Zina Rizo APRN, PLANTING MATERIAL UNLOADER Unavailable +1- [phone] Heather Oliva APRN, CASINO INVESTIGATOR Unavailable + [phone] Zina Rizo APRN, PLANTING MATERIAL UNLOADER Unavailable Silvana Brown APRN, PLANTING MATERIAL UNLOADER Unavailable Reason for Visit * Reason Comments Medication Refill Encounter Details Date Type Department Care Team (Late st Contact Info) Description 06/29/2023 [facility]ill [facility]ology - [place] [address] [place] [address] Silvana Brown APRN, PLANTING MATERIAL UNLOADER [address] [place] [address] Medication Refill Social History Tobacco Use Types [...] Denae Cameron RN - 07/04/2023 10:32 AM THERAPY TEACHER Per nursing clinical judgement, provider to review [...] Visit Silvana Brown APRN, CNP [facility] [place] 11/08/22 Office Visit Silvana Brown APRN, [facility] [place] 07/14/22 Office Visit Silvana Brown APRN, [facility] [place] Showing recent visits within past 365 days and meeting all other requirements Future Appointments No visits were found meeting these conditions. Showing future appointments within next 90 days and meeting all other requirements APY TEACHER documented in this encounter Plan of Treatment Upcoming Encounters Date Type Department Care Team (Late st Contact Info) Description 01/20/2025 2:00 PM CDT [facility] Visit [facility] - Pulmonology & [facility] Medicine - [place] [address] [place] [address] Zina Rizo APRN, PLANTING MATERIAL UNLOADER #[address] [address] documented as of this encounter Visit Diagnoses Diagnosis Epigastric pain Abdominal pain, epigastric documented in this encounter Care Teams Manufacturing Manager Relationship Specialty Start Date End Date Johnson Rodriguez MD [address] [place] [address] PCP - General Pediatrics 11/17/21 Zina Rizo APRN, PLANTING MATERIAL UNLOADER #[address] [address] Nurse Practitioner Advanced Practice Nurse 06/24/22 Heather Oliva APRN, CASINO INVESTIGATOR [address]2 [place] [address] Nurse Practitioner Advanced Practice Nurse 12/22/21 Zina Rizo APRN, PLANTING MATERIAL UNLOADER #[address] [address] Nurse Practitioner Advanced Practice Nurse 01/06/23 Silvana Brown APRN, PLANTING MATERIAL UNLOADER [address]2 [place] [address] Nurse Practitioner Advanced Practice Nurse 07/14/22 documented as of this encounter
--- OUTSIDE RECORDS SUMMARY | 2024-07-25 08:59 | XMS_ITS | Encounter Summary ---
Author Organization [facility] Address [address] [place] [address] Phone Care Team Providers Care Production Welding Supervisor Name Role Phone Johnson Rodriguez MD Primary Care Provider +1- [phone] Zina Rizo APRN, SOFTWARE EDUCATOR Unavailable +1- [phone] Heather Oliva HUMAN RESOURCES PROJECT MANAGER, TEMPLATE CLERK Unavailable + [phone] Zina Rizo APRN, SOFTWARE EDUCATOR Unavailable Silvana Brown HUMAN RESOURCES PROJECT MANAGER, SOFTWARE EDUCATOR Unavailable Reason for Visit * Reason Comments Medication Refill Encounter Details Date Type Department Care Team (Late st Contact Info) Description 06/28/2022 Refill [facility] - Neurology [facility] #[address] [place] [address] Heather Oliva HUMAN RESOURCES PROJECT MANAGER, TEMPLATE CLERK [address] [place] [address] Medication Refill Social History Tobacco Use Types [...] Coronavirus/COVID-19? No / Unsure 06/24/2022 11:28 AM SEASONING MIXER documented as of this encounter Miscellaneous Notes [...] Dept 04/26/22 Office Visit Heather Oliva APRN, [facility] [place] 12/22/21 Office Visit Heather Oliva APRN, [facility] [place] [facility] Showing recent visits within past 365 days and meeting all other requirements Future Appointments Date Type Provider Dept 07/26/22 Appointment Heather Oliva APRN, [facility] Neurology [place] Showing future appointments within next 90 days and meeting all other requirements ONING MIXER documented in this encounter Plan of Treatment Upcoming Encounters Date Type Department Care Team (Late st Contact Info) Description 01/20/2025 2:00 PM CDT [facility] Visit [facility] - Pulmonology & Sleep Medicine - [place] [address] [place] [address] Zina Rizo APRN, SOFTWARE EDUCATOR [address] [address] documented as of this encounter Visit Diagnoses Diagnosis Chronic migraine w/o aura w/o status migrainosus, not intractable Chronic migraine without aura, without mention of intractable migraine without mention of status migrainosus documented in this encounter Care Teams Production Welding Supervisor Relationship Specialty Start Date End Date Johnson Rodriguez MD [address] [place] [address] PCP - General Pediatrics 11/17/21 Zina Rizo APRN, SOFTWARE EDUCATOR #[address] [address] Nurse Practitioner Advanced Practice Nurse 06/24/22 Heather Oliva APRN, TEMPLATE CLERK [address] [place] [address] Nurse Practitioner Advanced Practice Nurse 12/22/21 Zina Rizo APRN, SOFTWARE EDUCATOR #[address] [address] Nurse Practitioner Advanced Practice Nurse 01/06/23 Silvana Brown APRN, SOFTWARE EDUCATOR [address] [place] [address] Nurse Practitioner Advanced Practice Nurse 07/14/22 documented as of this encounter
--- OUTSIDE RECORDS SUMMARY | 2024-07-25 08:59 | XMS_ITS | Encounter Summary ---
Author Organization [facility] Address [address] [place] [address] Phone Care Team Providers Care Basin Cleaner Name Role Phone Johnson Rodriguez MD Primary Care Provider +1- [phone] Zina Rizo APRN, SEED AND FERTILIZER SPECIALIST Unavailable +1- [phone] Heather Oliva SAFETY SITTER, SIDE LASTER STAPLE Unavailable + [phone] Zina Rizo APRN, SEED AND FERTILIZER SPECIALIST Unavailable Silvana Brown SAFETY SITTER, SEED AND FERTILIZER SPECIALIST Unavailable Reason for Visit * Reason Comments Medication Refill Encounter Details Date Type Department Care Team (Late st Contact Info) Description 08/26/2022 Refill [facility] - Neurology [facility] [address] [place] [address] Heather Oliva SAFETY SITTER, SIDE LASTER STAPLE [address] [place] [address] Medication Refill Social History Tobacco Use Types [...] Dept 07/26/22 Office Visit Heather Oliva APRN, [facility] Neurology [place] [facility] 04/26/22 Office Visit Heather Oliva APRN, [facility] Neurology [place] [facility] 12/22/21 Office Visit Heather Oliva APRN, [facility] Neurology [facility] Showing recent visits within past 365 days and meeting all other requirements Future Appointments Date Type Provider Dept 10/26/22 Appointment Heather Oliva APRN, [facility] [place] Showing future appointments within next 90 days and meeting all other requirements documented in this encounter Plan of Treatment Upcoming Encounters Date Type Department Care Team (Late st Contact Info) Description 01/20/2025 2:00 PM CDT Office Visit [facility] - Pulmonology & Sleep Medicine - [place] [address] [place] [address] Zina Rizo APRN, SEED AND FERTILIZER SPECIALIST [address] [address] documented as of this encounter Visit Diagnoses Diagnosis Chronic migraine w/o aura w/o status migrainosus, not intractable Chronic migraine without aura, without mention of intractable migraine without mention of status migrainosus documented in this encounter Care Teams Basin Cleaner Relationship Specialty Start Date End Date Johnson Rodriguez MD [address] [place] [address] PCP - General Pediatrics 11/17/21 Zina Rizo APRN, SEED AND FERTILIZER SPECIALIST #[address] [address] Nurse Practitioner Advanced Practice Nurse 06/24/22 Heather Oliva APRN, SIDE LASTER STAPLE [address] [place] [address] Nurse Practitioner Advanced Practice Nurse 12/22/21 Zina Rizo APRN, SEED AND FERTILIZER SPECIALIST #[address] [address] Nurse Practitioner Advanced Practice Nurse 01/06/23 Silvana Brown APRN, SEED AND FERTILIZER SPECIALIST [address]2 [place] [address] Nurse Practitioner Advanced Practice Nurse 07/14/22 documented as of this encounter
--- OUTSIDE RECORDS SUMMARY | 2024-07-25 08:59 | XMS_ITS | Encounter Summary ---
Author Organization [facility] Address [address] [place] [address] Phone Care Team Providers Care Merchandising Team Lead Name Role Phone Johnson Rodriguez MD Primary Care Provider +1- [phone] Zina Rizo APRN, BUSINESS SYSTEM MANAGER Unavailable +1- [phone] Heather Oliva COW WASHER, AIRPORT OPERATIONS CREW MEMBER Unavailable + [phone] Zina Rizo APRN, BUSINESS SYSTEM MANAGER Unavailable [phone] Silvana Brown COW WASHER, BUSINESS SYSTEM MANAGER Unavailable Reason for Visit * Reason Comments Medication Refill Encounter Details Date Type Department Care Team (Late st Contact Info) Description 07/24/2023 Refill [facility] - Neurology [facility] [address] [place] [address] Heather Oliva COW WASHER, AIRPORT OPERATIONS CREW MEMBER [address] [place] [address] Medication Refill Social History Tobacco Use Types [...] Dept 05/31/23 Office Visit Heather Oliva APRN, [facility] Neurology [facility] 01/27/23 Office Visit Heather Oliva APRN, [facility] Neurology [facility] 01/06/23 Procedure Visit Dago Land MD [facility] Neurology [facility] 10/26/22 Office Visit Heather Oliva APRN, [facility] Neurology [facility] 07/26/22 Office Visit Heather Oliva APRN, [facility] Showing recent visits within past 365 days and meeting all other requirements Future Appointments Date Type Provider Dept 08/01/23 Appointment Heather Oliva APRN, [facility] Showing future appointments within next 90 days and meeting all other requirements documented in this encounter Plan of Treatment Upcoming Encounters Date Type Department Care Team (Late st Contact Info) Description 01/20/2025 2:00 PM CDT Office Visit [facility] - Pulmonology & Sleep Medicine - [place] [address] [place] [address] Zina Rizo APRN, BUSINESS SYSTEM MANAGER #[address] [address] documented as of this encounter Visit Diagnoses Not on filedocumented in this encounter Care Teams Merchandising Team Lead Relationship Specialty Start Date End Date Johnson Rodriguez MD [address] [place] [address] PCP - General Pediatrics 11/17/21 Zina Rizo, AJ, BUSINESS SYSTEM MANAGER #[address] [address] Nurse Practitioner Advanced Practice Nurse 06/24/22 Heather Oliva APRN, AIRPORT OPERATIONS CREW MEMBER [address] [place] [address] Nurse Practitioner Advanced Practice Nurse 12/22/21 Zina Rizo, AJ, BUSINESS SYSTEM MANAGER #[address] [address] Nurse Practitioner Advanced Practice Nurse 01/06/23 Silvana Brown APRN, BUSINESS SYSTEM MANAGER [address] [place] [address] Nurse Practitioner Advanced Practice Nurse 07/14/22 documented as of this encounter
--- OUTSIDE RECORDS SUMMARY | 2024-07-25 08:59 | XMS_ITS | Encounter Summary ---
Author Organization [facility] Address [address] [place] [address] Phone Care Team Providers Care Sales Market Leader Name Role Phone Johnson Rodriguez MD Primary Care Provider [phone]- [phone] Zina Rizo APRN, PROPERTY LOSS INSURANCE CLAIM ADJUSTER Unavailable +1- [phone] Heather Oliva LICENSED CLINICIAN, SECURITY LEAD Unavailable +- [phone] Zina Rizo APRN, PROPERTY LOSS INSURANCE CLAIM ADJUSTER Unavailable Silvana Brown LICENSED CLINICIAN, PROPERTY LOSS INSURANCE CLAIM ADJUSTER Unavailable Reason for Visit * Reason Comments Medication Refill Encounter Details Date Type Department Care Team (Late st Contact Info) Description 07/27/2023 Refill [facility] - [facility] [address] [place] [address] Heather Oliva LICENSED CLINICIAN, SECURITY LEAD [address] [place] [address] Medication Refill Social History Tobacco Use Types [...] encounter Miscellaneous Notes * Telephone Encounter - Mevlina Reid RN - 07/27/2023 8:50 AM CDT [...] Dept 05/31/23 Office Visit Heather Oliva APRN, [facility] Neurology [facility] 01/27/23 Office Visit Heather Oliva APRN, [facility] Neurology [facility] 01/06/23 Procedure Visit Dago Land MD [facility] Neurology [facility] 10/26/22 Office Visit Heather Oliva APRN, [facility] Showing recent visits within past 365 days and meeting all other requirements Future Appointments Date Type Provider Dept 08/01/23 Appointment Heather Oliva APRN, [facility] Showing future appointments within next 90 days and meeting all other requirements documented in this encounter Plan of Treatment Upcoming Encounters Date Type Department Care Team (Late st Contact Info) Description 01/20/2025 2:00 PM CDT [facility] Visit [facility] - Pulmonology & Sleep Medicine - [place] [address] [place] [address] Zina Rizo APRN, PROPERTY LOSS INSURANCE CLAIM ADJUSTER #[address] [address] documented as of this encounter Visit Diagnoses Diagnosis Seizures (HCC) Other convulsions documented in this encounter Care Teams Sales Market Leader Relationship Specialty Start Date End Date Johnson Rodriguez MD [address] [place] [address] PCP - General Pediatrics 11/17/21 Zina Rizo APRN, PROPERTY LOSS INSURANCE CLAIM ADJUSTER #[address] [address] Nurse Practitioner Advanced Practice Nurse 06/24/22 Heather Oliva APRN, SECURITY LEAD [address] [place] [address] Nurse Practitioner Advanced Practice Nurse 12/22/21 Zina Rizo APRN, PROPERTY LOSS INSURANCE CLAIM ADJUSTER #[address] [address] Nurse Practitioner Advanced Practice Nurse 01/06/23 Silvana Brown APRN, PROPERTY LOSS INSURANCE CLAIM ADJUSTER #2 [place] [address] Nurse Practitioner Advanced Practice Nurse 07/14/22 documented as of this encounter
--- OUTSIDE RECORDS SUMMARY | 2024-07-25 08:59 | XMS_ITS | Encounter Summary ---
Author Organization [facility] Address [address] [place] [address] Phone Care Team Providers Care Senior Java Software Engineer Name Role Phone Johnson Rodriguez MD Primary Care Provider +1- [phone] Zina Rizo APRN, COMMUNITY ASSOCIATE Unavailable +1- [phone] Heather Oliva BATTERY CONTAINER INSPECTOR, SHELLAC POLISHER Unavailable + [phone] Zina Rizo APRN, COMMUNITY ASSOCIATE Unavailable Silvana Brown BATTERY CONTAINER INSPECTOR, COMMUNITY ASSOCIATE Unavailable Reason for Visit * Reason Comments Medication Refill Encounter Details Date Type Department Care Team (Late st Contact Info) Description 04/29/2022 Refill [facility] - Neurology [facility] [address]2 [place] [address] Heather Oliva BATTERY CONTAINER INSPECTOR, SHELLAC POLISHER [address] [place] [address] Medication Refill Social History Tobacco Use Types [...] Coronavirus/COVID-19? No / Unsure 04/26/2022 2:15 PM FACTORY MAINTENANCE MANAGER documented as of this encounter Plan of Treatment Upcoming Encounters Date Type Department Care Team (Late st Contact Info) Description 01/20/2025 2:00 PM CDT [facility] Visit [facility] - Pulmonology & Sleep Medicine - [place] [address] [place] [address] Zina Rizo APRN, COMMUNITY ASSOCIATE #[address] [address] documented as of this encounter Visit Diagnoses Diagnosis Chronic migraine w/o aura w/o status migrainosus, not intractable Chronic migraine without aura, without mention of intractable migraine without mention of status migrainosus documented in this encounter Care Teams Senior Java Software Engineer Relationship Specialty Start Date End Date Johnson Rodriguez MD [address] [place] [address] PCP - General Pediatrics 11/17/21 Zina Rizo APRN, COMMUNITY ASSOCIATE #[address] [address] Nurse Practitioner Advanced Practice Nurse 06/24/22 Heather Oliva APRN, SHELLAC POLISHER [address] [place] [address] Nurse Practitioner Advanced Practice Nurse 12/22/21 Zina Rizo APRN, COMMUNITY ASSOCIATE #[address] [address] Nurse Practitioner Advanced Practice Nurse 01/06/23 Silvana Brown APRN, COMMUNITY ASSOCIATE [address] [place] [address] Nurse Practitioner Advanced Practice Nurse 07/14/22 documented as of this encounter
--- OUTSIDE RECORDS SUMMARY | 2024-07-25 08:59 | XMS_ITS | Encounter Summary ---
Author Organization [facility] Address [address] [place] [address] Phone Care Team Providers Care Loader Helper Sorting Yard Name Role Phone Johnson Rodriguez MD Primary Care Provider +1- [phone] Zina Rizo APRN, CROWN POUNCER Unavailable +1- [phone] Heather Oliva LEATHER GRADER, BRINE PROCESS OPERATOR Unavailable + [phone] Zina Rizo APRN, CROWN POUNCER Unavailable Silvana Brown LEATHER GRADER, CROWN POUNCER Unavailable Reason for Visit * Reason Comments Medication Refill Encounter Details Date Type Department Care Team (Late st Contact Info) Description 10/26/2022 Refill [facility] - Neurology [facility] [address]2 [place] [address] Heather Oliva LEATHER GRADER, BRINE PROCESS OPERATOR [address] [place] [address] Medication Refill Social History Tobacco Use Types [...] Dept 07/26/22 Office Visit Heather Oliva APRN [facility] Neu[facility] 04/26/22 Office Visit Heather Oliva APRN [facility] 12/22/21 Office Visit Heather Oliva APRN, [facility] Showing recent visits within past 365 days and meeting all other requirements Today's Visits Date Type Provider Dept 10/26/22 Appointment Heather Oliva APRN [facility] Showing today's visits and meeting all other [...] Dept 07/26/22 Office Visit Heather Oliva APRN, BRINE PROCESS OPERATOR [facility] Neurology [facility] 04/26/22 Office Visit Heather Oliva APRN, [facility] Neurology [place] [facility] 12/22/21 Office Visit Heather Oliva APRN, BRINE PROCESS OPERATOR [facility] Neurology [place] [facility] Showing recent visits within past 365 days and meeting all other requirements Today's Visits Date Type Provider Dept 10/26/22 Appointment Heather Oliva APRN, [facility] Showing today's visits [...] Medical Group - Pulmonology & Sleep Medicine [facility] #[address] [place] [address] Zina Rizo APRN, CROWN POUNCER #[address] [address] documented as of this encounter Visit Diagnoses Diagnosis Seizures (HCC) Other convulsions documented in this encounter Care Teams Loader Helper Sorting Yard Relationship Specialty Start Date End Date Johnson Rodriguez MD [address] [place] [address] PCP - General Pediatrics 11/17/21 Zina Rizo APRN, CROWN POUNCER #[address] [address] Nurse Practitioner Advanced Practice Nurse 06/24/22 Heather Oliva APRN, CNS #[address] [place] [address] Nurse Practitioner Advanced Practice Nurse 12/22/21 Zina Rizo APRN, CROWN POUNCER #[address] [address] Nurse Practitioner Advanced Practice Nurse 01/06/23 Silvana Brown APRN, CROWN POUNCER [address] [place] [address] Nurse Practitioner Advanced Practice Nurse 07/14/22 documented as of this encounter
--- OUTSIDE RECORDS SUMMARY | 2024-07-25 08:59 | XMS_ITS | Clinical Summary ---
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 07/16/2024 Orders Only [facility] [place] [facility] Medicine [address] [place] [address] [address] [place] [address] Cynthia Nava MD Presence of intrathecal pump (Primary Dx); S/P insertion of intrathecal pump; Chronic pancreatitis, unspecified pancreatitis type (HCC); Chronic bilateral low back pain, unspecified whether sciatica present; Chronic use of opiate drug for therapeutic purpose 07/12/2024 10:00 AM CDT Office Visit [facility] ([facility]) - [facility] [address] [facility] 11th [place] [address] [place] [address] Eulalia Parnell PA Right ear pain (Primary Dx); Tinnitus, bilateral; Sensorineural hearing loss (SNHL) of both ears 07/12/2024 9:15 AM CDT Procedure visit [facility] Otolaryngology [address] [place] [address] 11th [place] [address] [place] [address] Jeana Alfred Au.D. Right ear pain (Primary Dx) 06/20/2024 11:58 AM [facility] - 06/20/2024 11:59 PM DINING CHAIR SEAT CUSHION TRIMMER Hospital Encounter [facility] [place] [facility] [address] [place] [address] [address] [place] [address] Cynthia Nava MD Chronic abdominal pain (Primary Dx); S/P insertion of intrathecal pump; Chronic use of opiate drug for therapeutic purpose; Chronic pancreatitis, unspecified pancreatitis type (HCC) Discharge Disposition: Discharge to home or self care 06/18/2024 Telephone [facility] the [address] [place] [address] Cynthia Nava MD PMC Preprocedure 06/12/2024 Telephone [facility] [place] [facility] Advanced Medicine [address] [place] [address] Cynthia Nava MD pain pump confirmation call 06/07/2024 Telephone [facility] ([facility]) - [facility] [address] [facility] [address] 11th [place] [address] [place] [address] Kaitlynn Haney, 05/29/2024 Orders Only [facility] Medicine [address] [facility] [address] [place] [address] Cynthia Nava MD Chronic use of opiate drug for therapeutic purpose (Primary Dx); S/P insertion of intrathecal pump 05/22/2024 2:34 PM DINING CHAIR SEAT CUSHION TRIMMER - 05/22/2024 11:59 PM DINING CHAIR SEAT CUSHION TRIMMER Hospital Encounter [facility] Medicine [address] [facility] Advanced Medicine [address] [place] [address] Cynthia Nava MD Myalgia (Primary Dx); Neck pain; Chronic use of opiate drug for therapeutic purpose Discharge Disposition: Discharge to home or self care from Last 3 Months Immunizations Immunization Administration Dates Next Due Immune [...] sided abdominal pain Lung disease Seizures (HCC) Sleep difficulties Migraines Autoimmune disease Lupus at age of 18 / in remission Nosebleed Tinnitus Anemia Off an on throughout my life Family History Medical History Relation Name Comments Anesthesia problems Child Son Severe P ONV, Combative Heart disease Maternal Grandmother Cardio vascular disease; Anesthesia problems Mother Darlyn Severe P ONV Breast cancer Mother Darlyn Cancer, breast ; RED 06/08/2016 - Onset 40s Cancer Mother Darlyn Esophageal cancer Mother Darlyn Cancer, es ophageal; Cause of : Cancer, esophageal Migraines Mother Darlyn Breast cancer Mother's Sister 1 #2 Cancer, b reast; Liver cancer Mother's Sister 1 #2 Cancer, li jeremie; Cause of : Cancer, liver Uterine cancer Mother's Sister 3 #1 Cancer, uterine; Relation Name Status Comments Child Son Alive Father Maternal Grandmother Mother Darlyn (Age 82) Mother's Sister 1 #2 Mother's [...] on file Legal Sex Female 12:26 AM DINING CHAIR SEAT CUSHION TRIMMER Gender Identity Not on file Sexual Orientation Not on file Obstetrics History Last Filed Vital Signs Vital Sign Reading Time Taken Comments Blood Pressure 136/81 07/12/2024 10:05 AM CDT Pulse 76 07/12/2024 10:05 AM CDT Temperature 36.5 C (97.7 F) 06/20/2024 12:03 PM DINING CHAIR SEAT CUSHION TRIMMER Respiratory Rate 8 06/20/2024 12:03 PM DINING CHAIR SEAT CUSHION TRIMMER Oxygen Saturation 100% 06/20/2024 12:03 PM DINING CHAIR SEAT CUSHION TRIMMER Inhaled Oxygen Concentration - - Weight 54.9 kg (121 lb) 07/12/2024 10:05 AM CDT Height 160 cm (5' 3 ) 07/12/2024 10:05 AM CDT Body Mass Index 21.43 07/12/2024 10:05 AM CDT Plan of Treatment Health Maintenance Due [...] Plan Chronic Care Management Worsening( 12:30 PM DINING CHAIR SEAT CUSHION TRIMMER) No Linda Crowell Note: Problem: Chronic Pain Goals: 1. Minimize further functional decline 2. Maximize quality of life 3. Control pain Strategies: - Activity/exercise program recommendation - Conservative stepwise pain medicine strategy with multi-disciplinary approach - Recommend healthy lifestyle strategies and compensatory methods as needed Medical Devices Implanted Type Area Director Funds Development Device Identifier Shelf Expiration Date Model / Serial / Lot Medtronic Neuro 8637-20 Synchromed Ii .78in [place] Filter Mesh Pouch Programmable - [id number] - [id number] Implanted:Qty: 1 on 04/05/2021 by Cynthia Nava MD at [facility] [employer] 08/12/2022 8637-20 / [id number] / Explanted Type Area Director Funds Development Device Identifier Shelf Expiration Date Model / Serial / Lot Intrathecal Pain Pump- 5 Implanted: by Unknown, Notinfile (Quantity not on file) Intrathecal Pain Pump Left: Abdomen Medtronic Neuro 8637-40 SYNCHROMED II / [id number] / Description:Morphine pain pu mp Pt knows [...] Lloyd Cao M.D. MM: MM Report ID: [id number] Reading Location: [id number] Procedure Note Lloyd Cao MD - 07/24/2024 [...] Lloyd Cao M.D. MM: MM Report ID: [id number] Reading Location: [place] [address] PROCEDURES Final Result * AudBase Results (07/12/2024 9:03 AM CDT) Provider Scanning AUDIOLOGY SERVICES ORDERABLES Final Result from Last 3 Months Insurance MEDICARE [employer] OPEN ACCESS MEDICARE MEDICARE MEDICARE FOR[facility]LY [facility] OPEN ACCESS Care Teams Agricultural Purchasing Agent Relationship Specialty Start Date End Date Johnson Rodriguez MD [address] [place] [address] PCP - General 07/29/16 Lucille Hernandez, RN Registered Nurse 04/08/19
--- OUTSIDE RECORDS SUMMARY | 2024-07-25 08:59 | XMS_ITS | Encounter Summary ---
Author Organization [facility] Address [address] [place] [address] Phone Care Team Providers Care Business Trainer Name Role Phone Johnson Rodriguez MD Primary Care Provider +1- [phone] Zina Rizo APRN, TRACTOR DRILL OPERATOR Unavailable Heather Oliva APRN, CRIMINAL RESEARCH SPECIALIST Unavailable +- [phone] Zina Rizo APRN, TRACTOR DRILL OPERATOR Unavailable Silvana Brown APRN, TRACTOR DRILL OPERATOR Unavailable Encounter Details Date Type Department Care Team (Late st Contact Info) Description 07/25/2024 [facility] [address] [place] [address] Dago Land MD [address] [place] [address] Social History Tobacco Use Types Packs/Day Years [...] encounter Miscellaneous Notes * Telephone Encounter - Aspen [place] CMA - 07/25/2024 8:16 AM CDT Patient sent message requesting an appt. Left message on recorder at 8:13 documented in this encounter Plan of Treatment Upcoming Encounters Date Type Department Care Team (Late st Contact Info) Description 01/20/2025 2:00 PM CDT Office Visit [facility] - Pulmonology & Sleep Medicine - [place] [address] [place] [address] Zina Rizo APRN, TRACTOR DRILL OPERATOR [address] [address] documented as of this encounter Visit Diagnoses Not on filedocumented in this encounter Care Teams Business Trainer Relationship Specialty Start Date End Date Johnson Rodriguez MD [address] [place] [address] PCP - General Pediatrics 11/17/21 Zina Rizo APRN, TRACTOR DRILL OPERATOR #[address] [address] Nurse Practitioner Advanced Practice Nurse 06/24/22 Heather Oliva APRN, CRIMINAL RESEARCH SPECIALIST [address] [place] [address] Nurse Practitioner Advanced Practice Nurse 12/22/21 Zina Rizo APRN, JESSE #[address] [address] Nurse Practitioner Advanced Practice Nurse 01/06/23 Silvana Brown APRN, TRACTOR DRILL OPERATOR [address] [place] [address] Nurse Practitioner Advanced Practice Nurse 07/14/22 documented as of this encounter
--- OUTSIDE RECORDS SUMMARY | 2024-07-25 08:59 | XMS_ITS | Encounter Summary ---
Author Organization [facility] Address [address] [place] [address] Phone Care Team Providers Care Credit Portfolio Manager Name Role Phone Johnson Rodriguez MD Primary Care Provider [phone]- [phone] Zina Rizo APRN, WALLPAPER PRINTER HELPER Unavailable +1- [phone] Heather Oliva TELETRAY OPERATOR, COATING MIXER SUPERVISOR Unavailable + [phone] Zina Rizo APRN, WALLPAPER PRINTER HELPER Unavailable Silvana Brown TELETRAY OPERATOR, WALLPAPER PRINTER HELPER Unavailable Reason for Visit * Reason Comments Medication Refill Encounter Details Date Type Department Care Team (Late st Contact Info) Description 02/25/2022 Refill [facility] - Neurology [facility] #[address] [place] [address] Heather Oliva TELETRAY OPERATOR, COATING MIXER SUPERVISOR [address] [place] [address] Medication Refill Social History Tobacco Use Types [...] Group - Pulmonology & Sleep Medicine - [place] [address] [place] [address] Zina Rizo APRN, WALLPAPER PRINTER HELPER #[address] [address] documented as of this encounter Visit Diagnoses Diagnosis Chronic migraine w/o aura w/o status migrainosus, not intractable Chronic migraine without aura, without mention of intractable migraine without mention of status migrainosus documented in this encounter Care Teams Credit Portfolio Manager Relationship Specialty Start Date End Date Johnson Rodriguez MD [address] [place] [address] PCP - General Pediatrics 11/17/21 Zina Rizo APRN, WALLPAPER PRINTER HELPER #[address] [address] Nurse Practitioner Advanced Practice Nurse 06/24/22 Heather Oliva APRN, COATING MIXER SUPERVISOR [address] [place] [address] Nurse Practitioner Advanced Practice Nurse 12/22/21 Zina Rizo, AJ, WALLPAPER PRINTER HELPER #[address] [address] Nurse Practitioner Advanced Practice Nurse 01/06/23 Silvana Brown APRN, WALLPAPER PRINTER HELPER [address] [place] [address] Nurse Practitioner Advanced Practice Nurse 07/14/22 documented as of this encounter
== END 2024-07-25 08:43 | disposition home or self-care (01) ==
LOC: CHSED 08:38
PROVIDERS: Emergency Provider Emergency Medicine; PCP Family Medicine
DX: S82.891A Other fracture of right lower leg, initial encounter for closed fracture (principal); X50.0XXA Overexertion from strenuous movement or load, initial encounter
CPT/HCPCS: 29515; 73610; 73630; 99284; L4350

== ENCOUNTER 2024-08-26 15:27 | Outpatient (CLI) | payer OTHER, MEDICARE, SELFPAY ==
--- NOTE | ~2024-08-26 | XR_ITS ---
Left Humerus Technique: AP and lateral views were obtained. Clinical History: Pain Findings: No fracture or dislocation is seen. Osseous alignment is anatomic. There is mild AC joint d egenerative change. Remaining visualized joint spaces are intact. Soft tissues are unremarkable. Impression: No acute abnormality. Mild AC joint degenerative change. Reviewed, dictated and finalized at location . Impression: No acute abnormality. Mild AC joint degenerative change.
--- NOTE | ~2024-08-26 | XR_ITS ---
Left Shoulder Technique: AP and scapular Y views were obtained. Clinical History: Pain Findings: No fracture or dislocation is seen. Osseous alignment is anatomic. The glenohumeral or join t is intact. There is mild AC joint degenerative change. Soft tissues are unremarkable. Impression: Mild AC joint degenerative change. Reviewed, dictated and finalized at location . Impression: Mild AC joint degenerative change.
--- OUTSIDE RECORDS SUMMARY | 2024-08-26 17:38 | XMS_ITS | Encounter Summary ---
Author Organization [facility] Healthcare Address [address] [place] [address] Care Team Providers Care Hrbp Name Role Phone Johnson Rodriguez MD Primary Care Provide r Lucille Hernandez RN Unavailable Unavailab le Encounter Details Date Type Department Care Team (Late st Contact Info) Description 08/21/2024 Orders Only [facility] [place] [facility] [address] [facility] Advanced Medicine [address] [place], [place] [id number] Cynthia Nava MD [address] [facility] [id number] [place], [place] [id number] Social History Tobacco Use Types Packs/Day Years [...] on file Legal Sex Female 12:26 AM LIVE GAMES DEALER Gender Identity Not on file Sexual Orientation Not on file documented as of this encounter Plan of Treatment Not on file documented as of this encounter Goals Goal Patient Goal Type Associated Problems Recent Progress Patient-Stated? Author CCM Chronic Pain Care Plan Chronic Care Management No change(08/22 1:21 PM CDT) No Linda Crowell Note: Problem: Chronic Pain Goals: 1. Minimize further functional decline 2. Maximize quality of life 3. Control pain Strategies: - Activity/exercise program recommendation - Conservative stepwise pain medicine strategy with multi-disciplinary approach - Recommend healthy lifestyle strategies and compensatory methods as needed documented as of this encounter Visit Diagnoses Not on filedocumented in this encounter Care Teams Hrbp Relationship Specialty Start Date End Date Johnson Rodriguez MD [address] [place] [address] PCP - General 07/29/16 Lucille Hernandez RN Registered Nurse 04/08/19 documented as of this encounter
--- OUTSIDE RECORDS SUMMARY | 2024-08-26 17:38 | XMS_ITS | Encounter Summary ---
Author Organization [facility] Healthcare Address [address] [place] [address] Care Team Providers Care Photoradio Operator Name Role Phone Johnson Rodriguez MD Primary Care Provide r Lucille Hernandez RN Unavailable Unavailab le Reason for Visit * Reason Onset Date Comments PUMP REFILL APPT 12/06/2019 PUMP REFILL APPT 12/23/2019 Encounter Details Date Type Department Care Team (Late st Contact Info) Description 12/06/2019 Telephone [facility] [place] [facility] [address] 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 Author CCM Chronic Pain Care Plan Chronic Care Management No change(08/22 1:21 PM CDT) Linda Hunter Note: Problem: Chronic Pain Goals: 1. Minimize further functional decline 2. Maximize quality of life 3. Control pain Strategies: - Activity/exercise program recommendation - Conservative stepwise pain medicine strategy with multi-disciplinary approach - Recommend healthy lifestyle strategies and compensatory methods as needed documented as of this encounter Visit Diagnoses Not on filedocumented in this encounter Care Teams Photoradio Operator Relationship Specialty Start Date End Date Johnson Rodriguez MD [address] [place] [address] PCP - General 07/29/16 Lucille Hernandez, RN Registered Nurse 04/08/19 documented as of this encounter
--- OUTSIDE RECORDS SUMMARY | 2024-08-26 17:38 | XMS_ITS | Encounter Summary ---
Author Organization [facility] Address [address] [place] [address] Phone Care Team Providers Care Literary Writer Name Role Phone Johnson Rodriguez MD Primary Care Provider [phone]- [phone] Zina Rizo APRN, HEDGE FUND PRINCIPAL Unavailable +1- [phone] Heather Oliva APRN, MEDICAL DEVICE ASSEMBLER Unavailable + [phone] iZna Rizo APRN, HEDGE FUND PRINCIPAL Unavailable Silvana Brown APRN, HEDGE FUND PRINCIPAL Unavailable Reason for Visit * Reason Comments Medication Refill Encounter Details Date Type Department Care Team (Late st Contact Info) Description 09/29/2023 Refill [facility] - [facility]enterology - [place] [address] [place] [address] Silvana Brown APRN, HEDGE FUND PRINCIPAL [address] [place] [address] Medication Refill Social History Tobacco Use Types [...] Visit Silvana Brown APRN, CNP [facility] [place] 03/29/23 Office Visit Silvana Brown APRN, CNP [facility] [place] 11/08/22 Office Visit Silvana Brown APRN, JESSE [facility] [place] Showing recent visits within past 365 days and meeting all other requirements Future Appointments No visits were found meeting these conditions. Showing future appointments within next 90 days and meeting all other requirements documented in this encounter Plan of Treatment Upcoming Encounters Date Type Department Care Team (Late st Contact Info) Description 11/05/2024 3:00 PM CDT Office Visit [facility] - Neurology - [place] [address] [place] [address] Heather Oliva APRN, MEDICAL DEVICE ASSEMBLER [address] [place] [address] 01/20/2025 2:00 PM CDT Office Visit [facility] - Pulmonology & Sleep Medicine - [place] [address] [place] [address] Zina Rizo APRN, HEDGE FUND PRINCIPAL [address] [address] documented as of this encounter Visit Diagnoses Diagnosis Epigastric pain Abdominal pain, epigastric documented in this encounter Care Teams Literary Writer Relationship Specialty Start Date End Date Johnson Rodriguez MD [address] [place] [address] PCP - General Pediatrics 11/17/21 Zina Rizo, AJ, HEDGE FUND PRINCIPAL #[address] [address] Nurse Practitioner Advanced Practice Nurse 06/24/22 Heather Oliva APRN, MEDICAL DEVICE ASSEMBLER [address] [place] [address] Nurse Practitioner Advanced Practice Nurse 12/22/21 Zina Rizo, AJ, HEDGE FUND PRINCIPAL #[address] [address] Nurse Practitioner Advanced Practice Nurse 01/06/23 Silvana Brown APRN, HEDGE FUND PRINCIPAL [address] [place] [address] Nurse Practitioner Advanced Practice Nurse 07/14/22 documented as of this encounter
--- OUTSIDE RECORDS SUMMARY | 2024-08-26 17:38 | XMS_ITS | Encounter Summary ---
Author Organization [facility] Healthcare Address [address] [place] [address] Care Team Providers Care Craft Artist Name Role Phone Johnson Rodriguez MD Primary Care Provide r Lucille Hernandez RN Unavailable Unavailab le Encounter Details Date Type Department Care Team (Late st Contact Info) Description 07/14/2021 Telephone [facility] [place] for [facility] Medicine [address] [facility] Advanced Medicine [address] [place], [place] [id number] Cynthia Nava MD [address] [facility] [phone] [place], [place] [id number] Social History Tobacco Use Types Packs/Day Years [...] on file Legal Sex Female 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
--- OUTSIDE RECORDS SUMMARY | 2024-08-26 17:38 | XMS_ITS | Encounter Summary ---
Author Organization [facility] Healthcare Address [address] [place] [address] Care Team Providers Care Lithopone Mill Worker Name Role Phone Johnson Rodriguez MD Primary Care Provide r Lucille Hernandez RN Unavailable Unavailab le Reason for Visit * Reason Onset Date Comments Pre-Surgical Call 11/16/2020 Encounter Details Date Type Department Care Team (Late st Contact Info) Description 11/16/2020 Telephone [facility] [place] for [facility] Medicine [address] [facility] for Advanced Medicine [address] [place], [place] [phone] Cynthia Nava MD [address] [facility] [phone] [place], [place] [id number] Pre-Surgical Call Social History Tobacco Use Types [...] on file 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
--- OUTSIDE RECORDS SUMMARY | 2024-08-26 17:38 | XMS_ITS | Encounter Summary ---
Author Organization [facility] Address [address] [place] [address] Phone Care Team Providers Care Senior Nurse Manager Name Role Phone Johnson Rodriguez MD Primary Care Provider +1- [phone] Zina Rizo APRN, BROOM MAN Unavailable +1- [phone] Heather Oliva APRN, PRODUCT MARKETING CONSULTANT Unavailable + [phone] Zina Rizo APRN, BROOM MAN Unavailable Silvana Brown APRN, BROOM MAN Unavailable Reason for Visit * Reason Comments Medication Refill Encounter Details Date Type Department Care Team (Late st Contact Info) Description 08/16/2023 Refill [facility] - Gastroenterology - [place] [address] [place] [address] Silvana Brown APRN, BROOM MAN [address] [place] [address] Medication Refill Social History Tobacco Use Types [...] PM CDT Medication refilled and signed per [facility] [address] [facility] chronic medication standing order for pediatric and adult patients. documented in this encounter Plan of Treatment Upcoming Encounters Date Type Department Care Team (Late st Contact Info) Description 11/05/2024 3:00 PM CDT Office Visit [facility] - Neurology - [place] [address] [place] [address] Heather Oliva APRN, PRODUCT MARKETING CONSULTANT [address] [place] [address] 01/20/2025 2:00 PM CDT Office Visit [facility] - Pulmonology & Sleep Medicine - [place] [address] [place] [address] Zina Rizo APRN, BROOM MAN #[address] [address] documented as of this encounter Visit Diagnoses Diagnosis Epigastric pain Abdominal pain, epigastric documented in this encounter Care Teams Senior Nurse Manager Relationship Specialty Start Date End Date Johnson Rodriguez MD [address] [place] [address] PCP - General Pediatrics 11/17/21 Zina Rizo APRN, BROOM MAN #[address] [address] Nurse Practitioner Advanced Practice Nurse 06/24/22 Heather Oliva APRN, PRODUCT MARKETING CONSULTANT [address] [place] [address] Nurse Practitioner Advanced Practice Nurse 12/22/21 Zina Rizo APRN, BROOM MAN [address] [address] Nurse Practitioner Advanced Practice Nurse 01/06/23 Silvana Brown APRN, BROOM MAN #2 [facility] [place] [address] Nurse Practitioner Advanced Practice Nurse 07/14/22 documented as of this encounter
--- OUTSIDE RECORDS SUMMARY | 2024-08-26 17:38 | XMS_ITS | Encounter Summary ---
Author Organization [facility] Healthcare Address [address] [place] [address] Care Team Providers Care Science Teacher Name Role Phone Johnson Rodriguez MD Primary Care Provide r Lucille Hernandez RN Unavailable Unavailab le Encounter Details Date Type Department Care Team (Late st Contact Info) Description 02/22/2021 Telephone [facility] [place] [facility] [address] [facility] Advanced Medicine [address] [place], [place] [id number] Cynthia Nava MD [address] [facility] [id number] [place], [place] [id number] Social History Tobacco Use Types Packs/Day Years [...] on file Legal 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
--- OUTSIDE RECORDS SUMMARY | 2024-08-26 17:38 | XMS_ITS | Encounter Summary ---
Author Organization [facility] Address [address] [place] [address] Phone Care Team Providers Care Pocket Assembler Name Role Phone Johnson Rodriguez MD Primary Care Provider +1- [phone] Zina Rizo APRN, DINKEY ENGINE MECHANIC Unavailable +1- [phone] Heather Oliva MUD LOGGER, ORACLE SQL DEVELOPER Unavailable +- [phone] Zina Rizo APRN, DINKEY ENGINE MECHANIC Unavailable Silvana Brown MUD LOGGER, DINKEY ENGINE MECHANIC Unavailable Reason for Visit * Reason Comments Medication Refill Encounter Details Date Type Department Care Team (Late st Contact Info) Description 08/28/2023 Refill [facility] - Neurology [facility] [address] [place] [address] Heather Oliva MUD LOGGER, ORACLE SQL DEVELOPER [address] [place] [address] Medication Refill Social History Tobacco Use Types [...] Dept 08/01/23 Office Visit Heather Oliva APRN, JOSE [facility] Neurology [facility] 05/31/23 Office Visit Heather Oliva APRN, JOSE [facility] 01/27/23 Office Visit Heather Oliva APRN, JOSE [facility] 01/06/23 Procedure Visit Dago Land MD [facility] Neurology [facility] 10/26/22 Office Visit Heather Oliva APRN, JOSE [...] Description 11/05/2024 3:00 PM CDT Office Visit [facility] - Neurology - [place] [address] [place] [address] Heather Oliva APRN, JOSE [address] [place] [address] 01/20/2025 2:00 PM CDT Office Visit [facility] - Pulmonology & Sleep Medicine [facility] [address] [place] [address] Zina Rizo APRN, JESSE [address] [address] documented as of this encounter Visit Diagnoses Diagnosis Chronic migraine w/o aura w/o status migrainosus, not intractable Chronic migraine without aura, without mention of intractable migraine without mention of status migrainosus documented in this encounter Care Teams Pocket Assembler Relationship Specialty Start Date End Date Johnson Rodriguez MD [address] [place] [address] PCP - General Pediatrics 11/17/21 Zina Rizo APRN, DINKEY ENGINE MECHANIC #[address] [address] Nurse Practitioner Advanced Practice Nurse 06/24/22 Heather Oliva APRN, ORACLE SQL DEVELOPER [address]2 [place] [address] Nurse Practitioner Advanced Practice Nurse 12/22/21 Zina Rizo APRN, DINKEY ENGINE MECHANIC #[address] [address] Nurse Practitioner Advanced Practice Nurse 01/06/23 Silvana Brown APRN, DINKEY ENGINE MECHANIC [address] [place] [address] Nurse Practitioner Advanced Practice Nurse 07/14/22 documented as of this encounter
--- OUTSIDE RECORDS SUMMARY | 2024-08-26 17:38 | XMS_ITS | Encounter Summary ---
Author Organization [facility] Address [address] [place] [address] Phone Care Team Providers Care Door Manager Name Role Phone Johnson Rodriguez MD Primary Care Provider +1- [phone] Zina Rizo APRN, CNC LATHE MACHINE OPERATOR Unavailable +1- [phone] Heather Oliva POLYSILICON PREPARATION WORKER, PEDIATRIC CARDIOLOGIST Unavailable + [phone] Zina Rizo APRN, CNC LATHE MACHINE OPERATOR Unavailable [phone] Silvana Brown POLYSILICON PREPARATION WORKER, CNC LATHE MACHINE OPERATOR Unavailable Reason for Visit * Reason Comments Medication Refill Encounter Details Date Type Department Care Team (Late st Contact Info) Description 11/25/2022 Refill [facility] - Neurology [facility] [address] [place] [address] Heather Oliva POLYSILICON PREPARATION WORKER, PEDIATRIC CARDIOLOGIST [address] [place] [address] Medication Refill Social History Tobacco Use Types [...] Dept 10/26/22 Office Visit Heather Oliva APRN, PEDIATRIC CARDIOLOGIST [facility] Neurology [facility] 07/26/22 Office Visit Heather Oliva APRN, PEDIATRIC CARDIOLOGIST [facility] Neurology [facility] 04/26/22 Office Visit Heather Oliva APRN, JOSE [facility] Neurology [facility] 12/22/21 Office Visit Heather Oliva APRN, PEDIATRIC CARDIOLOGIST [facility] Showing recent visits within past 365 days and meeting all other requirements Future Appointments Date Type Provider Dept 01/27/23 Appointment Heather Oliva APRN, PEDIATRIC CARDIOLOGIST [facility] Showing future appointments within next 90 days and meeting all other requirements documented in this encounter Plan of Treatment Upcoming Encounters Date Type Department Care Team (Late st Contact Info) Description 11/05/2024 3:00 PM CDT Office Visit [facility] - Neurology - [place] [address] [place] [address] Heather Oliva APRN, PEDIATRIC CARDIOLOGIST [address] [place] [address] 01/20/2025 2:00 PM CDT Office Visit [facility] - Pulmonology & Sleep Medicine - [place] [address] [place] [address] Zina Rizo APRN, CNC LATHE MACHINE OPERATOR #[address] [address] documented as of this encounter Visit Diagnoses Diagnosis Chronic migraine w/o aura w/o status migrainosus, not intractable Chronic migraine without aura, without mention of intractable migraine without mention of status migrainosus documented in this encounter Care Teams Door Manager Relationship Specialty Start Date End Date Johnson Rodriguez MD [address] [place] [address] PCP - General Pediatrics 11/17/21 Zina Rizo APRN, CNC LATHE MACHINE OPERATOR #[address] [address] Nurse Practitioner Advanced Practice Nurse 06/24/22 Heather Oliva APRN, PEDIATRIC CARDIOLOGIST [address] [place] [address] Nurse Practitioner Advanced Practice Nurse 12/22/21 Zina Rizo APRN, CNC LATHE MACHINE OPERATOR #[address] [address] Nurse Practitioner Advanced Practice Nurse 01/06/23 Silvana Brown APRN, CNC LATHE MACHINE OPERATOR [address] [place] [address] Nurse Practitioner Advanced Practice Nurse 07/14/22 documented as of this encounter
--- OUTSIDE RECORDS SUMMARY | 2024-08-26 17:38 | XMS_ITS | Encounter Summary ---
Author Organization [facility] Address [address] [place] [address] Phone Care Team Providers Care Information Technology Professor Name Role Phone Johnson Rodriguez MD Primary Care Provider +1- [phone] Zina Rizo APRN, COAL PASSER Unavailable +1- [phone] Heather Oliva APRN, CLINICAL TRIALS MANAGER Unavailable + [phone] Zina Rizo APRN, COAL PASSER Unavailable [phone] Silvana Brown APRN, COAL PASSER Unavailable Reason for Visit * Reason Comments Medication Refill Encounter Details Date Type Department Care Team (Late st Contact Info) Description 10/12/2023 Refill [facility] - [place] [address] [place] [address] Silvana Brown APRN, COAL PASSER [address] [place] [address] Medication Refill Social History Tobacco Use Types [...] AM CDT Medication refilled and signed per [facility] chronic medication standing order for pediatric and adult patients. documented in this encounter Plan of Treatment Upcoming Encounters Date Type Department Care Team (Late st Contact Info) Description 11/05/2024 3:00 PM CDT Office Visit [facility] - Neurology - [place] [address] [place] [address] Heather Oliva APRN, CLINICAL TRIALS MANAGER [address] [place] [address] 01/20/2025 2:00 PM CDT Office Visit [facility] - Pulmonology & Sleep Medicine - [place] [address] [place] [address] Zina Rizo APRN, COAL PASSER #[address] [address] documented as of this encounter Visit Diagnoses Not on filedocumented in this encounter Care Teams Information Technology Professor Relationship Specialty Start Date End Date Johnson Rodriguez MD [address] [place] [address] PCP - General Pediatrics 11/17/21 Zina Rizo APRN, COAL PASSER #[address] [address] Nurse Practitioner Advanced Practice Nurse 06/24/22 Heahter Oliva APRN, CLINICAL TRIALS MANAGER [address] [place] [address] Nurse Practitioner Advanced Practice Nurse 12/22/21 Zina Rizo APRN, JESSE #[address] [address] Nurse Practitioner Advanced Practice Nurse 01/06/23 Silvana Brown APRN, COAL PASSER [address] [place] [address] Nurse Practitioner Advanced Practice Nurse 07/14/22 documented as of this encounter
--- OUTSIDE RECORDS SUMMARY | 2024-08-26 17:38 | XMS_ITS | Encounter Summary ---
Author Organization [facility] Address [address] [place] [address] Phone Care Team Providers Care Fire Watcher Name Role Phone Johnson Rodriguez MD Primary Care Provider [phone]- [phone] Zina Rizo APRN, MOBILE HOME INSTALLER Unavailable +1- [phone] Heather Oliva APRN, CLIENT SERVER DEVELOPER Unavailable + [phone] Zina Rizo APRN, MOBILE HOME INSTALLER Unavailable [phone] Silvana Brown APRN, MOBILE HOME INSTALLER Unavailable Reason for Visit * Reason Comments Medication Refill Encounter Details Date Type Department Care Team (Late st Contact Info) Description 11/29/2023 Refill [facility] - [facility] - [place] [address] [place] [address] Silvana Brown APRN, MOBILE HOME INSTALLER [address] [place] [address] Medication Refill Social History Tobacco Use Types [...] PM CDT Medication refilled and signed per [facility] chronic medication standing order for pediatric and adult patients. documented in this encounter Plan of Treatment Upcoming Encounters Date Type Department Care Team (Late st Contact Info) Description 11/05/2024 3:00 PM CDT Office Visit [facility] - Neurology - [place] [address] [place] [address] Heather Oliva APRN, CLIENT SERVER DEVELOPER [address] [place] [address] 01/20/2025 2:00 PM CDT Office Visit [facility] - Pulmonology & Sleep Medicine - [place] [address] [place] [address] Zina Rizo APRN, MOBILE HOME INSTALLER #[address] [address] documented as of this encounter Visit Diagnoses Diagnosis Epigastric pain Abdominal pain, epigastric documented in this encounter Care Teams Fire Watcher Relationship Specialty Start Date End Date Johnson Rodriguez MD [address] [place] [address] PCP - General Pediatrics 11/17/21 Zina Rizo APRN, MOBILE HOME INSTALLER #[address] [address] Nurse Practitioner Advanced Practice Nurse 06/24/22 Heather Oliva APRN, CLIENT SERVER DEVELOPER [address] [place] [address] Nurse Practitioner Advanced Practice Nurse 12/22/21 Zina Rizo APRN, MOBILE HOME INSTALLER [address] [address] Nurse Practitioner Advanced Practice Nurse 01/06/23 Silvana Brown APRN, MOBILE HOME INSTALLER #[address] [facility] [address] Nurse Practitioner Advanced Practice Nurse 07/14/22 documented as of this encounter
--- OUTSIDE RECORDS SUMMARY | 2024-08-26 17:38 | XMS_ITS | Encounter Summary ---
Author Organization [facility] Healthcare Address [address] [place] [address] Care Team Providers Care Garbage Collector Name Role Phone Johnson Rodriguez MD Primary Care Provide r Lucille Hernandez RN Unavailable Unavailab le Encounter Details Date Type Department Care Team (Late st Contact Info) Description 08/10/2023 Telephone [facility] [place] for [facility] [address] [facility] Advanced Medicine [address] [place], [place] [id number] Cynthia Nava MD [address] [facility] [phone] [place] [address] Social History Tobacco Use Types [...] on file Legal Sex Female 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
--- OUTSIDE RECORDS SUMMARY | 2024-08-26 17:38 | XMS_ITS | Encounter Summary ---
Author Organization [facility] Healthcare Address [address] [place] [address] Care Team Providers Care Aircraft Ordnance Technician Name Role Phone Johnson Rodriguez MD Primary Care Provide r Lucille Hernandez RN Unavailable Unavailab le Reason for Visit * Reason Onset Date Comments Appointment 11/13/2017 Encounter Details Date Type Department Care Team ([facility] st Contact Info) Description 11/13/2017 Telephone [facility] at the [place] for Advanced Medicine [address] [facility] Advanced Medicine [address] [place], [place] [phone] Cnythia Nava MD [address] [facility] [address] [phone] [place], [place] [id number] Appointment Social History Tobacco Use Types Packs/Day Years Used Date Smoking Tobacco: Never Smokeless Tobacco: Never Alcohol Use Standard Drinks/Week Comments No 0 (1 standard drink = 0.6 oz pur e alcohol) Comments No Sex and Gender Information Value Date Recorded Sex Assigned at Not on file Legal Sex Female 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
--- OUTSIDE RECORDS SUMMARY | 2024-08-26 17:38 | XMS_ITS | Encounter Summary ---
Author Organization [facility] Healthcare Address [address] [place] [address] Care Team Providers Care Human Resources Coordinator Name Role Phone Johnson Rodriguez MD Primary Care Provide r Lucille Hernandez RN Unavailable Unavailab le Encounter Details Date Type Department Care Team (Late st Contact Info) Description 04/20/2020 Telephone [facility] [address] [facility] Advanced Medicine [address] [place], [place] [id number] Madelyn Hester RN Social History Tobacco Use Types Packs/Day Years Used Date Smoking Tobacco: Never Smokeless Tobacco: Never Alcohol Use Standard Drinks/Week Comments No 0 (1 standard drink = 0.6 oz pur e alcohol) denies Comments No Sex and Gender Information Value Date Recorded Sex Assigned at Not on file Legal Sex Female 12:26 AM HERB GROWER Gender Identity Not on file Sexual Orientation [...] on filedocumented in this encounter Care Teams Human Resources Coordinator Relationship Specialty Start Date End Date Johnson Rodriguez MD [address] [id number] PCP - General 07/29/16 Lucille Hernandez RN Registered Nurse 04/08/19 documented as of this encounter
--- OUTSIDE RECORDS SUMMARY | 2024-08-26 17:38 | XMS_ITS | Encounter Summary ---
Author Organization [facility] Address [address] [place] [address] Phone Care Team Providers Care Undercoat Sprayer Name Role Phone Johnson Rodriguez MD Primary Care Provider +1- [phone] Zina Rizo APRN, SALT MAKER Unavailable +1- [phone] Heather Oliva APRN, THREAD SPINNER Unavailable + [phone] Zina Rizo APRN, SALT MAKER Unavailable Silvana Brown APRN, SALT MAKER Unavailable Reason for Visit * Reason Comments Medication Refill Encounter Details Date Type Department Care Team (Late st Contact Info) Description 12/30/2023 Refill [facility] - [facility]ology - [place] [address] [place] [address] Silvana Brown APRN, SALT MAKER [address] [place] [address] Medication Refill Social History Tobacco Use Types [...] AM CDT Medication refilled and signed per [facility] chronic medication standing order for pediatric and adult patients. documented in this encounter Plan of Treatment Upcoming Encounters Date Type Department Care Team (Late st Contact Info) Description 11/05/2024 3:00 PM CDT Office Visit [facility] - Neurology - [place] [address] [place] [address] Heather Oliva APRN, THREAD SPINNER [address]2 [place] [address] 01/20/2025 2:00 PM CDT Office Visit [facility] - Pulmonology & Sleep Medicine - [place] [address] [place] [address] Zina Rizo APRN, SALT MAKER #[address] [address] documented as of this encounter Visit Diagnoses Diagnosis Epigastric pain Abdominal pain, epigastric documented in this encounter Care Teams Undercoat Sprayer Relationship Specialty Start Date End Date Johnson Rodriguez MD [address] [place] [address] PCP - General Pediatrics 11/17/21 Zina Rizo APRN, SALT MAKER #[address] [address] Nurse Practitioner Advanced Practice Nurse 06/24/22 Heather Oliva APRN, THREAD SPINNER [address] [place] [address] Nurse Practitioner Advanced Practice Nurse 12/22/21 Zina Rizo APRN, SALT MAKER #[address] [address] Nurse Practitioner Advanced Practice Nurse 01/06/23 Silvana Brown APRN, SALT MAKER #2 [facility] [place] [address] Nurse Practitioner Advanced Practice Nurse 07/14/22 documented as of this encounter
--- OUTSIDE RECORDS SUMMARY | 2024-08-26 17:38 | XMS_ITS | Encounter Summary ---
Author Organization [facility] Healthcare Address [address] [place] [address] Care Team Providers Care Supervisor Winter Name Role Phone Johnson Rodriguez MD Primary Care Provide r Lucille Hernandez RN Unavailable Unavailab le Reason for Visit * Reason Onset Date Comments Pre-Surgical Call 06/24/2020 Encounter Details Date Type Department Care Team (Late st Contact Info) Description 06/24/2020 Telephone [facility] Pain Center at the [place] for Advanced Medicine [address] [facility] Advanced Medicine [address] [place], [place] [phone] Cynthia Nava MD [address] [facility] [phone] [place], [place] [phone] Pre-Surgical Call Social History Tobacco Use Types Packs/Day Years Used Date Smoking Tobacco: Never Smokeless Tobacco: Never Alcohol Use Standard Drinks/Week Comments No 0 (1 standard drink = 0.6 oz pur e alcohol) denies Comments No Sex and Gender Information Value Date Recorded Sex Assigned at Not on file Legal Sex Female 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
--- OUTSIDE RECORDS SUMMARY | 2024-08-26 17:38 | XMS_ITS | Encounter Summary ---
Author Organization [facility] Address [address] [place] [address] Phone Care Team Providers Care Glue Plant Operator Name Role Phone Johnson Rodriguez MD Primary Care Provider +1- [phone] Zina Rizo APRN, INSURANCE OFFICE SUPERVISOR Unavailable +1- [phone] Heather Oliva APRN, REHAB AID Unavailable + [phone] Zina iRzo APRN, INSURANCE OFFICE SUPERVISOR Unavailable [phone] Silvana Brown APRN, INSURANCE OFFICE SUPERVISOR Unavailable Reason for Visit * Reason Comments Medication Refill Encounter Details Date Type Department Care Team (Late st Contact Info) Description 04/30/2024 Refill [facility] - [facility]ology - [place] #[address] [place] [address] Silvana Brown APRN, INSURANCE OFFICE SUPERVISOR [address] [place] [address] Medication Refill Social History Tobacco Use Types [...] Denae Cameron RN - 04/30/2024 8:58 AM FISH PROCESSING SUPERVISOR Medication refilled and signed per [facility] chronic medication standing order for pediatric and adult patients. PROCESSING SUPERVISOR documented in this encounter Plan of Treatment Upcoming Encounters Date Type Department Care Team (Late st Contact Info) Description 11/05/2024 3:00 PM CDT Office Visit [facility] - Neurology - [place] [address] [place] [address] Heather Oliva APRN, REHAB AID [address] [place] [address] 01/20/2025 2:00 PM CDT Office Visit [facility] - Pulmonology & Sleep Medicine - [place] [address] [place] [address] Zina Rizo APRN, INSURANCE OFFICE SUPERVISOR #[address] [address] documented as of this encounter Visit Diagnoses Not on filedocumented in this encounter Care Teams Glue Plant Operator Relationship Specialty Start Date End Date Johnson Rodriguez MD [address] [place] [address] PCP - General Pediatrics 11/17/21 Zina Rizo APRN, INSURANCE OFFICE SUPERVISOR #[address] [address] Nurse Practitioner Advanced Practice Nurse 06/24/22 Heather Oliva APRN, REHAB AID #[address] [place] [address] Nurse Practitioner Advanced Practice Nurse 12/22/21 Zina Rizo APRN, INSURANCE OFFICE SUPERVISOR #[address] [address] Nurse Practitioner Advanced Practice Nurse 01/06/23 Silvana Brown APRN, INSURANCE OFFICE SUPERVISOR [address] [place] [address] Nurse Practitioner Advanced Practice Nurse 07/14/22 documented as of this encounter
--- OUTSIDE RECORDS SUMMARY | 2024-08-26 17:38 | XMS_ITS | Encounter Summary ---
Author Organization [facility] Healthcare Address [address] [place] [address] Care Team Providers Care Coating Technician Name Role Phone Johnson Rodriguez MD Primary Care Provide r Lucille Hernandez RN Unavailable Unavailab le Encounter Details Date Type Department Care Team (Late st Contact Info) Description 05/07/2021 Telephone [facility] at the [place] for Advanced Medicine [address] [facility] Advanced Medicine [address] [place], [place] [phone] Cynthia Nava MD [address] [facility] [phone] [place], [place] [id number] Social History Tobacco Use Types Packs/Day Years [...] on file Legal 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
--- OUTSIDE RECORDS SUMMARY | 2024-08-26 17:38 | XMS_ITS | Encounter Summary ---
Author Organization [facility] Healthcare Address [address] [place] [address] Care Team Providers Care Investigator Utility Bill Complaints Name Role Phone Johnson Rodriguez MD Primary Care Provide r Lucille Hernandez RN Unavailable Unavailab le Encounter Details Date Type Department Care Team (Late st Contact Info) Description 02/23/2021 Telephone [facility] [place] [facility] [address] [facility] [address] [place], [place] [id number] Cynthia Nava MD [address] [facility] [id number] [place], [place] [id number] Social History Tobacco Use Types Packs/Day Years [...] on file Legal Sex Female 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
--- OUTSIDE RECORDS SUMMARY | 2024-08-26 17:38 | XMS_ITS | Encounter Summary ---
Author Organization [facility] Address [address] [place] [address] Phone Care Team Providers Care Adjunct Faculty Mathematics Department Name Role Phone Johnson Rodriguez MD Primary Care Provider [phone] Zina Rizo APRN, DIRECTOR OF EARLY CHILDHOOD Unavailable [phone] Heather Oliva CELL INSPECTOR, EXCEL DEVELOPER Unavailable + [phone] Zina Rizo APRN, DIRECTOR OF EARLY CHILDHOOD Unavailable [phone] Silvana Brown CELL INSPECTOR, DIRECTOR OF EARLY CHILDHOOD Unavailable Reason for Visit * Reason Comments Medication Refill Encounter Details Date Type Department Care Team (Late st Contact Info) Description 12/26/[address] [facility] - Neurology [facility] [address] [place] [address] Heather Oliva CELL INSPECTOR, EXCEL DEVELOPER [address] [place] [address] Medication Refill Social History Tobacco Use Types [...] Dept 10/26/22 Office Visit Heather Oliva APRN, EXCEL DEVELOPER [facility] Neurology [facility] [address] 07/26/22 Office Visit Heather Oliva APRN, [facility] [place] 04/26/22 Office Visit Heather Oliva APRN, [facility] Showing recent visits within past 365 days and meeting all other requirements Future Appointments Date Type Provider Dept 01/06/23 Appointment Dago Land MD [facility] Neurology [facility] [address] 01/27/23 Appointment Heather Oliva APRN [facility] Showing future appointments within next 90 days [...] 10/26/22 Office Visit Heather Oliva APRN, [facility] 07/26/22 Office Visit Heather Oliva APRN, [facility] 04/26/22 Office Visit Heather Oliva APRN, EXCEL DEVELOPER [facility] Neurology [place] [facility] Showing recent visits within past 365 days and meeting all other requirements Future Appointments Date Type Provider Dept 01/06/23 Appointment Dago Land MD [facility] Neurology [facility] 01/27/23 Appointment Heather Oliva APRN, [facility] Showing future appointments within next 90 days and meeting all other requirements documented in this encounter Plan of Treatment Upcoming Encounters Date Type Department Care Team (Late st Contact Info) Description 11/05/2024 3:00 PM CDT Office Visit [facility] - Neurology - [place] [address] [place] [address] Heather Oliva APRN, EXCEL DEVELOPER [address] [place] [address] 01/20/2025 2:00 PM CDT Office Visit [facility] - Pulmonology & Sleep Medicine - [place] [address] [place] [address] Zina Rizo APRN, DIRECTOR OF EARLY CHILDHOOD [address] [address] documented as of this encounter Visit Diagnoses Not on filedocumented in this encounter Care Teams Adjunct Faculty Mathematics Department Relationship Specialty Start Date End Date Johnson Rodriguez MD [address] [place] [address] PCP - General Pediatrics 11/17/21 Zina Rizo APRN, DIRECTOR OF EARLY CHILDHOOD [address] [address] Nurse Practitioner Advanced Practice Nurse 06/24/22 Heather Oliva APRN, EXCEL DEVELOPER [address] [place] [address] Nurse Practitioner Advanced Practice Nurse 12/22/21 Zina Rizo APRN, DIRECTOR OF EARLY CHILDHOOD [address] [address] Nurse Practitioner Advanced Practice Nurse 01/06/23 Silvana Brown APRN, DIRECTOR OF EARLY CHILDHOOD [address] [place] [address] Nurse Practitioner Advanced Practice Nurse 07/14/22 documented as of this encounter
--- OUTSIDE RECORDS SUMMARY | 2024-08-26 17:38 | XMS_ITS | Encounter Summary ---
Author Organization [facility] Address [address] [place] [address] Phone Care Team Providers Care Cardiology Coordinator Name Role Phone Johnson Rodriguez MD Primary Care Provider [phone] Zina Rizo APRN, PROTECTIVE SIGNAL INSTALLER HELPER Unavailable [phone] Heather Oliva ANALYSIS LEAD, DRIED FRUIT WASHER Unavailable +- [phone] Zina Rizo APRN, PROTECTIVE SIGNAL INSTALLER HELPER Unavailable Silvana Brown ANALYSIS LEAD, PROTECTIVE SIGNAL INSTALLER HELPER Unavailable Reason for Visit * Reason Comments Medication Refill Encounter Details Date Type Department Care Team (Late st Contact Info) Description 10/12/2023 Refill [facility] - Neurology [facility] [place] [address] [place] [address] Heather Oliva ANALYSIS LEAD, DRIED FRUIT WASHER [address] [place] [address] Medication Refill Social History Tobacco Use Types [...] Dept 08/01/23 Office Visit Heather Oliva APRN, DRIED FRUIT WASHER [facility] 05/31/23 Office Visit Heather Oliva APRN, DRIED FRUIT WASHER [facility] 01/27/23 Office Visit Heather Oliva APRN, [facility] 01/06/23 Procedure Visit Dago Land MD [facility] 10/26/22 Office Visit Heather Oliva APRN, [facility] Showing recent visits within past 365 days and meeting all other requirements Future Appointments Date Type Provider Dept 12/11/23 Appointment Heather Oliva APRN, DRIED FRUIT WASHER [facility] Showing future appointments within next 90 days and meeting all other requirements documented in this encounter Plan of Treatment Upcoming Encounters Date Type Department Care Team (Late st Contact Info) Description 11/05/2024 3:00 PM CDT Office Visit [facility] - Neurology - [place] [address] [place] [address] Heather Oliva APRN, DRIED FRUIT WASHER [address] [place] [address] 01/20/2025 2:00 PM CDT Office Visit [facility] - Pulmonology & Sleep Medicine [facility] [place] [address] [place] [address] Zina Rizo APRN, PROTECTIVE SIGNAL INSTALLER HELPER [address] [address] documented as of this encounter Visit Diagnoses Diagnosis Trigeminal neuralgia of right side of face Cervical spine pain Cervicalgia Chronic migraine w/o aura w/o status migrainosus, not intractable Chronic migraine without aura, without mention of intractable migraine without mention of status migrainosus documented in this encounter Care Teams Cardiology Coordinator Relationship Specialty Start Date End Date Johnson Rodriguez MD [address] [place] [address] PCP - General Pediatrics 11/17/21 Zina Rizo APRN, PROTECTIVE SIGNAL INSTALLER HELPER #[address] [address] Nurse Practitioner Advanced Practice Nurse 06/24/22 Heather Oliva APRN, DRIED FRUIT WASHER [address] [place] [address] Nurse Practitioner Advanced Practice Nurse 12/22/21 Zina Rizo APRN, PROTECTIVE SIGNAL INSTALLER HELPER #[address] [address] Nurse Practitioner Advanced Practice Nurse 01/06/23 Silvana Brown APRN, PROTECTIVE SIGNAL INSTALLER HELPER [address] [place] [address] Nurse Practitioner Advanced Practice Nurse 07/14/22 documented as of this encounter
--- OUTSIDE RECORDS SUMMARY | 2024-08-26 17:38 | XMS_ITS | Encounter Summary ---
Author Organization [facility] Healthcare Address [address] [place] [address] Care Team Providers Care Photographic Equipment Mechanic Name Role Phone Johnson Rodriguez MD Primary Care Provide r Lucille Hernandez RN Unavailable Unavailab le Encounter Details Date Type Department Care Team (Late st Contact Info) Description 03/04/2021 Telephone [facility] [place] [facility] [address] [facility] [address] [place], [place] [id number] Cynthia Nava MD [address] [facility] [id number] [place], [place] [id number] Social History Tobacco Use Types Packs/Day Years [...] on file 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
--- OUTSIDE RECORDS SUMMARY | 2024-08-26 17:38 | XMS_ITS | Encounter Summary ---
Author Organization [facility] Healthcare Address [address] [place] [address] Care Team Providers Care Taximeter Repairer Name Role Phone Johnson Rodriguez MD Primary Care Provide r Lucille Hernandez RN Unavailable Unavailab le Reason for Visit * Reason Onset Date Comments PMC Preprocedure 08/14/2024 Encounter Details Date Type Department Care Team (Late st Contact Info) Description 08/14/2024 Telephone [facility] [address] [facility] [address] [place] [address] Cynthia Nava MD [address] [facility] [phone] [place], [place] [id number] PMC Preprocedure Social History Tobacco Use Types Packs/Day Years [...] on file Legal Sex Female 12:26 AM CORPORATE DEVELOPMENT ANALYST Gender Identity Not on file Sexual Orientation Not on file documented as of this encounter Miscellaneous Notes * Telephone Encounter - Jayesh Bell RN - 08/14/2024 12:46 PM CDT Spoke with pt. Pre procedure instructions given. Pt verbalized understanding. * Telephone Encounter - Jayesh Bell RN - 08/14/2024 12:44 PM CDT ----- Message from Nurse Nicolasa Dominguez sent at 06/20/2024 2:17 PM CORPORATE DEVELOPMENT ANALYST ----- Regarding: FW: RPU Reminder Alarm Date: 08/28/24 Appointment Date: 08/23/24 Pre Call: 08/14/24 - Need order for pump refill ----- Message ----- From: Ree Dubois RN Sent: 06/13/2024 8:10 AM CORPORATE DEVELOPMENT ANALYST To: [facility] Charge Nurse Pool Subject: FW: RPU Reminder Alarm Date: 06.25.2024 Appointment Date: 06.20.2024 Pre Call: Confirmed Appointment ----- Message ----- From: Jayesh Bell RN Sent: 04/17/2024 2:00 PM CORPORATE DEVELOPMENT ANALYST To: [facility] Charge Nurse Pool Subject: FW: RPU Reminder Alarm Date: 06.25.2024 Appointment Date: 06.20.2024 Pre Call: 06.12.2024 ----- Message ----- From: Kallie Antoine RN Sent: 04/10/2024 12:20 PM CORPORATE DEVELOPMENT ANALYST To: [facility] Charge Nurse Pool Subject: FW: RPU Reminder Alarm date: 04/22/24 Appointment : 04/17/24 Pre Call made 04/10/24 patient confirmed. ----- Message ----- From: Shaye Luis RN Sent: 03/13/2024 4:54 PM CORPORATE DEVELOPMENT ANALYST To: [facility] Charge Nurse Pool Subject: FW: RPU Reminder Alarm Date:04/22 Appointment Date:04/17/24 Pre Call:04/10/24 ----- Message ----- From: Nicolasa Lord RN Sent: 02/14/2024 2:22 PM CORPORATE DEVELOPMENT ANALYST To: [facility] Charge Nurse Pool Subject: FW: RPU Reminder Alarm Date: 04/22/24 Appointment Date: 04/17/24 Pre Call: 03/13/24 ----- Message ----- From: Nicolasa Lord RN Sent: 02/13/2024 1:55 PM CDT To: [facility] Charge Nurse Pool Subject: FW: RPU Reminder Alarm Date:04/22/24 Appointment Date: No appointment scheduled Follow up on 03/06/24 to schedule an appointment if not already scheduled ----- Message ----- From: Nicolasa Lord RN Sent: 02/07/2024 2:02 PM CDT To: [facility] Charge Nurse Pool Subject: FW: RPU Reminder Confirmed 02/13/24 appointment. ----- Message ----- From: Shaye Luis RN Sent: 12/19/2023 3:32 PM CDT To: [facility] Charge Nurse Pool Subject: FW: RPU Reminder Alarm Date: 02/26/24 Appointment Date 02/13/24 Pre Call: 02/07/24 ----- Message ----- From: Shaye Luis RN Sent: 12/19/2023 3:31 PM CDT To: [facility] Charge Nurse Pool Subject: FW: RPU Reminder Alarm Date: 02/26/24 Appointment Date: 02/13/24 Pre Call: ----- Message ----- From: Shaye Luis RN Sent: 12/13/2023 1:13 PM CDT To: [facility] Charge Nurse Pool Subject: FW: RPU Reminder Alarm Date:12-28-23 Appointment Date: 12-19-23 Pre Call:12-12 ----- Message ----- From: Nicolasa Lord RN Sent: 11/14/2023 2:10 PM CDT To: [facility] Charge Nurse Pool Subject: FW: RPU Reminder Correction: Alarm Date: 12/28/23 Appointment Date: 12/19/23 Pre Call: 12/13/23 ----- Message ----- From: Nicolasa Lord RN Sent: 10/20/2023 4:34 PM CDT To: [facility] Charge Nurse Pool Subject: FW: RPU Reminder Alarm Date: 12/28/23 Appointment Date: 12/19/23 Pre Call: 12/20/23 ----- Message ----- From: Kallie Antoine RN Sent: 10/11/2023 12:06 PM CDT To: Nicolasa Lord RN Subject: RE: RPU Reminder Alarm date: 10/22/23 Appointment date: 10/17/23 Pre Call: Appt confirmed ----- Message ----- From: Nicolasa Lord RN Sent: 08/14/2023 3:21 PM CDT To: [facility] Charge Nurse Pool Subject: FW: RPU Reminder Alarm Date: 10/22/23 Appointment Date: 10/17/23 Pre Call: 10/11/23 ----- Message ----- From: Jayesh Bell RN Sent: 08/10/2023 9:49 AM CDT To: [facility] Charge Nurse Pool Subject: FW: RPU Reminder Check back and see if she has an appointment on 08.16.2023 ----- Message ----- From: Nicolasa Lord RN Sent: 06/07/2023 4:18 PM CDT To: [facility] Charge Nurse Pool Subject: FW: RPU Reminder Alarm Date: 08/15/23 Appointment Date: 08/14/23 Pre Call: 08/09/23 ----- Message ----- From: Ree Dubois RN Sent: 05/31/2023 8:40 AM CORPORATE DEVELOPMENT ANALYST To: [facility] Charge Nurse Pool Subject: FW: RPU Reminder Patient confrmed 2. appointment. ----- Message ----- From: Jayesh Bell RN Sent: 04/04/2023 10:10 AM CORPORATE DEVELOPMENT ANALYST To: [facility] Charge Nurse Pool Subject: FW: RPU Reminder Alarm Date: 06.11.2023 Appointment Date: 06.07.2023 Pre Call: 05.31.2023 ----- Message ----- From: Nicolasa Lord RN Sent: 03/29/2023 4:04 PM CORPORATE DEVELOPMENT ANALYST To: [facility] Charge Nurse Pool Subject: FW: RPU Reminder Appointment changed to 04/03/23. Patient confirmed appointment. Voices no concerns regarding pump. ----- Message ----- From: Jayesh Bell RN Sent: 02/13/2023 3:04 PM CORPORATE DEVELOPMENT ANALYST To: [facility] Charge Nurse Pool Subject: FW: RPU Reminder Alarm Date: 04.23.2023 Appointment Date: 04.17.2023 Pre Call: 04.12.2023 ----- Message ----- From: Nayeli Lockhart RN Sent: 02/08/2023 1:57 PM CDT To: [facility] Charge Nurse Pool Subject: FW: RPU Reminder Nicolasa Lord RN sent to P [facility] Charge Nurse Pool Alarm Date: 02.19.2023 Appointment Date: 02.13.2023 Pre Call: 02.08.2023 done and confirmed ----- Message ----- From: Nicolasa Lord RN Sent: 12/14/2022 1:51 PM CDT To: [facility] Charge Nurse Pool Subject: FW: RPU Reminder Alarm Date: 02.19.2023 Appointment Date: 02.13.2023 Pre Call: 02.08.2023 Patient need order for pain pump refill ----- Message ----- From: Jayesh Bell RN Sent: 12/12/2022 2:36 PM CDT To: [facility] Charge Nurse Pool Subject: FW: RPU Reminder Alarm Date: 02.19.2023 Appointment Date: 02.13.2023 Pre Call: 02.08.2023 ----- Message ----- From: Ana Chilel RN Sent: 12/07/2022 9:11 AM CDT To: [facility] Charge Nurse Pool Subject: FW: RPU Reminder Spoke with Amanda and reminded her of her pump refill appt on 12/12/22 ----- Message ----- From: Nicolasa Lord RN Sent: 10/28/2022 9:56 AM CDT To: [facility] Charge Nurse Pool Subject: FW: RPU Reminder Alarm Date: 12/15/22 Appointment Date: 12/12/22 Pre Call:12/07/22 ----- Message ----- From: Nicolasa Lord RN Sent: 10/26/2022 2:31 PM CDT To: [facility] Charge Nurse Pool Subject: FW: RPU Reminder Alarm Date: 12/15/22 Appointment Date: 12/12/22 Pre Call:12/07/[address] Nava to put in order for pump refill. CPT 20039 ----- Message ----- From: Nicolasa Lord RN Sent: 10/06/2022 4:19 PM CDT To: [facility] Charge Nurse Pool Subject: FW: RPU Reminder Alarm Date: 12/15/22 Appointment Date: 12/12/22 Pre Call:12/07/22 ?? ----- Message ----- From: Nicolasa Lord RN Sent: 10/04/2022 5:22 PM CDT To: [facility] Charge Nurse Pool Subject: FW: RPU Reminder Patient called back and confirmed appointment for 10/06/22 at 1400 ----- Message ----- From: Nicolasa Lord RN Sent: 10/04/2022 4:38 PM CDT To: [facility] Charge Nurse Pool Subject: FW: RPU Reminder Left message with pre procedure instructions. Instructed to call the charge nurse to confirm appointment. ----- Message ----- From: Nicolasa Lord RN Sent: 10/04/2022 4:17 PM CDT To: [facility] Charge Nurse Pool Subject: FW: RPU Reminder Alarm Date: 10/14/22 Appointment Date: 10/06/22 Pre Call: ----- Message ----- From: Nayeli Lockhart RN Sent: 09/28/2022 12:47 PM CDT To: [facility] Charge Nurse Pool Subject: FW: RPU Reminder Nicolasa Lord RN sent to P [facility] Charge Nurse Pool Alarm Date: 10/14/22 Appointment Date: ??10/06/22 at 1400 Pre Call: 09/28/22 Called and confirmed. ----- Message ----- From: Nicolasa Lord RN Sent: 08/10/2022 2:40 PM CDT To: [facility] Charge Nurse Pool Subject: FW: RPU Reminder Alarm Date: 10/14/22 Appointment Date: 10/06/22 at 1400 Pre Call: 09/28/22 ----- Message ----- From: Jayesh Bell RN Sent: 08/08/2022 1:36 PM CDT To: [facility] Charge Nurse Pool Subject: FW: RPU Reminder Alarm date: 10.14.2022 Appt date: 10.14.2022 Pre call: 6 ----- Message ----- From: Nayeli Lockhart RN Sent: 07/27/2022 1:55 PM CDT To: [facility] Charge Nurse Pool Subject: FW: RPU Reminder Alarm date: 08/09/22 Appt date: 08/05/22 Pre call 07/27/22 Called and lm to return call on charge phone to confirm ----- Message ----- From: Ana Chilel RN Sent: 05/31/2022 4:47 PM CDT To: [facility] Charge Nurse Pool Subject: FW: RPU Reminder Alarm date: 08/09/22 Appt date: 08/05/22 Pre call 07/27/22 ----- Message ----- ----- Message ----- From: Nicolasa Lord RN Sent: 05/25/2022 3:31 PM CORPORATE DEVELOPMENT ANALYST To: [facility] Charge Nurse Pool Subject: FW: RPU Reminder Patient confirmed appointment for pump refill with Dr Nava on 05/31/22 at 1430. ----- Message ----- From: Nicolasa Lord RN Sent: 04/01/2022 4:29 PM CORPORATE DEVELOPMENT ANALYST To: [facility] Charge Nurse Pool Subject: FW: RPU Reminder Alarm Date: 06/10/22 Appointment Date: 05/31/22 Pre Call: 05/25/21 ----- Message ----- From: Ana Chilel RN Sent: 03/23/2022 11:13 AM CORPORATE DEVELOPMENT ANALYST To: [facility] Charge Nurse Pool Subject: FW: RPU Reminder Spoke with Amanda and gave her the pre procedure instructions. She voiced understanding and confirmedshe will be here. ----- Message ----- From: Ana Chilel RN Sent: 01/25/2022 2:14 PM CORPORATE DEVELOPMENT ANALYST To: [facility] Charge Nurse Pool Subject: FW: RPU Reminder Alarm date: 04/05/22 Appt date: 04/01/22 Pre call 03/23/22 ----- Message ----- From: Nicolasa Lord RN Sent: 01/19/2022 10:02 AM CDT To: [facility] Charge Nurse Pool Subject: FW: RPU Reminder Patient confirmed pump refill appointment for 01/25/22. ----- Message ----- From: Nayeli Lockhart RN Sent: 11/23/2021 3:15 PM CDT To: [facility] Charge Nurse Pool Subject: FW: RPU Reminder Alarm Date: 02.01.22 Appointment Date: 01.25.22 Pre Call: 01.19.22 ----- Message ----- From: Madelyn Hester RN Sent: 11/17/2021 3:22 PM CDT To: [facility] Charge Nurse Pool Subject: FW: RPU Reminder Pre call completed. ----- Message ----- From: Nicolasa Lord RN Sent: 09/20/2021 12:55 PM CDT To: [facility] Charge Nurse Pool Subject: FW: RPU Reminder Alarm Date: 11/26/21 Appointment Date: 11/23/21 @ 1315 Pre Call: 11/17/21 ----- Message ----- From: Nayeli Lockhart RN Sent: 09/08/2021 1:49 PM CDT To: [facility] Charge Nurse Pool Subject: FW: RPU Reminder Next appointment: ??09-17-21 @ 1430 Alarm Date: ??09-20-21 Pre Call DONE: ??09-08-21 Covid instructions given. ----- Message ----- From: Madelyn Hester RN Sent: 07/14/2021 1:43 PM CDT To: [facility] Charge Nurse Pool Subject: FW: RPU Reminder Next appointment: 09-17-21 @ 1430 Alarm Date: 09-20-21 Pre Call due: 09-08-21 ----- Message ----- From: Madelyn Hester RN Sent: 05/07/2021 4:45 PM CDT To: [facility] Charge Nurse Pool Subject: FW: RPU Reminder Next appt: 07-12-21 @1515 Alarm Date: 07-23-21 Pre Call due: 07-14-21 ----- Message ----- From: Nayeli Lockhart RN Sent: 04/29/2021 1:40 PM CORPORATE DEVELOPMENT ANALYST To: [facility] Charge Nurse Pool Subject: FW: RPU Reminder Called and confirmed pt will be at 1.7.22 @230 RPU ----- Message ----- From: Nayeli Lockhart RN Sent: 04/14/2021 1:31 PM CORPORATE DEVELOPMENT ANALYST To: [facility] Charge Nurse Pool Subject: FW: RPU Reminder Alarm Date: 05.12.21 Appointment Date: 05.07.21 Pre Call: 04.28.21 ----- Message ----- From: Madelyn Hester RN Sent: 04/07/2021 8:32 AM CORPORATE DEVELOPMENT ANALYST To: [facility] Charge Nurse Pool Subject: FW: RPU Reminder Post op Surgery visit is 04-13-21 @ 1130. Need printout. ----- Message ----- From: Nicolasa Lord RN Sent: 03/31/2021 4:42 PM CORPORATE DEVELOPMENT ANALYST To: [facility] Charge Nurse Pool Subject: FW: RPU Reminder Patient having pump replacement on 04/05/21. Obtain medtronic report after surgery ----- Message ----- From: Nayeli Lockhart RN Sent: 01/27/2021 5:10 PM CORPORATE DEVELOPMENT ANALYST To: [facility] Charge Nurse Pool Subject: FW: RPU Reminder Alarm Date: 04.14.21 Appointment Date: 04.09.21 Pre Call: 03.31.21 ----- Message ----- From: Naeyli Lockhart RN Sent: 01/26/2021 9:28 AM CDT To: [facility] Charge Nurse Pool Subject: FW: RPU Reminder Alarm Date: 04.14.21 Appointment Date: 04.09.21 Pre Call: 03.31.21 ----- Message ----- From: Madelyn Hester RN Sent: 01/20/2021 5:15 PM CDT To: [facility] Charge Nurse Pool Subject: FW: RPU Reminder Precall done for 01-25-21 appt. ----- Message ----- From: Nicolasa Lord RN Sent: 01/08/2021 2:32 PM CDT To: [facility] Charge Nurse Pool Subject: FW: RPU Reminder Med[employer] Rep notified to assisted to use new I-Pad Title Agent. ----- Message ----- From: Nicolasa Lord RN Sent: 11/18/2020 2:28 PM CDT To: [facility] Charge Nurse Pool Subject: FW: RPU Reminder Alarm Date: 02/05/21 Appointment Date: 01/25/21 Pre Call: 01/20/21 ----- Message ----- From: Madelyn Hester RN Sent: 11/16/2020 5:04 PM CDT To: [facility] Charge Nurse Pool Subject: FW: RPU Reminder Confirmed appt. Precall completed ----- Message ----- From: Madelyn Hester RN Sent: 10/01/2020 4:04 PM CDT To: [facility] Charge Nurse Pool Subject: FW: RPU Reminder Appointment date = 11-18-20 @ 1330 Alarm Date: 12-02-20 Pre Call date: 11-11-20 ----- Message ----- From: Shaye Luis RN Sent: 09/17/2020 3:56 PM CDT To: [facility] Charge Nurse Pool Subject: FW: RPU Reminder Pt seen Alarm Date: 12/02/20 Appointment Date: Pre Call: ----- Message ----- From: Shaye Luis RN Sent: 09/10/2020 3:19 PM CDT To: [facility] Charge Nurse Pool Subject: FW: RPU Reminder Attempted to call patient but no answer ----- Message ----- From: Nicolasa Lord RN Sent: 07/28/2020 2:09 PM CDT To: [facility] Charge Nurse Pool Subject: FW: RPU Reminder Alarm date: ??09-16-2020 Appt. Date: 09-14-20pm Precall due 09/09/20 ----- Message ----- From: Madelyn Hester RN Sent: 06/30/2020 4:26 PM CDT To: [facility] Charge Nurse Pool Subject: FW: RPU Reminder Alarm date: 09-16-2020 Appt. Date: 09-14-20pm Precall due ----- Message ----- From: Madelyn Hester RN Sent: 06/24/2020 3:50 PM CORPORATE DEVELOPMENT ANALYST To: [facility] Charge Nurse Pool Subject: FW: RPU Reminder Precall done for 06-29-20 1330 appt. Done ----- Message ----- From: Nicolasa Lord RN Sent: 05/25/2020 3:06 PM CORPORATE DEVELOPMENT ANALYST To: [facility] Charge Nurse Pool Subject: FW: RPU Reminder ----- Message ----- From: Madelyn Hester RN Sent: 05/14/2020 6:41 PM CORPORATE DEVELOPMENT ANALYST To: [facility] Charge Nurse Pool Subject: FW: RPU Reminder Next appt. = 06-29-20 Alarm date = 07-08-20 Pre Call due 07-01-20 ----- Message ----- From: Nicolasa Lord RN Sent: 05/06/2020 3:20 PM CORPORATE DEVELOPMENT ANALYST To: [facility] Charge Nurse Pool Subject: FW: RPU Reminder Sent message to Raven to schedule appointment. Alarm date 07/08/20. ----- Message ----- From: Madelyn Hester RN Sent: 04/20/2020 3:38 PM CORPORATE DEVELOPMENT ANALYST To: [facility] Charge Nurse Pool Subject: FW: RPU Reminder Alarm date: 07-09-19 Appt. Date: not yet scheduled ----- Message ----- From: Nicolasa Lord RN Sent: 04/15/2020 3:18 PM CORPORATE DEVELOPMENT ANALYST To: [facility] Charge Nurse Pool Subject: FW: RPU Reminder Patient confirmed appointment for pump refill on 04/20/20 @ 1330 ----- Message ----- From: Nicolasa Lord RN Sent: 03/25/2020 10:11 AM CORPORATE DEVELOPMENT ANALYST To: [facility] Charge Nurse Pool Subject: FW: RPU Reminder Alarm date: 04/23/20 Appointment date and time: 04/20/20 @ 1330 Pre Call: 04/15/20 ----- Message ----- From: Nicolasa Lord RN Sent: 03/24/2020 3:32 PM CORPORATE DEVELOPMENT ANALYST To: [facility] Charge Nurse Pool Subject: FW: RPU Reminder Alarm date: 04/23/20 No appointment. Given to Christine to schedule ----- Message ----- From: Nicolasa Lord RN Sent: 02/25/2020 2:30 PM CORPORATE DEVELOPMENT ANALYST To: [facility] Charge Nurse Pool Subject: FW: RPU Reminder Christine notified and on her list to follow up with patient. ----- Message ----- From: Madelyn Hester RN Sent: 02/21/2020 2:04 PM CDT To: [facility] Charge Nurse Pool Subject: FW: RPU Reminder Alarm date: 04/23/20 Christine given reminder today to schedule for March. ----- Message ----- From: Nicolasa Lord RN Sent: 02/10/2020 2:08 PM CDT To: [facility] Charge Nurse Pool Subject: FW: RPU Reminder Alarm Date: 04/23/20 Appointment Date: March schedule Follow up to see if Dec schedule out then make appointment for patient ----- Message ----- From: Shaye Luis RN Sent: 01/29/2020 4:52 PM CDT To: [facility] Charge Nurse Pool Subject: FW: RPU Reminder Precall complete for 02/03 appointment Confirmed ----- Message ----- From: Nicolasa Lord RN Sent: 12/31/2019 5:43 PM CDT To: [facility] Charge Nurse Pool Subject: FW: RPU Reminder Alarm Date: 02/05/20 Appointment Date: 02/04/20 @ 1515 Pre Call: 01/29/20 ----- Message ----- From: Nicolasa Lord RN Sent: 11/18/2019 3:03 PM CDT To: [facility] Charge Nurse Pool Subject: FW: RPU Reminder Alarm Date: 02/05/20 Appointment Date: No schedule available Follow up to schedule: 12/30/19 ----- Message ----- From: Nayeli Lockhart RN Sent: 11/13/2019 8:55 AM CDT To: [facility] Charge Nurse Pool Subject: FW: RPU Reminder Alarm Date: 11/29/19 Appointment Date: 11/18/19 Pre Call: 11/13/19 Confirmed and Covid screening complete ----- Message ----- From: Nicolasa Lord RN Sent: 10/08/2019 2:53 PM CDT To: [facility] Charge Nurse Pool Subject: FW: RPU Reminder Alarm Date: 11/29/19 Appointment Date: 11/18/19 Pre Call: 11/13/19 ----- Message ----- From: Nayeli Lockhart RN Sent: 09/12/2019 7:59 AM CDT To: [facility] Charge Nurse Pool Subject: FW: RPU Reminder Alarm Date: 11.29.19 Appointment Date: pending fov 10.14.19 Call to schedule if needed Pre Call: pending ----- Message ----- From: Nicolasa Lord RN Sent: 09/04/2019 10:58 AM CDT To: [facility] Charge Nurse Pool Subject: FW: RPU Reminder ----- Message ----- From: Nicolasa Lord RN Sent: 09/04/2019 10:50 AM CDT To: [facility] Charge Nurse Pool Subject: FW: RPU Reminder Confirmed appointment for 09/11/19@ 1300. Pre Call completed. ----- Message ----- From: Nicolasa Lord RN Sent: 07/04/2019 1:46 PM CDT To: [facility] Charge Nurse Pool Subject: FW: RPU Reminder Alarm Date: 09/13/19 Appointment Date: 09/11/19 @ 1300 Pre Call: 09/04/19 ----- Message ----- From: Nicolasa Lord RN Sent: 07/01/2019 2:57 PM CORPORATE DEVELOPMENT ANALYST To: [facility] Charge Nurse Pool Subject: FW: RPU Reminder Given to Stephanie to schedule appointment ----- Message ----- From: Madelyn Hester RN Sent: 06/27/2019 3:22 PM CORPORATE DEVELOPMENT ANALYST To: [facility] Charge Nurse Pool Subject: FW: RPU Reminder Next appt for RPU is 09-11-19 ----- Message ----- From: Nayeli Lockhart RN Sent: 06/19/2019 9:58 AM CORPORATE DEVELOPMENT ANALYST To: [facility] Charge Nurse Pool Subject: FW: RPU Reminder Pre call made. Appointment confirmed. ----- Message ----- From: Nicolasa Lord RN Sent: 04/08/2019 3:45 PM CORPORATE DEVELOPMENT ANALYST To: [facility] Charge Nurse Pool Subject: FW: RPU Reminder Alarm Date: 06/26/18 Appointment Date: 06/26/18 @ 1200 Pre Call: 06/19/18 ----- Message ----- From: Madelyn Hester RN Sent: 04/05/2019 9:25 AM CORPORATE DEVELOPMENT ANALYST To: [facility] Charge Nurse Pool Subject: FW: RPU Reminder LM # 2 to return call confirming she received appt. Date/time and pre procedure instructions. ----- Message ----- From: Madelyn Hester RN Sent: 04/03/2019 3:42 PM CORPORATE DEVELOPMENT ANALYST To: [facility] Charge Nurse Pool Subject: FW: RPU Reminder LM with pre procedure information and requested Manderson return call to [phone] to confirm she received the information. ----- Message ----- From: Nicolasa Lord RN Sent: 01/29/2019 1:02 PM CORPORATE DEVELOPMENT ANALYST To: [facility] Charge Nurse Pool Subject: FW: RPU Reminder Alarm Date: 04/10/19 Appointment Date: 04/08/19@ 1300 Pre Call: 04/03/19 ----- Message ----- From: Nicolasa Lord RN Sent: 01/29/2019 12:55 PM To: [facility] Charge Nurse Pool Subject: FW: RPU Reminder ----- Message ----- From: Madelyn Hester RN Sent: 01/25/2019 10:00 AM To: [facility] Charge Nurse Pool Subject: FW: RPU Reminder Alarm date: 04-10-19 Appt. Date: Not yet scheduled ----- Message ----- From: Nicolasa Lord RN Sent: 01/16/2019 2:32 PM To: [facility] Charge Nurse Pool Subject: FW: RPU Reminder Patient confirmed appointment for pump refill. ----- Message ----- From: Nicolasa Lord RN Sent: 11/08/2018 2:53 PM To: [facility] Charge Nurse Pool Subject: FW: RPU Reminder Alarm Date: 01/20/19 Appointment Date: 01/21/19 @ 1300 Pre Call: 01/16/19 ----- Message ----- From: Madelyn Hester RN Sent: 10/25/2018 12:44 PM To: [facility] Charge Nurse Pool Subject: FW: RPU Reminder Confirmed appt. For 11-02-18 at 1200. Will need next refill date/appointment after 11-02-18 appointment. ----- Message ----- From: Madelyn Hester RN Sent: 08/28/2018 9:54 AM To: [facility] Charge Nurse Pool Subject: FW: RPU Reminder Alarm date: 11-14-18 Next Appointment: 11-02-18 Date Pre Call Due: 10-24-18 ----- Message ----- From: Madelyn Hester RN Sent: 08/23/2018 8:35 AM To: [facility] Charge Nurse Pool Subject: FW: RPU Reminder Confirmed ----- Message ----- From: Nicolasa Lord RN Sent: 08/15/2018 2:58 PM To: [facility] Charge Nurse Pool Subject: RPU Reminder Alarm date: 08/31/18 Next Appointment: 08/27/18 Pre call. 08/20/18 documented in this encounter Plan of Treatment [...] on filedocumented in this encounter Care Teams Taximeter Repairer Relationship Specialty Start Date End Date Johnson Rodriguez MD [address] [place] [address] PCP - General 07/29/16 Lucille Hernandez, RN Registered Nurse 04/08/19 documented as of this encounter
--- OUTSIDE RECORDS SUMMARY | 2024-08-26 17:38 | XMS_ITS | Encounter Summary ---
Author Organization [facility] Address [address] [place] [address] Phone Care Team Providers Care Director Of Quality Name Role Phone Johnson Rodriguez MD Primary Care Provider [phone]- [phone] Zina Rizo APRN, COMMERCIAL INTELLIGENCE MANAGER Unavailable +1- [phone] Heather Oliva APRN, COUNTER WAITRESS/WAITER Unavailable +- [phone] Zina Rizo APRN, COMMERCIAL INTELLIGENCE MANAGER Unavailable [phone] Silvana Brown APRN, COMMERCIAL INTELLIGENCE MANAGER Unavailable Encounter Details Date Type Department Care Team (Late st Contact Info) Description 07/29/2024 Results Follow-Up [facility] - Gastroenterology - [place] [address] [place] [address] Silvana Brown APRN, COMMERCIAL INTELLIGENCE MANAGER [address] [place] [address] XR ABDOMEN KUB FLAT PLATE Social History Tobacco Use Types Packs/Day Years [...] Description 11/05/2024 3:00 PM CDT Office Visit [facility] - Neurology - [place] [address] [place] [address] Heather Oliva APRN, COUNTER WAITRESS/WAITER [address] [place] [address] 01/20/2025 2:00 PM CDT Office Visit [facility] - Pulmonology & Sleep Medicine - [place] [address] [place] [address] Zina Rizo APRN, COMMERCIAL INTELLIGENCE MANAGER [address] [address] documented as of this encounter Visit Diagnoses Not on filedocumented in this encounter Care Teams Director Of Quality Relationship Specialty Start Date End Date Johnson Rodriguez MD [address] [place] [address] PCP - General Pediatrics 11/17/21 Zina Rizo APRN, COMMERCIAL INTELLIGENCE MANAGER [address] [address] Nurse Practitioner Advanced Practice Nurse 06/24/22 Heather Oliva APRN, COUNTER WAITRESS/WAITER [address] [place] [address] Nurse Practitioner Advanced Practice Nurse 12/22/21 Zina Rizo APRN, COMMERCIAL INTELLIGENCE MANAGER #[address] [address] Nurse Practitioner Advanced Practice Nurse 01/06/23 Silvana Brown APRN, COMMERCIAL INTELLIGENCE MANAGER [address] [place] [address] Nurse Practitioner Advanced Practice Nurse 07/14/22 documented as of this encounter
--- OUTSIDE RECORDS SUMMARY | 2024-08-26 17:38 | XMS_ITS | Clinical Summary ---
Author Organization [facility] - PODIATRY [facility] Address [address] [place] [address] Phone Care Team Providers Care Elderly Sitter Name Role Phone Johnson Rodriguez MD Primary Care Provider [phone]- [phone] Zina Rizo APRN, EDUCATIONAL AID Unavailable Heather Oliva APRN, CAVALRY SCOUT Unavailable + [phone] Zina Rizo APRN, EDUCATIONAL AID Unavailable Silvana Brown APRN, EDUCATIONAL AID Unavailable Allergies Active Allergy Reactions Criticality Noted [...] 1 Drop in affected eye(s) nightly. Active HYDROcodone-acet aminophen (NORCO) 10-325 MG Tablet Take 1 Tablet by mouth every 6 hours as needed. Active Morphine Sulfate 5 MG/ML Solution 5 mg by Intravenous route. Active ibandronate (BONIVA) 150 MG Tablet 06/28/20 23 Active naloxone HCl (Narcan) 4 MG/0.1ML Liquid 1 [place] by Nasal route. 04/05/20 21 Active sodium chloride 3 % Nebulizer Soln 01/26/20 23 Active butalbital-aceta minophen-caffein e (FIORICET, ESGIC) 50-325-40 MG TabletIndication s:Chronic migraine w/o aura w/o status migrainosus, not intractable TAKE ONE TABLET BY MOUTH EVERY FOUR HOURS NEEDED FOR HEADACHES OR MIGRAINE. 15 Tablet 1 04/27/20 23 Active carBAMazepine (TEGretol) 200 MG TabletIndication s:Trigeminal neuralgia of right side of face,Cervical spine pain,Chronic migraine w/o aura w/o status migrainosus, not intractable TAKE ONE TABLET BY MOUTH TWICE A DAY WITH MEALS 360 Tablet 1 10/12/19 24 Active ketorolac (TORADOL) 10 MG TabletIndication s:Chronic migraine w/o aura w/o status migrainosus, not [...] 05/20/19 25 Active propranolol (INDERAL) 40 MG TabletIndication s:Chronic migraine w/o aura w/o status migrainosus, not intractable,Trem ors of nervous system TAKE ONE TABLET BY MOUTH TWICE A DAY 60 Tablet 2 06/14/19 25 Active Qulipta 30 MG TabletIndication s:Chronic migraine w/o aura w/o status migrainosus, not intractable TAKE ONE TABLET BY MOUTH NIGHTLY 30 Tablet 2 06/14/19 25 Active lacosamide (VIMPAT) 100 MG TabletIndication s:Seizures (HCC) TAKE ONE TABLET BY MOUTH TWICE A DAY 60 Tablet 1 06/14/19 25 Active omeprazole (PriLOSEC) 40 MG CAPSULE DELAYED RELEASEIndicatio ns:Epigastric pain TAKE ONE CAPSULE BY MOUTH DAILY 90 Capsule 1 07/16/19 25 Active ipratropium-albu terol (DUO-NEB) 0.5-2.5 (3) MG/3ML SolutionIndicati ons:Bronchiectas is with acute exacerbation (HCC) 3 mL by Nebulization route 4 times daily for 30 days. 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 Encounters Date Type Department Care Team Description 07/29/2024 Results Follow-Up [facility] Gastroenterology - [place] [address] [place] [address] Silvana Brown APRN, JESSE XR ABDOMEN KUB FLAT PLATE 07/25/2024 Telephone [facility] Neurology - [place] [address] [place] [address] Dago Land MD 07/19/2024 3:00 PM CDT - 07/19/2024 11:59 PM CDT Hospital Encounter [facility] Diagnostic Radiology [address] [place] [phone] Silvana Brown APRN, EDUCATIONAL AID Discharge Disposition: Discharged to home or Selfcare 07/19/2024 2:00 PM CDT Office Visit [facility] Gastroenterology [facility] [address] [place] [address] Silvana Brown APRN, JESSE Constipation, unspecified constipation type (Primary Dx); Diarrhea, unspecified type; Right sided abdominal pain; Chronic biliary pancreatitis (HCC); Other irritable bowel syndrome; Gastroesophageal reflux disease, unspecified whether esophagitis present Discharge Disposition: Discharged to home or Selfcare 07/17/2024 Travel 07/15/2024 2:00 PM CDT Office Visit [facility] Pulmonology & Sleep Medicine [facility] [address] [place] [address] Zina Rizo APRN, EDUCATIONAL AID Bronchiectasis with acute exacerbation (HCC) (Primary Dx); Mycobacterium avium complex (HCC) Discharge Disposition: Discharged to home or Selfcare 07/13/2024 Travel 07/13/2024 [facility]ill [facility] - [place] [address] [place] [address] Silvana Brown APRN, EDUCATIONAL AID Medication Refill 06/14/2024 Refill [facility] - Neurology - [place] [address] [place] [address] Dago Land MD Medication Refill 06/14/2024 [facility] [place] [address] [place] [address] Heather Oliva APRN, CAVALRY SCOUT Medication Refill from Last 3 Months Family [...] 3:00 PM CDT Office Visit [facility] - Neurology - [place] [address]2 [place] [address] Heather Oliva, INDUSTRIAL THERAPIST, CAVALRY SCOUT [address] [place] [address] 01/20/2025 2:00 PM CDT Office Visit [facility] - Pulmonology & Sleep Medicine - [place] [address] [place] [address] Zina Rizo, INDUSTRIAL THERAPIST, EDUCATIONAL AID [address] [address] Health Maintenance Due Date Last Done Comments [...] this topic Medical Devices Implanted Type Area Children'S Service Supervisor Device Identifier Shelf Expiration Date Model / Serial / Lot Synchromed Ii Intrathecal Pain Pump-04/05/2021 Implanted:04/05 (Quantity not on file) IMPLANT Left: Abdomen [employer] [id number] / / Description:Intrathecal pain pump-- MR conditional Procedures Procedure Name Priority Date/Time Associated Diagnosis Comments XR ABDOMEN KUB FLAT PLATE Routine 07/19/2024 3:10 PM CDT Constipation, unspecified constipation type Diarrhea, unspecified type Right sided abdominal pain from Last 3 Months Results * XR ABDOMEN KUB FLAT PLATE (07/19/2024 3:10 PM CDT) Anatomical Region Laterality Modality Abdomen N/A Digital Radiogra phy 07/25/2024 7:00 PM CDT Impressions 07/25/2024 7:02 PM CDT IMPRESSION: No acute findings. Narrative 07/25/2024 7:02 PM CDT EXAM DESCRIPTION: XR ABDOMEN KUB FLAT PLATE REASON FOR STUDY: right sided abdominal pain, constipation, diarrhea x 1 month. Hx of pancreatitis, pain pump, systemic lupus, cholecystectomy TECHNIQUE: AP radiographic view of the abdomen. COMPARISON: 07/14/2022 FINDINGS: BOWEL: Nonobstructive gas pattern. SOFT TISSUES: No abnormal calcifications. LINES/TUBES: A reservoir is noted superimposing the left abdomen. It has a catheter tube extending into the spine. BONES: No acute osseous abnormality. Surgical clips in the right upper quadrant are consistent with a prior cholecystectomy. There are pelvic phleboliths. THIS IS AN ELECTRONICALLY VERIFIED FINAL REPORT 07/25/2024 7:00 PM - Electronically signed by Aleksey Anaya M.D. BS: [id number] Report ID: [id number] Reading Location: [id number] Procedure Note Aleksey Anaya MD - 07/25/2024 EXAM DESCRIPTION: XR ABDOMEN KUB FLAT PLATE REASON FOR STUDY: right sided abdominal pain, constipation, diarrhea x 1 month. Hx of pancreatitis, pain pump, systemic lupus, cholecystectomy TECHNIQUE: AP radiographic view of the abdomen. COMPARISON: 07/14/2022 FINDINGS: BOWEL: Nonobstructive gas pattern. SOFT TISSUES: No abnormal calcifications. LINES/TUBES: A reservoir is noted superimposing the left abdomen. It has a catheter tube extending into the spine. BONES: No acute osseous abnormality. Surgical clips in the right upper quadrant are consistent with a prior cholecystectomy. There are pelvic phleboliths. THIS IS AN ELECTRONICALLY VERIFIED FINAL REPORT 07/25/2024 7:00 PM - Electronically signed by Aleksey Anaya M.D. BS: [id number] Report ID: [id number] Reading Location: [id number] IMPRESSION: No acute findings. Silvana Brown INDUSTRIAL THERAPIST, EDUCATIONAL AID IMG DIAGNOSTIC OR DERABLES Final Result from Last 3 Months Insurance MEDICARE COUNT INCLUDES THE [facility] Care Teams Elderly Sitter Relationship Specialty Start Date End Date Johnson Rodriguez MD [address] [place] [address] PCP - General Pediatrics 11/17/21 Zina Rizo APRN, EDUCATIONAL AID [address] [address] Nurse Practitioner Advanced Practice Nurse 06/24/22 Heather Oliva APRN, CAVALRY SCOUT [address] [place] [address] Nurse Practitioner Advanced Practice Nurse 12/22/21 Zina Rizo APRN, EDUCATIONAL AID #[address] [address] Nurse Practitioner Advanced Practice Nurse 01/06/23 Silvana Brown APRN, EDUCATIONAL AID [address] [place] [address] Nurse Practitioner Advanced Practice Nurse 07/14/22
--- OUTSIDE RECORDS SUMMARY | 2024-08-26 17:38 | XMS_ITS | Encounter Summary ---
Author Organization [facility] Address [address] [place] [address] Phone Care Team Providers Care School Lunch Manager Name Role Phone Johnson Rodriguez MD Primary Care Provider [phone]- [phone] Zina Rizo APRN, LIFT MECHANIC Unavailable [phone]- [phone] Heather Oliva RESEARCH MANAGEMENT ASSOCIATE, CANVASS MANAGER Unavailable + [phone] Zina Rizo APRN, LIFT MECHANIC Unavailable Silvana Brown RESEARCH MANAGEMENT ASSOCIATE, LIFT MECHANIC Unavailable Reason for Visit * Reason Comments Medication Refill Encounter Details Date Type Department Care Team (Late st Contact Info) Description 09/29/2023 Refill [facility] - Neurology [facility] [address] [place] [address] Heather Oliva RESEARCH MANAGEMENT ASSOCIATE, CANVASS MANAGER [address] [place] [address] Medication Refill Social History Tobacco Use Types [...] Dept 08/01/23 Office Visit Heather Oliva APRN, CANVASS MANAGER [facility] Neurology [facility] 05/31/23 Office Visit Heather Oliva APRN, CANVASS MANAGER [facility] 01/27/23 Office Visit Heather Oliva APRN, JOSE [facility] 01/06/23 Procedure Visit Dago Land MD [facility] Neurology [facility] 10/26/22 Office Visit Heather Oliva APRN, JOSE [facility] Showing recent visits within past 365 days and meeting all other requirements Future Appointments Date Type Provider Dept 12/11/23 Appointment Heather Oliva APRN, CANVASS MANAGER [facility] Showing future appointments within next 90 days and meeting all other requirements documented in this encounter Plan of Treatment Upcoming Encounters Date Type Department Care Team (Late st Contact Info) Description 11/05/2024 3:00 PM CDT Office Visit [facility] - Neurology - [place] [address] [place] [address] Heather Oliva APRN, CANVASS MANAGER [address] [place] [address] 01/20/2025 2:00 PM CDT Office Visit [facility] - Pulmonology & Sleep Medicine - [place] [address] [place] [address] Zina Rizo APRN, LIFT MECHANIC [address] [address] documented as of this encounter Visit Diagnoses Not on filedocumented in this encounter Care Teams School Lunch Manager Relationship Specialty Start Date End Date Johnson Rodriguez MD [address] [place] [address] PCP - General Pediatrics 11/17/21 Zina Rizo APRN, LIFT MECHANIC [address] [address] Nurse Practitioner Advanced Practice Nurse 06/24/22 Heather Oliva APRN, CANVASS MANAGER [address] [place] [address] Nurse Practitioner Advanced Practice Nurse 12/22/21 Zina Rizo APRN, LIFT MECHANIC [address] [address] Nurse Practitioner Advanced Practice Nurse 01/06/23 Silvana Brown APRN, LIFT MECHANIC [address] [place] [address] Nurse Practitioner Advanced Practice Nurse 07/14/22 documented as of this encounter
--- OUTSIDE RECORDS SUMMARY | 2024-08-26 17:38 | XMS_ITS | Encounter Summary ---
Author Organization [facility] Address [address] [place] [address] Phone Care Team Providers Care Barn Boss Name Role Phone Johnson Rodriguez MD Primary Care Provider +1- [phone] Zina Rizo APRN, CUSHION PADDER Unavailable +[phone]- [phone] Heather Oliva LIQUOR MERCHANT, CASH POSTING SPECIALIST Unavailable + [phone] Zina Rizo APRN, CUSHION PADDER Unavailable Silvana Brown LIQUOR MERCHANT, CUSHION PADDER Unavailable Reason for Visit * Reason Comments Medication Refill Encounter Details Date Type Department Care Team (Late st Contact Info) Description 01/26/2023 Refill [facility] - Neurology [facility] [address] [place] [address] Heather Oliva LIQUOR MERCHANT, CASH POSTING SPECIALIST [address] [place] [address] Medication Refill Social History Tobacco Use Types [...] Dept 01/06/23 Procedure Visit Dago Land MD [facility] Neurology [place] [facility] 10/26/22 Office Visit Heather Oliva APRN [facility] Neurology [place] [facility] 07/26/22 Office Visit Heather Oliva APRN, [facility] Neurology [facility] 04/26/22 Office Visit Heather Oliva APRN [facility] Showing recent visits within past 365 days and meeting all other requirements Future Appointments Date Type Provider Dept 01/27/23 Appointment Heather Oliva APRN [facility] Neurology [facility] [address] 04/07/23 Appointment Dago Land MD [facility] Neurology [facility] Showing future appointments within next 90 days and meeting all other requirements documented in this encounter Plan of Treatment Upcoming Encounters Date Type Department Care Team (Late st Contact Info) Description 11/05/2024 3:00 PM CDT Office Visit [facility] - Neurology - [place] [address] [place] [address] Heather Oliva APRN, CASH POSTING SPECIALIST [address] [place] [address] 01/20/2025 2:00 PM CDT Office Visit [facility] - Pulmonology & Sleep Medicine [facility] [address] [place] [address] Zina Rizo APRN, CUSHION PADDER [address] [address] documented as of this encounter Visit Diagnoses Diagnosis Seizures (HCC) Other convulsions documented in this encounter Care Teams Barn Boss Relationship Specialty Start Date End Date Johnson Rodriguez MD [address] [place] [address] PCP - General Pediatrics 11/17/21 Zina Rizo APRN, CUSHION PADDER [address] [address] Nurse Practitioner Advanced Practice Nurse 06/24/22 Heather Oliva APRN, CASH POSTING SPECIALIST [address] [place] [address] Nurse Practitioner Advanced Practice Nurse 12/22/21 Zina Rizo APRN, CUSHION PADDER #[address] [address] Nurse Practitioner Advanced Practice Nurse 01/06/23 Silvana Brown APRN, CUSHION PADDER [address] [place] [address] Nurse Practitioner Advanced Practice Nurse 07/14/22 documented as of this encounter
--- OUTSIDE RECORDS SUMMARY | 2024-08-26 17:39 | XMS_ITS | Encounter Summary ---
Author Organization [facility] Address [address] [place] [address] Phone Care Team Providers Care Cabinet And Trim Installer Name Role Phone Johnson Rodriguez MD Primary Care Provider [phone]- [phone] Zina Rizo APRN, METAL WIRE TECHNICIAN Unavailable +[phone]- [phone] Heather Oliva FISHING TOOL SUPERVISOR, MAT REPAIRER Unavailable + [phone] Zina Rizo APRN, METAL WIRE TECHNICIAN Unavailable Silvana Brown FISHING TOOL SUPERVISOR, METAL WIRE TECHNICIAN Unavailable Reason for Visit * Reason Comments Medication Refill Encounter Details Date Type Department Care Team (Late st Contact Info) Description 05/27/2023 Refill [facility] - Neurology [facility] [address] [place] [address] Heather Oliva FISHING TOOL SUPERVISOR, MAT REPAIRER [address] [place] [address] Medication Refill Social History Tobacco Use Types [...] Dept 01/27/23 Office Visit Heather Oliva APRN, JOSE [facility] Neurology [facility] 01/06/23 Procedure Visit Dago Land MD [facility] Neurology [facility] 10/26/22 Office Visit Heather Oliva APRN, JOSE [facility] 07/26/22 Office Visit Heather Oliva APRN, JOSE [facility] Showing recent visits within past 365 days and meeting all other requirements Future Appointments Date Type Provider Dept 05/31/23 Appointment Heather Oliva APRN, JOSE [facility] Showing future appointments within next 90 days and meeting all other requirements ER RIDER documented in this encounter Plan of Treatment Upcoming Encounters Date Type Department Care Team (Late st Contact Info) Description 11/05/2024 3:00 PM CDT Office Visit [facility] - Neurology - [place] [address] [place] [address] Heather Oliva APRN, MAT REPAIRER [address] [place] [address] 01/20/2025 2:00 PM CDT Office Visit [facility] - Pulmonology & Sleep Medicine [facility] [address] [place] [address] Zina Rizo APRN, METAL WIRE TECHNICIAN #[address] [address] documented as of this encounter Visit Diagnoses Diagnosis Chronic migraine w/o aura w/o status migrainosus, not intractable Chronic migraine without aura, without mention of intractable migraine without mention of status migrainosus documented in this encounter Care Teams Cabinet And Trim Installer Relationship Specialty Start Date End Date Johnson Rodriguez MD [address] [place] [address] PCP - General Pediatrics 11/17/21 Zina Rizo APRN, METAL WIRE TECHNICIAN #[address] [address] Nurse Practitioner Advanced Practice Nurse 06/24/22 Heather Oliva APRN, MAT REPAIRER [address] [place] [address] Nurse Practitioner Advanced Practice Nurse 12/22/21 Zina Rizo APRN, METAL WIRE TECHNICIAN #[address] [address] Nurse Practitioner Advanced Practice Nurse 01/06/23 Silvana Brown APRN, METAL WIRE TECHNICIAN [address] [place] [address] Nurse Practitioner Advanced Practice Nurse 07/14/22 documented as of this encounter
--- OUTSIDE RECORDS SUMMARY | 2024-08-26 17:39 | XMS_ITS | Clinical Summary ---
Author Organization [facility] al Address [address] [place] [address] Care Team Providers Care Gaming Commissioner Name Role Phone Johnson Rodriguez MD Primary [...] (two) times a day 04/10/20 24 Active HYDROcodone-dean taminophen (NORCO) 10-325 mg per tablet TAKE 1 TABLET BY MOUTH EVERY 6 (SIX) HOURS NEEDED FOR PAIN 45 tablet 07/03/19 25 Active ipratropium-alb uteroL (DUO-NEB) 0.5-2.5 mg/3 mL nebulizer solution 07/16/19 25 Active ondansetron (ZOFRAN) 8 mg tablet 06/05/19 25 2024 Discontinued Active Problems Problem Noted Date [...] Encounters Date Type Department Care Team Description 08/22/2024 12:55 PM CDT - 08/22/2024 11:59 PM CDT Hospital Encounter [facility] Advanced Medicine [address] [facility] [address] [place] [address] Cynthia Nava MD Presence of intrathecal pump; S/P insertion of intrathecal pump; Chronic pancreatitis, unspecified pancreatitis type (HCC); Chronic use of opiate drug for therapeutic purpose Discharge Disposition: Discharge to home or self care 08/21/2024 Orders Only [facility] [address] [facility] [address] [place] [address] Cynthia Nava MD 08/14/2024 Telephone [facility] Pain Center at the [address] [place] [address] Cynthia Nava MD [facility] Preprocedure 07/23/2024 4:27 PM CDT - 07/23/2024 11:59 PM CDT Hospital Encounter [facility] [address] [place] [address] Right ear pain Discharge Disposition: Discharge to home or self care 07/22/[address] [address] [place], Catie D. 07/16/2024 Orders Only [facility] Pain Center at the [address] [place] [address] Cynthia Nava MD Presence of intrathecal pump (Primary Dx); S/P insertion of intrathecal pump; Chronic pancreatitis, unspecified pancreatitis type (HCC); Chronic bilateral low back pain, unspecified whether sciatica present; Chronic use of opiate drug for therapeutic purpose 07/12/2024 10:00 AM CDT Office [facility] ([facility]) - [facility] ENT [address] [place] [address] 11th [place] [address] [place] [address] Eulalia Parnell PA Right ear pain (Primary Dx); Tinnitus, bilateral; Sensorineural hearing loss (SNHL) of both ears 07/12/2024 9:15 AM CDT Procedure visit [facility] Otolaryngology [address] [place] [address] 11th [place] [address] [place] [address] Jeana Alfred Au.D. Right ear pain (Primary Dx) 06/20/2024 11:58 AM ART HANDLER - 06/20/2024 11:59 PM ART HANDLER Hospital Encounter [facility] [place] [facility] [address] [facility] Advanced Medicine [address] [place] [address] Cynthia Nava MD Chronic abdominal pain (Primary Dx); S/P insertion of intrathecal pump; Chronic use of opiate drug for therapeutic purpose; Chronic pancreatitis, unspecified pancreatitis type (HCC) Discharge Disposition: Discharge to home or self care 06/18/2024 Telephone [facility] Advanced Medicine [address] [facility] Advanced Medicine [address] [place] [address] Cynthia Nava MD PMC Preprocedure 06/12/2024 Telephone [facility] Pain Center at the [facility] Medicine [address] [facility] Advanced Medicine [address] [place] [address] Cynthia Nava MD pain pump confirmation call 06/07/2024 Telephone [facility] ([facility]) - [facility] ENT [address] [facility] 11th [place] [address] [place] [address] Kaitlynn Haney, MS 05/29/2024 Orders Only [facility] [place] [facility] Medicine 49[address] [facility] Medicine [address] [place] [address] Cynthia Nava MD Chronic use of opiate drug for therapeutic purpose (Primary Dx); S/P insertion of intrathecal pump from Last 3 Months Immunizations Immunization Administration [...] on file Legal Sex Female 12:26 AM ART HANDLER Gender Identity Not on file Sexual Orientation Not on file Obstetrics History Last Filed Vital Signs Vital Sign Reading Time Taken Comments Blood Pressure 125/72 08/22/2024 1:19 PM CDT Pulse 58 08/22/2024 1:19 PM CDT Temperature 36.5 C (97.7 F) 08/22/2024 1:19 PM CDT Respiratory Rate 16 08/22/2024 1:19 PM CDT Oxygen Saturation 95% 08/22/2024 1:19 PM CDT Inhaled Oxygen Concentration - - Weight 54 kg (119 lb) 08/22/2024 1:19 PM CDT Height 160 cm (5' 3 ) 08/22/2024 1:19 PM CDT Body Mass Index 21.08 08/22/2024 1:19 PM CDT Plan of Treatment Health Maintenance [...] as needed Medical Devices Implanted Type Area Pattern Grader Device Identifier Shelf Expiration Date Model / Serial / Lot Medtronic Neuro 8637-20 Synchromed Ii .78in [place] Filter Mesh Pouch Programmable - [id number] - [id number] Implanted:Qty: 1 on 04/05/2021 by Cynthia Nava MD at [facility] Advanced [facility] [employer] 08/12/2022 8637-20 / [id number] / Explanted Type Area Pattern Grader Device Identifier Shelf Expiration Date Model / Serial / Lot Intrathecal Pain Pump- 5 Implanted: by Unknown, Notinfile (Quantity not on file) Intrathecal Pain Pump Left: Abdomen Medtronic Neuro 8637-40 SYNCHROMED II / [id number] / Description:Morphine pain pu mp Pt knows [...] Lloyd Cao M.D. MM: MM Report ID: [id number] Reading Location: [id number] Procedure Note Lloyd Cao MD - 07/24/2024 [...] Lloyd Cao M.D. MM: MM Report ID: [id number] Reading Location: [id number] Eulalia ARGUETA IMBernardo CT PROCEDURES Final Result * AudBase Results (07/12/2024 9:03 AM CDT) Provider Scanning AUDIOLOGY SERVICES ORDERABLES Final Result from Last 3 Months Insurance MEDICARE [facility] OPEN ACCESS MEDICARE MEDICARE MEDICARE [facility] OPEN ACCESS Care Teams Gaming Commissioner Relationship Specialty Start Date End Date Johnson Rodriguez MD [address] [place] [address] PCP - General 07/29/16 Lucille Hernandez, RN Registered Nurse 04/08/19
--- OUTSIDE RECORDS SUMMARY | 2024-08-26 17:39 | XMS_ITS | Encounter Summary ---
Author Organization [facility] Address [address] [place] [address] Phone Care Team Providers Care Field Operator Name Role Phone Johnson Rodriguez MD Primary Care Provider [phone] Zina Rizo APRN, BUSINESS OBJECTS ARCHITECT Unavailable [phone]- [phone] Heather Oliva LUMBER HACKER, VOICE OVER ARTIST Unavailable + [phone] Zina Rizo APRN, BUSINESS OBJECTS ARCHITECT Unavailable Silvana Brown LUMBER HACKER, BUSINESS OBJECTS ARCHITECT Unavailable Reason for Visit * Reason Comments Medication Refill Encounter Details Date Type Department Care Team (Late st Contact Info) Description 02/25/2022 Refill [facility] - Neurology [facility] [address] [place] [address] Heather Oliva LUMBER HACKER, VOICE OVER ARTIST [address] [place] [address] Medication Refill Social History Tobacco Use Types [...] Description 11/05/2024 3:00 PM CDT [facility] [place] [address] [place] [address] Heather Oliva APRN, VOICE OVER ARTIST [address] [place] [address] 01/20/2025 2:00 PM CDT [facility] - [place] [address] [place] [address] Zina Rizo APRN, BUSINESS OBJECTS ARCHITECT [address] [address] documented as of this encounter Visit Diagnoses Diagnosis Chronic migraine w/o aura w/o status migrainosus, not intractable Chronic migraine without aura, without mention of intractable migraine without mention of status migrainosus documented in this encounter Care Teams Field Operator Relationship Specialty Start Date End Date Johnson Rodriguez MD [address] [place] [address] PCP - General Pediatrics 11/17/21 Zina Rizo APRN, BUSINESS OBJECTS ARCHITECT [address] [address] Nurse Practitioner Advanced Practice Nurse 06/24/22 Heather Oliva APRN, VOICE OVER ARTIST [address] [place] [address] Nurse Practitioner Advanced Practice Nurse 12/22/21 Zina Rizo APRN, BUSINESS OBJECTS ARCHITECT #[address] [address] Nurse Practitioner Advanced Practice Nurse 01/06/23 Silvana Brown APRN, BUSINESS OBJECTS ARCHITECT [address] [place] [address] Nurse Practitioner Advanced Practice Nurse 07/14/22 documented as of this encounter
--- OUTSIDE RECORDS SUMMARY | 2024-08-26 17:39 | XMS_ITS | Referral Summary ---
Author Organization [facility] al Address [address] [place] [address] Care Team Providers Care Media Marketing Coordinator Name Role Phone Johnson Rodriguez MD Primary Care Provide r Lucille Hernandez RN Unavailable Unavailab le Encounters Date Type Department Care Team Description 08/22/2024 12:55 PM CDT - 08/22/2024 11:59 PM CDT Hospital Encounter [facility] [place] [facility] [address] [place] [address] Advanced Medicine [address] [place] [address] Cynthia Nava MD Presence of intrathecal pump; S/P insertion of intrathecal pump; Chronic pancreatitis, unspecified pancreatitis type (HCC); Chronic use of opiate drug for therapeutic purpose Discharge Disposition: Discharge to home or self care 08/21/2024 Orders Only [facility] [place] [facility] [address] [place] [address] Advanced Medicine [address] [place] [address] Cynthia Nava MD 08/14/2024 Telephone [facility] [place] [facility] [address] [place] [address] Advanced Medicine [address] [place] [address] Cynthia Nava MD PMC Preprocedure 07/23/2024 4:27 PM CDT - 07/23/2024 11:59 PM CDT Hospital Encounter [facility] [address] [place] [address] Right ear pain Discharge Disposition: Discharge to home or self care 07/22/2024 Telephone [facility] [address] [place] [address] Catie Irizarry 07/16/2024 Orders Only [facility] Center at the [address] [place] [address] Cynthia Nava MD Presence of intrathecal pump (Primary Dx); S/P insertion of intrathecal pump; Chronic pancreatitis, unspecified pancreatitis type (HCC); Chronic bilateral low back pain, unspecified whether sciatica present; Chronic use of opiate drug for therapeutic purpose 07/12/2024 10:00 AM CDT Office Visit [facility] ([facility] - [facility] ENT [address] [place] [address] [address]th [place] [address] Eulalia Parnell PA Right ear pain (Primary Dx); Tinnitus, bilateral; Sensorineural hearing loss (SNHL) of both ears 07/12/2024 9:15 AM CDT Procedure visit [facility] Otolaryngology [address] [place] [address] 11th [place] [address] Jeana Alfred Au.D. Right ear pain (Primary Dx) 06/20/2024 11:58 AM RUST - 06/20/2024 11:59 PM RUST Hospital Encounter [facility] Pain Center at the [facility] Medicine [address] [place] [address] [address] [place] [address] Cynthia Nava MD Chronic abdominal pain (Primary Dx); S/P insertion of intrathecal pump; Chronic use of opiate drug for therapeutic purpose; Chronic pancreatitis, unspecified pancreatitis type (HCC) Discharge Disposition: Discharge to home or self care 06/18/2024 Telephone [facility] at the [address] [place] [address] Cynthia Nava MD [facility] Preprocedure 06/12/2024 Telephone [facility] at the [facility] Advanced [address] [place] [address] Cynthia Nava MD pain pump confirmation call 06/07/2024 Telephone [facility] Advanced [facility] ([facility] - [facility] ENT [address] [facility] 11th [place] [address] [place] [address] Kaitlynn Haney MS 05/29/2024 Orders Only [facility] at the [facility] Advanced Medicine [address] [facility] [address] [place] [address] Cynthia Nava MD Chronic use of opiate drug for therapeutic purpose (Primary Dx); S/P insertion of intrathecal pump from Last 3 Months Allergies Active Allergy [...] money to buy more. Never true 08/14/19 Within the past 12 months, t he food you bought just didn't last and you didn't have money to get more. 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 Gender Identity Not on file Sexual [...] 08/22/2024 1:19 PM CDT Plan of Treatment Not on file [...] as needed Medical Devices Implanted Type Area Meter And Regulator Shop Supervisor Device Identifier Shelf Expiration Date Model / Serial / Lot Medtronic Neuro 8637-20 Synchromed Ii .78in [place] Filter Mesh Pouch Programmable - [id number] - [id number] Implanted:Qty: 1 on 04/05/2021 by Cynthia Nava MD at [facility] [employer] 08/12/2022 8637-20 / [id number] / Explanted Type Area Meter And Regulator Shop Supervisor Device Identifier Shelf Expiration Date Model / Serial / Lot Intrathecal Pain Pump- 5 Implanted: by Unknown, Notinfile (Quantity not on file) Intrathecal Pain Pump Left: Abdomen Medtronic Neuro 8637-40 SYNCHROMED II / [id number] / Description:Morphine pain pu mp Pt knows [...] Lloyd Cao M.D. MM: MM Report ID: [id number] Reading Location: [place] [address] Procedure Note Lloyd Cao MD - 07/24/2024 [...] Lloyd Cao M.D. MM: MM Report ID: [id number] Reading Location: [place] [address] [address] PROCEDURES Final Result * AudBase Results (07/12/2024 9:03 AM CDT) Provider Scanning AUDIOLOGY SERVICES ORDERABLES Final Result from Last 3 Months Insurance MEDICARE [facility] OPEN ACCESS MEDICARE MEDICARE MEDICARE [facility] Address: [address] [address] [place] [address] [employer] OPEN ACCESS Care Teams Media Marketing Coordinator Relationship Specialty Start Date End Date Johnson Rodriguez MD [address] [place] [address] PCP - General 07/29/16 Lucille Hernandez, RN Registered Nurse 04/08/19
--- OUTSIDE RECORDS SUMMARY | 2024-08-26 17:39 | XMS_ITS | Encounter Summary ---
Author Organization [facility] Address [address] [place] [address] Phone Care Team Providers Care Nursery Manager Name Role Phone Johnson Rodriguez MD Primary Care Provider [phone]- [phone] Zina Rizo APRN, FILTER WASHER AND PRESSER Unavailable [phone]- [phone] Heather Oliva HOSPICE ENTRANCE ATTENDANT, SKID WRAPPER Unavailable + [phone] Zina Rizo APRN, FILTER WASHER AND PRESSER Unavailable Silvana Brown HOSPICE ENTRANCE ATTENDANT, FILTER WASHER AND PRESSER Unavailable Reason for Visit * Reason Comments Medication Refill Encounter Details Date Type Department Care Team (Late st Contact Info) Description 03/20/2023 Refill [facility] - Neurology [facility] [address] [place] [address] Heather Oliva HOSPICE ENTRANCE ATTENDANT, SKID WRAPPER [address] [place] [address] Medication Refill Social History Tobacco Use Types [...] Dept 01/27/23 Office Visit Heather Oliva APRN, SKID WRAPPER [facility] Neurology [facility] [address] 01/06/23 Procedure Visit Dago Land MD [facility] Neurology [facility] [address] 10/26/22 Office Visit Heather Oliva APRN, JOSE [facility] Neurology [facility] [address] 07/26/22 Office Visit Heather Oliva APRN, SKID WRAPPER [facility] Neurology [facility] [address] 04/26/22 Office Visit Heather Oliva APRN, SKID WRAPPER [facility] [address] Showing recent visits within past 365 days and meeting all other requirements Future Appointments Date Type Provider Dept 05/31/23 Appointment Heather Oliva APRN, SKID WRAPPER [facility]'s [facility] Showing future appointments within next 90 days and meeting all other requirements MARKETING REPRESENTATIVE documented in this encounter Plan of Treatment Upcoming Encounters Date Type Department Care Team (Late st Contact Info) Description 11/05/2024 3:00 PM CDT Office Visit [facility] - Neurology - [place] [address] [place] [address] Heather Oliva APRN, SKID WRAPPER [address] [place] [address] 01/20/2025 2:00 PM CDT Office Visit [facility] - Pulmonology & Sleep Medicine [facility] [address] [place] [address] Zina Rizo APRN, FILTER WASHER AND PRESSER [address] [address] documented as of this encounter Visit Diagnoses Diagnosis Chronic migraine w/o aura w/o status migrainosus, not intractable Chronic migraine without aura, without mention of intractable migraine without mention of status migrainosus documented in this encounter Care Teams Nursery Manager Relationship Specialty Start Date End Date Johnson Rodriguez MD [address] [place] [address] PCP - General Pediatrics 11/17/21 Zina Rizo APRN, FILTER WASHER AND PRESSER #[address] [address] Nurse Practitioner Advanced Practice Nurse 06/24/22 Heather Oliva APRN, SKID WRAPPER [address] [place] [address] Nurse Practitioner Advanced Practice Nurse 12/22/21 Zina Rizo APRN, FILTER WASHER AND PRESSER #[address] [address] Nurse Practitioner Advanced Practice Nurse 01/06/23 Silvana Brown APRN, FILTER WASHER AND PRESSER [address] [place] [address] Nurse Practitioner Advanced Practice Nurse 07/14/22 documented as of this encounter
--- OUTSIDE RECORDS SUMMARY | 2024-08-26 17:39 | XMS_ITS | Encounter Summary ---
Author Organization [facility] Address [address] [place] [address] Phone Care Team Providers Care Head Irrigator Name Role Phone Johnson Rodriguez MD Primary Care Provider [phone]- [phone] Zina Rizo APRN, MEDICAL GRADE SHOEMAKER Unavailable [phone]- [phone] Heather Oliva ETL INFORMATICA ARCHITECT, CORE STACKER Unavailable + [phone] Zina Rizo APRN, MEDICAL GRADE SHOEMAKER Unavailable Silvana Brown ETL INFORMATICA ARCHITECT, MEDICAL GRADE SHOEMAKER Unavailable Reason for Visit * Reason Comments Medication Refill Encounter Details Date Type Department Care Team (Late st Contact Info) Description 04/29/2022 Refill [facility] - Neurology [facility] [address] [place] [address] Heather Oliva ETL INFORMATICA ARCHITECT, CORE STACKER [address] [place] [address] Medication Refill Social History Tobacco Use Types [...] Coronavirus/COVID-19? No / Unsure 04/26/2022 2:15 PM WARBLE SAW OPERATOR documented as of this encounter Plan of Treatment Upcoming Encounters Date Type Department Care Team (Late st Contact Info) Description 11/05/2024 3:00 PM CDT Office Visit [facility] - Neurology - [place] [address] [place] [address] Heather Oliva APRN, CORE STACKER [address] [place] [address] 01/20/2025 2:00 PM CDT Office Visit [facility] - Pulmonology & Sleep Medicine - [place] [address] [place] [address] Zina Rizo APRN, MEDICAL GRADE SHOEMAKER [address] [address] documented as of this encounter Visit Diagnoses Diagnosis Chronic migraine w/o aura w/o status migrainosus, not intractable Chronic migraine without aura, without mention of intractable migraine without mention of status migrainosus documented in this encounter Care Teams Head Irrigator Relationship Specialty Start Date End Date Johnson Rodriguez MD [address] [place] [address] PCP - General Pediatrics 11/17/21 Zina Rizo APRN, MEDICAL GRADE SHOEMAKER [address]2 [facility] [address] [place] [address] Nurse Practitioner Advanced Practice Nurse 06/24/22 Heather Oliva APRN, CORE STACKER [address] [place] [address] Nurse Practitioner Advanced Practice Nurse 12/22/21 Zina Rizo APRN, JESSE #[address] [address] Nurse Practitioner Advanced Practice Nurse 01/06/23 Silvana Brown APRN, MEDICAL GRADE SHOEMAKER [address] [place] [address] Nurse Practitioner Advanced Practice Nurse 07/14/22 documented as of this encounter
--- OUTSIDE RECORDS SUMMARY | 2024-08-26 17:39 | XMS_ITS | Encounter Summary ---
Author Organization [facility] Address [address] [place] [address] Phone Care Team Providers Care Special Events Assistant Name Role Phone Johnson Rodriguez MD Primary Care Provider +1- [phone] Zina Rizo APRN, CLAIMS ASSOCIATE Unavailable +1- [phone] Heather Oliva DIRECTOR OF MEDICAL STAFF SERVICES, CLEANER AND POLISHER Unavailable +- [phone] Zina Rizo APRN, CLAIMS ASSOCIATE Unavailable Silvana Brown DIRECTOR OF MEDICAL STAFF SERVICES, CLAIMS ASSOCIATE Unavailable Reason for Visit * Reason Comments Medication Refill Encounter Details Date Type Department Care Team (Late st Contact Info) Description 04/27/2023 Refill [facility] - Neurology [facility] #2 [place] [address] Heather Oliva DIRECTOR OF MEDICAL STAFF SERVICES, CLEANER AND POLISHER [address] [place] [address] Medication Refill Social History Tobacco Use Types [...] appropriate. Requested Prescriptions Pending Prescriptions Disp Refills [id number] (FIORICET, ESGIC) 50-325-40 MG Tablet [Pharmacy Med Name: [id number] 50-325-40] 15 Tablet Sig: TAKE ONE TABLET BY MOUTH EVERY FOUR HOURS NEEDED FOR HEADACHES OR MIGRAINE. Not Delegated - Butalbital Protocol Failed - 04/27/2023 9:44 AM Failed - This refill cannot be delegated; check utilization Passed - Visit with relevant provider in past 24 months or upcoming 90 days Recent Visits Date Type Provider Dept 01/27/23 Office Visit Heather Oliva APRN [facility] Neurology [facility] 01/06/23 Procedure Visit Dago Land MD [facility] Neurology [facility] 10/26/22 Office Visit Heather Oliva APRN, CNS [facility] Neurology [facility] 07/26/22 Office Visit Heather Oliva APRN [facility] Neurology [facility] 04/26/22 Office Visit Heather Oliva APRN, [facility] 12/22/21 Office Visit Heather Oliva APRN [facility] Showing recent visits within past 730 days and meeting all other requirements Future Appointments Date Type Provider Dept 05/31/23 Appointment Heather Oliva APRN, CNS [facility] Neurology [facility] Showing future appointments within next [...] Type Provider Dept 01/27/23 Office Visit Heather Oilva APRN, CLEANER AND POLISHER [facility] Neurology [facility] 01/06/23 Procedure Visit Dago Land MD [facility] Neurology [facility] 10/26/22 Office Visit Heather Oliva APRN, JOSE [facility] Neurology [facility] 07/26/22 Office Visit Heather Oliva APRN, [facility] Neurology [facility] Showing recent visits within past 365 days and meeting all other requirements Future Appointments Date Type Provider Dept 05/31/23 Appointment Heathre Oliva APRN, [facility] Showing future appointments within next 90 days and meeting all other requirements K PRESS OPERATOR documented in this encounter Plan of Treatment Upcoming Encounters Date Type Department Care Team (Late st Contact Info) Description 11/05/2024 3:00 PM CDT Office Visit [facility] - Neurology - [place] [address]2 [place] [address] Heather Oliva APRN, CLEANER AND POLISHER [address] [place] [address] 01/20/2025 2:00 PM CDT Office Visit [facility] - Pulmonology & Sleep Medicine [facility] [address]2 [place] [address] Zina Rizo APRN, CLAIMS ASSOCIATE [address] [address] documented as of this encounter Visit Diagnoses Diagnosis Chronic migraine w/o aura w/o status migrainosus, not intractable Chronic migraine without aura, without mention of intractable migraine without mention of status migrainosus documented in this encounter Care Teams Special Events Assistant Relationship Specialty Start Date End Date Johnson Rodriguez MD [address] [place] [address] PCP - General Pediatrics 11/17/21 Zina Rizo, AJ, CLAIMS ASSOCIATE #[address] [address] Nurse Practitioner Advanced Practice Nurse 06/24/22 Heather Oliva APRN, CLEANER AND POLISHER [address] [place] [address] Nurse Practitioner Advanced Practice Nurse 12/22/21 Zina Rizo, DIRECTOR OF MEDICAL STAFF SERVICES, CLAIMS ASSOCIATE #[address] [address] Nurse Practitioner Advanced Practice Nurse 01/06/23 Silvana Brown APRN, CLAIMS ASSOCIATE [address]2 [place] [address] Nurse Practitioner Advanced Practice Nurse 07/14/22 documented as of this encounter
--- OUTSIDE RECORDS SUMMARY | 2024-08-26 17:39 | XMS_ITS | Encounter Summary ---
Author Organization [facility] Address [address] [place] [address] Phone Care Team Providers Care Loop Cutter Name Role Phone Johnson Rodriguez MD Primary Care Provider +1- [phone] Zina Rizo APRN, BARREL RIBS SOLDERER Unavailable +1- [phone] Heather Oliva PERMIT SPECIALIST, FAMILY MEDICINE CHAIR Unavailable + [phone] Zina Rizo APRN, BARREL RIBS SOLDERER Unavailable Silvana Brown PERMIT SPECIALIST, BARREL RIBS SOLDERER Unavailable Reason for Visit * Reason Comments Medication Refill Encounter Details Date Type Department Care Team (Late st Contact Info) Description 10/26/2022 Refill [facility] - [facility] [address] [place] [address] Heather Oliva PERMIT SPECIALIST, FAMILY MEDICINE CHAIR [address] [place] [address] Medication Refill Social History Tobacco Use Types [...] Dept 07/26/22 Office Visit Heather Oliva APRN [facility] 04/26/22 Office Visit Heather Oliva APRN [facility] 12/22/21 Office Visit Heather Oliva APRN, [facility] Showing recent visits within past 365 days and meeting all other requirements Today's Visits Date Type Provider Dept 10/26/22 Appointment Heather Oliva APRN [facility] Showing today's visits and meeting all [...] Dept 07/26/22 Office Visit Heather Oliva APRN, FAMILY MEDICINE CHAIR [facility] 04/26/22 Office Visit Heather Oliva APRN, JOSE [facility] 12/22/21 Office Visit Heather Oliva APRN, JOSE [facility] Showing recent visits within past 365 days and meeting all other requirements Today's Visits Date Type Provider Dept 10/26/22 Appointment Heather Oliva APRN, JOSE [facility] Showing today's visits and meeting all other requirements Future Appointments No visits were found meeting these conditions. Showing future appointments within next 90 days and meeting all other requirements documented in this encounter Plan of Treatment Upcoming Encounters Date Type Department Care Team (Late st Contact Info) Description 11/05/2024 3:00 PM CDT Office Visit [facility] - Neurology - [place] [address]2 [place] [address] Heather Oliva APRN, FAMILY MEDICINE CHAIR [address] [place] [address] 01/20/2025 2:00 PM CDT Office Visit [facility] - Pulmonology & Sleep Medicine - [place] [address] [place] [address] Zina Rizo APRN, BARREL RIBS SOLDERER #[address] [address] documented as of this encounter Visit Diagnoses Diagnosis Seizures (HCC) Other convulsions documented in this encounter Care Teams Loop Cutter Relationship Specialty Start Date End Date Johnson Rodriguez MD [address] [place] [address] PCP - General Pediatrics 11/17/21 Zina Rizo APRN, BARREL RIBS SOLDERER #[address] [address] Nurse Practitioner Advanced Practice Nurse 06/24/22 Heather Oliva, PERMIT SPECIALIST, FAMILY MEDICINE CHAIR [address] [place] [address] Nurse Practitioner Advanced Practice Nurse 12/22/21 Zina Rizo, PERMIT SPECIALIST, BARREL RIBS SOLDERER #[address] [address] Nurse Practitioner Advanced Practice Nurse 01/06/23 Silvana Brown APRN, BARREL RIBS SOLDERER [address] [place] [address] Nurse Practitioner Advanced Practice Nurse 07/14/22 documented as of this encounter
--- OUTSIDE RECORDS SUMMARY | 2024-08-26 17:39 | XMS_ITS | Encounter Summary ---
Author Organization [facility] Address [address] [place] [address] Care Team Providers Care Patch Press Operator Name Role Phone Unavailable Primary Care Provider Unavailabl e Encounter Details Date Type Department Care Team (Latest Contact Info) Description 03/06/2018 Abstract [facility] , Kennedy Matute MD Social [...]
--- OUTSIDE RECORDS SUMMARY | 2024-08-26 17:39 | XMS_ITS | Clinical Summary ---
Author Organization [facility] Address [address] [place] [address] Care Team Providers Care Guest Relations Coordinator Name Role Phone Unavailable Primary Care Provider [...] Screening with HPV 1991 Mammogram Screening 2001 Pneumococcal Vaccine: 50+ Ye ars (1 of 1 - PCV) 2011 Zoster Vaccines (1 of 2) 2011 COVID-19 Vaccine ( - 2023-2 5 season) 2023 RSV Immunization or 60+ Years (1 - [...]
--- OUTSIDE RECORDS SUMMARY | 2024-08-26 17:39 | XMS_ITS | Encounter Summary ---
Author Organization [facility] Address [address] [place] [address] Phone Care Team Providers Care Associate Director Financial Aid Name Role Phone Johnson Rodriguez MD Primary Care Provider +1- [phone] Zina Rizo APRN, HOUSE DECORATOR Unavailable +1- [phone] Heather Oliva APRN, FUEL CELL TECHNICIAN Unavailable + [phone] Zina iRzo APRN, HOUSE DECORATOR Unavailable Silvana Brown APRN, HOUSE DECORATOR Unavailable Reason for Visit * Reason Comments Medication Refill Encounter Details Date Type Department Care Team (Late st Contact Info) Description 07/13/2024 Refill [facility] - G[facility]enterology - [place] #2 [place] [address] Silvana Brown APRN, HOUSE DECORATOR [address] [place] [address] Medication Refill Social History Tobacco Use Types [...] CDT Medication refilled and signed per [facility] chronic medication standing order for pediatric and adult patients. documented in this encounter Plan of Treatment Upcoming Encounters Date Type Department Care Team (Late st Contact Info) Description 11/05/2024 3:00 PM CDT Office Visit [facility] - Neurology - [place] #[address] [place] [address] Heather Oliva APRN, FUEL CELL TECHNICIAN #[address] [place] [address] 01/20/2025 2:00 PM CDT Office Visit [facility] - Pulmonology & Sleep Medicine - [place] #[address] [place] [address] Zina Rizo APRN, HOUSE DECORATOR #[address] [address] documented as of this encounter Visit Diagnoses Diagnosis Epigastric pain Abdominal pain, epigastric documented in this encounter Care Teams Associate Director Financial Aid Relationship Specialty Start Date End Date Johnson Rodriguez MD [address] [place] [address] PCP - General Pediatrics 11/17/21 Zina Rizo APRN, HOUSE DECORATOR #[address] [address] Nurse Practitioner Advanced Practice Nurse 06/24/22 Heather Oliva APRN, FUEL CELL TECHNICIAN #2 [place] [address] Nurse Practitioner Advanced Practice Nurse 12/22/21 Zina Rizo APRN, HOUSE DECORATOR [address] [address] Nurse Practitioner Advanced Practice Nurse 01/06/23 Silvana Brown APRN, HOUSE DECORATOR #2 [facility] [place] [address] Nurse Practitioner Advanced Practice Nurse 07/14/22 documented as of this encounter
--- OUTSIDE RECORDS SUMMARY | 2024-08-26 17:39 | XMS_ITS | Encounter Summary ---
Author Organization [facility] Address [address] [place] [address] Phone Care Team Providers Care Front End Web Designer Name Role Phone Johnson Rodrigeuz MD Primary Care Provider +1- [phone] Zina Rizo APRN, DIE MAKER STAMPING Unavailable +1- [phone] Heather Oliva APRN, BIOLOGY SPECIALIST Unavailable + [phone] Zina Rizo APRN, DIE MAKER STAMPING Unavailable Silvana Brown APRN, DIE MAKER STAMPING Unavailable Reason for Visit * Reason Comments Medication Refill Encounter Details Date Type Department Care Team (Late st Contact Info) Description 05/27/2023 Refill [facility] - [facility]ology - [place] #2 [place] [address] Silvana Brown APRN, DIE MAKER STAMPING [address] [place] [address] Medication Refill Social History Tobacco Use Types [...] Denae Cameron RN - 05/29/2023 9:29 AM PACS SPECIALIST Per nursing clinical judgement, provider to review [...] Visit Silvana Brown APRN, CNP [facility] [place] 11/08/22 Office Visit Silvana Brown APRN, JES[facility] [place] 07/14/22 Office Visit Silvana Brown APRN, [facility] [place] Showing recent visits within past 365 days and meeting all other requirements Future Appointments Date Type Provider Dept 06/28/23 Appointment Silvana Brown APRN, CNP [facility] [place] Showing future appointments within next 90 days and meeting all other requirements SPECIALIST documented in this encounter Plan of Treatment Upcoming Encounters Date Type Department Care Team (Late st Contact Info) Description 11/05/2024 3:00 PM CDT Office Visit [facility] - Neurology - [place] [address] [place] [address] Heather Oliva APRN, BIOLOGY SPECIALIST #2 [place] [address] 01/20/2025 2:00 PM CDT Office Visit [facility] - Pulmonology & Sleep Medicine - [place] [address] [place] [address] Zina Rizo APRN, DIE MAKER STAMPING #[address] [address] documented as of this encounter Visit Diagnoses Diagnosis Epigastric pain Abdominal pain, epigastric documented in this encounter Care Teams Front End Web Designer Relationship Specialty Start Date End Date Johnson Rodriguez MD [address] [place] [address] PCP - General Pediatrics 11/17/21 Zina Rizo APRN, DIE MAKER STAMPING #[address] [address] Nurse Practitioner Advanced Practice Nurse 06/24/22 Heather Oliva APRN, BIOLOGY SPECIALIST [address] [place] [address] Nurse Practitioner Advanced Practice Nurse 12/22/21 Zina Rizo APRN, DIE MAKER STAMPING #[address] [address] Nurse Practitioner Advanced Practice Nurse 01/06/23 Silvana Brown APRN, DIE MAKER STAMPING [address] [place] [address] Nurse Practitioner Advanced Practice Nurse 07/14/22 documented as of this encounter
--- OUTSIDE RECORDS SUMMARY | 2024-08-26 17:39 | XMS_ITS | Encounter Summary ---
Author Organization [facility] Address [address] [place] [address] Phone Care Team Providers Care Securities Sales Associate Name Role Phone Johnson Rodriguez MD Primary Care Provider +1- [phone] Zina Rizo APRN, STRAW HAT PRESSER Unavailable +1- [phone] Heather Oliva APRN, BUSINESS PLANNING MANAGER Unavailable + [phone] Zina Rizo APRN, STRAW HAT PRESSER Unavailable Silvana Brown APRN, STRAW HAT PRESSER Unavailable Reason for Visit * Reason Comments Medication Refill Encounter Details Date Type Department Care Team (Late st Contact Info) Description 04/27/2023 Refill [facility] - [facility]ology - [place] #2 [place] [address] Silvana Brown APRN, STRAW HAT PRESSER [address] [place] [address] Medication Refill Social History Tobacco Use Types [...] Denae Cameron RN - 04/27/2023 3:51 PM WATER QUALITY ANALYST Per nursing clinical judgement, provider to review [...] Visit Silvana Brown APRN, CNP [facility] [place] 11/08/22 Office Visit Silvana Brown APRN, CNP [facility] [place] 07/14/22 Office Visit Silvana Brown APRN, CNP [...] Visit Silvana Brown APRN, CNP [facility] [place] 11/08/22 Office Visit Silvana Brown APRN, CNP [facility] [place] 07/14/22 Office Visit Silvana Brown APRN, STRAW HAT PRESSER [facility] [place] Showing recent visits within past 365 days and meeting all other requirements Future Appointments Date Type Provider Dept 06/28/23 Appointment Silvana Brown APRN, STRAW HAT PRESSER [facility] Showing future appointments within next 90 days and meeting all other requirements R QUALITY ANALYST documented in this encounter Plan of Treatment Upcoming Encounters Date Type Department Care Team (Late st Contact Info) Description 11/05/2024 3:00 PM CDT [facility] [place] #2 [place] [address] Heather Oliva APRN, BUSINESS PLANNING MANAGER #2 [place] [address] 01/20/2025 2:00 PM CDT Office Visit [facility] - Pulmonology & Sleep Medicine - [place] #2 [place] [address] Zina Rizo APRN, STRAW HAT PRESSER #[address] [address] documented as of this encounter Visit Diagnoses Diagnosis Epigastric pain Abdominal pain, epigastric documented in this encounter Care Teams Securities Sales Associate Relationship Specialty Start Date End Date Johnson Rodriguez MD [address] [place], [place] [address] PCP - General Pediatrics 11/17/21 Zina Rizo APRN, STRAW HAT PRESSER #[address] [address] Nurse Practitioner Advanced Practice Nurse 06/24/22 Heather Oliva APRN, BUSINESS PLANNING MANAGER #[address] [place] [address] Nurse Practitioner Advanced Practice Nurse 12/22/21 Zina Rizo APRN, JESSE #[address] [address] Nurse Practitioner Advanced Practice Nurse 01/06/23 Silvana Brown APRN, JESSE #[address] [place] [address] Nurse Practitioner Advanced Practice Nurse 07/14/22 documented as of this encounter
--- OUTSIDE RECORDS SUMMARY | 2024-08-26 17:39 | XMS_ITS | Encounter Summary ---
Author Organization [facility] Address [address] [place] [address] Phone Care Team Providers Care Guard Museum Name Role Phone Johnson Rodriguez MD Primary Care Provider +1- [phone] Zina Rizo APRN, ASSOCIATE LOAN OFFICER Unavailable +1- [phone] Heather Oliva TOWN ADMINISTRATOR, SNOWMOBILE MECHANIC Unavailable +- [phone] Zina Rizo APRN, ASSOCIATE LOAN OFFICER Unavailable [phone] Silvana Brown TOWN ADMINISTRATOR, ASSOCIATE LOAN OFFICER Unavailable Reason for Visit * Reason Comments Medication Refill Encounter Details Date Type Department Care Team (Late st Contact Info) Description 07/27/2023 Refill [facility] - Neurology [facility] #2 [place] [address] Heather Oliva TOWN ADMINISTRATOR, SNOWMOBILE MECHANIC #[address] [place] [address] Medication Refill Social History Tobacco Use Types [...] Dept 05/31/23 Office Visit Heather Oliva APRN, SNOWMOBILE MECHANIC [facility] Neurology [facility] 01/27/23 Office Visit Heather Oliva APRN, JOSE [facility] Neurology [facility] 01/06/23 Procedure Visit Dago Land MD [facility] Neurology [facility] 10/26/22 Office Visit Heather Oliva APRN, JOSE [facility] Showing recent visits within past 365 days and meeting all other requirements Future Appointments Date Type Provider Dept 08/01/23 Appointment Heather Oliva APRN, JOSE [facility] Showing future appointments within next 90 days and meeting all other requirements documented in this encounter Plan of Treatment Upcoming Encounters Date Type Department Care Team (Late st Contact Info) Description 11/05/2024 3:00 PM CDT Office Visit [facility] - Neurology - [place] #2 [place] [address] Heather Oliva APRN, SNOWMOBILE MECHANIC #[address] [place] [address] 01/20/2025 2:00 PM CDT Office Visit [facility] - Pulmonology & Sleep Medicine [facility] #2 [place] [address] Zina Rizo APRN, ASSOCIATE LOAN OFFICER #[address] [address] documented as of this encounter Visit Diagnoses Diagnosis Seizures (HCC) Other convulsions documented in this encounter Care Teams Guard Museum Relationship Specialty Start Date End Date Johnson Rodriguez MD [address] [place] [address] PCP - General Pediatrics 11/17/21 Zina Rizo APRN, ASSOCIATE LOAN OFFICER #[address] [address] Nurse Practitioner Advanced Practice Nurse 06/24/22 Heather Oliva APRN, SNOWMOBILE MECHANIC #[address] [place] [address] Nurse Practitioner Advanced Practice Nurse 12/22/21 Zina Rizo, AJ, ASSOCIATE LOAN OFFICER #[address] [address] Nurse Practitioner Advanced Practice Nurse 01/06/23 Silvana Brown APRN, ASSOCIATE LOAN OFFICER #[address] [place] [address] Nurse Practitioner Advanced Practice Nurse 07/14/22 documented as of this encounter
--- OUTSIDE RECORDS SUMMARY | 2024-08-26 17:39 | XMS_ITS | Encounter Summary ---
Author Organization [facility] Address [address] [place] [address] Phone Care Team Providers Care Broodmare Barn Groom Name Role Phone Johnson Rodriguez MD Primary Care Provider +1- [phone] Zina Rizo APRN, PROFESSOR OF PHYSICAL EDUCATION Unavailable +1- [phone] Heather Oliva IRON PELLET TESTER, EXHAUST TENDER Unavailable + [phone] Zina Rizo APRN, PROFESSOR OF PHYSICAL EDUCATION Unavailable Silvana Brown IRON PELLET TESTER, PROFESSOR OF PHYSICAL EDUCATION Unavailable Reason for Visit * Reason Comments Medication Refill Encounter Details Date Type Department Care Team (Late st Contact Info) Description 08/19/2022 Refill [facility] - Neurology [facility] #2 [place] [address] Heather Oliva IRON PELLET TESTER, EXHAUST TENDER [address] [place] [address] Medication Refill Social History Tobacco Use Types [...] Dept 07/26/22 Office Visit Heather Oliva APRN, EXHAUST TENDER [facility] Neurology [facility] 04/26/22 Office Visit Heather Oliva APRN, EXHAUST TENDER [facility] Neurology [facility] 12/22/21 Office Visit Heather Oliva APRN, EXHAUST TENDER [facility] Neurology [facility] Showing recent visits within past 365 days and meeting all other requirements Future Appointments Date Type Provider Dept 10/26/22 Appointment Heather Oliva APRN, EXHAUST TENDER [facility] Showing future appointments within next 90 days and meeting all other requirements documented in this encounter Plan of Treatment Upcoming Encounters Date Type Department Care Team (Late st Contact Info) Description 11/05/2024 3:00 PM CDT Office Visit [facility] - Neurology - [place] #2 [place] [address] Heather Oliva APRN, EXHAUST TENDER [address] [place] [address] 01/20/2025 2:00 PM CDT Office Visit [facility] - Pulmonology & Sleep Medicine - [place] #2 [place] [address] Zina Rizo APRN, JESSE #[address] [address] documented as of this encounter Visit Diagnoses Not on filedocumented in this encounter Care Teams Broodmare Barn Groom Relationship Specialty Start Date End Date Johnson Rodriguez MD [address] [place] [address] PCP - General Pediatrics 11/17/21 Zina Rizo APRN, PROFESSOR OF PHYSICAL EDUCATION #[address] [address] Nurse Practitioner Advanced Practice Nurse 06/24/22 Heather Oliva APRN, EXHAUST TENDER #[address] [place] [address] Nurse Practitioner Advanced Practice Nurse 12/22/21 Zina Rizo APRN, PROFESSOR OF PHYSICAL EDUCATION #[address] [address] Nurse Practitioner Advanced Practice Nurse 01/06/23 iSlvana Brown APRN, PROFESSOR OF PHYSICAL EDUCATION #[address] [place] [address] Nurse Practitioner Advanced Practice Nurse 07/14/22 documented as of this encounter
--- OUTSIDE RECORDS SUMMARY | 2024-08-26 17:39 | XMS_ITS | Encounter Summary ---
Author Organization [facility] Address [address] [place] [address] Phone Care Team Providers Care Picking Supervisor Name Role Phone Johnson Rodriguez MD Primary Care Provider +1- [phone] Zina Rizo APRN, WOOL SUPPLIER Unavailable +1- [phone] Heather Oliva APRN, ABATTOIR SUPERVISOR Unavailable + [phone] Zina Rizo APRN, WOOL SUPPLIER Unavailable Silvana Brown APRN, WOOL SUPPLIER Unavailable Reason for Visit * Reason Comments Medication Refill Encounter Details Date Type Department Care Team (Late st Contact Info) Description 06/29/2023 Refill [facility] - Gastroenterology - [place] [address]2 [place] [address] Silvana Brown APRN, WOOL SUPPLIER [address] [place] [address] Medication Refill Social History Tobacco Use Types [...] Denae Cameron RN - 07/04/2023 10:32 AM BARBER APPRENTICE Per nursing clinical judgement, provider to review [...] Visit Silvana Brown APRN, CNP [facility] [place] 11/08/22 Office Visit Silvana Brown APRN, JESSE [facility] [place] 07/14/22 Office Visit Silvana Brown APRN, JESSE [facility] [place] Showing recent visits within past 365 days and meeting all other requirements Future Appointments No visits were found meeting these conditions. Showing future appointments within next 90 days and meeting all other requirements ER APPRENTICE documented in this encounter Plan of Treatment Upcoming Encounters Date Type Department Care Team (Late st Contact Info) Description 11/05/2024 3:00 PM CDT Office Visit [facility] - Neurology - [place] [address] [place] [address] Heather Oliva APRN, ABATTOIR SUPERVISOR #2 [place] [address] 01/20/2025 2:00 PM CDT Office Visit [facility] - Pulmonology & Sleep Medicine - [place] #2 [facility] [place] [address] Zina Rizo APRN, WOOL SUPPLIER [address] [place] [address] documented as of this encounter Visit Diagnoses Diagnosis Epigastric pain Abdominal pain, epigastric documented in this encounter Care Teams Picking Supervisor Relationship Specialty Start Date End Date Johnson Rodriguez MD [address] [place] [address] PCP - General Pediatrics 11/17/21 Zina Rizo, AJ, WOOL SUPPLIER #[address] [address] Nurse Practitioner Advanced Practice Nurse 06/24/22 Heather Oliva APRN, ABATTOIR SUPERVISOR [address]2 [place] [address] Nurse Practitioner Advanced Practice Nurse 12/22/21 Zina Rizo, AJ, WOOL SUPPLIER #[address] [address] Nurse Practitioner Advanced Practice Nurse 01/06/23 Silvana Brown APRN, WOOL SUPPLIER [address] [place] [address] Nurse Practitioner Advanced Practice Nurse 07/14/22 documented as of this encounter
--- OUTSIDE RECORDS SUMMARY | 2024-08-26 17:39 | XMS_ITS | Encounter Summary ---
Author Organization [facility] Address [address] [place] [address] Phone Care Team Providers Care Cocoa Milling Machine Operator Name Role Phone Johnson Rodriguez MD Primary Care Provider +1- [phone] Zina Rizo APRN, VISUAL MERCHANDISING SPECIALIST Unavailable +1- [phone] Heather Oliva HYDROGEOLOGIST, THAW SHED HEATER TENDER Unavailable +- [phone] Zina Rizo APRN, VISUAL MERCHANDISING SPECIALIST Unavailable Silvana Brown HYDROGEOLOGIST, VISUAL MERCHANDISING SPECIALIST Unavailable Reason for Visit * Reason Comments Medication Refill Encounter Details Date Type Department Care Team (Late st Contact Info) Description 08/26/2022 Refill [facility] - Neurology [facility] [address]2 [place] [address] Heather Oliva HYDROGEOLOGIST, THAW SHED HEATER TENDER [address] [place] [address] Medication Refill Social History Tobacco Use Types [...] Dept 07/26/22 Office Visit Heather Oliva APRN, THAW SHED HEATER TENDER [facility] Neurology [place] [facility] 04/26/22 Office Visit Heather Oliva APRN, JOSE [facility] [place] 12/22/21 Office Visit Heather Oliva APRN, THAW SHED HEATER TENDER [facility] Neurology [facility] Showing recent visits within past 365 days and meeting all other requirements Future Appointments Date Type Provider Dept 10/26/22 Appointment Heather Oliva APRN, THAW SHED HEATER TENDER [facility] [place] Showing future appointments within next 90 days and meeting all other requirements documented in this encounter Plan of Treatment Upcoming Encounters Date Type Department Care Team (Late st Contact Info) Description 11/05/2024 3:00 PM CDT Office Visit [facility] - Neurology - [place] [address] [place] [address] Heather Oliva APRN, THAW SHED HEATER TENDER [address] [place] [address] 01/20/2025 2:00 PM CDT Office Visit [facility] - Pulmonology & Sleep Medicine - [place] #[address] [place] [address] Zina Rizo APRN, VISUAL MERCHANDISING SPECIALIST #[address] [address] documented as of this encounter Visit Diagnoses Diagnosis Chronic migraine w/o aura w/o status migrainosus, not intractable Chronic migraine without aura, without mention of intractable migraine without mention of status migrainosus documented in this encounter Care Teams Cocoa Milling Machine Operator Relationship Specialty Start Date End Date Johnson Rodriguez MD [address] [place] [address] PCP - General Pediatrics 11/17/21 Zina Rizo APRN, VISUAL MERCHANDISING SPECIALIST #[address] [address] Nurse Practitioner Advanced Practice Nurse 06/24/22 Heather Oliva APRN, THAW SHED HEATER TENDER [address]2 [place] [address] Nurse Practitioner Advanced Practice Nurse 12/22/21 Zina Rizo, AJ, VISUAL MERCHANDISING SPECIALIST #[address] [address] Nurse Practitioner Advanced Practice Nurse 01/06/23 Silvana Brown APRN, VISUAL MERCHANDISING SPECIALIST #2 [place] [address] Nurse Practitioner Advanced Practice Nurse 07/14/22 documented as of this encounter
--- OUTSIDE RECORDS SUMMARY | 2024-08-26 17:39 | XMS_ITS | Encounter Summary ---
Author Organization [facility] Address [address] [place] [address] Phone Care Team Providers Care Church Warden Name Role Phone Johnson Rodriguez MD Primary Care Provider +1- [phone] Zina Rizo APRN, LAND DEVELOPMENT PROJECT MANAGER Unavailable [phone]- [phone] Heather Oliva DELIVERY ROOM CLERK, RECREATION FACILITY MANAGER Unavailable + [phone] Zina Rizo APRN, LAND DEVELOPMENT PROJECT MANAGER Unavailable Silvana Brown DELIVERY ROOM CLERK, LAND DEVELOPMENT PROJECT MANAGER Unavailable Reason for Visit * Reason Comments Medication Refill Encounter Details Date Type Department Care Team (Late st Contact Info) Description 06/28/2022 Refill [facility] - [facility]rology [facility] [address]2 [place] [address] Heather Oliva DELIVERY ROOM CLERK, RECREATION FACILITY MANAGER [address]2 [place] [address] Medication Refill Social History Tobacco Use Types [...] Coronavirus/COVID-19? No / Unsure 06/24/2022 11:28 AM RN DIGESTIVE documented as of this encounter Miscellaneous Notes [...] Dept 04/26/22 Office Visit Heather Oliva APRN, RECREATION FACILITY MANAGER [facility] [place] 12/22/21 Office Visit Heather Oliva APRN, JOSE [facility]rology [place] Showing recent visits within past 365 days and meeting all other requirements Future Appointments Date Type Provider Dept 07/26/22 Appointment Heather Oliva APRN, RECREATION FACILITY MANAGER [facility] Showing future appointments within next 90 days and meeting all other requirements DIGESTIVE documented in this encounter Plan of Treatment Upcoming Encounters Date Type Department Care Team (Late st Contact Info) Description 11/05/2024 3:00 PM CDT Office Visit [facility] - Neurology - [place] [address]2 [place] [address] Heather Oliva APRN, RECREATION FACILITY MANAGER #[address] [facility] [place] [address] 01/20/2025 2:00 PM CDT Office Visit [facility] - Pulmonology & Sleep Medicine - [place] [address]2 [place] [address] Zina Rizo APRN, LAND DEVELOPMENT PROJECT MANAGER #[address] [address] documented as of this encounter Visit Diagnoses Diagnosis Chronic migraine w/o aura w/o status migrainosus, not intractable Chronic migraine without aura, without mention of intractable migraine without mention of status migrainosus documented in this encounter Care Teams Church Warden Relationship Specialty Start Date End Date Johnson Rodriguez MD [address] [place] [address] PCP - General Pediatrics 11/17/21 Zina Rizo APRN, LAND DEVELOPMENT PROJECT MANAGER #[address] [address] Nurse Practitioner Advanced Practice Nurse 06/24/22 Heather Oliva APRN, RECREATION FACILITY MANAGER #2 [place] [address] Nurse Practitioner Advanced Practice Nurse 12/22/21 Zina Rizo APRN, LAND DEVELOPMENT PROJECT MANAGER #[address] [address] Nurse Practitioner Advanced Practice Nurse 01/06/23 Silvana Brown APRN, LAND DEVELOPMENT PROJECT MANAGER #[address] [place] [address] Nurse Practitioner Advanced Practice Nurse 07/14/22 documented as of this encounter
--- OUTSIDE RECORDS SUMMARY | 2024-08-26 17:39 | XMS_ITS | Encounter Summary ---
Author Organization [facility] Address [address] [place] [address] Phone Care Team Providers Care Process Engineering Intern Name Role Phone Johnson Rodriguez MD Primary Care Provider [phone]- [phone] Zina Rizo APRN, RICE FIELD WORKER Unavailable [phone]- [phone] Heather Oliva PIPE FITTER GAS PIPE, DOOR REPAIRER BUS Unavailable + [phone] Zina Rizo APRN, RICE FIELD WORKER Unavailable Silvana Brown PIPE FITTER GAS PIPE, RICE FIELD WORKER Unavailable Reason for Visit * Reason Comments Medication Refill Encounter Details Date Type Department Care Team (Late st Contact Info) Description 09/24/2022 Refill [facility] - Neurology [facility] [place] [address] [place] [address] Heather Oliva PIPE FITTER GAS PIPE, DOOR REPAIRER BUS [address] [place] [address] Medication Refill Social History Tobacco Use Types [...] Dept 07/26/22 Office Visit Heather Oliva APRN, DOOR REPAIRER BUS [facility] Neurology [facility] [place] 04/26/22 Office Visit Heather Oliva APRN, DOOR REPAIRER BUS [facility] Neurology [facility] [place] 12/22/21 Office Visit Heather Oliva APRN, DOOR REPAIRER BUS [facility] Showing recent visits within past 365 days and meeting all other requirements Future Appointments Date Type Provider Dept 10/26/22 Appointment Heather Oliva APRN, DOOR REPAIRER BUS [facility] Showing future appointments within next 90 days and meeting all other requirements documented in this encounter Plan of Treatment Upcoming Encounters Date Type Department Care Team (Late st Contact Info) Description 11/05/2024 3:00 PM CDT Office Visit [facility] - Neurology - [place] [address] [place] [address] Heather Oliva APRN, DOOR REPAIRER BUS [address] [place] [address] 01/20/2025 2:00 PM CDT Office Visit [facility] - Pulmonology & Sleep Medicine - [place] [address] [place] [address] Zina Rizo APRN, RICE FIELD WORKER #[address] [address] documented as of this encounter Visit Diagnoses Diagnosis Seizures (HCC) Other convulsions documented in this encounter Care Teams Process Engineering Intern Relationship Specialty Start Date End Date Johnson Rodriguez MD [address] [place] [address] PCP - General Pediatrics 11/17/21 Zina Rizo APRN, RICE FIELD WORKER #[address] [address] Nurse Practitioner Advanced Practice Nurse 06/24/22 Heather Oliva APRN, DOOR REPAIRER BUS [address] [place] [address] Nurse Practitioner Advanced Practice Nurse 12/22/21 Zina Rizo APRN, RICE FIELD WORKER #[address] [address] Nurse Practitioner Advanced Practice Nurse 01/06/23 Silvana Brown APRN, RICE FIELD WORKER [address] [place] [address] Nurse Practitioner Advanced Practice Nurse 07/14/22 documented as of this encounter
--- OUTSIDE RECORDS SUMMARY | 2024-08-26 17:39 | XMS_ITS | Encounter Summary ---
Author Organization [facility] Address [address] [place] [address] Phone Care Team Providers Care Ladle Patcher Name Role Phone Johnson Rodriguez MD Primary Care Provider [phone]- [phone] Zina Rizo APRN, MIXING ENGINEER Unavailable +1- [phone] Heather Oliva REGIONAL WILDLIFE AGENT, LUMBER INSPECTOR Unavailable +- [phone] Zina Rizo APRN, MIXING ENGINEER Unavailable Silvana Brown REGIONAL WILDLIFE AGENT, MIXING ENGINEER Unavailable Reason for Visit * Reason Comments Medication Refill Encounter Details Date Type Department Care Team (Late st Contact Info) Description 07/24/2023 Refill [facility] - [facility]rology [facility] #2 [place] [address] Heather Oliva REGIONAL WILDLIFE AGENT, LUMBER INSPECTOR [address] [place] [address] Medication Refill Social History Tobacco Use Types [...] Dept 05/31/23 Office Visit Heather Oliva APRN, LUMBER INSPECTOR [facility] Neurology [facility] 01/27/23 Office Visit Heather Oliva APRN, JOSE [facility] 01/06/23 Procedure Visit Dago Land MD [facility] Neurology [facility] 10/26/22 Office Visit Heather Oliva APRN, JOSE [facility] 07/26/22 Office Visit Heather Oliva APRN, JOSE [facility] Showing recent visits within past 365 days and meeting all other requirements Future Appointments Date Type Provider Dept 08/01/23 Appointment Heather Oliva APRN, LUMBER INSPECTOR [facility] Showing future appointments within next 90 days and meeting all other requirements documented in this encounter Plan of Treatment Upcoming Encounters Date Type Department Care Team (Late st Contact Info) Description 11/05/2024 3:00 PM CDT Office Visit [facility] - Neurology - [place] [address] [place] [address] Heather Oliva APRN, LUMBER INSPECTOR [address] [place] [address] 01/20/2025 2:00 PM CDT Office Visit [facility] - Pulmonology & Sleep Medicine - [place] [address] [place] [address] Zina Rizo APRN, JESSE #[address] [address] documented as of this encounter Visit Diagnoses Not on filedocumented in this encounter Care Teams Ladle Patcher Relationship Specialty Start Date End Date Johnson Rodriguez MD [address] [place] [address] PCP - General Pediatrics 11/17/21 Zina Rizo APRN, MIXING ENGINEER #[address] [address] Nurse Practitioner Advanced Practice Nurse 06/24/22 Heather Oliva APRN, LUMBER INSPECTOR #[address] [place] [address] Nurse Practitioner Advanced Practice Nurse 12/22/21 Zina Rizo APRN, MIXING ENGINEER #[address] [address] Nurse Practitioner Advanced Practice Nurse 01/06/23 Silvana Brown APRN, MIXING ENGINEER #[address] [place] [address] Nurse Practitioner Advanced Practice Nurse 07/14/22 documented as of this encounter
--- OUTSIDE RECORDS SUMMARY | 2024-08-26 17:39 | XMS_ITS | Encounter Summary ---
Author Organization [facility] Address [address] [place] [address] Phone Care Team Providers Care Dress Finisher Name Role Phone Johnson Rodriguez MD Primary Care Provider +1- [phone] Zina Rizo APRN, PROSTHETICS TECHNICIAN Unavailable +1- [phone] Heather Oliva NUTRITION TECHNICIAN, DENTAL BILLER Unavailable +- [phone] Zina Rizo APRN, PROSTHETICS TECHNICIAN Unavailable Silvana Brown NUTRITION TECHNICIAN, PROSTHETICS TECHNICIAN Unavailable Reason for Visit * Reason Comments Medication Refill Encounter Details Date Type Department Care Team (Late st Contact Info) Description 02/24/2023 Refill [facility] - Neurology [facility] [address] [place] [address] Heather Oliva NUTRITION TECHNICIAN, DENTAL BILLER #2 [place] [address] Medication Refill Social History Tobacco Use Types [...] Dept 01/27/23 Office Visit Heather Oliva APRN DENTAL BILLER [facility] 01/06/23 Procedure Visit Dago Land MD [facility] Neurology [facility] 10/26/22 Office Visit Heather Oliva APRN, CNS [facility] Neurology [place] 07/26/22 Office Visit Heather Oliva APRN, JOSE [facility] Neurology [place] [facility] 04/26/22 Office Visit Heather Oliva APRN [facility] Neurology [facility] [place] Showing recent visits within past 365 days and meeting all other requirements Future Appointments Date Type Provider Dept 04/04/23 Appointment Heather Oliva APRN DENTAL BILLER [facility] Neurology [place] [facility] Showing future appointments within next 90 days and meeting all other requirements documented in this encounter Plan of Treatment Upcoming Encounters Date Type Department Care Team (Late st Contact Info) Description 11/05/2024 3:00 PM CDT Office Visit [facility] - Neurology - [place] [address] [place] [address] Heather Oliva APRN, DENTAL BILLER [address] [place] [address] 01/20/2025 2:00 PM CDT Office Visit [facility] - Pulmonology & Sleep Medicine [facility] [address] [place] [address] Zina Rizo APRN, PROSTHETICS TECHNICIAN #[address] [address] documented as of this encounter Visit Diagnoses Not on filedocumented in this encounter Care Teams Dress Finisher Relationship Specialty Start Date End Date Johnson Rodriguez MD [address] [place] [address] PCP - General Pediatrics 11/17/21 Zina Rizo APRN, PROSTHETICS TECHNICIAN #[address] [address] Nurse Practitioner Advanced Practice Nurse 06/24/22 Heather Oliva APRN, DENTAL BILLER [address] [place] [address] Nurse Practitioner Advanced Practice Nurse 12/22/21 Zina Rizo APRN, PROSTHETICS TECHNICIAN #[address] [address] Nurse Practitioner Advanced Practice Nurse 01/06/23 Silvana Brown APRN, PROSTHETICS TECHNICIAN #[address] [place] [address] Nurse Practitioner Advanced Practice Nurse 07/14/22 documented as of this encounter
== END 2024-08-26 15:28 | disposition home or self-care (01) ==
LOC: CHSIMG 15:29
PROVIDERS: PCP Family Medicine; Visit Provider Family Medicine
DX: M25.512 Pain in left shoulder (principal); M79.602 Pain in left arm
CPT/HCPCS: 73030; 73060

== ENCOUNTER 2024-10-18 15:05 | Outpatient (RCR) | payer OTHER, MEDICARE, SELFPAY ==
--- NOTE | 2024-10-18 15:50 | OPREHPOC ---
Outpatient Therapy Plan of Care This is a Multidisciplinary Plan of Care that may contain components documented by all disciplines (PT, OT, and ST.) PT Problem 1 PT Problem #1 Knowledge Deficit PT Goal 1 Goal / Goal Update independent and compliant with HEP Target Visit 6 PT Problem 2 PT Problem #2 Pain PT Goal 1 Goal / Goal Update decrease pain at worst to 4/5 or less in the L shoulder in the last week Target Visit 12 PT Problem 3 PT Problem #3 Impaired Range of Motion PT Goal 1 Goal / Goal Update 135 degrees or better active L shoulder flex 110 degrees or better active L shoulder abd 60 degrees or better active L shoulder ER 60 degrees or better active L shoulder IR Target Visit 12 PT Problem 4 PT Problem #4 Impaired Strength PT Goal 1 Goal / Goal Update 4/5 or better overall L shoulder strength 4+/5 or better overall L elbow strength Target Visit 12 PT Problem 5 PT Problem #5 Impaired Functional Mobility PT Goal 1 Goal / Goal Update quick dash to display 30% or less functional deficits patient to lift 2lb weight overhead to tall shelf patient to easily reach occiput and lumbar spine with the L hand to improve ADL performance and personal hygeine Target Visit 12
--- NOTE | 2024-10-18 15:50 | PTOPEVAL1 ---
Assessment and note entered by JT File, PT Evaluation Information Assessment Status Evaluation ICD-10 Condition Codes (PT) Pain in left shoulder M25.512 Onset 07/30/2024 Subjective Information patient reports she has been having pain and limited mobility/use of the L shoulder since july of this year. she just had injection to the L shoulder which helped just a little bit. she reports she fell in may of this year, but had not gotten any pain until july. she reports she has had an xray of the L shoulder. she reports the ortho believes it is possibly a frozen shoulder but may be more serious. however, unable to tell without advanced imaging. she reports she has lateral arm pain at night. she reports she has difficulty reaching overhead, behind her head and back, and across her body with the L UE. Reported Pain Level Pain Score 0: Self Report Assessment PT Clinical Summary mrs. guerrero is a 64 yo woman who presents to skilled PT services with L shoulder pain. she displays pain with activity, decreased rom, decreased strength, and positive special tests of the cuff. her symptoms indicate a L adhesive capsulitis, but a potential RTC tear cannot be ruled out at this time. continued skilled PT is indicated to improve her objective/functional deficits and return to her prior level functional activity performance/quality of life. Plan of Care Interventions Hot Pack/Cold Pack,Manual Therapy,Neuro Re- education,Patient/Caregiver Education,Therapeutic Activities,Therapeutic Exercise PT Services Indicated Yes Treatment Frequency and 3x weekly for 12 visits Duration These treatments will address the objective and functional deficits as defined above. The patient will be advanced safely and appropriately in order for the patient to progress towards his/her prior level of function. Additional exercises will be introduced and as well as a comprehensive home exercise program upon discharge, if needed, ?to ensure carryover of functional gains achieved in the clinic. This treatment plan has been reviewed and agreement upon by the patient.
--- NOTE | 2024-10-24 14:23 | PCPTNOTE ---
Patient called & cancelled scheduled appointment this date due to having a seizure. -Kirsten Gary, PT
--- NOTE | 2025-01-16 07:47 | PCPTNOTE ---
Mrs. Toribio attended 6 skilled PT visits for L shoulder pain and possible frozen shoulder. She has not attended a PT visit since 11/04/2024. We called her yesterday and she reports she returned to her MD who said her shoulder looked good and she did not need to return to PT. She will be discharged this date. Lashonda Alejo, MARY JOT
== END 2025-01-16 23:59 | disposition home or self-care (01) ==
LOC: CHSPT 15:05
PROVIDERS: Visit Provider Orthopaedic Surgery
DX: M25.512 Pain in left shoulder (principal); M75.02 Adhesive capsulitis of left shoulder
CPT/HCPCS: 97110; 97140; 97161